=== PATIENT | male | born 1940 | race Two or more races ===

== ENCOUNTER 2024-10-14 18:19 | Inpatient (IN) | payer MEDICARE, MEDICAID, SELFPAY ==
--- OUTSIDE RECORDS SUMMARY | 2023-07-18 04:45 | XMS_ITS ---
Author Organization [facility] vices Address [address] [place], [place] [phone] Care Team Providers Care Warhead Maintenance Specialist Name Role Phone Eric Green Primary Care Provider [phone] Chema Roe [phone] REASON FOR VISIT F/u 2mo DM, Thyroid Social History Sex Assigned At : Social History Observation Description Sex Assigned At Male Encounters Encounter Location Date Provider Diagnosis [address] [id number] 07/18/2023 Chema Roe Plan Of Treatment No Information Progress Notes * Haven CUNNINGHAMShelbyOB: 3 (83 yo M)Acc No.[id number]:07/18/2023 Medical Note Patient: Osmany NICKERSON Provider: Karyn Roe MD :1940 A ge:82 Y S ex:Male Date:07/18/2023 Address:[address] [place], [place] [phone] Pcp:Eric Green Subjective: * Chief Complaints: * 1 . F/u 2mo DM, Thyroid. * Medical History: Objective: * Vitals: Assessment: Plan: * Treatment: * Billing Information: * Visit Code: * Procedure Codes: * Electronic signature of Jose Alberto Roe MD on 10/14/2024 at 06:34 PM EDT Sign off status: Pending * Provider: Karyn Roe MD Date: 07/18/2023 Generated for Printi ng/Faxing/eTransmitting on: 10/14/2024 06:34 PM EDT
--- OUTSIDE RECORDS SUMMARY | 2023-07-18 04:45 | XMS_ITS ---
Author Organization [facility] vices Address [address] [place], [place] [phone] Care Team Providers Care Montessori Preschool Teacher Name Role Phone Eric Green Primary Care Provider Chema Roe Unavailable [phone] REASON FOR VISIT F/u 2mo DM, Thyroid Social History Sex Assigned At : Social History Observation Description Sex Assigned At Male Encounters Encounter Location Date Provider Diagnosis [address] [id number] 07/18/2023 Chema Roe Plan Of Treatment No Information Progress Notes * Haven CUNNINGHAMShelbyOB: 3 (83 yo M)Acc No.[id number]:07/18/2023 Medical Note Patient: Osmany NICKERSON Provider: Karyn Roe MD :1940 A ge:82 Y S ex:Male Date:07/18/2023 Address:[address] [place], [place] [phone] Pcp:Eric Green Subjective: * Chief Complaints: * 1 . F/u 2mo DM, Thyroid. * Medical History: Objective: * Vitals: Assessment: Plan: * Treatment: * Billing Information: * Visit Code: * Procedure Codes: * Electronic signature of Jose Alberto Roe MD on 10/15/2024 at 06:42 AM EDT Sign off status: Pending * Provider: Karyn Roe MD Date: 07/18/2023 Generated for Printi ng/Faxing/eTransmitting on: 10/15/2024 06:42 AM EDT
--- OUTSIDE RECORDS SUMMARY | 2023-11-10 12:45 | XMS_ITS ---
Author Organization [facility] vices Address [address] [place], [place] [phone] Care Team Providers Care Tuber Machine Operator Helper Name Role Phone Eric Green Primary Care Provider Chema Roe Unavailable [phone] REASON FOR VISIT F/u DM, Thyroid ( labs One week prior) Social History Sex Assigned At : Social History Observation Description Sex Assigned At Male Encounters Encounter Location Date Provider Diagnosis [address] [id number] 11/09 Eric Green Plan Of Treatment No Information Progress Notes * Luis CUNNINGHAMOB: 3 (83 yo M)Acc No.[id number]:2023 Medical Note Patient: Timmy NICKERSONriel Provider: Phoenix Green PA-C :1940 A ge:82 Y S ex:Male Date:2023 Address:[address] [place], [place] [phone] Subjective: * Chief Complaints: * 1 . F/u DM, Thyroid ( labs One week prior). * Medical History: Objective: * Vitals: Assessment: Plan: * Treatment: * Billing Information: * Visit Code: * Procedure Codes: * Electronic signature of KAYLIN Valle on 10/15/2024 at 06:42 AM EDT Sign off status: Pending * Provider: Phoenix Green PA-C Date: 0 2023 Generated for Printi ng/Faxing/eTransmitting on: 0 10/15/2024 06:42 AM EDT
--- OUTSIDE RECORDS SUMMARY | 2024-07-29 12:23 | XMS_ITS ---
Author Organization [facility] [place] Address [address] [place] [address] Care Team Providers Care Performance Reporter Name Role Phone Brock Jarvis Primary Care Provider REASON FOR VISIT [facility] - Med Adherence Encounters Encounter Location Date Provider Diagnosis [facility] [address] [place] [address] 07/29/2024 Brock Jarvis Plan Of Treatment Next Appt Details Provider Name:Brock mayberry, 02/02/2025 03:15:00 PM, [address] [place], [address], Progress Notes * Luis CUNNINGHAMOB: 3 (83 yo M)Acc No.[id number]:07/29/2024 Patient: Timmy NICKERSONriel :1940 A ge:83 Y S ex:Male Address:[address] [place] [address], [phone] * true * Date: Generated for Jonah mayberry/Faxing/eTransmitting on: 0 10/14/2024 06:34 PM EDT
--- OUTSIDE RECORDS SUMMARY | 2024-07-29 12:23 | XMS_ITS ---
Author Organization [facility] [place] Address [address] [place] [address] Care Team Providers Care Team Leader Surgery Name Role Phone Brock Jarvis Primary Care Provider REASON FOR VISIT [facility] - Med Adherence Encounters Encounter Location Date Provider Diagnosis [facility] [address] [place] [address] 07/29/2024 Brock Jarvis Plan Of Treatment Next Appt Details Provider Name:Brock mayberry, 02/02/2025 03:15:00 PM, [address] [place], [address], Progress Notes * Luis CUNNINGHAMOB: 3 (83 yo M)Acc No.[id number]:07/29/2024 Patient: Timmy NICKERSONriel :1940 A ge:83 Y S ex:Male Address:[address] [place] [address], [phone] * true * Date: Generated for Jonah mayberry/Falucyg/eTransmitting on: 0 10/15/2024 06:43 AM EDT
--- OUTSIDE RECORDS SUMMARY | 2024-08-02 11:30 | XMS_ITS ---
Author Organization [facility] in [place] Address [address] [place] [address] Care Team Providers Care Director Radio News Name Role Phone Brock Jarvis Primary Care Provider Allergies No Known Allergies REASON FOR VISIT -3 Month Follow Up- Medications Medication SIG (Take, Route, Frequency, Duration) Notes Start Date End Date Status Lisinopril 2.5 MG 1 tablet Orally Once a day for 90 days 03/17/2024 Not-Taking metFORMIN HCl 500 MG 1 tablet with a dwayne l Orally Once a day for 90 days Active Lisinopril 2.5 MG 1 tablet Orally Once a day for 90 days 04/29/2024 Active Levothyroxine Sodium 150 MCG 1 tablet in the morning on an empty stomach Orally Once a day for 90 days Active Social History Tobacco Use: Social History Observation Description Date Details (start date - stop date) Never Smoker NA - NA Tobacco Control (Standard) Question Answer Notes Tobacco use: Nonsmoker Vital Signs Blood pressure systolic 118 mm Hg 08/03/19 25 Blood pressure diastolic 70 mm Hg 025 Heart Rate 83 /min 08/02/2024 Respiratory Rate 16 /min 08/02/2024 Height 65 in 08/02/2024 Weight 196.4 lbs 08/02/2024 BMI 32.68 kg/m2 08/02/2024 Oximetry 94 % 08/02/2024 Procedures Procedure Date Ordered Date Performed Result Body Sit e CARDIO Stress Test - Cardiolite 08/02/2024 N/A Encounters Encounter Location Date Provider Diagnosis [facility] [address] [place] [address] 08/02/2024 Brock Jarvis Other obesity due to excess calories E66.09 ; Body mass index [BMI] 32.0-32.9, adult Z68.32 ; Obesity, class 1 E66.811 ; Shortness of breath R06.02 ; Hypothyroidism, unspecified E03.9 ; Type 2 diabetes mellitus with other diabetic kidney complication E11.29 ; Chest pain, unspecified R07.9 and 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 Assessments Encounter Date Diagnosis (ICD Code) Assessment Notes Treatment Notes Treatment Clinical Notes Section Notes 08/02/2024 Other obesity due to excess calories (ICD-10 - E66.09) diet/exercise 08/02/2024 Body mass index [BMI] 32.0-32.9, adult (ICD-10 - Z68.32) 08/02/2024 Obesity, class 1 (ICD-10 - E66.811) 08/02/2024 Shortness of breath (ICD-10 - R06.02) ?etiology set up stress test ER if worsens 08/02/2024 Hypothyroidism, unspecified (ICD-10 - E03.9) lab yearly stable 08/02/2024 Type 2 diabetes mellitus with other diabetic kidney complication (ICD-10 - E11.29) stable monitor a1c and bmp and urine microalbumin monitor bs rtc 6 months rec increasing DAVID - pt to hold off 08/02/2024 Chest pain, unspecified (ICD-10 - R07.9) ER if worsens ?CAD 08/02/2024 Other nonrheumatic aortic valve disorders (ICD-10 - I35.8) pt do echo we set up in past to r/o worsening valvular dz as cause of his SOB/fatigue Plan Of Treatment Medication Medication Name Sig Start Date Stop Date Notes metFORMIN HCl 500 MG 1 tablet with a dwayne l Orally Once a day for 90 days Lisinopril 2.5 MG 1 tablet Orally Once a day for 90 days 04/29/2024 Levothyroxine Sodium 150 MCG 1 tablet in the morning on an empty stomach Orally Once a day for 90 days Treatment Notes Assessment Notes Other obesity due to excess calories t/exercise Shortness of breath ?etiology set up stress test ER if worsens Hypothyroidism, unspecified lab yearly stable Type 2 diabetes mellitus wit h other diabetic kidney complication stable monitor a1c and bmp and urine microalbumin monitor bs rtc 6 months rec increasing DAVID - pt to hold off Chest pain, unspecified ER if worsens ?CAD Other nonrheumatic aortic valve disorder s pt do echo we set up in past to r/o worsening valvular dz as cause of his SOB/fatigue Pending Test Test Name Order Date CARDIO Stress Test - Cardiolite 08/03/19 Next Appt Details Provider Name:Brock Mills shawanda, 02/02/2025 03:15:00 PM, [address] [place], [address], Progress Notes * CUNNINGHAMLuisOB: 3 (83 yo M)Acc No.[id number]:08/02/2024 Established Patient: Osmany NICKERSON Provider: Giulia Jarvis DO :1940 A ge:83 Y S ex:Male Date:08/02/2024 Address:[address] [place], [place] [address] Check In:02:57 PM ESTCheck O ut:03:35 PM EST Subjective: * Chief Complaints: * - 3 Month Follow Up- * HPI: G eneral: Patient presents today for 3 month follow up. Patient states he would like a refill on all meds and to be 90 days worth. He states he is sob sometimes. He states it has been going on for about 4 months he has been sob and having fatigue.-MV - - - - - - - - - - +SOB/TRAVIS more lately no dizzy/palp occ chest discomfort +fatigue - - - - -- not checking BP/BS at home - - - - - - -- +sys murmiur never did echo from last appt - - - - - - - - - [phone] - daughter - - - - - - - - - - tolerating all meds no f/c/URI s/s no N/V/D/C/blood no dysuria/hematuria +nocturia no joint swelling +various joint pains no rashes mood ok 04/29/24 A1c 5.7 01/2024 labs reviewed - bmp done - - - - - - -- tolerating all meds - - - - - - - - 01/2024 labs - Cr 0.75, GFR >90, TSH normal, urine microalbumin abnormal. D epression Screening: PHQ-2 (2015 Edition) L ittle interest or pleasure in doing things??Not at all F eeling down, depressed, or hopeless? N ot at all T otal Score 0 * ROS: G eneral/Constitutional: Significant change in weight d enies. E xercise Intolerance d enies. N ight sweats d enies. F ever d enies. E yes: Dry eyes D enies. V ision changes d enies. ? E NMT: Sore Throat d enies. N ose Bleeds d enies. D ifficulty hearing d enies. E ar pain d enies. N ose/sinus problems d enies. S noring d enies. B leeding gums d enies. D ry mouth d enies. M outh ulcers denies. O ral abnormalities d enies. T eeth problems d enies. C ardiovascular: Shortness of Breath w/Walking a dmits. S hortness of Breath w/lying flat d enies. A rm pain on exertion d enies. C hest pain d enies,admits. H eart murmur a dmits. P alpitations d enies. R espiratory: Coughing up blood d enies. C ough d enies. S hortness of breath a dmits. W heezing d enies. G astrointestinal: Change in appetite d enies. V omiting blood d enies. A bdominal pain d enies. C onstipation d enies. D iarrhea d enies. V omiting d enies. G enitourinary: Dysuria/Increased Frequency d enies. H ematuria d enies. I ncontinence d enies. D ifficulty urinating d enies. M usculoskeletal: Swelling in the extremities d enies. A rthralgias/joint pain A dmits. B ack pain d enies. W eakness of muscles a dmits. M uscle aches d enies. S kin: Jaundice D enies. M ole(s) d enies. R kervin d enies. N eurologic: Dizziness d enies. L oss of consciousness d enies.?Numbness d enies. W eakness a dmits. H eadache d enies. S eizures d enies. P sychiatric: Alcohol abuse d enies. F eeling safe in relationship?denies. D epression d enies. A nxiety d enies. S leep Disturbances d enies. E ndocrine: Fatigue a dmits. H ematologic/Lymphatic: Swollen Glands d enies. B ruising d enies. ? A llergy/Immunology: Runny nose d enies. S inus pressure d enies. F requent sneezing d enies. H harman d enies. I tching d enies. 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 Modified On:03/17/2024 Status:confirmed Z68.30 Body mass index [BMI ] 30.0-30.9, adult Modified On:03/21/2024 Status:confirmed 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 * Family History: F ather: . M other: . 1 daughter(s) . . * Social History: T obacco Use: T obacco Control (Standard) T obacco use: N onsmoker * Medications: T akingLevothyroxine Sodium 150 MCG Tablet 1 tablet in the morning on an empty stomach Orally Once a day Lisinopril 2.5 MG Tablet 1 tablet Orally Once a day metFORMIN HCl 500 MG Tablet 1 tablet with a meal Orally Once a day Taking Levothyroxine Sodium 150 MCG Tablet 1 tablet in the morning on an empty stomach Orally Once a day Taking Lisinopril 2.5 MG Tablet 1 tablet Orally Once a day Taking metFORMIN HCl 500 MG Tablet 1 tablet with a meal Orally Once a day Not-Taking/PRNLisinopril 2.5 MG Tablet 1 tablet Orally Once a day Medication List reviewed and reconciled with the patientNot-Taking/PRN Lisinopril 2.5 MG Tablet 1 tablet Orally Once a day Medication List reviewed and reconciled with the patient * Allergies: N .K.D.A.no[Allergies Verified] Objective: * Vitals: W t:196.4lbs, Ht: 65 in, BP:118/70mm Hg, HR:83/min, RR:16/min, BMI:32.68Index, Oxygen sat %:94%, Ht-cm: 165.1 cm, Wt-k.09 kg. * Examination: G eneral Examination: GENERAL APPEARANCE: h ealthy Appearing , well nourished , well developed Level of distress: NAD, + limp, o bese. ENMT: E ACs clear, TMs clear, +poor hearing b/l, no lesions on external ears, nares patent, nasal passages clear, no sinus tenderness, no nasal discharge, no mouth or lip ulcers, no bleeding gums, moist mucous membranes, no erythema, no exudates. HEAD: n ormocephalic, atraumatic. EYES: n on-injected, no discharge, no pallor, PERRLA , EOMI, sclera non-icteric, peripheral vision grossly intact, acuity grossly intact. LUNGS: n o dyspnea, breath sounds normal , good air movement, CTA except as noted, no wheezing, no rales/crackles, no rhonchi. CARDIO: n ot displaced, RRR, S1, S2 normal, +systolic murmur, no carotid bruits, normal throughout. ABDOMEN: n ormal bowel sounds , soft, non tender, not distended, no guarding, no rebound tenderness, no masses, no CVA tenderness, liver non tender, no hepatomegaly. BACK: n ormal curvature. MUSCULOSKELETAL: + general weakness UE/LE b/l, +OA changes b/l hands, no contractures, no malalignment, no tenderness. SKIN: n o rash, no lesions, no ulcer, no abnormal nevi, no induration, no nodules, good turgor, no jaundice. EXTREMITIES: No edema. NEUROLOGIC: c ranial nerves grossly intact, sensation grossly intact, no tremor. PSYCH: j udgement and insight good, active and alert, normal mood, normal affect. NECK/THYROID: N jose supple, trachea midline, no masses, FROM, no cervical LAD, no enlargement, non-tender, no nodules. Assessment: * Assessment: 1. O ther obesity due to excess calories - E66.09 (Primary) 2 . B kervin mass index [BMI] 32.0-32.9, adult - Z68.32 3 . O besity, class 1 - E66.811 4 . S hortness of breath - R06.02 5 . H ypothyroidism, unspecified - E03.9 6 . T ype 2 diabetes mellitus with other diabetic kidney complication - E11.29 7 . C hest pain, unspecified - R07.9 8 . O ther nonrheumatic aortic valve disorders - I35.8 Plan: * Treatment: 2. S hortness of breath Notes: ?etiology set up stress test ER if worsens 3. H ypothyroidism, unspecified Refill Levothyroxine Sodium Tablet, 150 MCG, 1 tablet in the morning on an empty stomach, Orally, Once a day, 90 days, 90, Refills 3. Notes: lab yearly stable 4. T ype 2 diabetes mellitus with other diabetic kidney complication Refill Lisinopril Tablet, 2.5 MG, 1 tablet, Orally, Once a day, 90 days, 90, Refills 1; R efill metFORMIN HCl Tablet, 500 MG, 1 tablet with a meal, Orally, Once a day, 90 days, 90, Refills 3.? Notes: stable monitor a1c and bmp and urine microalbumin monitor bs rtc 6 months rec increasing DAVID - pt to hold off 5. C hest pain, unspecified P rocedure: CARDIO Stress Test - Cardiolite Notes: ER if worsens ?CAD ??6.?Other nonrheumatic aortic valve disorders? Notes: pt do echo we set up in past to r/o worsening valvular dz as cause of his SOB/fatigue? * Procedure Codes: * Preventive Medicine: Screenings/Counseling: T OBACCO ACTION PLAN Patient counselled on the dangers of tobacco use and urged to quit. 0 08/02/2024 Cessation counseling provided 0 08/02/2024 * * Sign off status: Completed Visit Status: C HK (Check Out) true * Provider: Giulia Jarvis DO Date: 0 08/02/2024 Generated for Jonah mayberry/Rylan/eTalfonsosmitting on: 0 10/14/2024 06:34 PM EDT History and Physical Notes * HPI (History of Present Illness) Category Sub-Category Detail Notes Category Not es Depression Screening PHQ-2 (2015 Edition) Little interest or pleasure in doing things?: Not at all Feeling down, depressed, or hopeless?: N ot at all Total Score: 0 Examination Category Sub-Category Detail Notes Category Not es General Examination GENERAL APPEARANCE: healthy Appearing , well nourished , well developed Level of distress: NAD, +limp, obese EYES: non-injected, no dis charge, no pallor, PERRLA , EOMI, sclera non-icteric, peripheral vision grossly intact, acuity grossly intact CARDIO: not displaced, RRR, S1, S2 normal, +systolic murmur, no carotid bruits, normal throughout LUNGS: no dyspnea, breath s ounds normal , good air movement, CTA except as noted, no wheezing, no rales/crackles, no rhonchi ABDOMEN: normal bowel sounds , soft, non tender, not distended, no guarding, no rebound tenderness, no masses, no CVA tenderness, liver non tender, no hepatomegaly NEUROLOGIC: cranial nerves gross ly intact, sensation grossly intact, no tremor SKIN: no rash, no lesions, no ulcer, no abnormal nevi, no induration, no nodules, good turgor, no jaundice EXTREMITIES: No edema BACK: normal curvature MUSCULOSKELETAL: +general weakness UE /LE b/l, +OA changes b/l hands, no contractures, no malalignment, no tenderness PSYCH: judgement and insigh t good, active and alert, normal mood, normal affect ENMT: EACs clear, TMs shahnaz r, +poor hearing b/l, no lesions on external ears, nares patent, nasal passages clear, no sinus tenderness, no nasal discharge, no mouth or lip ulcers, no bleeding gums, moist mucous membranes, no erythema, no exudates HEAD: normocephalic, atrau matic NECK/THYROID: Neck supple, trachea midline, no masses, FROM, no cervical LAD, no enlargement, non-tender, no nodules
--- OUTSIDE RECORDS SUMMARY | 2024-08-02 11:30 | XMS_ITS ---
Author Organization [facility] in [place] Address [address] [place] [address] Care Team Providers Care Straight Cutter Name Role Phone Brock Jarvis Primary Care Provider [phone] Allergies No Known Allergies REASON FOR VISIT [...] Answer Notes Tobacco use: Nonsmoker Vital Signs Weight 196.4 lbs 08/02/2024 Height 65 in 08/02/2024 Blood pressure systolic 118 mm Hg 08/03/19 25 Blood pressure diastolic 70 mm Hg 025 Heart Rate 83 /min 08/02/2024 Respiratory Rate 16 /min 08/02/2024 BMI 32.68 kg/m2 08/02/2024 Oximetry 94 % 08/02/2024 Procedures Procedure Date Ordered Date Performed Result Body Sit e CARDIO Stress Test - Cardiolite 08/02/2024 N/A Encounters Encounter Location Date Provider Diagnosis [facility] [address] [place] [address] 08/02/2024 Brock Jarvis Other obesity due to [...] Mills shawanda, 02/02/2025 03:15:00 PM, [address] [place], [address], Progress Notes * CUNNINGHAMLuisOB: 3 (83 yo M)Acc No.[id number]:08/02/2024 Established Patient: Osmany NICKERSON Provider: Giulia Jarvis DO :1940 A ge:83 Y S ex:Male Date:08/02/2024 Address:[address] [place], [place] [address] Check In:02:57 PM ESTCheck O ut:03:35 PM [...] - - - - - - - [phone] - daughter - - - - - [...] 08/02/2024 Generated for Jonah mayberry/Rylan/eTalfonsosmitting on: 0 10/15/2024 06:42 AM EDT History and Physical Notes * HPI [...]
[2024-10-14] VITALS (28 sets, daily range): BP systolic 103–134; BP diastolic 67–88; PULSE 65–92; TEMP 36.4–36.6; O2SAT 91–99; BMI 29.8; BMI 31.5
--- OUTSIDE RECORDS SUMMARY | 2024-10-14 11:14 | XMS_ITS ---
Author Organization [facility] in [place] Address [address] [place] [address] Care Team Providers Care Rail Car Mechanic Name Role Phone Brock Jarvis Primary Care Provider [phone] REASON FOR VISIT son Encounters Encounter Location Date Provider Diagnosis [address] [address] 10/14/2024 Brock Jarvis Plan Of Treatment Next Appt Details Provider Name:Brock mayberry, 02/02/2025 03:15:00 PM, [address] [place], [address], Progress Notes * Wilmer CUNNINGHAM: 3 (83 yo M)Acc No.[id number]:10/14/2024 Patient: Timmy NICKERSONriel :1940 A ge:83 Y S ex:Male Address:[address] [place] [address], [address] * true * Date: Generated for Jonah mayberry/Falucyg/eTransmitting on: 0 10/15/2024 06:43 AM EDT
--- OUTSIDE RECORDS SUMMARY | 2024-10-14 11:14 | XMS_ITS ---
Author Organization [facility] in [place] Address [address] [place] [address] Care Team Providers Care Assistant Teacher Name Role Phone Brock Jarvis Primary Care Provider [phone] REASON FOR VISIT son Encounters Encounter Location Date Provider Diagnosis [facility] [address] [place] [address] 10/14/2024 Brock Jarvis Plan Of Treatment Next Appt Details Provider Name:Brock mayberry, 02/02/2025 03:15:00 PM, [address] [place], [address], Progress Notes * Luis CUNNINGHAMOB: 3 (83 yo M)Acc No.[id number]:10/14/2024 Patient: Timmy NICKERSONriel :1940 A ge:83 Y S ex:Male Address:[address] [place] [address], [address] * true * Date: Generated for Jonah mayberry/Falucyg/eTransmitting on: 0 10/14/2024 06:34 PM EDT
--- OUTSIDE RECORDS SUMMARY | 2024-10-14 18:34 | XMS_ITS | Clinical Summary ---
Author Organization [facility] Address [address] [place] [address] Care Team Providers Care Human Resources Trainer Name Role Phone Chema Roe MD Primary Care Provider [phone] Allergies No known active allergies Medications metFORMIN (Glucophage) 500 MG tablet 1 (one) time each day at the same time. Active levothyroxine (Synthroid, Levoxyl) 150 MCG tablet TAKE 1 TABLET BY MOUTH ONCE DAILY IN THE MORNING ON AN EMPTY STOMACH FOR 90 DAYS Active acetaminophen (Tylenol) 500 MG tablet Take 500 mg by mouth every 6 (six) hours if needed. Active Multiple Vitamin (Multi Vitamin) tablet 1 (one) time each day at the same time. 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 11/06/2022 Arthritis of left knee 11/06/2022 Primary osteoarthritis of left knee 11/05/2022 Immunizations Immunization Administration Dates Next Due Influenza, High-dose Seasona l, Quadrivalent, Preservative Free 02/25/2022,11/02/2019 Influenza, injectable, MDCK, preservative free, quadrivalent 03/13/2018 Influenza, seasonal, injectable, preservative fr ee 12/16/2016 SARS-COV-2 (COVID-19) vaccin e, mRNA, spike protein, LNP, bivalent, PF 02/25/2022 Tdap 09/11/2020 Zoster, Recombinant 11/02/2019 Family History Medical History Relation Name Comments Diabetes Mother Heart disease Other siblings Relation Name Status Comments Father Mother Other siblings Social History Tobacco Use Types Packs/Day Years Used Date Smoking Tobacco: Former Cigarettes Smokeless Tobacco: Never Tobacco Cessation:Counseling Given: Not Answered Alcohol Use Standard Drinks/Week Comments Never 0 (1 standard drink = 0.6 oz pure alcohol) caffeine intake: 1-2 cups per day coffee Sex and Gender Information Value Date Recorded Sex Assigned at Not on file Legal Sex Male 6:56 PM EDT Gender Identity Not on file Sexual Orientation Not on file Last Filed Vital Signs Vital Sign Reading Time Taken Comments Blood Pressure 117/71 05/03/2019 12:00 PM EDT Pulse - - Temperature - - Respiratory Rate - - Oxygen Saturation - - Inhaled Oxygen Concentration - - Weight 88.5 kg (195 lb) 01/09/2023 10:14 AM EST Height 172.7 cm (5' 8 ) 01/09/2023 10:14 AM EST Body Mass Index 29.65 01/09/2023 10:14 AM EST Plan of Treatment Health Maintenance Due Date Last Done Comments Pneumococcal Vaccine: 65+ Ye ars (2 of 2 - PCV) 12/02/2014 12/02/2013 Influenza Vaccine (#1) 2024 3, 02/25/2022, 11/02/2019, Additional history exists Insurance [facility] [employer] MEDICAID [place] Care Teams Human Resources Trainer Relationship Specialty Start Date End Date Chema Roe MD [address] [place] [address] PCP - General Family Medicine 10/11/22
--- OUTSIDE RECORDS SUMMARY | 2024-10-14 18:35 | XMS_ITS ---
Author Organization [facility] Care Team Providers Care Room Service Waiter Name Role Phone Pantera Mclaughlin Unavailable Unavailable Allergies and adverse reactions No Known Allergies Care Team Name Role Address Phone Organization Dates Pantera Mclaughlin PCP [address] [place], [address], [place] (Office): : [facility] 12/13/2013 - 01/07/2014 Immunizations Immunization Status Vaccine Details Vaccine Code CodeSystem Date Notes TB 1 Step Mantoux (PPD) completed tuberculin skin test; unspecified formulation lotNumber: [id number] expiry: 04/23/2013 Mfg: [employer] Given 0.1 ml Right Forearm intradermally 98 CVX created date: 12/04/2013 consent date: 12/04/2013 administer ed date: 12/04/2013 TB 1 Step Mantoux (PPD) completed tuberculin skin test; unspecified formulation lotNumber: [id number] expiry: 03/27/2015 Mfg: JHP Given 0.1 ml Left Forearm intradermally 98 CVX created date: 11/24/2013 consent date: 11/24/2013 administer ed date: 11/24/2013 Educated by sofia jung on 11/24/2013 PPSV 23 completed pneumococcal polysaccharide vaccine, 23 valent expiry: 05/21/2014 Mfg: MERCK Given 0.5 ml Right Deltoid intramuscularly 33 CVX created date: 12/02/2013 consent date: 12/02/2013 administer ed date: 12/02/2013 TD Vaccine (Tetnus/dipther ia) completed lotNumber: [id number] expiry: 01/01/2015 Mfg: [employer] Given 0.5 ml Left Deltoid intramuscularly created date: 12/02/2013 consent date: 12/02/2013 administer ed date: 12/02/2013 Mental Status Section Date Assessment Total Score Description 12/11/2013 BIMS 15 cognitively int act PHQ-9 03 minimal depress ion 12/07/2013 BIMS 15 cognitively int act PHQ-9 03 minimal depress ion Reason for Referral No Reasons for Referral Entered Social History Social History Observation Description Start Date End Date Code Code System Current Smoking Status Tobacco smoking consumption unknown 880015531 SNOMED CT Sex Assigned At Male 1940 76643-3 [facility] Gender Identity Vital Signs Code Code System Vitals Name Values and Units Timing Information 9279-1 [facility] Respiratory Rate Value=18.0 Units=/m in 12/10/2013 8462-4 [facility] Blood Pressure-Diastolic Value=62 Un its=mmHg 12/10/2013 8480-6 [facility] Blood Pressure-Systolic Vmxny=303 Un its=mmHg 12/10/2013 8310-5 [facility] Body Temperature Value=98.2 Units= F 12/10/2013 8867-4 [facility] Heart rate Value=60.0 Units=/min 46605-5 [facility] O2 % dC Oximetry Value=95.0 Units= % 12/10/2013 2339-0 [facility] Blood Sugar Bnjhz=506.0 Units=mg/dL 12/08/2013 42284-8 [facility] Weight Qezvf=121.2 Units=Lbs 01/2014 8302-2 [facility] Height Value=66.0 Units=Inches 11/23/2013
--- OUTSIDE RECORDS SUMMARY | 2024-10-14 18:35 | XMS_ITS | Patient Health Record ---
Author Organization [facility] Address [address] [place], [place] [id number] Care Team Providers Care Search Lead Name Role Phone Eric Green Primary Care Provider Chema Roe Unavailable [phone] Allergies No Known Allergies Reason For Referral No Information Medications Medication SIG (Take, Route, Frequency, Duration) Notes Start Date End Date Status Levothyroxine Sodium 150 MCG 1 capsule i n the morning on an empty stomach Orally Once a day; Duration: 90 days Active metFORMIN HCl 500 MG 1 tablet with a dwayne l Oral Once a day; Duration: 90 days Active Acetaminophen 500 MG 1 tablet as needed Orally as needed Active Immunizations Vaccine Route Administration Date Status Comme nts Influenza, inj, MDCK, preservative free, q.valent IM Intramuscular 03/13/2018 Administered Status:Complete ,Reason:Given or N/A Influenza, quadrivalent, split, preservative free, 3 years or older IM Intramuscular 12/16/2016 Administered Status:Complete ,Reason:Given or N/A Social History Tobacco Use: Social History Observation Description Date Details (start date - stop date) Never Smoker NA - NA Sex Assigned At : Social History Observation Description Sex Assigned At Male Household Question Answer Notes Number of adults in household: 3 Tobacco Use/Smoking Question Answer Notes Tobacco use: nonsmoker patient enter ed data CAGE-AID Questionnaire (2018 Edition) Question Answer Notes Have you ever felt that you ought to cut down on your drinking or drug use? No patient entered data Have people annoyed you by c riticizing your drinking or drug use? No patient entered data Have you ever felt bad or gu ilty about your drinking or drug use? No patient entered data Have you ever had a drink or used drugs first thing in the morning to steady your nerves or to get rid of a hangover? No patient entered data CAGE-AID Score 0 Interpretation Negative PRAPARE Question Answer Notes Date Completed/Updated: 08/20/2023 libia nt entered data What is your current housing situation? I have housing patient entered data Are you worried about losing your housing? No patient entered data What is the highest level of school that you have finished? Less than a high school degree patient entered data What is your current work situation? Otherwise unemployed but not seeking work (ex. 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 No How often do you see or talk to people that you care about and feel close to? (For example: talking to friends on the phone, visiting friends or family, going to adventism or club meetings) 1 or 2 times a week patient entered data How stressed are you? Stress is when someone feels tense, nervous, anxious, or can't sleep at night because their mind is troubled Not at all patient entered data In the past year have you sp ent more than 2 nights in a row in a fpc, long term, correction center, or juvenile correctional facility? No patient entered data Are you a refugee? No patient en tered data What country are you from? [place] cristhian moran entered data Do you feel physically and emotionally safe where you currently live? Yes patient entered data In the past year, have you b een afraid of your partner or ex-partner? No patient entered data PRAPARE Score: 8 Problems Problem Type SNOMED Code ICD Code Onset Dates Problem Status W/U Status Risk Notes Problem Benign prostatic hypertrophy without outflow obstruction (754385106) Benign prostatic hyperplasia without lower urinary tract symptoms (N40.0) Active confirmed Problem Type II diabetes mellitus without complication (866647087) Type 2 diabetes mellitus without complication, without long-term current use of insulin (E11.9) Active confirmed LABS PRIOR T O NEXT VISIT , SEPT Problem Mitral regurgitation (42313921) Mitral regurgitation (I34.0) Active confirmed ASYMPTOMATIC, ECHO JULY 2021, SEE ECG FOLDER. SAW CARDS, MURMUR IS UNCHANGED Problem Valvular heart disease (485273) Valvular heart disease (I38) Active confirmed aortic stenosi s, will have them make appt with cardiology for their input also. Problem Acquired hypothyroidism (806000021) Acquired hypothyroidism (E03.9) Active confirmed WILL ORDER LABS FOR SEPT, Problem Allergic rhinitis (72542550) Allergic rhinitis, unspecified seasonality, unspecified trigger (J30.9) Active confirmed TRIAL OF LORATADINE. 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 Therefore, I think it likely this is bullous impetigo, respoinding well. finish out the doxy; Use OTC moisturizing cream BID to the involved area., Problem Ingrowing nail (495160316) Ingrowing nail (L60.0) Active confirmed Comment:Offserenityi derrick g ingrown lateral nail border was able to be removed with debridement of nail. Symptomatic relief obtained with debridement, Problem Essential hypertension (31820361) Essential hypertension (I10) Active confirmed Comment:Doing well without any meds. continue lifestyle measures., Problem Osteoarthritis of knee (925007825) Osteoarthritis of knees, bilateral (M17.0) Active confirmed Problem Osteoarthritis of knee (866894948) Arthritis of knee, degenerative (M17.10) Active confirmed Comment:bilat. Use Naproxen prn.,Description :Osteoarthritis of knee Problem Type II diabetes mellitus without complication (937343369) Diabetes (E11.9) Active confirmed Comment:At goal , 6.5; same regimen, diet and exercise. (has enough meds for now), Problem Hyperlipidemia (96169545) Hyperlipidemia (E78.5) Active confirmed Comment:Continu e with low fat diet and increased exercise as able, Problem Depression screening (100362074) Screening for depression (Z13.31) Active confirmed Description:Dep r ession screening Problem Hyperlipidaemia (78774638) HLD (hyperlipidemia ) (E78.5) Active confirmed Comment:CONTROL L ED WITH DIET, LDL 62, NO NEED FOR STATIN., Problem Onychomycosis caused by dermatophyte (932408019) Dermatophytosis , nail (B35.1) Active confirmed Comment:Discu sse d diagnosis of onychomycosis with the pt along with treatment options of doing nothing vs oral antifungal vs topical anti fungal. They opted for oral Lamisil. Discussed potential negative side effects along with the growth cycle of 9-12 months of toenails. Rx for AST, ALT and Alk phos to be completed - pt to wait to hear from [facility] about results before taking the medication. Instructed on taking one tab daily x 3 months. D/C if any negative side effects are experienced., Problem DM - Diabetes mellitus (28410753) DM (diabetes mellitus) (E11.9) Active confirmed Comment:doing well, continue current regimen., Problem Fungal infection of nail (861771032) Fungal infection of nail (B35.1) Active confirmed Comment:dry out toe nails apply tea tree oil daily not every third day wear only non cotton socks use cotton socks for stocking for [place] not for feet,Description :Onychomycosis Problem Tick bite (80924719) Tick bite (W57.XXXA) Active confirmed Comment:From hi s description, sounds like a DOG Tick, not a DEER tick, but due to the question as to which, he was treated two weeks with doxy, finished it no problems, REASSURED., Problem Onychomycosis caused by dermatophyte (022884897) Fungal infection of toenail (B35.1) Active confirmed Comment:Brian almanzar his course of Rx, seems to be responding; follow up in 3 months.,Descript ion:Onychomycosi s of toenail 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 REFER to Derm, BARBARA, Problem Type II diabetes mellitus without complication (235594677) Diabetes mellitus, controlled (E11.9) Active confirmed Comment:doing well, SAME Regimen; continue good exercise and eating habits., Problem Arthritis of knee (539533402) Arthritis of knee (M17.10) Active confirmed Comment:Degene ra tive; mild. Rx PRN (not daily) naproxen 500mg., Problem Pre-procedure evaluation check (174525768) Preoperative examination (Z01.818) Active confirmed Comment:I do NOT yet have the lab results, nor CXR, ECG reports from this morning, done at [facility], BUT he has no specific hx of cardiopulmonary disease. Exam is normal, DM has been under control. Will provisionally indicate him to be at ''LOW RISK'' for perioperative cardiopulmonary complications. See attached letter; IF any of the results of the preoperative testing are abnormal, then I will require reevaluation of his risk assessment, which will postpone his surgery., Problem Osteoarthritis of knee (754628025) Osteoarthritis, knee (M17.10) Active confirmed Comment:Left knee; somehwat worse than previously; no instability. Will check Xray. Meahwhile, acetaminophen prn (which does work for him)., Problem Hypertension (64151368) HTN (hypertension) (I10) Active confirmed Comment:Good control with lifestyle measures, samir. salt limitation; Will get labs today (also regarding his DM), then follow up., Problem Requires vaccination (189110810) Need for immunization against influenza (Z23) Active confirmed Description: Flu vaccine need Problem Diabetes mellitus (11208459) Diabetes mellitus (E11.9) Active confirmed Comment:perfect , with A1C = 6.1, on current regimen. continue., Problem Artificial knee joint present (922554816672) Status post right knee replacement (Z96.651) Active confirmed Comment:Overall doing well, but with likely iron-deficient anemia related to his recent surgery. CONTINUE with therapy as ordered per his Ortho., Problem Sensorineural hearing loss (69381477) Sensorineural hearing loss (H90.5) Active confirmed Comment:wiil GIVE CONTACT INFO for audiology., Problem Type II diabetes mellitus well controlled (558773587) DM II (diabetes mellitus, type II), controlled (E11.9) Active confirmed Comment:A1C at goal, doing well with current regimen., Problem Dental abscess (482935637) Dental abscess (K04.7) Active confirmed Comment:With associated cellulitis, IMPROVING. FINISH antibiotics as prescribed, MAKE APPT WITH DENTIST, BARBARA, for possible extraction or other appropriate dental work, as recurrence without such treatment, is likely. jrr, Problem Pain in limb (37860464) Acute foot pain (M79.673) Active confirmed Problem Anemia due to blood loss (487093091) Anemia, blood loss (D50.0) Active confirmed Comment:Rx FeSO 4 BID for 6 weeks, check CBC prior to next visit., Problem Type II diabetes mellitus without complication (517051888) Controlled diabetes mellitus (E11.9) Active confirmed Comment:Doing well, no complications; needs nails trimmed, will get appt with forestry tree pruner. Same regimen., Problem Gait abnormality (76927476) Gait abnormality (R26.9) Active confirmed Plan Of Treatment No Information Insurance Providers Payer Name Payer Address Payer Phone Subscriber Number Group Number Insured Name Patient Relationship to Insured Coverage Start Date Coverage End Date DMedicaid [address] [place], [place] [id number] Osmany Cunningham Self - patient is the insured 3 3 [employer] [address] [address] [place] [address] [id number] Osmany Cunningham Self - patient is the insured 2 Medicaid [employer] [address] [place], [place] [id number] Osmany Cunningham Self - patient is the insured 0 Medical (General) History Medical History History ICD Code Hypothyroidism Arthritis of knee Diabetes Mellitus, Type II Hypertension Prostate cancer Thyroid cancer Surgical History Surgery Date(Month/Year) Cholecystectomy Prostatectomy Thyroidectomy left knee replacement 02-05-2023 Hospitalization History Reason Date(Month/Year) See Above
--- OUTSIDE RECORDS SUMMARY | 2024-10-14 18:35 | XMS_ITS | Clinical Summary ---
Author Organization inContact tem Address [id number] [address] [place] [address] Care Team Providers Care Medical Physics Teacher Name Role Phone Brock Jarvis DO Primary Care Provider Allergies No known active allergies Medications levothyroxine (SYNTHROID, LEVOTHROID) 150 MCG tablet Take 1 tablet (150 mcg total) by mouth in the morning. Active metFORMIN (GLUCOPHAGE) 500 mg tablet Take 1 tablet (500 mg total) by mouth daily with breakfast. Active acetaminophen (TYLENOL EXTRA STRENGTH) 500 mg tablet Take 1 tablet (500 mg total) by mouth every 6 (six) hours as needed for pain. Active Active Problems Problem Noted Date Diagnosed Date Primary osteoarthritis of left knee 02/05/2023 Immunizations Immunization Administration Dates Next Due COVID-19, mRNA, LNP-S, PF, 100mcg/0.5mL Dose ,04/21/2020 Tdap 09/11/2020 Family History Medical History Relation Name Comments Heart attack Mother Relation Name Status Comments Father Mother Social History Tobacco Use Types Packs/Day Years Used Date Smoking Tobacco: Never Smokeless Tobacco: Never Tobacco Cessation:Counseling Given: Not Answered Alcohol Use Standard Drinks/Week Comments Never 0 (1 standard drink = 0.6 oz pur e alcohol) Childcare Answer Date Recorded Childcare Unknown 08/05/2018 Employment Answer Date Recorded Employment Unknown 08/05/2018 Hunger Screening Answer Date Recorded Within the past 12 months we worried whether our food would run out before we got money to buy more. Never True 02/02/2023 Within the past 12 months th e food we bought just didn't last and we didn't have money to get more. Never True 02/02/2023 Purpose - Life Answer Date Recorded Purpose and direction in life Unknown Sex and Gender Information Value Date Recorded Sex Assigned at Not on file Legal Sex Male 11:36 AM EDT Gender Identity Not on file Sexual Orientation Not on file Last Filed Vital Signs Vital Sign Reading Time Taken Comments Blood Pressure 120/68 02/06/2023 7:30 AM EST Pulse 71 02/06/2023 7:30 AM EST Temperature 36.7 C (98.1 F) 02/06/2023 7:30 AM EST Respiratory Rate 16 02/06/2023 7:30 AM EST Oxygen Saturation 97% 02/06/2023 7:30 AM EST Inhaled Oxygen Concentration - - Weight 89.9 kg (198 lb 3.2 oz) 02/05/2023 2:39 P M EST Height 170.2 cm (5' 7 ) 02/05/2023 2:39 PM EST Body Mass Index 31.04 02/05/2023 2:39 PM EST Plan of Treatment Health Maintenance Due Date Last Done Comments Depression Screening 1952 Fall Risk Screening 11/11/2007 COVID-19 Vaccine (2023-2 5 season) 2023 12/10/2022, 02/25/2022, 02/20/2021, Additional history exists Tobacco Screening 02/06/2024 02/05/2023 Influenza Vaccine 10/25/2024 01/29/2024, , 02/25/2022, Additional history exists DTaP,Tdap and Td Vaccines (2 - Td or Tdap) 09/11/2030 09/11/2020 Zoster (Shingles) Vaccine Completed 05/02/2023, 09/2019 Goals Goal Patient Goal Type Associated Problems Recent Progress Patient-Stated? Author Return home General Yes Lynda Petersen LSW Note: Evaluation of progress towards goal: In progress: Return home with family support and outpatient therapy Medical Devices Implanted Type Area Band Booker Device Identifier Shelf Expiration Date Model / Serial / Lot Cement Bn Bio 40gm Rpl [id number] - [id number] Implanted:Qt y: 2 on 02/05/2023 by Chema Stark DO at [facility] Cement Left: Knee [employer] 05/24/2025 [id number] / NA / [id number] Component Fem 8 Std Kn Lt Post Stab Cmnt Persona Cocr Strl - Sna - [id number] Implanted:Qt y: 1 on 02/05/2023 by Chema Stark DO at [facility] Orthopedic Implant Left: Knee [employer] 05/05/2032 [id number] / NA / [id number] Component Ptlr 35mm Persona Alply Kn Strl Lf - Sna - [id number] Implanted:Qt y: 1 on 02/05/2023 by Chema Stark DO at [facility] Orthopedic Implant Left: Knee [employer] 11/13/2027 [id number] / NA / [id number] Surface Artc 12mm Persona 6-9 Ef Kn Lt Vivacit-E Cnstrn Post - Sna - [id number] Implanted:Qt y: 1 on 02/05/2023 by Chema Stark DO at [facility] Orthopedic Implant Left: Knee [employer] 01/22/2027 [id number] / NA / [id number] Stem Xtn 30+ Mm 14mm Persona Tpr Kn Tib - Sna - [id number] Implanted:Qt y: 1 on 02/05/2023 by Chema Stark DO at [facility] Orthopedic Implant Left: Knee [employer] 09/18/2032 [id number] / NA / [id number] Baseplate Tib 5d F Kn Lt Cmnt Stm Persona Tiv Strl - Sna - [id number] Implanted:Qt y: 1 on 02/05/2023 by Chema Stark DO at [facility] Plate Left: Knee [employer] 03/11/2032 [id number] / NA / [id number] Explanted Type Area Band Booker Device Identifier Shelf Expiration Date Model / Serial / Lot Screw Bn 35mm 6.5mm St Hip Actb Trlg Strl Rpl [id number] - Sna - [id number] Explanted:Qty: 1 on 02/05/2023 by Chema Stark DO at [facility] Screw Left: Knee [employer] 02/06/2032 [id number] / NA / [id number] Screw Bn 35mm 6.5mm St Hip Actb Trlg Strl Rpl [id number] - Sna - [id number] Explanted:Qty: 1 on 02/05/2023 by Chema Stark DO at [facility] Screw Left: Knee [employer] 10/21/2032 [id number] / ALEXIS / [id number] 27mm Hx Hd Scr Srg - Sna - [id number] Explanted:Qty: 2 on 02/05/2023 by Chema Stark DO at [facility] Screw Left: Knee [employer] 10/22/2032 [id number] / NA / [id number] Screw Gd 48mm Qd-Spr Hex Hd Mis Strl - Sna - [id number] Explanted:Qty: 2 on 02/05/2023 by Chema Stark DO at [facility] Screw Left: Knee [employer] 12/15/2032 [id number] / NA / [id number] Insurance MEDICAID [place] [employer] MEDICARE Advance Directives * Full Code (Latest Code Status on File) Date Activated Date Inactivated Comments 02/05/2023 7:41 AM 02/06/2023 3:40 PM Care Teams Medical Physics Teacher Relationship Specialty Start Date End Date Brock Jarvis DO [facility] [place] [address] PCP - General Family Medicine 02/14/24
--- OUTSIDE RECORDS SUMMARY | 2024-10-14 18:35 | XMS_ITS | Patient Health Record ---
Author Organization [facility] in [place] Address [address] [place] [address] Care Team Providers Care Make Up Operator Name Role Phone JarvisBrock Primary Care Provider [phone] Allergies No Known Allergies Results Component Value Reference Range Notes HEMOGLOBIN A1C - IN OFFICE Reviewed date:02/23/2024 01:36:38 PM Interpretation:6.3 Performing Lab: Notes/Report: 6.3 HEMOGLOBIN A1C - IN OFFICE 6.3 4.4 - 6.4 HEMOGLOBIN A1C - IN OFFICE Reviewed date:05/04/2024 11:48:49 AM Interpretation:5.7 Performing Lab: Notes/Report: 5.7 HEMOGLOBIN A1C - IN OFFICE 5.7 4.4 - 6.4 PROSTATIC SPEC ANT Reviewed date:08/02/2024 03:13:33 PM Interpretation: Performing Lab:[facility] ([facility]), [address] [place], [place] [address]., [address] [address] PH:[phone] Notes/Report: PROSTATIC SPEC ANT 0.11 0.00-4.00 ng/mL cannot be used interchangeably. [place] DXI chemiluminescent immunoassay. The method used for this test is Chai Values obtained by different assay methods PERFORMED AT [address] [place] [address] MICROALBUMIN WITH RATIO Reviewed date:08/02/2024 03:13:33 PM Interpretation: Performing Lab:[facility] ([facility]), [address] [place], [place] [address]., [address]. [address] PH:[phone] Notes/Report: MICROALBUMIN, URINE 99.5 0.0-1.9 mg/dL URINE CREAT 65.61 ALB/CREAT RATIO 1516.5 0.0-30.0 mg/g creat PERFO RMED AT [address] [place] [address] CBC AND AUTO DIFF * Reviewed date:08/02/2024 03:13:33 PM Interpretation: Performing Lab:[facility] ([facility]), [address] [place] [address], [address] [place] [address]. [address] PH:[phone] Notes/Report: WBC COUNT 7.6 4.0-11.0 X10E9/L RBC COUNT 4.69 4.10-5.70 X10E12/L HEMOGLOBIN 13.3 13.0-17.0 g/dL HEMATOCRIT 39.5 39-49 % MCV 84 80-100 fL MCH 28.4 27-34 pg MCHC 33.8 32-36 g/dL RDW 14.0 11.5-15.0 % PLATELET COUNT 291 150-450 X10E9/L MPV 8.0 7-12 fL % NEUTROPHILS 68.6 % LYMPHOCYTES 18.8 % MONOCYTES 8.8 % EOSINOPHILS 3.3 % BASOPHILS 0.5 ABSOLUTE NEUTROPHIL 5.2 1.5-6.6 X10E9/L ABSOLUTE LYMPHOCYTE 1.4 1.0-3.5 X10E9/L ABSOLUTE MONOCYTE 0.7 0-0.9 X10E9/L ABSOLUTE EOSINOPHIL 0.2 0.0-0.4 X10E9/L ABSOLUTE BASOPHIL 0.0 0.0-0.2 X10E9/L PERFORM ED AT [address] [place] [address] COMPREHENSIVE METABOLIC PANE L Reviewed date:08/02/2024 03:13:33 PM Interpretation: Performing Lab:[facility] ([facility]), [address] [place] [address], [address] [place] [address]. [address] PH:[phone] Notes/Report: SODIUM 137 134-146 mmol/L POTASSIUM 4.0 3.5-5.0 mmol/L CHLORIDE 104 98-109 mmol/L CARBON DIOXIDE 24 22-32 mmol/L ANION GAP 9 5-15 mmol/L BLOOD UREA NITROGEN 10 5-27 mg/dL CREATININE 0.75 0.60-1.30 mg/dL METHOD TRACE ABLE TO IDMS STANDARD GLUCOSE 115 65-99 mg/dL CALCIUM 9.3 8.5-10.5 mg/dL TOTAL PROTEIN 7.4 6.0-8.0 g/dL ALBUMIN 4.0 3.2-5.3 g/dL ALKALINE PHOSPHATASE 92 39-130 U/L AST 26 0-41 U/L ALT 20 0-40 U/L BILIRUBIN,TOTAL 0.9 0.3-1.2 mg/dL eGFR (CKD-EPI) NON-RACE DEPENDENT >90 >59 ml/min/1.73sq.m PERFORMED AT [address] [place] [address] CKD-EPI 2020 equation that does not use a race coefficient. Reported eGFR is based on the FREE T3 Reviewed date:08/02/2024 03:13:33 PM Interpretation: Performing Lab:[facility] ([facility]), [address] [place] [address], [address] [address] PH:[phone] Notes/Report: FREE T3 3.10 2.50-3.90 pg/mL PERFORMED AT [address] [place] [address] THYROID PROFILE Reviewed date:08/02/2024 03:13:33 PM Interpretation: Performing Lab:[facility] ([facility]), [address] [place] [address], [address] [address] PH:[phone] Notes/Report: TSH 1.46 0.49-4.67 uIU/mL NEW REFEREN CE RANGE FOR PEDIATRIC PATIENTS FREE T4 1.01 0.61-1.60 ng/dL PERFORMED AT [address] [place] [address] NEW REFERENCE RANGE FOR PEDIATRIC PATIENTS LIPID PANEL Reviewed date:08/02/2024 03:13:33 PM Interpretation: Performing Lab:[facility] ([facility]), [address] [place] [address]., [address] [address] PH:[phone] Notes/Report: CHOLESTEROL 111 150-200 mg/dL TRIGLYCERIDE 100 27-150 mg/dL HDL CHOLESTEROL 26 >39 mg/dL HDL > or = 40mg/dL- Desirable HDL >60 mg/dL - Negative Risk HDL <40 mg/dL - High Risk VERY LOW LIPOPROTEIN 20 0-30 mg/dL LDL (CALC) 65 <130 mg/dL LDL >160 mg/dL - High Risk LDL <100 mg/dL - Desirable CHOLESTEROL:HDL 4.3 1.0-5.0 PERFORMED AT [facility] [address] [facility]. [address],[place] [address] URINE CULTURE & SENITIVITY Reviewed date:08/02/2024 03:13:33 PM Interpretation: Performing Lab:[facility], [address] [place], [address] Notes/Report: SENSITIVITY INTERPRETATION S = SUSCEPTIBLE R = RESISTANT I = INTERMEDIATE N/A = NOT APPLICABLE MS CC FACILITY: [facility] - [facility] [id number] URINE CULTURE SENS (. - .) STATUS AMPICILLIN S () PIPERACILLIN/TAZOBACTAM S () CEFAZOLIN S () CEFTRIAXONE S () CEFEPIME S () ERTAPENEM S () IMIPENEM S () AMIKACIN S () GENTAMICIN S () TOBRAMYCIN S () CIPROFLOXACIN S () LEVOFLOXACIN S () TIGECYCLINE S () NITROFURANTOIN S () TRIMETH/SULFA S () REPORT STATUS FINAL () CULTURE SOURCE: CLEAN CATCH MID-STREAM URINE ISOLATE: ESCHERICHIA COLI COLONY COUNT: > 100,000 CFU/ML AMOXI/CLAVULANIC ACID S () CEFOXITIN S () AZTREONAM S () UA DIP AUTO WO MICRO (98789) - IN OFFICE Reviewed date:03/17/2024 10:49:48 AM Interpretation: Performing Lab: Notes/Report: COLOR leeann YELLOW - LEEANN CLARITY cloudy CLEAR - CLEAR GLUCOSE, URINE neg NEG - NEG MG/DL BILIRUBIN, URINE neg NEG - NEG KETONES, URINE neg NEG - NEG MG/DL SPECIFIC GRAVITY 1.020 1.001 - 1.035 BLOOD, URINE neg NEG - NEG MG/DL PH, URINE 6.0 5.0 - 9.0 PROTEIN (ALB), URINE + NEG - NEG MG/DL UROBILINOGEN, URINE 0.2 0.2 - 1.0 MG/DL NITRITE, URINE + NEG - NEG ESTERASE + NEG - NEG Reason For Referral No Information Medications Medication [...] Once a day for 90 days Active Immunizations Vaccine Route Administration Date Status Comme nts Flu, Fluad (98476) 65 yrs and older, single-dose syringe (9043-3100) IM Intramuscular 01/29/2024 Administered Social History Tobacco Use: Social History Observation Description Date Details (start date - stop date) Never Smoker NA - NA Tobacco Control (Standard) Question Answer Notes Tobacco use: Nonsmoker Problems Problem Type SNOMED Code ICD Code Onset Dates Problem Status W/U Status Risk Notes Problem 965902542 Type 2 diabetes mellitus without complications (E11.9) Active confirmed Problem 159425511 Hypothyroidism, unspecified (E03.9) Active confirmed Problem Diabetic renal disease (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 Problem 61201578984355 Type 2 diabetes mellitus with other diabetic kidney complication (E11.29) Active confirmed Problem 988901152 Other obesity due to excess calories (E66.09) Active confirmed Problem 114953367 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 Problem 798581531 Nonrheumatic mitral (valve) insufficiency (I34.0) Active confirmed Problem 54204800 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) Active confirmed Problem Hypertensive pulmonary arterial disease (55035892) 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) Active confirmed Problem 840373451 Body mass index [BMI] 32.0-32.9, adult (Z68.32) Active confirmed Problem 116262032 Body mass index [BMI] 30.0-30.9, adult (Z68.30) Active confirmed Vital Signs Heart Rate 83 /min 08/02/2024 Respiratory Rate 16 /min 08/02/2024 Oximetry 94 % 08/02/2024 Blood pressure diastolic 70 mm Hg 08/02/2024 Height 65 in 08/02/2024 Blood pressure systolic 118 mm Hg 08/02/2024 Weight 196.4 lbs 08/02/2024 BMI 32.68 kg/m2 08/02/2024 Procedures Procedure Date Ordered Date Performed Result Body Sit e Echocardiogram 2D M Mode w/ Doppler (measure RVSP) 04/29/2024 N/A CARDIO Stress Test - Cardiolite 08/02/2024 N/A Encounters Encounter Location Date Provider Diagnosis [facility] [address] [place] [address] [facility] [address] [place] [address] 02/06/2024 [facility] [address] [place] [address] 02/19/2024 [facility] [address] [place] [address] 03/21/2024 Brock Jarvis [facility] [address] [place] [address] 07/29/2024 [facility] [address] [place] [address] 10/14/2024 [facility] [address] [place] [address] 03/17/2024 Brock Jarvis Type 2 diabetes mellitus with other diabetic kidney complication E11.29 ; Proteinuria, unspecified R80.9 ; Lipoprotein deficiency E78.6 ; Acute upper respiratory infection, unspecified J06.9 ; Frequency of micturition R35.0 ; Other obesity due to excess calories E66.09 ; Body mass index [BMI] 30.0-30.9, adult Z68.30 ; Obesity, class 1 E66.811 ; Type 2 diabetes mellitus with diabetic nephropathy E11.21 ; Secondary pulmonary arterial hypertension I27.21 and Diarrhea, unspecified R19.7 [facility] [address] [place] [address] 08/02/2024 Brock Jarvis Other obesity due to excess calories E66.09 ; Body mass index [BMI] 32.0-32.9, adult Z68.32 ; Obesity, class 1 E66.811 ; Shortness of breath R06.02 ; Hypothyroidism, unspecified E03.9 ; Type 2 diabetes mellitus with other diabetic kidney complication E11.29 ; Chest pain, unspecified R07.9 and 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 [address] 01/29/2024 Brock Jarvis Type 2 diabetes mellitus without complications E11.9 ; Encounter for screening for malignant neoplasm of prostate Z12.5 ; Hypothyroidism, unspecified E03.9 ; Encounter for immunization Z23 ; Encounter for screening for malignant neoplasm of colon Z12.11 ; Other obesity due to excess calories E66.09 ; Body mass index [BMI] 32.0-32.9, adult Z68.32 ; Obesity, class 1 E66.811 and Acute cough R05.[address] [address] 04/29/2024 Brock Jarvis Encounter for [facility] annual wellness exam Z00.00 ; Other obesity due to excess calories E66.09 ; Body mass index [BMI] 32.0-32.9, adult Z68.32 ; Obesity, class 1 E66.811 ; 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 ; Nonrheumatic mitral (valve) insufficiency I34.0 ; Other fatigue R53.83 ; Hypothyroidism, unspecified E03.9 ; Proteinuria, unspecified R80.9 and Type 2 diabetes mellitus with other diabetic kidney complication E11.29 Assessments Encounter Date Diagnosis (ICD Code) Assessment Notes Treatment Notes Treatment Clinical Notes Section Notes 01/29/2024 Type 2 diabetes mellitus without complications (ICD-10 - E11.9) a1c today controlled continue med rtc 3 months labs and urine prior to next visit eye exam yearly - dilated foot exam daily 01/29/2024 Encounter for screening for malignant neoplasm of prostate (ICD-10 - Z12.5) 04/29/2024 Encounter for Medicare annual wellness exam (ICD-10 - Z00.00) rec flu shot yearly rtc 1 year diet/exercise labs yearly eye and dental exams yearly rec prevnar 20 rec shingrix rec rsv rec dtap q10 years pt has cologuard to do at home 04/29/2024 Other obesity due to excess calories (ICD-10 - E66.09) diet/exercise due to DM - see below for tx 03/17/2024 Type 2 diabetes mellitus with other diabetic kidney complication (ICD-10 - E11.29) start DAVID rec statin monitor A1c controlled bs check daily eye exam yearly - dilated foot exam daily rtc 6 months 03/17/2024 Proteinuria, unspecified (ICD-10 - R80.9) start DAVID monitor bp monitor urine yearly uncontrolled bs/bp control 08/02/2024 Other obesity due to excess calories (ICD-10 - E66.09) diet/exercise 08/02/2024 Body mass index [BMI] 32.0-32.9, adult (ICD-10 - Z68.32) 08/02/2024 Obesity, class 1 (ICD-10 - E66.811) 03/17/2024 Lipoprotein deficiency (ICD-10 - E78.6) diet/exercise rec statin due to DM 04/29/2024 Body mass index [BMI] 32.0-32.9, adult (ICD-10 - Z68.32) 01/29/2024 Hypothyroidism, unspecified (ICD-10 - E03.9) labs - tx based on this 01/29/2024 Encounter for immunization (ICD-10 - Z23) 04/29/2024 Obesity, class 1 (ICD-10 - E66.811) 03/17/2024 Acute upper respiratory infection, unspecified (ICD-10 - J06.9) monitor bs erx prednisone call if s/s worsen - fever/colored discharge/etc 08/02/2024 Shortness of breath (ICD-10 - R06.02) ?etiology set up stress test ER if worsens 08/02/2024 Hypothyroidism, unspecified (ICD-10 - E03.9) lab yearly stable 03/17/2024 Frequency of micturition (ICD-10 - R35.0) ?UTI vs BPH vs ? d/w pt flomax if UA negative - pt to hold off psa yearly abx if culture positive 04/29/2024 Other nonrheumatic aortic valve disorders (ICD-10 - I35.8) set up echo 01/29/2024 Encounter for screening for malignant neoplasm of colon (ICD-10 - Z12.11) 01/29/2024 Other obesity due to excess calories (ICD-10 - E66.09) diet/exercise 04/29/2024 Nonrheumatic mitral (valve) insufficiency (ICD-10 - I34.0) set up echo ?cardio if worsens but no s/s of cardiac decompensation from valvular dz 03/17/2024 Other obesity due to excess calories (ICD-10 - E66.09) diet/exercise 08/02/2024 Type 2 diabetes mellitus with other diabetic kidney complication (ICD-10 - E11.29) stable monitor a1c and bmp and urine microalbumin monitor bs rtc 6 months rec increasing DAVID - pt to hold off 08/02/2024 Chest pain, unspecified (ICD-10 - R07.9) ER if worsens ?CAD 03/17/2024 Body mass index [BMI] 30.0-30.9, adult (ICD-10 - Z68.30) 04/29/2024 Other fatigue (ICD-10 - R53.83) ?due to valvular dz 01/29/2024 Body mass index [BMI] 32.0-32.9, adult (ICD-10 - Z68.32) 01/29/2024 Obesity, class 1 (ICD-10 - E66.811) 04/29/2024 Hypothyroidism, unspecified (ICD-10 - E03.9) labs yearly stable 03/17/2024 Obesity, class 1 (ICD-10 - E66.811) 08/02/2024 Other nonrheumatic aortic valve disorders (ICD-10 - I35.8) pt do echo we set up in past to r/o worsening valvular dz as cause of his SOB/fatigue 03/17/2024 Type 2 diabetes mellitus with diabetic nephropathy (ICD-10 - E11.21) uncontrolled see above start DAVID 04/29/2024 Proteinuria, unspecified (ICD-10 - R80.9) start lisinopril that he never did before monitor urine microalbumin yearly uncontrolled 01/29/2024 Acute cough (ICD-10 - R05.1) rec claritin otc daily robitussin dm otc rtc prn 04/29/2024 Type 2 diabetes mellitus with other diabetic kidney complication (ICD-10 - E11.29) uncontrolled due to elevated urine microalbumin controlled based on A1c today diet/exercise eye exam yearly - dilated foot exam daily monitor bs 03/17/2024 Secondary pulmonary arterial hypertension (ICD-10 - I27.21) rec echo rec cardio bp control bs control stable 03/17/2024 Diarrhea, unspecified (ICD-10 - R19.7) hydrate monitor imodium prn Plan Of Treatment Pending Test Test Name Order Date CMP (COMPLETE METABOLIC PANEL) 4 CULTURE, URINE w SENSITIVITY 03/17/2024 LIPID PANEL (CHOL/TRIG/HDL/LDL) 01/29/20 24 CBC WITH DIFF 01/29/2024 MICROALBUMIN with ALB/CREAT RATIO, URINE (MALB)) 01/29/2024 T3 FREE (T3FR) 01/29/2024 T4 FREE (T4FR) 01/29/2024 TSH 01/29/2024 CARDIO Stress Test - Cardiolite 08/03/19 25 Cologuard 01/29/2024 Echocardiogram 2D M Mode w/ Doppler (dwayne sure RVSP) 04/29/2024 PSA, TOTAL 01/29/2024 Next Appt Details Provider Name:Brock mayberry, 02/02/2025 03:15:00 PM, [address] [facility], [place], [address], Insurance Providers Payer Name Payer Address Payer Phone Subscriber Number Group Number Insured Name Patient Relationship to Insured Coverage Start Date Coverage End Date [employer] MED[employer]ARE ADV PLAN [address] [address] [place] [address] [phone] [id number] Osmany Cunningham Self - patient is the insured 4 MEDICAID [place] 2ND INS [address] [facility] [address] [place], [place] [id number] Osmany Cunningham Self - patient is the insured 4 Medical (General) History Medical History History ICD Code prostate enlargement cancer diabetes stroke proteinuria LVH pulm HTN microalbuminuria Surgical History Surgery Date(Month/Year) prostate surgery b/l TKA
--- NOTE | 2024-10-14 18:42 | ECG_ITS ---
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
--- NOTE | 2024-10-14 18:55 | XR_ITS ---
The [place] [id number] Patient Name: ELLA BAIG MRN: [id number] date: 1940 Sex: M Assigned Patient Location: ER Current Patient Location: ED.MAIN Accession/Order Number: [id number] Exam Date: 10/14/2024 18:50 Report Date: 10/14/2024 19:31 At the request of: NANO SANCHEZ MD Procedure: XR chest 1V Plain film chest Single view HISTORY: Shortness of breath. COMPARISON: None FINDINGS: SUPPORT DEVICES: None POSTSURGICAL CHANGES: None HEART: Cardiomegaly PULMONARY BERNA: Hilar vascular prominence MEDIASTINUM: Unremarkable LUNGS AND PLEURA: No acute lung process, pleural effusion or pneumothorax identified. BONY STRUCTURES: Intact ADDITIONAL FINDINGS None XR/XR chest 1V IMPRESSION: Cardiomegaly with hilar vascular prominence. Impression dictated by: Romeo Gray M.D. 10/14/2024 7:31 PM Dictation Location: [facility] Electronically authenticated by: [id number] Y Date: 10/14/2024 19:31
[2024-10-14 19:10] LABS: Hematocrit 38.6 % (42.0-54.0); Hemoglobin 13.3 g/dL (14.0-18.0); Immature Granulocytes Abs Auto 0.01 10^3/uL (0.00-0.03); Immature Granulocytes Pct Auto 0.2 % (0.0-0.5); Lymphocytes Absolute Auto 1.6 10^3/uL (1.2-3.8); Mean Corpuscular HGB Conc 34.5 g/dL (29.9-35.2); Mean Corpuscular Hemoglobin 29.3 pg (25.9-34.0); Mean Corpuscular Volume 85.0 fL (80.0-94.0); Platelet Count 268 10^3/uL (150-450); Red Blood Count 4.54 10^6/uL (4.70-6.10); White Blood Count 6.6 10^3/uL (4.0-11.0)
[2024-10-14 19:17] LABS: INR 1.17; Prothrombin Time 12.2 sec (9.0-11.6)
[2024-10-14 19:25] LABS: Alanine Aminotransferase 39 U/L (16-63); Albumin Globulin Ratio 0.9; Albumin Level 3.8 g/dL (3.4-5.0); Alkaline Phosphatase 110 U/L (46-116); Anion Gap 12.4; Aspartate Amino Transferase 27 U/L (15-37); Blood Urea Nitrogen 17.0 mg/dL (7.0-18.0); Calcium 8.8 mg/dL (8.5-10.1); Carbon Dioxide 24.3 mmol/L (21.0-32.0); Chloride 105 mmol/L (98-107); Estimated GFR (African America >60 (>=60 mL/min/1.73m^2); Estimated GFR (Non-African Ame >60 (>=60 mL/min/1.73m^2); Globulin 4.1 g/dL; Glucose 116 mg/dL (74-106); Lactate/Lactic Acid 1.6 mmol/L (0.4-2.0); Potassium 4.7 mmol/L (3.5-5.1); Sodium 137 mmol/L (136-145); Total Protein 7.9 g/dL (6.4-8.2)
--- NOTE | 2024-10-14 19:27 | ED.SOB1 ---
HPI - SOB/Dyspnea General Chief Complaint: Shortness of Breath/Dyspnea Stated Complaint: Weakness Blood Pressure High Time Seen by Provider: 10/14/24 18:41 Source: patient and family Mode of arrival: walk-in Limitations: language barrier Limitations comment: Interpretation provided by family member History of Present Illness HPI Narrative: This 83 old male with a history of diabetes is brought to the emergency department by his family. For the past 3 days he has been very weak and short of breath. He complains of some mild lower sternal chest pain. He does not smoke. He denies any specific abdominal pain. His appetite has been normal. He denies any urinary symptoms or back pain. He has not had any recent falls. There is been no noted fever. According to his [id number] he has not been able to sleep at night due to shortness of breath. He does not have any focal weakness numbness or tingling. He denies any headache. His daughter in law states that he does not drink a lot of water and drinks a lot of pop Related Data Home Medications ?Medication ?Instructions ?Recorded ?Confirmed levothyroxine 150 mcg tablet 150 mcg PO DAILY 10/14/24 10/14/24 lisinopril 2.5 mg tablet 2.5 mg PO DAILY 10/14/24 10/14/24 metformin 500 mg tablet 500 mg PO DAILY 10/14/24 10/14/24 Allergies Allergy/AdvReac Type Severity Reaction Status Date / Time No Known Drug Allergies Allergy Verified 10/14/24 18:23 Review of Systems ROS Status of ROS 10 or more systems reviewed and unremarkable except as noted in history and below PFSH PFSH Social History Little interest or pleasure in doing things: not at all Feeling down, depressed, or hopeless: not at all Exam Narrative Exam Narrative: Vital signs and Nursing Notes reviewed: Patient is afebrile with a normal pulse, blood pressure is low at 105/67, he is not hypoxic with pulse ox of 98% General: Awake, alert, oriented, elderly male, no acute distress, lying comfortably on the stretcher HEENT: Normocephalic atraumatic, mucous membranes are pink and slightly dry, Neck: Supple, no meningeal signs, no JVD Chest: Lungs are clear to auscultation with good air entry, there is no wheezing rhonchi or rales appreciated no accessory muscle use, mild tenderness to the lower sternal region CVS: Regular rate and rhythm S1-S2, no murmurs rubs or gallops, pulses are brisk and equal bilaterally ABD: Soft, nondistended, mild lower abdominal tenderness bilaterally with no rebound guarding or rigidity, bowel sounds are normal Extremities: Moving all extremities, no lower extremity tenderness or swelling noted, negative Homans' sign, pulses are brisk and equal bilaterally Skin: Normal in appearance without rash,pallor, petechiae or purpura Neuro: No focal deficits; speech is clear, there is no facial droop, 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, upper and lower extremity strength and sensation is intact Constitutional Vital Signs, click to edit/add: Last Vital Signs Temp 97.8 F 10/14/24 18:23 Pulse 85 10/14/24 20:55 Resp 27 H 10/14/24 20:55 BP 130/88 10/14/24 20:55 Pulse Ox 95 10/14/24 20:59 O2 Del Method Room Air 10/14/24 20:59 O2 Flow Rate 2 10/14/24 18:40 Course Vital Signs Vital signs: Vital Signs Temperature 97.8 F 10/14/24 18:23 Pulse Rate 80 10/14/24 18:23 Respiratory Rate 16 10/14/24 18:23 Blood Pressure 126/75 10/14/24 18:23 Pulse Oximetry 96 10/14/24 18:23 Temperature 97.8 F 10/14/24 18:23 Pulse Rate 85 10/14/24 20:55 Respiratory Rate 27 H 10/14/24 20:55 Blood Pressure 130/88 10/14/24 20:55 Pulse Oximetry 95 10/14/24 20:59 Oxygen Delivery Method Room Air 10/14/24 20:59 Oxygen Delivery Flow Rate 2 10/14/24 18:40 MDM - SOB/Dyspnea MDM Narrative Medical decision making narrative: This 83-year-old male was brought to the emergency department by his family for evaluation of 3 days of generalized weakness and shortness of breath. Patient states he has not been able to sleep at night due to shortness of breath. He does work outside for long hours and they are concerned that he may be dehydrated. They admit that he does not drink a lot of water but instead drinks pop. He is diabetic. Complains of some chest pain in the lower sternal area otherwise no specific chest pain, back pain or abdominal pain. He has not had a fever. He has been urinating normally. He has not any nausea vomiting or diarrhea. He is mildly tender in the lower abdominal quadrants bilaterally. Mucous membranes are slightly dry. EKG done upon arrival is sinus rhythm at 75 bpm with a left axis. An IV was placed and routine labs were ordered. He has normal white count and stable hemoglobin. Electrolytes are normal. He has a normal BUN and creatinine. Troponin is normal. D-dimer is mildly elevated at 0.74. BNP is normal. CT angio of the chest was ordered to rule out pneumonia/PE or other etiologies for his shortness of breath and the CT of the abdomen pelvis was ordered to evaluate for the abdominal pain. Given a liter of normal saline and [address] scan of the abdomen pelvis is negative for acute findings but does show 12 mm common bile duct prominence likely secondary to cholecystectomy. It was otherwise normal. CT scan of the chest is negative for pulmonary embolism but does show cardiomegaly with CHF findings with small pleural effusions. This was discussed with the patient and his family. He was given an IV dose of Lasix in the emergency department. He has never been on diuretics in the past. His fluids were then discontinued. I reviewed the CT scan myself and it is consistent with at least moderate CHF. He will likely benefit from diuresis in the hospital setting. The case was discussed with the hospitalist and he is excepted for admission. Differential Diagnosis Differential diagnosis: Likely congestive heart failure, community acquired pneumonia and pulmonary embolism Lab Data Attestation: I reviewed the patient's lab results. Labs: Lab Results 10/14/24 10/14/24 Range/Units 18:42 20:50 WBC 6.6 (4.0-11.0) 10^3/uL RBC 4.54 L (4.70-6.10) 10^6/uL Hgb 13.3 L (14.0-18.0) g/dL Hct 38.6 L (42.0-54.0) % MCV 85.0 (80.0-94.0) fL MCH 29.3 (25.9-34.0) pg MCHC 34.5 (29.9-35.2) g/dL RDW 13.7 (11.0-15.0) % Plt Count 268 (150-450) 10^3/uL MPV 9.8 (9.5-13.5) fL Neut % (Auto) 61.9 (43.0-75.0) % Lymph % (Auto) 23.7 (20.5-60.0) % Lyman % (Auto) 10.7 (1.7-12.0) % Eos % (Auto) 3.2 (0.9-7.0) % Baso % (Auto) 0.3 (0.2-2.0) % Neut # (Auto) 4.1 (1.4-6.5) 10^3/uL Lymph # (Auto) 1.6 (1.2-3.8) 10^3/uL Lyman # (Auto) 0.7 (0.3-0.8) 10^3/uL Eos # (Auto) 0.2 (0.0-0.7) 10^3/uL Baso # (Auto) 0.0 (0.0-0.1) 10^3/uL Abs Immat Gran (auto) 0.01 (0.00-0.03) 10^3/uL Imm/Tot Granulo (auto) 0.2 (0.0-0.5) % PT 12.2 H (9.0-11.6) sec INR 1.17 D-Dimer 0.74 H* (<=0.59) mg/L FEU Sodium 137 (136-145) mmol/L Potassium 4.7 (3.5-5.1) mmol/L Chloride 105 (98-107) mmol/L Carbon Dioxide 24.3 (21.0-32.0) mmol/L Anion Gap 12.4 BUN 17.0 (7.0-18.0) mg/dL Creatinine 0.89 (0.70-1.30) mg/dL Est GFR ( Amer) >60 (>=60 mL/min/1.73m^2) Est GFR (Non-Af Amer) >60 (>=60 mL/min/1.73m^2) BUN/Creatinine Ratio 19.1 Glucose 116 H (74-106) mg/dL Lactate 1.6 (0.4-2.0) mmol/L Calcium 8.8 (8.5-10.1) mg/dL Total Bilirubin 0.6 (0.2-1.0) mg/dL AST 27 (15-37) U/L ALT 39 (16-63) U/L Alkaline Phosphatase 110 (46-116) U/L Troponin I High Sens 11.9 (4.0-76.1) pg/mL NT-Pro-B Natriuret Pep 1488.0 (<=1800.0) pg/mL Total Protein 7.9 (6.4-8.2) g/dL Albumin 3.8 (3.4-5.0) g/dL Globulin 4.1 g/dL Albumin/Globulin Ratio 0.9 TSH & Free T4 Interp 0.359 (0.358-3.740) uIU/mL Urine Color Lt. yellow (YELLOW) Urine Clarity Clear (CLEAR) Urine pH 5.5 (5.0-9.0) Ur Specific Imperial 1.010 (1.005-1.025) Urine Protein Negative (NEG/TRACE) mg/dL Urine Glucose (UA) Negative (NEGATIVE) mg/dL Urine Ketones Negative (NEGATIVE) mg/dL Urine Occult Blood Negative (NEGATIVE) Urine Nitrite Positive A (NEGATIVE) Urine Bilirubin Negative (NEGATIVE) Urine Urobilinogen 1.0 (0.2-1.0) EU/dL Ur Leukocyte Esterase Negative (NEGATIVE) ECG Data Attestation: I personally reviewed and interpreted this ECG as follows: (Sinus rhythm at 75 bpm, left axis deviation, no acute ST segment elevation or T wave inversion) Discharge Plan Discharge Chief Complaint: Shortness of Breath/Dyspnea Clinical Impression: Congestive heart failure Patient Disposition: Admitted as Observation Time of Disposition Decision: 21:31 Condition: Good
[2024-10-14 19:54] LABS: NT Pro B Type Natriuretic Pept 1488.0 pg/mL (<=1800.0)
[2024-10-14 19:55] LABS: TSH W/ REFLEX FT4 0.359 uIU/mL (0.358-3.740)
--- NOTE | 2024-10-14 19:56 | CT_ITS ---
The [address] [address] Patient Name: ELLA BAIG MRN: [id number] date: 1940 Sex: M Assigned Patient Location: ER Current Patient Location: ER Accession/Order Number: [id number] Exam Date: 10/14/2024 20:25 Report Date: 10/14/2024 20:52 At the request of: MELVI CHANG MD Procedure: CT angio chest CTA Chest with PE protocol TECHNIQUE: Axial imaging with 2-D and 3-D reconstruction 100 cc of Omnipaque [address] exam was performed using one or more the following dose reduction techniques: Automated exposure control, adjustment of the MA and/or Kv according to patient size, or use of the iterative reconstruction technique. History: Elevated d-dimer COMPARISON: None THYROID: Unremarkable TRACHEA AND BRONCHI: Patent ESOPHAGUS: Unremarkable. HEART: Cardiomegaly PERICARDIAL EFFUSION: None CORONARY ARTERY CALCIFICATION: None MEDIASTINUM: No adenopathy. No pneumoperitoneum. No mediastinal hematoma. PULMONARY BERNA: No hilar mass or adenopathy is seen. THORACIC AORTA Unremarkable PULMONARY EMBOLUS: None LUNG NODULE None LUNGS: Diffuse groundglass interstitial parenchymal densities. PLEURAL EFFUSION: Pleural effusions. PNEUMOTHORAX: No pneumothorax seen. CHEST WALL: No abnormality AXILLA: Unremarkable BONY STRUCTURES Intact UPPER ABDOMEN: Images of the upper abdomen are noncontributory. CT/CT angio chest IMPRESSION: No acute pulmonary embolus. Cardiomegaly with CHF findings with small pleural effusions. Impression dictated by: Romeo Gray M.D. 10/14/2024 8:52 PM Dictation Location: [facility] Electronically authenticated by: [id number] Y Date: 10/14/2024 20:52
--- NOTE | 2024-10-14 19:56 | CT_ITS ---
The [address] [address] Patient Name: ELLA BAIG MRN: [id number] date: 1940 Sex: M Assigned Patient Location: ER Current Patient Location: ER Accession/Order Number: [id number] Exam Date: 10/14/2024 20:25 Report Date: 10/14/2024 20:59 At the request of: MELVI CHANG MD Procedure: CT abdomen pelvis w con CT Abdomen and Pelvis withcontrast TECHNIQUE: Axial imaging with 2-D reconstruction.100 cc of Omnipaque 350. The CT exam was performed using one or more the following dose reduction techniques: Automated exposure control, adjustment of the MA and/or Kv according to patient size, or use of the iterative reconstruction technique. COMPARISON: None History: Elevated d-dimer LIMITATIONS: None LOWER THORAX CT chest obtained LIVER: Pneumobilia GALLBLADDER: Cholecystectomy clips identified. BILE DUCTS: 12 mm common bile duct prominence. Likely secondary to cholecystectomy. SPLEEN: Unremarkable PANCREAS: Unremarkable ADRENAL GLANDS: Unremarkable KIDNEYS:Unremarkable AORTA: No abdominal aortic aneurysm identified. Mild atherosclerosis RETROPERITONEUM: No significant retroperitoneal abnormalities identified. MESENTERY:Unremarkable STOMACH:Unremarkable SMALL BOWEL: The small bowel loops are nondistended. APPENDIX: The appendix is normal. COLON: Unremarkable URINARY BLADDER: Urinary bladder is unremarkable. REPRODUCTIVE SYSTEM: Prostatectomy. History of prostate cancer PNEUMOPERITONEUM: None PERITONEAL FLUID:None BONY STRUCTURES: Degenerative change ABDOMINAL WALL: Unremarkable CT/CT abdomen pelvis w con IMPRESSION: No acute abdominal or pelvic findings. Impression dictated by: Romeo Gray M.D. 10/14/2024 8:59 PM Dictation Location: [facility] Electronically authenticated by: [id number] Y Date: 10/14/2024 20:59
[2024-10-14] MEDS: 0.9 % SODIUM CHLORIDE 1,000 ML 1000 ML IV (20:21)
[2024-10-14] MEDS: ASPIRIN 81 MG TAB.CHEW 324 MG PO (20:22)
[2024-10-14 21:23] LABS: Glucose Urine UA NEGATIVE (NEGATIVE)
[2024-10-14 21:44] LABS: Cast Seen? NONE SEEN #/LPF (NONE SEEN); Crystals Seen? None Seen #/HPF (None Seen); Urine Culture Indicated YES-FRMC
[2024-10-14] MEDS: FUROSEMIDE 20 MG/2 ML VIAL IVP ×2 (22:31→23:02)
[2024-10-15] VITALS (20 sets, daily range): BP systolic 90–111; BP diastolic 58–68; PULSE 66–85; TEMP 36.2–36.6; O2SAT 90–93
[2024-10-15 05:33] LABS: Hematocrit 38.6 % (42.0-54.0); Hemoglobin 13.0 g/dL (14.0-18.0); Immature Granulocytes Abs Auto 0.02 10^3/uL (0.00-0.03); Immature Granulocytes Pct Auto 0.3 % (0.0-0.5); Lymphocytes Absolute Auto 1.4 10^3/uL (1.2-3.8); Mean Corpuscular HGB Conc 33.7 g/dL (29.9-35.2); Mean Corpuscular Hemoglobin 28.6 pg (25.9-34.0); Mean Corpuscular Volume 84.8 fL (80.0-94.0); Platelet Count 276 10^3/uL (150-450); Red Blood Count 4.55 10^6/uL (4.70-6.10); White Blood Count 6.9 10^3/uL (4.0-11.0)
[2024-10-15 06:18] LABS: Alanine Aminotransferase 27 U/L (16-63); Albumin Globulin Ratio 1.0; Albumin Level 3.7 g/dL (3.4-5.0); Alkaline Phosphatase 99 U/L (46-116); Anion Gap 12.0; Aspartate Amino Transferase 26 U/L (15-37); Blood Urea Nitrogen 19.0 mg/dL (7.0-18.0); Calcium 8.9 mg/dL (8.5-10.1); Carbon Dioxide 25.8 mmol/L (21.0-32.0); Chloride 105 mmol/L (98-107); Cholesterol 91 mg/dL (<=200); Estimated GFR (African America >60 (>=60 mL/min/1.73m^2); Estimated GFR (Non-African Ame >60 (>=60 mL/min/1.73m^2); Globulin 3.8 g/dL; Glucose 118 mg/dL (74-106); HDL Cholesterol 18 mg/dL (40-60); Potassium 3.8 mmol/L (3.5-5.1); Sodium 139 mmol/L (136-145); Total Protein 7.5 g/dL (6.4-8.2); Triglycerides 77 mg/dL (<=150); VLDL CHOLESTEROL 15.4 mg/dL
[2024-10-15] MEDS: LEVOTHYROXINE SODIUM 75 MCG TABLET 150 MCG PO (06:22)
--- OUTSIDE RECORDS SUMMARY | 2024-10-15 06:42 | XMS_ITS | Patient Health Record ---
Author Organization The [facility] [place] Address [address] [place] [address] Care Team Providers Care Clinical Unit Educator Name Role Phone Brock Jarvis Primary Care Provider [phone] Allergies No Known Allergies Results Component Value Reference Range Notes LIPID PANEL Reviewed date:08/02/2024 03:13:33 PM Interpretation: Performing Lab:[facility] ([facility]), [address], [place]. [address] PH:[phone] Notes/Report: CHOLESTEROL 111 150-200 mg/dL TRIGLYCERIDE 100 27-150 mg/dL HDL CHOLESTEROL 26 >39 mg/dL HDL > or = 40mg/dL- Desirable HDL >60 mg/dL - Negative Risk HDL <40 mg/dL - High Risk VERY LOW LIPOPROTEIN 20 0-30 mg/dL LDL (CALC) 65 <130 mg/dL LDL >160 mg/dL - High Risk LDL <100 mg/dL - Desirable CHOLESTEROL:HDL 4.3 1.0-5.0 PERFORMED AT [facility] [address] [address] THYROID PROFILE Reviewed date:08/02/2024 03:13:33 PM Interpretation: Performing Lab:[facility]), [address] [place] [address]. [address] PH:[phone] Notes/Report: TSH 1.46 0.49-4.67 uIU/mL NEW REFEREN CE RANGE FOR PEDIATRIC PATIENTS FREE T4 1.01 0.61-1.60 ng/dL PERFORMED AT [address] [place] [address] NEW REFERENCE RANGE FOR PEDIATRIC PATIENTS FREE T3 Reviewed date:08/02/2024 03:13:33 PM Interpretation: Performing Lab:[facility] ([facility]), [address] [place] [address], [address] [address] PH:[phone] Notes/Report: FREE T3 3.10 2.50-3.90 pg/mL PERFORMED AT [address] [address] COMPREHENSIVE METABOLIC PANE L Reviewed date:08/02/2024 03:13:33 PM Interpretation: Performing Lab:[facility] ([facility]), [address] [place] [address], [address] [address] PH:[phone] Notes/Report: SODIUM 137 134-146 mmol/L POTASSIUM 4.0 [...] NON-RACE DEPENDENT >90 >59 ml/min/1.73sq.m PERFORMED AT [address] [address] CKD-EPI 2020 equation that does not use a race coefficient. Reported eGFR is based on the CBC AND AUTO DIFF * Reviewed date:08/02/2024 03:13:33 PM Interpretation: Performing Lab:[facility] ([facility]), [address] [place], [place] [address]E., [address] [place] [address]. [address] PH:[phone] Notes/Report: WBC COUNT 7.6 4.0-11.0 X10E9/L RBC [...] BASOPHIL 0.0 0.0-0.2 X10E9/L PERFORM ED AT [address] [address] MICROALBUMIN WITH RATIO Reviewed date:08/02/2024 03:13:33 PM Interpretation: Performing Lab:[facility] ([facility]), [address] [place] [address] AVE[address] [place] [address]. [address] PH:[phone] Notes/Report: MICROALBUMIN, URINE 99.5 0.0-1.9 mg/dL URINE CREAT 65.61 ALB/CREAT RATIO 1516.5 0.0-30.0 mg/g creat PERFO RMED AT [address] [address] PROSTATIC SPEC ANT Reviewed date:08/02/2024 03:13:33 PM Interpretation: Performing Lab:[facility] ([facility]), [address] [place] [address] AVE[address] [place] [address]. [address] PH:[phone] Notes/Report: PROSTATIC SPEC ANT 0.11 0.00-4.00 ng/mL cannot be used interchangeably. Sal DXI chemiluminescent immunoassay. The method used for this test is Chai Values obtained by different assay methods PERFORMED AT [facility] [address] [facility]. [address],[place] [address] HEMOGLOBIN A1C - IN OFFICE Reviewed date:02/23/2024 01:36:38 PM Interpretation:6.3 Performing Lab: Notes/Report: 6.3 HEMOGLOBIN A1C - IN OFFICE 6.3 4.4 - 6.4 HEMOGLOBIN A1C - IN OFFICE Reviewed date:05/04/2024 11:48:49 AM Interpretation:5.7 Performing Lab: Notes/Report: 5.7 HEMOGLOBIN A1C - IN OFFICE 5.7 4.4 - 6.4 UA DIP AUTO WO MICRO (47[address]) - IN OFFICE Reviewed date:03/17/2024 10:49:48 AM [...] - NEG ESTERASE + NEG - NEG URINE CULTURE & SENITIVITY Reviewed date:08/02/2024 03:13:33 PM Interpretation: Performing Lab:[facility], [address] [place], [place], [address] [phone] Notes/Report: SENSITIVITY INTERPRETATION S = SUSCEPTIBLE R = RESISTANT I = INTERMEDIATE N/A = NOT APPLICABLE [facility] [place] [facility] [id number] URINE CULTURE SENS (. - .) STATUS [...] () CEFOXITIN S () AZTREONAM S () Reason For Referral No Information Medications Medication [...] Administration Date Status Comme nts Flu, Fluad (05245) 65 yrs and older, single-dose syringe (9417-2640) IM Intramuscular 01/29/2024 Administered Social History Tobacco Use: Social History Observation Description Date Details (start date - stop date) Never Smoker NA - NA Tobacco Control (Standard) Question Answer Notes Tobacco use: Nonsmoker Problems Problem Type SNOMED Code ICD Code Onset Dates Problem Status W/U Status Risk Notes Problem 311981119 Type 2 diabetes mellitus without complications (E11.9) Active confirmed Problem 789639831 Hypothyroidism, unspecified (E03.9) Active confirmed Problem 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 Problem 70862728502646 Type 2 diabetes mellitus with other diabetic kidney complication (E11.29) Active confirmed Problem 138867232 Other obesity due to excess calories (E66.09) Active confirmed Problem 785996127 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 Problem 672052603 Nonrheumatic mitral (valve) insufficiency (I34.0) Active confirmed Problem 82982898 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) Active confirmed Problem Hypertensive pulmonary arterial disease (32238886) 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) Active confirmed Problem 674141368 Body mass index [BMI] 32.0-32.9, adult (Z68.32) Active confirmed Problem 317374267 Body mass index [BMI] 30.0-30.9, adult (Z68.30) Active confirmed Vital Signs Heart Rate 83 /min 08/02/2024 Respiratory Rate 16 /min 08/02/2024 Blood pressure diastolic 70 mm Hg 08/02/2024 Oximetry 94 % 08/02/2024 Height 65 in 08/02/2024 Blood pressure systolic 118 mm Hg 08/02/2024 Weight 196.4 lbs 08/02/2024 BMI 32.68 kg/m2 08/02/2024 Procedures Procedure Date Ordered Date Performed Result Body Sit e Echocardiogram 2D M Mode w/ Doppler (measure RVSP) 04/29/2024 N/A CARDIO Stress Test - Cardiolite 08/02/2024 N/A Encounters Encounter Location Date Provider Diagnosis [facility] [address] [place] [address] 01/21/2024 [facility] [address] [place] [address] 02/06/2024 [facility] [address] [place] [address] 02/19/2024 [facility] [address] [place] [address] 03/21/2024 [facility] [address] [place] [address] 07/29/2024 [facility] [address] [place] [address] 10/14/2024 [facility] [address] [place] [address] 03/17/2024 Brock Jarvis Type 2 diabetes mellitus [...] arterial hypertension I27.21 and Diarrhea, unspecified R19.7 [facility] [address] [place] [address] 08/02/2024 Brock Jarvis Other obesity due to excess calories E66.09 ; Body mass index [BMI] 32.0-32.9, adult Z68.32 ; Obesity, class 1 E66.811 ; Shortness of breath R06.02 ; Hypothyroidism, unspecified E03.9 ; Type 2 diabetes mellitus with other diabetic kidney complication E11.29 ; Chest pain, unspecified R07.9 and 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 [address] 04/29/2024 Brock Boylering Encounter for [facility] annual wellness exam Z00.00 ; Other obesity due to excess calories E66.09 ; Body mass index [BMI] 32.0-32.9, adult Z68.32 ; Obesity, class 1 E66.811 ; 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 ; Nonrheumatic mitral (valve) insufficiency I34.0 ; Other fatigue R53.83 ; Hypothyroidism, unspecified E03.9 ; Proteinuria, unspecified R80.9 and Type 2 diabetes mellitus with other diabetic kidney complication E11.[address] [address] 01/29/2024 Brock Jarvis Type 2 diabetes mellitus [...] class 1 E66.811 and Acute cough R05.1 Assessments Encounter Date Diagnosis (ICD Code) Assessment [...] TOTAL 01/29/2024 Next Appt Details Provider Name:Brock Donato mayberry, 02/02/2025 03:15:00 PM, [address] [place], [address], Insurance Providers Payer Name Payer Address Payer Phone Subscriber Number Group Number Insured Name Patient Relationship to Insured Coverage Start Date Coverage End Date [employer] MED[employer]ARE ADV PLAN [address] [address] [place] [address] [id number] Osmany Cunningham Self - patient is the insured 4 MEDICAID [place] 2ND INS [address] [place], [place] [id number] Osmany Cunningham Self - patient is the insured 4 Medical (General) History Medical History History ICD Code prostate enlargement cancer diabetes stroke proteinuria LVH pulm HTN microalbuminuria Surgical History Surgery Date(Month/Year) prostate surgery b/l TKA
--- OUTSIDE RECORDS SUMMARY | 2024-10-15 06:43 | XMS_ITS | Patient Health Record ---
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 No How often do you see or talk to people that you care about and feel close to? (For example: talking to friends on the phone, visiting friends or family, going to yarsani or club meetings) 1 or 2 times a week patient entered data How stressed are you? Stress is when someone feels tense, nervous, anxious, or can't sleep at night because their mind is troubled Not at all patient entered data In the past year have you sp ent more than 2 nights in a row in a group home, fpc, half-way center, or juvenile correctional facility? No patient [...] Problem Benign prostatic hypertrophy without outflow obstruction (662793647) Benign prostatic hyperplasia without lower urinary tract symptoms (N40.0) Active confirmed Problem Type II diabetes mellitus without complication (506403415) Type 2 diabetes mellitus without complication, without long-term current use of insulin (E11.9) Active confirmed LABS PRIOR T O NEXT VISIT , SEPT Problem Mitral regurgitation (75512723) Mitral regurgitation (I34.0) Active confirmed ASYMPTOMATIC, ECHO JULY 2021, SEE ECG FOLDER. SAW CARDS, MURMUR IS UNCHANGED Problem Valvular heart disease (897998) Valvular heart disease (I38) Active confirmed aortic stenosi s, will have them make appt with cardiology for their input also. Problem Acquired hypothyroidism (645061061) Acquired hypothyroidism (E03.9) Active confirmed WILL ORDER LABS FOR SEPT, Problem Allergic rhinitis (18490054) Allergic rhinitis, unspecified seasonality, unspecified trigger (J30.9) Active confirmed TRIAL OF LORATADINE. 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 Therefore, I think it likely this is bullous impetigo, respoinding well. finish out the doxy; Use OTC moisturizing cream BID to the involved area., Problem Ingrowing nail (518572573) Ingrowing nail (L60.0) Active confirmed Comment:Offserenityi derrick g ingrown lateral nail border was able to be removed with debridement of nail. Symptomatic relief obtained with debridement, Problem Essential hypertension (45808037) Essential hypertension (I10) Active confirmed Comment:Doing well without any meds. 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 Use Naproxen prn.,Description :Osteoarthritis of knee Problem Type II diabetes mellitus without complication (245001162) Diabetes (E11.9) Active confirmed Comment:At goal , 6.5; same regimen, diet and exercise. (has enough meds for now), Problem Hyperlipidemia (59825719) Hyperlipidemia (E78.5) Active confirmed Comment:Continu e with low fat diet and increased exercise as able, Problem Depression screening (104450371) Screening for depression (Z13.31) Active confirmed Description:Dep r ession screening Problem Hyperlipidaemia (48258754) HLD (hyperlipidemia ) (E78.5) Active confirmed Comment:CONTROL L ED WITH DIET, LDL 62, NO NEED FOR STATIN., Problem Onychomycosis caused by dermatophyte (360876204) Dermatophytosis , nail (B35.1) Active confirmed Comment:Discu [...] - pt to wait to hear from [facility] about results before taking the medication. Instructed on taking one tab daily x 3 months. D/C if any negative side effects are experienced., Problem DM - Diabetes mellitus (95184612) DM (diabetes mellitus) (E11.9) Active confirmed Comment:doing well, continue current regimen., Problem Fungal infection of nail (267259598) Fungal infection of nail (B35.1) Active confirmed Comment:dry out toe nails apply tea tree oil daily not every third day wear only non cotton socks use cotton socks for stocking for [place] not for feet,Description :Onychomycosis Problem Tick bite (70033227) Tick bite (W57.XXXA) Active confirmed Comment:From hi s description, sounds like a DOG Tick, not a DEER tick, but due to the question as to which, he was treated two weeks with doxy, finished it no problems, REASSURED., Problem Onychomycosis caused by dermatophyte (751052378) Fungal infection of toenail (B35.1) Active confirmed Comment:Brian almanzar his course of Rx, seems to be responding; follow up in 3 months.,Descript ion:Onychomycosi s of toenail 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 REFER to Derm, BARBARA, Problem Type II diabetes mellitus without complication (553489195) Diabetes mellitus, controlled (E11.9) Active confirmed Comment:doing well, SAME Regimen; continue good exercise and eating habits., Problem Arthritis of knee (836257464) Arthritis of knee (M17.10) Active confirmed Comment:Degene ra tive; mild. Rx PRN (not daily) naproxen 500mg., Problem Pre-procedure evaluation check (479108094) Preoperative examination (Z01.818) Active confirmed Comment:I do NOT yet have the lab results, nor CXR, ECG reports from this morning, done at [facility], BUT he has no specific hx of cardiopulmonary disease. Exam is normal, DM has been under control. Will provisionally indicate him to be at ''LOW RISK'' for perioperative cardiopulmonary complications. See attached letter; IF any of the results of the preoperative testing are abnormal, then I will require reevaluation of his risk assessment, which will postpone his surgery., Problem Osteoarthritis of knee (926999384) Osteoarthritis, knee (M17.10) Active confirmed Comment:Left knee; somehwat worse than previously; no instability. Will check Xray. Meahwhile, acetaminophen prn (which does work for him)., Problem Hypertension (58905946) HTN (hypertension) (I10) Active confirmed Comment:Good control with lifestyle measures, samir. salt limitation; Will get labs today (also regarding his DM), then follow up., Problem Requires vaccination (154247435) Need for immunization against influenza (Z23) Active confirmed Description: Flu vaccine need Problem Diabetes mellitus (49050022) Diabetes mellitus (E11.9) Active confirmed Comment:perfect , with A1C = 6.1, on current regimen. 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 CONTINUE with therapy as ordered per his Ortho., Problem Sensorineural hearing loss (34689287) Sensorineural hearing loss (H90.5) Active confirmed Comment:wiil GIVE CONTACT INFO for audiology., Problem Type II diabetes mellitus well controlled (660005667) DM II (diabetes mellitus, type II), controlled (E11.9) Active confirmed Comment:A1C at goal, doing well with current regimen., Problem Dental abscess (626565745) Dental abscess (K04.7) Active confirmed Comment:With associated cellulitis, IMPROVING. FINISH antibiotics as prescribed, MAKE APPT WITH DENTIST, BARBARA, for possible extraction or other appropriate dental work, as recurrence without such treatment, is likely. jrr, Problem Pain in limb (13212927) Acute foot pain (M79.673) Active confirmed Problem Anemia due to blood loss (741998291) Anemia, blood loss (D50.0) Active confirmed Comment:Rx FeSO 4 BID for 6 weeks, check CBC prior to next visit., Problem Type II diabetes mellitus without complication (830762393) Controlled diabetes mellitus (E11.9) Active confirmed Comment:Doing well, no complications; needs nails trimmed, will get appt with shovel handle assembler. Same regimen., Problem Gait abnormality (84368941) Gait abnormality (R26.9) Active confirmed Plan Of Treatment No Information Insurance Providers Payer Name Payer Address Payer Phone Subscriber Number Group Number Insured Name Patient Relationship to Insured Coverage Start Date Coverage End Date DMedicaid [address] [place], [place] [id number] Osmany Cunningham Self - patient is the insured 3 3 [employer] [address] [address] [place] [address] [id number] Osmany Cunningham Self - patient is the insured 2 Medicaid [employer] [address] [place], [place] [id number] Osmany Cunningham Self - patient is the insured 0 Medical (General) History Medical History History ICD Code Hypothyroidism Arthritis of knee Diabetes Mellitus, Type II Hypertension Prostate cancer Thyroid cancer Surgical History Surgery Date(Month/Year) Cholecystectomy Prostatectomy Thyroidectomy left knee replacement 02-05-2023 Hospitalization History Reason Date(Month/Year) See Above
--- NOTE | 2024-10-15 07:00 | CA_ITS ---
Patient Name: ELLA BAIG MR#: [id number] : 1940 Exam Date: 10/15/2024 Ordering Doctor: DEISY BAUTISTA ECHOCARDIOGRAM REPORT PROCEDURE: CA ECHO DOPPLER COMPLETE INDICATIONS: CHF COMPARISON: None. DESCRIPTION: COMPLETE ECHOCARDIOGRAM Real-time transthoracic echocardiography with 2D, M-mode, spectral and color flow Doppler performed. QUALITY: Technical quality was good. LEFT VENTRICLE: Normal chamber size. Thickened septal wall. D-shaped septum consistent with right ventricular pressure and/or volume overload LV EF: Global left ventricular systolic function is hyperdynamic; visually estimated ejection fraction 65 to 70%. Calculated left ventricular ejection fraction is 68%. DIASTOLIC: Grade 3 diastolic dysfunction. E/E' consistent with significant volume overload. ATRIAL SEPTUM: Inadequately seen. LEFT ATRIUM: Severe dilatation. RIGHT ATRIUM: Moderate dilatation. RIGHT VENTRICLE: Moderate dilatation. Right ventricular systolic function is reduced. TRICUSPID VALVE: Normal mobility and thickness. Moderate to severe regurgitation. Severe pulmonary hypertension. RVSP 76mmHg. MITRAL VALVE: Moderately thickened with decreased mobility. Moderate mitral valve stenosis. Severe mitral annular calcification. Moderate to severe mitral regurgitation. MVA 1.2cm, mean gradient 4mmHg AORTIC VALVE: Normal trileaflet appearance. Mildly calcified aortic valve. Normal leaflet mobility. No evidence of aortic valve stenosis. AORTIC ROOT: Normal diameter and appearance. PULMONIC VALVE: Normal thickness and mobility. No stenosis. Trivial regurgitation. PERICARDIUM: No evidence of pericardial effusion. IVC: Collapses with inspiration. Mild dilatation measuring 2.3cm. CONCLUSION: 1. Global left ventricular systolic function is hyperdynamic; visually estimated ejection fraction 65 to 70% 2. D-shaped septum consistent with right ventricular pressure and/or volume overload 3. The right ventricle is moderately dilated with reduced systolic function 4. Biatrial dilatation 5. Grade 3 diastolic dysfunction: E/E' consistent with significant volume overload 6. Moderate to severe tricuspid regurgitation 7. Severe pulmonary hypertension; RVSP 76 mmHg 8. Moderate to severe mitral regurgitation 9. Moderate mitral valve stenosis Adult Echocardiography Procedure Report Left Ventricle LVEDD (3.7 - 5.6 cm): 4.96 cm LVESD (2.2 - 4.0 cm): 2.82 cm LVIVS thickness (0.6 - 1.2 cm): 1.28 cm LVPW thickness (0.5 - 1.0 cm): 1.14 cm e': 0.08 m/s E - e': 23.17 LVOT Max Gradient: 3.43 mm[Hg] LVOT Area (cm2): 0.93 m/s Peak Velocity (LVOT): 0.93 m/s Mean Velocity (LVOT): 0.60 m/s LVOT Diameter 2.22 cm Left Ventricular Ejection Fraction: 68.36 % Left Atrium LA Volume Index (2D A2C): 94.27 ml/m2 Left Atrium Systolic Dimension: 4.81 cm Mitral Valve MV E to A Ratio: 2.26 Mitral Valve A-Wave Peak Velocity: 0.82 m/s Mitral Valve E-Wave Peak Velocity: 1.86 m/s Right Ventricle RV Internal Diastolic Dimension: 5.05 cm Aorta AO Root Diam: 3.33 cm Ascending Ao Diam: 3.19 cm Aortic Valve AoV Area (Peak Jack): 2.44 cm2, 2.44 cm2 AoV Area (VTI): 2.28 cm2, 2.28 cm2 Peak Velocity(Antegrade Flow): 1.46 m/s Peak Gradient(Antegrade Flow): 8.58 mm[Hg] Mean Velocity(Antegrade Flow): 1.00 m/s Mean Gradient(Antegrade Flow): 4.75 mm[Hg] Velocity Time Integral: 29.92 cm Tricuspid Valve Peak Velocity (Regurgitant Flow): 3.58 m/s, 4.13 m/s, 3.91 m/s Pulmonic Valve Peak Velocity: 0.88 m/s Peak Gradient: 2.91 mm[Hg], 3.32 mm[Hg] Right Atrium Right Atrium Systolic Pressure: 108.69 ml, 108.69 ml Dictated by: Kayla Garcia M.D. on 10/15/2024 at 16:57 Approved by: Kayla Garcia M.D. on 10/15/2024 at 17:03
--- NOTE | 2024-10-15 08:00 | CM.NOTE ---
Rounds made with Dr. Valderrama, pt is inpatient status. Dr. Valderrama discussed plan of care and admission diagnosis. Pt and son-n-law verbalize understanding.
--- NOTE | 2024-10-15 08:00 | ECG_ITS ---
[facility] Test Date: 2024-10-15 Pat Name: ELLA BAIG Department: Room: 2031 Gender: Male Winding Operator: : 1940 Requested By: [id number] Order Number: [id number] Reading MD: GAB ABRAHAM Measurements Intervals [place] Rate: 67 P: 38 ME: 205 QRS: -59 QRSD: 110 T: 45 QT: 433 QTc: 458 Interpretive Statements SINUS RHYTHM LEFT ANTERIOR FASCICULAR BLOCK [QRS AXIS <= -45, QR IN I, RS IN II] Nonspecific ST wave changes Compared to ECG 10/14/2024 18:35:44 Left anterior fascicular block now present Nonspecific ST wave changes now present Electronically Signed On 10-15-2024 17:55:03 EDT by GAB ABRAHAM
[2024-10-15 08:14] LABS: SARS-CoV-2 Ag NEGATIVE (NEGATIVE)
[2024-10-15] MEDS: ENOXAPARIN SODIUM 40 MG/0.4 ML SYRINGE SUBQ (09:10)
[2024-10-15] MEDS: FUROSEMIDE 40 MG/4 ML VIAL IVP (09:10)
[2024-10-15] MEDS: DOCUSATE SODIUM 100 MG CAPSULE PO ×2 (09:11→21:31)
[2024-10-15] MEDS: POTASSIUM CHLORIDE 10 MEQ ER TABLET 20 MEQ PO (09:11)
--- NOTE | 2024-10-15 10:16 | PM.HP ---
HPI H&P: HPI History of Present Illness Chief complaint: Weakness Blood Pressure High, CHF Narrative: Mr. Cunningham is an 83-year-old male who came to the emergency room with a few days history of shortness of breath and dyspnea on exertion. Patient does not speak Maur[place]ian well. Patient is accompanied by his son-in-law who speaks very good [place]itanian and Sammarinese. No chest pain. No abdominal pain. No leg swelling. No fever or chills. No headache. No change in mental status. Minimal cough. No prior history of heart disease. Opioid HPI Opioid Management Most Recent Pain and Opioid Data: Last Pain Assessment 10/14/24, 23:00 Last ORT Total Score 0 10/14/24, 22:55 Last ORT Risk Category Low Risk 10/14/24, 22:55 Review of Systems ROS Status of ROS 10 or more systems reviewed and unremarkable except as noted in history and below PFSH PFSH Social History Little interest or pleasure in doing things: not at all Feeling down, depressed, or hopeless: not at all Meds Home Medications and Allergies Home Medications ?Medication ?Instructions ?Recorded ?Confirmed ?Type levothyroxine 150 mcg tablet 150 mcg PO DAILY 10/14/24 10/14/24 History lisinopril 2.5 mg tablet 2.5 mg PO DAILY 10/14/24 10/14/24 History metformin 500 mg tablet 500 mg PO DAILY 10/14/24 10/14/24 History Allergies Allergy/AdvReac Type Severity Reaction Status Date / Time No Known Drug Allergies Allergy Verified 10/14/24 18:23 Exam Narrative Exam Narrative: [pt is awake and alert. oriented to place, time and person HEENT: [place] conjunctiva and NL buccal mucosa Neck: Supple, no tenderness Endocrine: No Thyromegaly. Vascular: No JVD or carotid bruit. Lymphatic: No cervical lymphadenopathy. Chest: Bilateral crackles Heart RRR, no extra sound or murmur. Abd: Soft, no tenderness, no rebound and no rigidity. Increase abd girth therefore clinically I could not exclude the possibility of intra abd mass or organomegaly. LE: No cyanosis or clubbing, no varices or edema. Neuro: A A O. Nl speech, comprehension and attention. Nl and symetrical motor and tone examination through out. []] Constitutional Vital Signs, click to edit/add: Last Vital Signs Temp 97.4 F L 10/15/24 07:52 Pulse 66 10/15/24 07:52 Resp 16 10/15/24 07:52 BP 111/68 10/15/24 07:52 Pulse Ox 93 L 10/15/24 09:33 O2 Del Method Room Air 10/15/24 09:33 O2 Flow Rate 2 10/14/24 18:40 Results Labs Labs: Short CBC 10/14/24 10/15/24 Range/Units 18:42 04:44 WBC 6.6 6.9 (4.0-11.0) 10^3/uL Hgb 13.3 L 13.0 L (14.0-18.0) g/dL Hct 38.6 L 38.6 L (42.0-54.0) % Plt Count 268 276 (150-450) 10^3/uL BMP 10/14/24 10/15/24 18:42 04:44 Sodium 137 139 Potassium 4.7 3.8 Chloride 105 105 Carbon Dioxide 24.3 25.8 BUN 17.0 19.0 H Creatinine 0.89 0.78 Glucose 116 H 118 H Calcium 8.8 8.9 Liver Function 10/14/24 10/15/24 Range/Units 18:42 04:44 Total Bilirubin 0.6 0.7 (0.2-1.0) mg/dL AST 27 26 (15-37) U/L ALT 39 27 (16-63) U/L Alkaline Phosphatase 110 99 (46-116) U/L Albumin 3.8 3.7 (3.4-5.0) g/dL Urine 10/14/24 Range/Units 20:50 Urine Color Lt. yellow (YELLOW) Urine Clarity Clear (CLEAR) Urine pH 5.5 (5.0-9.0) Ur Specific [place] 1.010 (1.005-1.025) Urine Protein Negative (NEG/TRACE) mg/dL Urine Glucose (UA) Negative (NEGATIVE) mg/dL Assessment and Plan Assessment and Plan (1) Acute heart failure: (2) Acute hypoxic respiratory failure: (3) Hypertension: Plan Acute diastolic, probable systolic heart failure manifested by shortness of breath, dyspnea on exertion, orthopnea and elevated BNP as well as pulmonary edema seen on CT imaging and chest x-ray. Acute hypoxic respiratory failure secondary to above. Less likely possibility of viral or bacterial infection. No fever. No leukocytosis. I accepted the patient to the telemetry unit Echocardiogram to rule out cardiomyopathy or significant valvular disease I started patient on diuretics. Hold BP meds due to borderline hypotension If his echo shows cardiomyopathy then he will be started on GDMT. If echo shows cardiomyopathy he may need sooner than later ischemic evaluation. TSH is normal Oxygen supplementation Hypothyroidism TSH normal, continue Synthroid Diabetes on metformin Hold metformin due to contrast CT completed yesterday Check A1c History of throat cancer s/p resection and chemotherapy. Patient is to follow-up with his primary care doctor and the oncology team Chronic medical conditions not listed above, incidental findings seen on labs and imaging. These would need to be addressed. Could be addressed when time and condition are appropriate. Could be addressed in the outpatient setting by PCP collaboration with other needed outpatient providers.
[2024-10-15] MEDS: ASPIRIN 81 MG TAB.CHEW PO (10:53)
--- NOTE | 2024-10-15 13:24 | PC.NURSE ---
1324: pts BP 102/65,pts primary Angel Luis Moreno RN made aware.
[2024-10-16] VITALS (22 sets, daily range): BP systolic 94–111; BP diastolic 54–76; PULSE 66–85; TEMP 36.3–36.6; O2SAT 90–97
[2024-10-16] MEDS: LEVOTHYROXINE SODIUM 75 MCG TABLET 150 MCG PO (05:59)
[2024-10-16 06:52] LABS: Anion Gap 13.2; Blood Urea Nitrogen 16.0 mg/dL (7.0-18.0); Calcium 8.9 mg/dL (8.5-10.1); Carbon Dioxide 26.8 mmol/L (21.0-32.0); Chloride 102 mmol/L (98-107); Estimated GFR (African America >60 (>=60 mL/min/1.73m^2); Estimated GFR (Non-African Ame >60 (>=60 mL/min/1.73m^2); Glucose 106 mg/dL (74-106); Potassium 4.0 mmol/L (3.5-5.1); Sodium 138 mmol/L (136-145)
[2024-10-16] MEDS: ENOXAPARIN SODIUM 40 MG/0.4 ML SYRINGE SUBQ (08:53)
[2024-10-16] MEDS: ASPIRIN 81 MG TAB.CHEW PO (08:53)
[2024-10-16] MEDS: DOCUSATE SODIUM 100 MG CAPSULE PO ×2 (08:53→21:06)
[2024-10-16] MEDS: POTASSIUM CHLORIDE 10 MEQ ER TABLET 20 MEQ PO (08:53)
[2024-10-16] MEDS: TORSEMIDE 20 MG TABLET PO ×2 (08:53→15:16)
--- NOTE | 2024-10-16 10:15 | PM.PN ---
Progress Note: Subjective Subjective Interval history: Patient is feeling better. Less shortness of breath. No chest pain Exam Narrative Exam Narrative: [pt is awake and alert. oriented to place, time and person HEENT: Standard conjunctiva and NL buccal mucosa Neck: Supple, no tenderness Endocrine: No Thyromegaly. Vascular: No JVD or carotid bruit. Lymphatic: No cervical lymphadenopathy. Chest: Bilateral crackles much improved compared to yesterday Heart RRR, no extra sound or murmur. Abd: Soft, no tenderness, no rebound and no rigidity. Increase abd girth therefore clinically I could not exclude the possibility of intra abd mass or organomegaly. LE: No cyanosis or clubbing, no varices or edema. Neuro: A A O. Nl speech, comprehension and attention. Nl and symetrical motor and tone examination through out. []] Constitutional Vital Signs, click to edit/add: Last Vital Signs Temp 97.4 F L 10/16/24 07:48 Pulse 74 10/16/24 09:51 Resp 20 10/16/24 07:48 BP 102/64 10/16/24 07:48 Pulse Ox 92 L 10/16/24 07:48 O2 Del Method Room Air 10/16/24 07:48 O2 Flow Rate 2 10/14/24 18:40 Progress Note: Objective Labs Labs: [facility] 10/16/24 06:06 Sodium 138 Potassium 4.0 Chloride 102 Carbon Dioxide 26.8 BUN 16.0 Creatinine 0.69 L Glucose 106 Calcium 8.9 Progress Note: A&P Assessment and Plan (1) Acute heart failure: (2) Acute hypoxic respiratory failure: (3) Hypertension: Plan Acute diastolic, probable systolic heart failure Moderate mitral regurgitation Moderate mitral stenosis. Severe pulm hypertension. Acute hypoxic respiratory failure secondary to above. Less likely possibility of viral or bacterial infection. No fever. No leukocytosis. I accepted the patient to the telemetry unit Continue diuretics. Blood pressure is on the soft side prohibiting the use of the aggressive diuresis Hold BP meds due to borderline hypotension Elective ischemic evaluation may be needed. Patient will need to follow-up with cardiology regarding his valvular disease as listed above Hypothyroidism TSH normal, continue Synthroid Diabetes on metformin Hold metformin due to contrast CT completed yesterday Check A1c History of throat cancer s/p resection and chemotherapy. Patient is to follow-up with his primary care doctor and the oncology team Chronic medical conditions not listed above, incidental findings seen on labs and imaging. These would need to be addressed. Could be addressed when time and condition are appropriate. Could be addressed in the outpatient setting by PCP collaboration with other needed outpatient providers. I discussed his case with his son and daughter who are dual [place] speaking and played translators role
--- NOTE | 2024-10-16 18:48 | PC.NURSE ---
Pt had run of SVT. Picture sent of rhythm strip to Dr Valderrama via tiger text. HR 150's (asymptomatic) and converted back on his own , heart rate now regular at 76 bpm. No orders received at this time. Pt up in room with family at bedside.
[2024-10-17] VITALS (9 sets, daily range): BP systolic 95–103; BP diastolic 60–65; PULSE 70–80; TEMP 36.5–36.8; O2SAT 92–94
[2024-10-17] MEDS: LEVOTHYROXINE SODIUM 75 MCG TABLET 150 MCG PO (05:56)
[2024-10-17 06:56] LABS: Anion Gap 14.6; Blood Urea Nitrogen 19.0 mg/dL (7.0-18.0); Calcium 9.3 mg/dL (8.5-10.1); Carbon Dioxide 27.1 mmol/L (21.0-32.0); Chloride 99 mmol/L (98-107); Estimated GFR (African America >60 (>=60 mL/min/1.73m^2); Estimated GFR (Non-African Ame >60 (>=60 mL/min/1.73m^2); Glucose 113 mg/dL (74-106); Potassium 3.7 mmol/L (3.5-5.1); Sodium 137 mmol/L (136-145)
[2024-10-17] MEDS: ASPIRIN 81 MG TAB.CHEW PO (08:45)
[2024-10-17] MEDS: DOCUSATE SODIUM 100 MG CAPSULE PO (08:45)
[2024-10-17] MEDS: POTASSIUM CHLORIDE 10 MEQ ER TABLET 20 MEQ PO (08:45)
--- NOTE | 2024-10-17 11:30 | P.DS_ITS ---
DS: Providers Provider Date of admission: 10/14/24 22:30 Primary care physician: LIGIA MCINTOSH DO DS: Diagnosis Discharge Diagnosis (1) Acute heart failure: (2) Acute hypoxic respiratory failure: (3) Hypertension: Plan As listed above and others that are listed DS: Summary Hospital Course Hospital Course: Mr. Cunningham is an 83-year-old male who came in with shortness of breath. Acute diastolic heart failure, interstitial edema and pleural effusion Moderate mitral regurgitation Moderate mitral stenosis. Severe pulm hypertension. Acute hypoxic respiratory failure secondary to above. Less likely possibility of viral or bacterial infection. No fever. No leukocytosis. I accepted the patient to the telemetry unit Continued diuretics. Blood pressure is on the soft side prohibiting the use of the aggressive diuresis Hold home lisinopril due to borderline hypotension Elective ischemic evaluation may be needed. We will arrange for patient to follow-up with local cardiology group, Dr. Keita or colleagues for diastolic heart failure, valvular disease as listed above and elective ischemic evaluation if needed Patient will be discharged home on torsemide 10 mg daily, potassium 10 mEq daily Due to borderline low blood pressure I would discontinue home lisinopril to allow for additional volume removal without affecting blood pressure significantly. Short run of SVT noted on the monitor yesterday. No chest pain. Patient will be started on Toprol-XL 25 mg daily. I recommend patient to have a Holter monitor in the outpatient setting to investigate how frequent and how long these episodes are occurring. Patient is to follow-up with the local cardiology group as listed above. We will arrange for Holter monitor. Hypertension His blood pressure is soft ranging between 98-105 systolically. I will discontinue lisinopril at this time to allow for the use of diuretics for heart failure and metoprolol for SVT. Hypothyroidism TSH normal, continue Synthroid Diabetes on metformin Hold metformin due to contrast CT completed yesterday A1c is 6.2 History of throat cancer s/p resection and chemotherapy. Patient is to follow-up with his primary care doctor and the oncology team Chronic medical conditions not listed above, incidental findings seen on labs and imaging. These would need to be addressed. Could be addressed when time and condition are appropriate. Could be addressed in the outpatient setting by PCP collaboration with other needed outpatient providers. I discussed his case with his son, son-in-law and daughter who are dual Tuvaluan Faroese speaking and played translators role Patient has multiple medical issues as listed above and others that are not listed. All appear to be stable. I do not have any clear or strong clinical justification to extend inpatient hospitalization. Patient however will require close and frequent monitoring as well as additional work-up, investigation and therapeutic intervention that could take place from this point on post discharge. That is to prevent relapse, decompensation, rehospitalization and other medical implications. I instructed patient to ask her primary care doctor to obtain [facility] record entirely to address abnormalities seen on labs and imaging that I have and have not addressed during this hospitalization, follow-up on pending blood work, imaging and pathology is if available and to follow-up on needed medical care in the outpatient setting. Time Spent with Patient Time attestation: Total time spent providing and/or coordinating discharge services: Time spent: greater than 30 minutes Exam Narrative Exam Narrative: [pt is awake and alert. oriented to place, time and person HEENT: [place] conjunctiva and NL buccal mucosa Neck: Supple, no tenderness Endocrine: No Thyromegaly. Vascular: No JVD or carotid bruit. Lymphatic: No cervical lymphadenopathy. Chest: Bilateral crackles resolved. Heart RRR, no extra sound or murmur. Abd: Soft, no tenderness, no rebound and no rigidity. Increase abd girth therefore clinically I could not exclude the possibility of intra abd mass or organomegaly. LE: No cyanosis or clubbing, no varices or edema. Neuro: A A O. Nl speech, comprehension and attention. Nl and symetrical motor and tone examination through out. []] Constitutional Vital Signs, click to edit/add: Last Vital Signs Temp 97.7 F 10/17/24 07:38 Pulse 72 10/17/24 10:00 Resp 18 10/17/24 07:38 BP 103/65 10/17/24 07:38 Pulse Ox 92 L 10/17/24 10:12 O2 Del Method Room Air 10/17/24 10:12 O2 Flow Rate 2 10/14/24 18:40 DS: Data Data Completed and Pending Labs on day of discharge: Labs from last 24 hours 10/17/24 05:51 Sodium 137 Potassium 3.7 Chloride 99 Carbon Dioxide 27.1 Anion Gap 14.6 BUN 19.0 H Creatinine 0.71 Est GFR ( Amer) >60 Est GFR (Non-Af Amer) >60 BUN/Creatinine Ratio 26.8 Glucose 113 H Calcium 9.3 Preliminary micro results at discharge 10/14/24 20:50 Urine Culture - Preliminary Urine,Clean Catch Pending - Specimen sent to [facility] Discharge Plan Discharge Disposition: Home, Self-Care Condition: Good Discharge Medications: New aspirin 81 mg Tablet,Chewable 81 mg PO QD Qty: 60 2RF torsemide 10 mg tablet 10 mg PO DAILY Qty: 30 1RF metoprolol succinate [Toprol XL] 25 mg tablet extended release 24 hr 25 mg PO DAILY Qty: 30 2RF potassium chloride 10 mEq tablet extended release 10 meq PO DAILY Qty: 30 1RF Continued levothyroxine 150 mcg tablet 150 mcg PO DAILY metformin 500 mg tablet 500 mg PO DAILY Discontinued lisinopril 2.5 mg tablet 2.5 mg PO DAILY Print Language: Tuvaluan Patient Instructions: Heart Failure (DC), Heart Healthy Diet (DC) Activity Restrictions/Additional Instructions: I may not have addressed or treated all of your medical illnesses or the abnormal blood work or imaging studies during this hospitalization. Please ask your primary care provider to obtain [facility] records entirely to follow up on all of the abnormal physical, laboratory, and imaging findings that I have not addressed. Please return back to the emergency room or seek medical attention if your symptoms worsen or return. Will arrange for you to have a 30-day Holter monitor Discharging you from [facility] does not mean that your medical care ends here and now. You may still need additional monitoring, work up, investigation, and treatment plan to be handled from this point on by out patient providers including your primary care provider and specialists. For any medication question, please contact your retail pharmacist or your primary care provider. Thank you. Forms: Portal Instructions Referrals: LIO KEITA [Physician, Cardiology] Referral Note: Regarding mitral valve regurgitation and stenosis Follow Up Appointments: Call FridayOct 18 to schedule hospital follow up with PCP DR Mcintosh [phone]
--- NOTE | 2024-10-18 08:57 | PC.NURSE ---
Follow up appt with Dr. Jarvis on 10/21 @ 2:30pm [phone] Follow up appt. with [facility] on 10/28 @ 3pm [phone]
--- NOTE | 2024-10-18 11:33 | CM.NOTE ---
Faxed order for 30 day event monitor as outpatient order to [facility]. Order received and scheduling will call patient to set up appointment date and time.
--- NOTE | 2024-10-18 15:36 | CM.DCFOLLOWU ---
Person spoke with:pt's sonAndrews How are you feeling? he is doing well How is your pain?none Did you understand your discharge instructions?yes Do you have any questions about your discharge instructions?no Were you given any prescriptions at discharge?yes Were you able to get your prescriptions filled?yes Do you understand how to take your medications as ordered?yes Do you have any questions about your follow up appointment and do you plan to keep your follow up appointment? no questions, I advised pt's son of follow ups and holter monitor Is there anything else that you would like to discuss?no Questions/Comments/Concerns/Other:none
--- NOTE | 2024-10-18 15:37 | SWNOTE1 ---
SW called and spoke to pt's son. JOSE advised that he will be getting a call from the [facility] for pt to get 30 day event monitor placed. Pt's son voiced understanding. SW also reviewed follow up appointments with pt's son. Follow up with PCP and [facility] Cardiology. He voiced understanding.
== END 2024-10-17 13:00 | disposition home or self-care (01) | DRG 291 ==
LOC: ER 21:31 → MS 10-15 06:41
PROVIDERS: Emergency Medicine; Admitting Provider Internal Medicine; Emergency Provider Emergency Medicine; PCP Family Medicine; Visit Provider Internal Medicine
DX: I11.0 Hypertensive heart disease with heart failure (principal); I50.31 Acute diastolic (congestive) heart failure; J96.01 Acute respiratory failure with hypoxia; I47.10 Supraventricular tachycardia, unspecified; E03.9 Hypothyroidism, unspecified; E11.9 Type 2 diabetes mellitus without complications; Z79.84 Long term (current) use of oral hypoglycemic drugs; Z85.89 Personal history of malignant neoplasm of other organs and systems; Z92.21 Personal history of antineoplastic chemotherapy; I27.20 Pulmonary hypertension, unspecified; I05.2 Rheumatic mitral stenosis with insufficiency; Z90.49 Acquired absence of other specified parts of digestive tract; R82.79 Other abnormal findings on microbiological examination of urine
CPT/HCPCS: 36415; 71045; 71275; 74177; 80048; 80053; 80061; 81001; 83036; 83605; 83880; 84443; 84484; 85025; 85378; 85610; 87086; 87088; 87186; 87420; 87804; 87811; 93005; 93306; 94761; 96374; 99285; J1650; J1938; Q9967

== ENCOUNTER 2024-11-12 15:17 | Observation (INO) | payer MEDICARE, MEDICAID, SELFPAY ==
[2024-11-12] VITALS (24 sets, daily range): BP systolic 107–125; BP diastolic 69–76; PULSE 70–84; TEMP 36.6–36.8; O2SAT 87–94; BMI 26.6; BMI 26.2
--- NOTE | 2024-11-12 15:39 | ECG_ITS ---
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 Measurements Intervals [place] Rate: 72 P: 33 VT: 208 QRS: -67 QRSD: 98 T: 25 QT: 412 QTc: 436 Interpretive Statements 1100 Sinus rhythm 2420 RSR (QR) in lead V1/V2, consistent with right ventricular conduction delay 7200 Abnormal left axis deviation 9130 borderline ECG Compared to ECG 10/15/2024 05:49:47 Left-axis deviation now present Left anterior fascicular block no longer present ST (T wave) deviation no longer present Electronically Signed On 11-12-2024 20:05:13 EDT by LIO FLETCHER M.D.
--- NOTE | 2024-11-12 15:41 | ED.GENADUL1 ---
HPI HPI - General Adult General Chief complaint: Fall Stated complaint: FAINTED HR AGO/ HAS HEART PROBLEMS Time Seen by Provider: 11/12/24 15:33 Source: family Mode of arrival: walk-in Limitations: no limitations History of Present Illness HPI narrative: 84-year-old male presents for injury to his face and his knees. Shortly before coming into the emergency department he was outside and he got dizzy and he fell. He landed on his knees and then his face. Is not clear whether he passed out or. He is not a good historian. Family member comes with them and provides an excellent interpretation. He complains of pain on the dorsum of each hand and his face. He is not complaining of chest pain or palpitations or shortness of breath. Related Data Home Medications ?Medication ?Instructions ?Recorded ?Confirmed levothyroxine 150 mcg tablet 150 mcg PO DAILY 10/14/24 11/12/24 metformin 500 mg tablet 500 mg PO DAILY 10/14/24 11/12/24 Previous Rx's ?Medication ?Instructions ?Recorded aspirin 81 mg chewable tablet 81 mg PO QD #60 tabs 10/17/24 metoprolol succinate 25 mg 25 mg PO DAILY #30 tabs 10/17/24 tablet,extended release 24 hr (Toprol XL) potassium chloride 10 mEq 10 meq PO DAILY #30 tabs 10/17/24 tablet,extended release torsemide 10 mg tablet 10 mg PO DAILY #30 tabs 10/17/24 Allergies Allergy/AdvReac Type Severity Reaction Status Date / Time No Known Drug Allergies Allergy Verified 11/12/24 15:37 Opioid HPI Opioid Management Most Recent Opioid Data: Last Pain Scale 6 Today, 15:31 Last ORT Total Score 0 10/14/24, 22:55 Last ORT Risk Category Low Risk 10/14/24, 22:55 Review of Systems ROS Narrative A ten point review of systems is negative except as noted above. [facility] Medical History (Updated 11/12/24 @ 17:56 by Byron Atkins MD) Diabetes mellitus ?E11.9 - Type 2 diabetes mellitus without complications (ICD-10) History of CVA (cerebrovascular accident) ?Z86.73 - Personal history of transient ischemic attack (TIA), and cerebral infarction without residual deficits (ICD-10) History of prostate cancer ?Z85.46 - Personal history of malignant neoplasm of prostate (ICD-10) History of throat cancer ?Z85.819 - Personal history of malignant neoplasm of unspecified site of lip, oral cavity, and pharynx (ICD-10) Social History Little interest or pleasure in doing things: not at all Feeling down, depressed, or hopeless: not at all Exam Narrative Exam Narrative: Nurses note and vital signs reviewed and patient is not hypoxic. General: The patient appears in no acute distress Skin: Warm, dry, no pallor noted. There is no rash noted. Head: Normocephalic, several abrasions present on his face, no laceration Eye: Normal conjunctiva, no drainage Ears, Nose, Mouth, and Throat: oral mucosa is moist. Nares patent. Cardiovascular: Regular Rate and Rhythm Respiratory: Patient is in no distress, no accessory muscle use, lungs are clear to auscultation, no wheezing, rales or rhonchi Back: Cervical thoracic and lumbar spines are nontender GI: Soft and nontender Musculoskeletal: He has abrasion on his left knee as well as abrasions on his bilateral anterior lower legs. As noted above several abrasions on his face as well. Hips and knees are nontender and have full range of motion he has some tenderness on the dorsum of each hand without bruising or abrasion or break in the skin. Wrists are nontender and all fingers have full range of motion Neurological: Awake and alert Psychiatric: Cooperative Constitutional Vital Signs, click to edit/add: Last Vital Signs Temp 98.2 F 11/12/24 15:31 Pulse 76 11/12/24 17:40 Resp 15 11/12/24 17:40 BP 118/73 11/12/24 17:47 Pulse Ox 92 L 11/12/24 16:00 O2 Del Method Room Air 11/12/24 15:31 Course Vital Signs Vital signs: Vital Signs Temperature 98.2 F 11/12/24 15:31 Pulse Rate 79 11/12/24 15:31 Respiratory Rate 20 11/12/24 15:31 Blood Pressure 117/75 11/12/24 15:31 Pulse Oximetry 94 L 11/12/24 15:31 Oxygen Delivery Method Room Air 11/12/24 15:31 Temperature 98.2 F 11/12/24 15:31 Pulse Rate 76 11/12/24 17:40 Respiratory Rate 15 11/12/24 17:40 Blood Pressure 118/73 11/12/24 17:47 Pulse Oximetry 92 L 11/12/24 16:00 Oxygen Delivery Method Room Air 11/12/24 15:31 Medical Decision Making MDM Narrative Medical decision making narrative: CAT scans and x-rays are negative in terms of his fall. Chest x-ray however shows CHF and BNP is elevated at approximately 2500; troponin normal. He was given IV Lasix and is being admitted. Tetanus status was updated as well. Treatment diagnosis and disposition were discussed were discussed with his family and the patient. Differential Diagnosis Differential Diagnosis: Intracranial hemorrhage, C-spine fracture, contusions Lab Data Lab results reviewed: Yes I reviewed the patient's lab results Labs: Lab Results 11/12/24 Range/Units 16:23 WBC 7.6 (4.0-11.0) 10^3/uL RBC 4.56 L (4.70-6.10) 10^6/uL Hgb 12.9 L (14.0-18.0) g/dL Hct 38.0 L (42.0-54.0) % MCV 83.3 (80.0-94.0) fL MCH 28.3 (25.9-34.0) pg MCHC 33.9 (29.9-35.2) g/dL RDW 13.3 (11.0-15.0) % Plt Count 260 (150-450) 10^3/uL MPV 9.4 L (9.5-13.5) fL Neut % (Auto) 74.9 (43.0-75.0) % Lymph % (Auto) 14.4 L (20.5-60.0) % [place] % (Auto) 8.2 (1.7-12.0) % Eos % (Auto) 2.0 (0.9-7.0) % Baso % (Auto) 0.4 (0.2-2.0) % Neut # (Auto) 5.7 (1.4-6.5) 10^3/uL Lymph # (Auto) 1.1 L (1.2-3.8) 10^3/uL [place] # (Auto) 0.6 (0.3-0.8) 10^3/uL Eos # (Auto) 0.2 (0.0-0.7) 10^3/uL Baso # (Auto) 0.0 (0.0-0.1) 10^3/uL Abs Immat Gran (auto) 0.01 (0.00-0.03) 10^3/uL Imm/Tot Granulo (auto) 0.1 (0.0-0.5) % Sodium 140 (136-145) mmol/L Potassium 4.1 (3.5-5.1) mmol/L Chloride 106 (98-107) mmol/L Carbon Dioxide 22.3 (21.0-32.0) mmol/L Anion Gap 15.8 BUN 20.0 H (7.0-18.0) mg/dL Creatinine 0.85 (0.70-1.30) mg/dL Est GFR ( Amer) >60 (>=60 mL/min/1.73m^2) Est GFR (Non-Af Amer) >60 (>=60 mL/min/1.73m^2) BUN/Creatinine Ratio 23.5 Glucose 139 H (74-106) mg/dL Calcium 8.8 (8.5-10.1) mg/dL Troponin I High Sens 13.8 (4.0-76.1) pg/mL NT-Pro-B Natriuret Pep 2532.0 H* (<=1800.0) pg/mL Imaging Data Chest x-ray: Radiologist's impression: ITS Impressions Cervical Spine CT 11/12/24 16:10 IMPRESSION: No acute intracranial pathology. There is age-related cortical atrophy. There is nonspecific focal hypoattenuation in the right frontal subcortical white matter. No facial bone fracture. No acute cervical spine injury. Degenerative changes are noted in the cervical spine. Impression dictated by: Darius Molina M.D. 11/12/2024 4:56 PM Dictation Location: [place] [address] Electronically authenticated by: [id number] Y Date: 11/12/2024 16:[address] 11/12/24 16:10 IMPRESSION: No acute intracranial pathology. There is age-related cortical atrophy. There is nonspecific focal hypoattenuation in the right frontal subcortical white matter. No facial bone fracture. No acute cervical spine injury. Degenerative changes are noted in the cervical spine. Impression dictated by: Darius Molina M.D. 11/12/2024 4:56 PM Dictation Location: [facility] Electronically authenticated by: [id number] Y Date: 11/12/2024 16:[address] 11/12/24 16:10 IMPRESSION: No acute intracranial pathology. There is age-related cortical atrophy. There is nonspecific focal hypoattenuation in the right frontal subcortical white matter. No facial bone fracture. No acute cervical spine injury. Degenerative changes are noted in the cervical spine. Impression dictated by: Darius Molina M.D. 11/12/2024 4:56 PM Dictation Location: [facility] Electronically authenticated by: [id number] Y Date: 11/12/2024 16:56 Chest X-Ray 11/12/24 16:19 IMPRESSION: There is cardiomegaly with perihilar vascular prominence and interstitial prominence suggesting congestive heart failure. Impression dictated by: Darius Molina M.D. 11/12/2024 4:36 PM Dictation Location: [facility] Electronically authenticated by: [id number] Y Date: 11/12/2024 16:36 Hand X-Ray 11/12/24 16:19 IMPRESSION: No fracture or dislocation. Degenerative changes are noted throughout the hands bilaterally. Impression dictated by: Darius Molina M.D. 11/12/2024 4:45 PM Dictation Location: [facility] Electronically authenticated by: [id number] Y Date: 11/12/2024 16:45 ECG Data Attestation: I personally reviewed and interpreted this ECG as follows: (EKG on my interpretation shows sinus rhythm with rate of 72 and no acute change) Critical Care Time Critical Care Time Critical Care Time: Yes Total Critical Care Time: 35 Attestation: Due to the high probability of sudden and clinically significant deterioration in the patient's condition he/she required the highest level of my preparedness to intervene urgently I provided critical care time including documentation time, medication orders and management, reevaluation, vital sign assessment, ordering and reviewing of lab tests, ordering and reviewing of x-ray studies, and admission orders. Aggregate critical care time is 35 minutes including only time during which I was engaged in work directly related to his/her care and did not include time spent treating other patients simultaneously. Discharge Plan Discharge Chief Complaint: Fall Clinical Impression: Congestive heart failure, Fall, Multiple abrasions Patient Disposition: Admitted As Inpatient Time of Disposition Decision: 17:56 Condition: Fair
--- NOTE | 2024-11-12 16:10 | CT_ITS ---
The [address] [address] Patient Name: ELLA BAIG MRN: [id number] date: 1940 Sex: M Assigned Patient Location: ER Current Patient Location: ER Accession/Order Number: [id number] Exam Date: 11/12/2024 16:00 Report Date: 11/12/2024 16:56 At the request of: DAYNA BONNER MD Procedure: CT cervical spine wo con CT head/brain wo con, CT facial bones wo con, CT cervical spine wo con 11/12/2024 4:10 PM SIGNS AND SYMPTOMS: ^Fall, hit face and head TECHNIQUE:Multi-detector CT axial slices of the brain and cervical spine were obtained without IV contrast. Helical,sagittal, coronal, and 3-D reconstructions of the cervical spine were performed. CT was performed with one or more of the following dose reduction techniques: Automated exposure control, adjustment of the mA and/or kV according to patient size, or use of iterative reconstruction technique. COMPARISON: None. FINDINGS: Noncontrast head CT: There is no shift of the midline structures, acute intracranial bleeding, mass effects, or evidence of acute ischemia. There is age-related cortical atrophy. Atherosclerotic changes are noted in the intracranial segments of the internal carotid arteries. There is hypoattenuation in the right frontal subcortical white matter. The ventricular system is normal in size. The brainstem and the cerebellum are unremarkable. The visualized intraorbital contents, the visualized paranasal sinuses, and the infratemporal soft tissues show no acute abnormality. The osseous structures in the skull base and the calvarium show no abnormality. Facial bone CT: Fracture: None. Paranasal sinuses and mastoids: Mucosal thickening is noted in the right maxillary sinus. Soft tissue swelling: None. Globes: Intact. Upper aerodigestive tract: Within normal limits. Joints: Intact. Temporal mandibular joints: Intact. Infratemporal fossa: Within normal limits. Cervical spine: There is preservation of the vertebral body heights and intervertebral discs. No fractures or dislocations are seen. The alignment of the cervical spine is normal. The craniocervical junction is within normal limits. Degenerative changes are noted in the atlantoaxial joint. The prevertebral soft tissues are within normal limits. The paraspinous soft tissues are within normal limits. Calcified plaque is noted in the carotid bifurcations. The lung apices are unremarkable. CT/CT cervical spine wo con IMPRESSION: No acute intracranial pathology. There is age-related cortical atrophy. There is nonspecific focal hypoattenuation in the right frontal subcortical white matter. No facial bone fracture. No acute cervical spine injury. Degenerative changes are noted in the cervical spine. Impression dictated by: Darius Molina M.D. 11/12/2024 4:56 PM Dictation Location: [place] [address] Electronically authenticated by: [id number] Y Date: 11/12/2024 16:56
--- NOTE | 2024-11-12 16:10 | CT_ITS ---
The [address] [address] Patient Name: ELLA BAIG MRN: [id number] date: 1940 Sex: M Assigned Patient Location: ER Current Patient Location: ER Accession/Order Number: [id number] Exam Date: 11/12/2024 16:00 Report Date: 11/12/2024 16:56 At the request of: DAYNA BONNER MD Procedure: CT cervical spine wo con CT head/brain wo con, CT facial bones wo con, CT cervical spine wo con 11/12/2024 4:10 PM SIGNS AND SYMPTOMS: ^Fall, hit face and head TECHNIQUE:Multi-detector CT axial slices of the brain and cervical spine were obtained without IV contrast. Helical,sagittal, coronal, and 3-D reconstructions of the cervical spine were performed. CT was performed with one or more of the following dose reduction techniques: Automated exposure control, adjustment of the mA and/or kV according to patient size, or use of iterative reconstruction technique. COMPARISON: None. FINDINGS: Noncontrast head CT: There is no shift of the midline structures, acute intracranial bleeding, mass effects, or evidence of acute ischemia. There is age-related cortical atrophy. Atherosclerotic changes are noted in the intracranial segments of the internal carotid arteries. There is hypoattenuation in the right frontal subcortical white matter. The ventricular system is normal in size. The brainstem and the cerebellum are unremarkable. The visualized intraorbital contents, the visualized paranasal sinuses, and the infratemporal soft tissues show no acute abnormality. The osseous structures in the skull base and the calvarium show no abnormality. Facial bone CT: Fracture: None. Paranasal sinuses and mastoids: Mucosal thickening is noted in the right maxillary sinus. Soft tissue swelling: None. Globes: Intact. Upper aerodigestive tract: Within normal limits. Joints: Intact. Temporal mandibular joints: Intact. Infratemporal fossa: Within normal limits. Cervical spine: There is preservation of the vertebral body heights and intervertebral discs. No fractures or dislocations are seen. The alignment of the cervical spine is normal. The craniocervical junction is within normal limits. Degenerative changes are noted in the atlantoaxial joint. The prevertebral soft tissues are within normal limits. The paraspinous soft tissues are within normal limits. Calcified plaque is noted in the carotid bifurcations. The lung apices are unremarkable. CT/CT facial bones wo con IMPRESSION: No acute intracranial pathology. There is age-related cortical atrophy. There is nonspecific focal hypoattenuation in the right frontal subcortical white matter. No facial bone fracture. No acute cervical spine injury. Degenerative changes are noted in the cervical spine. Impression dictated by: Darius Molina M.D. 11/12/2024 4:56 PM Dictation Location: [place] [address] Electronically authenticated by: [id number] Y Date: 11/12/2024 16:56
--- NOTE | 2024-11-12 16:10 | CT_ITS ---
The [address] [address] Patient Name: ELLA BAIG MRN: [id number] date: 1940 Sex: M Assigned Patient Location: ER Current Patient Location: ER Accession/Order Number: [id number] Exam Date: 11/12/2024 16:00 Report Date: 11/12/2024 16:56 At the request of: DAYNA BONNER MD Procedure: CT cervical spine wo con CT head/brain wo con, CT facial bones wo con, CT cervical spine wo con 11/12/2024 4:10 PM SIGNS AND SYMPTOMS: ^Fall, hit face and head TECHNIQUE:Multi-detector CT axial slices of the brain and cervical spine were obtained without IV contrast. Helical,sagittal, coronal, and 3-D reconstructions of the cervical spine were performed. CT was performed with one or more of the following dose reduction techniques: Automated exposure control, adjustment of the mA and/or kV according to patient size, or use of iterative reconstruction technique. COMPARISON: None. FINDINGS: Noncontrast head CT: There is no shift of the midline structures, acute intracranial bleeding, mass effects, or evidence of acute ischemia. There is age-related cortical atrophy. Atherosclerotic changes are noted in the intracranial segments of the internal carotid arteries. There is hypoattenuation in the right frontal subcortical white matter. The ventricular system is normal in size. The brainstem and the cerebellum are unremarkable. The visualized intraorbital contents, the visualized paranasal sinuses, and the infratemporal soft tissues show no acute abnormality. The osseous structures in the skull base and the calvarium show no abnormality. Facial bone CT: Fracture: None. Paranasal sinuses and mastoids: Mucosal thickening is noted in the right maxillary sinus. Soft tissue swelling: None. Globes: Intact. Upper aerodigestive tract: Within normal limits. Joints: Intact. Temporal mandibular joints: Intact. Infratemporal fossa: Within normal limits. Cervical spine: There is preservation of the vertebral body heights and intervertebral discs. No fractures or dislocations are seen. The alignment of the cervical spine is normal. The craniocervical junction is within normal limits. Degenerative changes are noted in the atlantoaxial joint. The prevertebral soft tissues are within normal limits. The paraspinous soft tissues are within normal limits. Calcified plaque is noted in the carotid bifurcations. The lung apices are unremarkable. CT/CT head/brain wo con IMPRESSION: No acute intracranial pathology. There is age-related cortical atrophy. There is nonspecific focal hypoattenuation in the right frontal subcortical white matter. No facial bone fracture. No acute cervical spine injury. Degenerative changes are noted in the cervical spine. Impression dictated by: Darius Molina M.D. 11/12/2024 4:56 PM Dictation Location: [place] [address] Electronically authenticated by: [id number] Y Date: 11/12/2024 16:56
--- NOTE | 2024-11-12 16:19 | XR_ITS ---
The [address] [address] Patient Name: ELLA BAIG MRN: [id number] date: 1940 Sex: M Assigned Patient Location: ER Current Patient Location: ER Accession/Order Number: [id number] Exam Date: 11/12/2024 16:10 Report Date: 11/12/2024 16:36 At the request of: DAYNA BONNER MD Procedure: XR chest 1V XR chest 1V 11/12/2024 4:19 PM SIGNS AND SYMPTOMS: ^fall ^Y PROTOCOL: Frontal radiograph of the chest COMPARISON: 10/14/2024 FINDINGS: The trachea is midline. There is cardiomegaly. There is perihilar vascular prominence and interstitial prominence. Degenerative changes are noted in the shoulders and thoracic spine. Atherosclerotic changes are noted in the thoracic aorta. The bony thorax is intact. XR/XR chest 1V IMPRESSION: There is cardiomegaly with perihilar vascular prominence and interstitial prominence suggesting congestive heart failure. Impression dictated by: Darius Molina M.D. 11/12/2024 4:36 PM Dictation Location: [place] [address] Electronically authenticated by: [id number] Y Date: 11/12/2024 16:36
--- NOTE | 2024-11-12 16:19 | XR_ITS ---
The [place] [id number] Patient Name: ELLA BAIG MRN: [id number] date: 1940 Sex: M Assigned Patient Location: ER Current Patient Location: ER Accession/Order Number: [id number] Exam Date: 11/12/2024 16:10 Report Date: 11/12/2024 16:45 At the request of: DAYNA BNONER MD Procedure: XR hand IDALIA min 3v XR hand IDALIA min 3v 11/12/2024 4:19 PM SIGNS AND SYMPTOMS: Bilateral hand pain PROTOCOL: Frontal, lateral, and oblique radiographs of the bilateral hand COMPARISON: None FINDINGS: There is narrowing of the interphalangeal joints, greatest in the second and third digit. There is narrowing of the metacarpophalangeal joints of the first through third digits. There is narrowing of the first carpometacarpal junction the bilateral. Degenerative changes are noted at the first carpal metacarpal junction. There is no fracture or dislocation. There is evidence of a remote left ulnar styloid fracture. XR/XR hand IDALIA min 3v IMPRESSION: No fracture or dislocation. Degenerative changes are noted throughout the hands bilaterally. Impression dictated by: Darius Molina M.D. 11/12/2024 4:45 PM Dictation Location: [place] [address] Electronically authenticated by: [id number] Y Date: 11/12/2024 16:45
[2024-11-12 16:29] LABS: Hematocrit 38.0 % (42.0-54.0); Hemoglobin 12.9 g/dL (14.0-18.0); Immature Granulocytes Abs Auto 0.01 10^3/uL (0.00-0.03); Immature Granulocytes Pct Auto 0.1 % (0.0-0.5); Lymphocytes Absolute Auto 1.1 10^3/uL (1.2-3.8); Mean Corpuscular HGB Conc 33.9 g/dL (29.9-35.2); Mean Corpuscular Hemoglobin 28.3 pg (25.9-34.0); Mean Corpuscular Volume 83.3 fL (80.0-94.0); Platelet Count 260 10^3/uL (150-450); Red Blood Count 4.56 10^6/uL (4.70-6.10); White Blood Count 7.6 10^3/uL (4.0-11.0)
[2024-11-12 16:47] LABS: Anion Gap 15.8; Blood Urea Nitrogen 20.0 mg/dL (7.0-18.0); Calcium 8.8 mg/dL (8.5-10.1); Carbon Dioxide 22.3 mmol/L (21.0-32.0); Chloride 106 mmol/L (98-107); Estimated GFR (African America >60 (>=60 mL/min/1.73m^2); Estimated GFR (Non-African Ame >60 (>=60 mL/min/1.73m^2); Glucose 139 mg/dL (74-106); Potassium 4.1 mmol/L (3.5-5.1); Sodium 140 mmol/L (136-145)
[2024-11-12] MEDS: DIPHTH,PERTUSS(ACELL),TET VAC 0.5 ML SYRINGE IM (17:02)
[2024-11-12 17:07] LABS: NT Pro B Type Natriuretic Pept 2532.0 pg/mL (<=1800.0)
[2024-11-12] MEDS: BACITRACIN 0.9 GM PACKET 1 PACKET TOPICAL (17:17)
[2024-11-12] MEDS: FUROSEMIDE 40 MG/4 ML VIAL IVP ×2 (17:47→20:58)
--- NOTE | 2024-11-12 18:57 | PC.NURSE ---
Attempted to use the ipad for a indonesian speaking translator and interpreter and the patient and translator and interpreter could not understand very well. The patients grandson states that he has a dialect that is hard to understand. The grandson is going to stay with the patient to be able to translate.
[2024-11-12] MEDS: TRAMADOL HCL 50 MG TABLET PO (21:02)
[2024-11-12] MEDS: POTASSIUM CHLORIDE 10 MEQ ER TABLET 20 MEQ PO (21:04)
[2024-11-13] VITALS (17 sets, daily range): BP systolic 99–115; BP diastolic 62–71; PULSE 60–79; TEMP 36.4–37.2; O2SAT 90–98
--- NOTE | 2024-11-13 00:44 | PC.NURSE ---
Patient new zealander speaking and has family present to interpret. Patient fall risk due to fall at home and abrasion to upper lip, right and left leg/[place]ar area. Areas on right and left leg covered with band aids, dry and intact.
[2024-11-13] MEDS: LEVOTHYROXINE SODIUM 100 MCG TABLET 150 MCG PO (06:10)
[2024-11-13 07:27] LABS: Hematocrit 40.2 % (42.0-54.0); Hemoglobin 13.5 g/dL (14.0-18.0); Immature Granulocytes Abs Auto 0.03 10^3/uL (0.00-0.03); Immature Granulocytes Pct Auto 0.4 % (0.0-0.5); Lymphocytes Absolute Auto 1.3 10^3/uL (1.2-3.8); Mean Corpuscular HGB Conc 33.6 g/dL (29.9-35.2); Mean Corpuscular Hemoglobin 28.1 pg (25.9-34.0); Mean Corpuscular Volume 83.8 fL (80.0-94.0); Platelet Count 281 10^3/uL (150-450); Red Blood Count 4.80 10^6/uL (4.70-6.10); White Blood Count 8.2 10^3/uL (4.0-11.0)
[2024-11-13 07:52] LABS: Alanine Aminotransferase 11 U/L (16-63); Albumin Globulin Ratio 0.9; Albumin Level 3.6 g/dL (3.4-5.0); Alkaline Phosphatase 96 U/L (46-116); Anion Gap 14.8; Aspartate Amino Transferase 22 U/L (15-37); Blood Urea Nitrogen 16.0 mg/dL (7.0-18.0); Calcium 8.6 mg/dL (8.5-10.1); Carbon Dioxide 24.9 mmol/L (21.0-32.0); Chloride 103 mmol/L (98-107); Estimated GFR (African America >60 (>=60 mL/min/1.73m^2); Estimated GFR (Non-African Ame >60 (>=60 mL/min/1.73m^2); Globulin 4.0 g/dL; Glucose 105 mg/dL (74-106); Magnesium 2.2 mg/dL (1.8-2.4); Potassium 3.7 mmol/L (3.5-5.1); Sodium 139 mmol/L (136-145); Total Protein 7.6 g/dL (6.4-8.2)
--- NOTE | 2024-11-13 08:00 | ECG_ITS ---
The [facility] Test Date: 2024-11-13 Pat Name: ELLA BAIG Department: Room: [facility] Gender: Male Fowl Blood Tester: : 1940 Requested By: [id number] Order Number: [id number] Reading MD: LIO FLETCHER M.D. Measurements Intervals [place] Rate: 64 P: 47 NM: 214 QRS: -50 QRSD: 113 T: 47 QT: 443 QTc: 460 Interpretive Statements SINUS RHYTHM WITH FIRST DEGREE AV BLOCK LEFT ANTERIOR FASCICULAR BLOCK [QRS AXIS <= -45, QR IN I, RS IN II] Abnormal ECG Compared to ECG 11/12/2024 16:30:02 First degree AV block now present Left anterior fascicular block now present Electronically Signed On 11-14-2024 13:51:53 EDT by LIO FLETCHER M.D.
[2024-11-13] MEDS: METFORMIN HCL 500 MG TABLET PO (09:01)
[2024-11-13] MEDS: METOPROLOL SUCCINATE 25 MG TAB.ER.24H PO (09:01)
[2024-11-13] MEDS: ASPIRIN 81 MG TAB.CHEW PO (09:02)
[2024-11-13] MEDS: ENOXAPARIN SODIUM 40 MG/0.4 ML SYRINGE SUBQ (09:02)
--- NOTE | 2024-11-13 12:23 | XR_ITS ---
The [place] [id number] Patient Name: ELLA BAIG MRN: [id number] date: 1940 Sex: M Assigned Patient Location: MS Current Patient Location: MS Accession/Order Number: [id number] Exam Date: 11/13/2024 13:50 Report Date: 11/13/2024 15:30 At the request of: DEISY BAUTISTA MD Procedure: XR chest 1V PA CHEST: CLINICAL HISTORY: CHF, comparison to last COMPARISON: 11/12/2024 Enlarged cardiac silhouette. Improved perihilar vascular congestion identified. Minimal interstitial thickening overall improved. No effusion or pneumothorax. XR/XR chest 1V IMPRESSION: IMPROVING PERIHILAR PULMONARY VASCULATURE. Impression dictated by: Seamus Vu M.D. 11/13/2024 3:30 PM Dictation Location: [place] [address] Electronically authenticated by: [id number] Y Date: 11/13/2024 15:30
--- NOTE | 2024-11-13 12:27 | PM.HP ---
HPI H&P: HPI History of Present Illness Chief complaint: chf Narrative: Mr. Cunningham is an 84-year-old gentleman who was brought to the emergency room yesterday after he fell down. As per report the patient went upstairs to talk to a family member. He went downstairs to exit the house and drive his car. Patient forgot his keys upstairs so he went back upstairs and came down the second time. Patient became short of breath, dizzy and fell down. He hit his forehead. Trauma imaging in the emergency room department all came back unremarkable. Patient is feeling well. He was found to have hypoxemia and tachypnea. Chest x-ray showed interstitial edema. BNP was elevated. Patient is feeling much better today. No headache. No neck pain. No upper or lower extremities or trunk pain or discomfort secondary to fall. Opioid HPI Opioid Management Most Recent Pain and Opioid Data: Last Pain Scale 5 Today, 08:00 Last Pain Assessment 11/12/24, 19:00 Last MAR Pain Assessment 11/12/24, 21:02 Last ORT Total Score 0 11/12/24, 18:32 Last ORT Risk Category Low Risk 11/12/24, 18:32 Review of Systems ROS Status of ROS 10 or more systems reviewed and unremarkable except as noted in history and below PFSH PFSH Medical History (Updated 11/13/24 @ 12:31 by Ba Valderrama MD) Diabetes mellitus ?E11.9 - Type 2 diabetes mellitus without complications (ICD-10) History of CVA (cerebrovascular accident) ?Z86.73 - Personal history of transient ischemic attack (TIA), and cerebral infarction without residual deficits (ICD-10) History of prostate cancer ?Z85.46 - Personal history of malignant neoplasm of prostate (ICD-10) History of throat cancer ?Z85.819 - Personal history of malignant neoplasm of unspecified site of lip, oral cavity, and pharynx (ICD-10) Social History (Updated 11/12/24 @ 21:20 by Zev Alaniz) Within the past year, how often did you have a drink containing alcohol: never Within the past year, how often did you have six or more drinks on one occasion: never Score interpretation: A score less than 4 is consistent with normal alcohol consumption. Smoking status: Former smoker Second hand tobacco smoke exposure: No Non-prescribed substance use: denies use Known occupational exposures/hazards: No Highest level of school completed/degree received: 1st grade Are you now , , , , never or living with a partner: In a typical week, how many times do you talk on the telephone with family, friends, or neighbors: 3 or more times per week How often do you get together with friends or relatives: 3 or more times per week Little interest or pleasure in doing things: not at all Feeling down, depressed, or hopeless: not at all Feel stressed/tense/nervous/anxious/difficulty sleeping: not at all Meds Home Medications and Allergies Home Medications ?Medication ?Instructions ?Recorded ?Confirmed ?Type levothyroxine 150 mcg tablet 150 mcg PO DAILY 10/14/24 11/12/24 History metformin 500 mg tablet 500 mg PO DAILY 10/14/24 11/12/24 History aspirin 81 mg chewable tablet 81 mg PO QD #60 tabs 10/17/24 11/12/24 Rx metoprolol succinate 25 mg 25 mg PO DAILY #30 tabs 10/17/24 11/12/24 Rx tablet,extended release 24 hr (Toprol XL) potassium chloride 10 mEq 10 meq PO DAILY #30 tabs 10/17/24 11/12/24 Rx tablet,extended release torsemide 10 mg tablet 10 mg PO DAILY #30 tabs 10/17/24 11/12/24 Rx lisinopril 2.5 mg tablet 2.5 mg PO DAILY 11/13/24 11/13/24 History Allergies Allergy/AdvReac Type Severity Reaction Status Date / Time No Known Drug Allergies Allergy Verified 11/12/24 15:37 Exam Narrative Exam Narrative: [pt is awake and alert. oriented to place, time and person HEENT: [place] conjunctiva and NL buccal mucosa ecchymosis, abrasion involving his forehead, cheek, some in his forearm and some on his legs. No significant swelling, bleed or ecchymosis. Neck: Supple, no tenderness Endocrine: No Thyromegaly. Vascular: No JVD or carotid bruit. Lymphatic: No cervical lymphadenopathy. Chest: CTA no DTP. Heart RRR, no extra sound loud systolic murmur. Abd: Soft, no tenderness, no rebound and no rigidity. Increase abd girth therefore clinically I could not exclude the possibility of intra abd mass or organomegaly. LE: No cyanosis or clubbing, no varices or edema. Neuro: A A O. Nl speech, comprehension and attention. Nl and symetrical motor and tone examination through out. []] Constitutional Vital Signs, click to edit/add: Last Vital Signs Temp 97.8 F 11/13/24 11:23 Pulse 68 11/13/24 11:53 Resp 18 11/13/24 11:23 BP 99/62 11/13/24 11:23 Pulse Ox 95 11/13/24 11:23 O2 Del Method Room Air 11/13/24 11:23 O2 Flow Rate 2 11/13/24 10:27 Results Labs Labs: Short CBC 11/12/24 11/13/24 Range/Units 16:23 06:16 WBC 7.6 8.2 (4.0-11.0) 10^3/uL Hgb 12.9 L 13.5 L (14.0-18.0) g/dL Hct 38.0 L 40.2 L (42.0-54.0) % Plt Count 260 281 (150-450) 10^3/uL BMP 11/12/24 11/13/24 16:23 06:16 Sodium 140 139 Potassium 4.1 3.7 Chloride 106 103 Carbon Dioxide 22.3 24.9 BUN 20.0 H 16.0 Creatinine 0.85 0.71 Glucose 139 H 105 Calcium 8.8 8.6 Liver Function 11/13/24 Range/Units 06:16 Total Bilirubin 1.2 H (0.2-1.0) mg/dL AST 22 (15-37) U/L ALT 11 L (16-63) U/L Alkaline Phosphatase 96 (46-116) U/L Albumin 3.6 (3.4-5.0) g/dL Assessment and Plan Assessment and Plan (1) Multiple abrasions: (2) Fall: (3) Hypertension: (4) Acute hypoxic respiratory failure: (5) Acute heart failure: (6) Congestive heart failure: (7) Mitral stenosis: (8) Mitral regurgitation: (9) Pulmonary hypertension: (10) Tricuspid insufficiency: Plan Transit acute diastolic heart failure, preserved ejection fraction in the setting of moderate mitral stenosis, moderate to severe mitral regurgitation and pulmonary hypertension. RVSP is 76 Chest x-ray showed interstitial edema. BNP was elevated Patient responded to diuretics very well. He is feeling much better today. I held his Lasix. He is no longer tachypneic or short of breath. Troponin is negative Patient was seen by invoice control clerk after discharge last time. His family informed me that he is scheduled to have a cardiac cath next week. Diabetes, hypertension, hypothyroidism Continue preadmission meds Previous history of SVT. Continue beta-guadalupe. Fall, scattered bruising and ecchymosis. No significant trauma related issues. Patient denies any pain or discomfort related to his fall. Patient was seen by physical Occupational Therapy. No significant deficit that would require skilled therapy. I discussed his case with his family at the bedside. Likely discharge tomorrow if stable.
[2024-11-13 13:16] LABS: NT Pro B Type Natriuretic Pept 2897.0 pg/mL (<=1800.0)
[2024-11-13] MEDS: SENNOSIDES/DOCUSATE SODIUM 1 TAB TABLET PO (20:17)
[2024-11-13] MEDS: INSULIN ASPART 300 UNIT/3 ML PEN SUBQ (21:52)
[2024-11-14] VITALS (11 sets, daily range): BP systolic 90–98; BP diastolic 61–62; PULSE 56–84; TEMP 36.4–37.4; O2SAT 90–98
[2024-11-14] MEDS: LEVOTHYROXINE SODIUM 100 MCG TABLET 150 MCG PO (06:11)
[2024-11-14] MEDS: PNEUMOC 20-VAL CONJ-DIP CRM/PF 0.5 ML SYRINGE IM (09:18)
[2024-11-14] MEDS: ASPIRIN 81 MG TAB.CHEW PO (09:20)
[2024-11-14] MEDS: METFORMIN HCL 500 MG TABLET PO (09:20)
[2024-11-14] MEDS: SENNOSIDES/DOCUSATE SODIUM 1 TAB TABLET PO (09:20)
[2024-11-14] MEDS: ENOXAPARIN SODIUM 40 MG/0.4 ML SYRINGE SUBQ (09:21)
--- NOTE | 2024-11-14 09:31 | P.DS_ITS ---
DS: Providers Provider Date of admission: 11/12/24 18:25 Primary care physician: LIGIA MCINTOSH DO Consults: 11/12/24 20:07 Occupational Therapy Eval and Treat Routine Reason for consultation: weakness Physical Therapy Eval and Treat Routine Reason for consultation: weakness DS: Diagnosis Discharge Diagnosis (1) Multiple abrasions: (2) Fall: (3) Hypertension: (4) Acute hypoxic respiratory failure: (5) Acute heart failure: (6) Congestive heart failure: (7) Mitral stenosis: (8) Mitral regurgitation: (9) Pulmonary hypertension: (10) Tricuspid insufficiency: Plan As listed above, below and others that are not listed DS: Summary Hospital Course Hospital Course: Mr. Cunningham is an 84-year-old gentleman who was brought to the emergency room with a complaint of shortness of breath. He was found to have the following: Transientt acute diastolic heart failure, preserved ejection fraction in the setting of moderate mitral stenosis, moderate to severe mitral regurgitation and pulmonary hypertension. RVSP is 76 Chest x-ray showed interstitial edema. Follow-up chest x-ray showed resolution of interstitial edema. BNP was elevated. Patient responded to diuretics very well. He is feeling much better today. I held his Lasix. BP is on the low side. He is no longer tachypneic or short of breath. Troponin is negative Patient was seen by office machine service supervisor after discharge last time. His family informed me that he is scheduled to have a cardiac cath on Friday Borderline hypotension, asymptomatic Discontinue lisinopril to allow for the use of Toprol and torsemide. Diabetes, hypertension, hypothyroidism Continue preadmission meds Previous history of SVT. Continue beta-guadalupe. Fall, scattered bruising and ecchymosis. No significant trauma related issues. Patient denies any pain or discomfort related to his fall. Patient was seen by physical Occupational Therapy. No significant deficit that would require skilled therapy. I discussed his case with his family at the bedside. Patient has multiple complex medical issues as listed above and others that are not listed. All appear to be stable. I do not have any clear or strong clinical justification to extend inpatient hospitalization. Patient however will require close and frequent monitoring as well as additional work-up, investigation and therapeutic intervention that could take place from this point on post discharge. That is to prevent relapse, decompensation, rehospitalization and other medical implications. I instructed patient to ask her primary care doctor to obtain [facility] record entirely to address abnormalities seen on labs and imaging that I have and have not addressed during this hospitalization, follow-up on pending blood work, imaging and pathology is if available and to follow-up on needed medical care in the outpatient setting. Time Spent with Patient Time attestation: Total time spent providing and/or coordinating discharge services: Exam Constitutional Vital Signs, click to edit/add: Last Vital Signs Temp 97.5 F L 11/14/24 08:00 Pulse 69 11/14/24 08:00 Resp 16 11/14/24 08:00 BP 98/62 11/14/24 08:00 Pulse Ox 90 L 11/14/24 08:00 O2 Del Method Room Air 11/14/24 08:00 O2 Flow Rate 1 11/14/24 05:26 DS: Data Data Completed and Pending Labs on day of discharge: Labs from last 24 hours 11/14/24 11/13/24 11/13/24 07:44 20:04 16:26 NT-Pro-B Natriuret Pep POC Glucose 110 H 162 H 127 H 11/13/24 11/13/24 11:01 06:16 NT-Pro-B Natriuret Pep 2897.0 H* POC Glucose 140 H Discharge Plan Discharge Disposition: Home, Self-Care Condition: Fair Discharge Medications: Continued levothyroxine 150 mcg tablet 150 mcg PO DAILY metformin 500 mg tablet 500 mg PO DAILY aspirin 81 mg Tablet,Chewable 81 mg PO QD Qty: 60 2RF torsemide 10 mg tablet 10 mg PO DAILY Qty: 30 1RF metoprolol succinate [Toprol XL] 25 mg tablet extended release 24 hr 25 mg PO DAILY Qty: 30 2RF potassium chloride 10 mEq tablet extended release 10 meq PO DAILY Qty: 30 1RF Discontinued lisinopril 2.5 mg tablet 2.5 mg PO DAILY Print Language: Portuguese Activity Restrictions/Additional Instructions: I may not have addressed or treated all of your medical illnesses or the abnormal blood work or imaging studies during this hospitalization. Please ask your primary care provider to obtain [facility] records entirely to follow up on all of the abnormal physical, laboratory, and imaging findings that I have not addressed. Please return back to the emergency room or seek medical attention if your symptoms worsen or return. Follow-up with your heart doctor regarding the procedure on Friday. Discharging you from [facility] does not mean that your medical care ends here and now. You may still need additional monitoring, work up, investigation, and treatment plan to be handled from this point on by out patient providers including your primary care provider and specialists. For any medication question, please contact your retail pharmacist or your primary care provider. Thank you. Forms: Portal Instructions Referrals: LIGIA MCINTOSH DO [Primary Care Provider, Family Practice]
--- NOTE | 2024-11-15 08:58 | PC.NURSE ---
follow up with Dr. Jarvis 11/17 @ 2pm
--- NOTE | 2024-11-15 16:10 | CM.DCFOLLOWU ---
1st attempt 11/15/24, no answer
== END 2024-11-14 11:00 | disposition home or self-care (01) ==
LOC: ER 17:57 → MS 19:03
PROVIDERS: Admitting Provider Internal Medicine; Emergency Provider Emergency Medicine; PCP Family Medicine; Visit Provider Internal Medicine
DX: I11.0 Hypertensive heart disease with heart failure (principal); I50.31 Acute diastolic (congestive) heart failure; J96.01 Acute respiratory failure with hypoxia; Z87.891 Personal history of nicotine dependence; I27.20 Pulmonary hypertension, unspecified; I05.2 Rheumatic mitral stenosis with insufficiency; I07.1 Rheumatic tricuspid insufficiency; E03.9 Hypothyroidism, unspecified; E11.9 Type 2 diabetes mellitus without complications; S00.81XA Abrasion of other part of head, initial encounter; S80.212A Abrasion, left knee, initial encounter; S80.812A Abrasion, left lower leg, initial encounter; S80.811A Abrasion, right lower leg, initial encounter; W18.39XA Other fall on same level, initial encounter; I95.9 Hypotension, unspecified; Z79.890 Hormone replacement therapy; Z79.84 Long term (current) use of oral hypoglycemic drugs; Z79.82 Long term (current) use of aspirin; Z86.73 Personal history of transient ischemic attack (TIA), and cerebral infarction without residual deficits; Z85.46 Personal history of malignant neoplasm of prostate; Z85.819 Personal history of malignant neoplasm of unspecified site of lip, oral cavity, and pharynx; Z23 Encounter for immunization
CPT/HCPCS: 36415; 70450; 70486; 71045; 72125; 73130; 76376; 80048; 80053; 82948; 83036; 83735; 83880; 84484; 85025; 90471; 90677; 90715; 93005; 94761; 96374; 97161; 99285; G0378; J1650; J1938

== ENCOUNTER 2024-11-20 11:28 | Inpatient (IN) | payer MEDICARE, MEDICAID, SELFPAY ==
--- OUTSIDE RECORDS SUMMARY | 2023-07-18 04:45 | XMS_ITS ---
Author Organization [facility] vices Address [address] [place], [place] [phone] Care Team Providers Care Broke Beater Name Role Phone Eric Green Primary Care Provider Chema Roe Unavailable [phone] REASON FOR VISIT F/u 2mo DM, Thyroid Social History Sex Assigned At : Social History Observation Description Sex Assigned At Male Encounters Encounter Location Date Provider Diagnosis [address] [id number] 07/18/2023 Chema Roe Plan Of Treatment No Information Progress Notes * Haven CUNNINGHAMShelbyOB: 3 (84 yo M)Acc No.[id number]:07/18/2023 Medical Note Patient: Osmany NICKERSON Provider: Karyn Roe MD :1940 A ge:82 Y S ex:Male Date:07/18/2023 Address:[address] [place], [place] [phone] Pcp:Eric Green Subjective: * Chief Complaints: * 1 . F/u 2mo DM, Thyroid. * Medical History: Objective: * Vitals: Assessment: Plan: * Treatment: * Billing Information: * Visit Code: * Procedure Codes: * Electronic signature of Jose Alberto Roe MD on 11/22/2024 at 10:31 AM EDT Sign off status: Pending * Provider: Karyn Roe MD Date: 07/18/2023 Generated for Printi ng/Faxing/eTransmitting on: 0 11/22/2024 10:31 AM EDT
--- OUTSIDE RECORDS SUMMARY | 2023-11-10 12:45 | XMS_ITS ---
Author Organization [facility] vices Address [address] [place] [phone] Care Team Providers Care Cyber Defense Incident Responder Name Role Phone Eric Green Primary Care Provider Chema Roe Unavailable [phone] REASON FOR VISIT F/u DM, Thyroid ( labs One week prior) Social History Sex Assigned At : Social History Observation Description Sex Assigned At Male Encounters Encounter Location Date Provider Diagnosis [address] [id number] 11/09 Eric Green Plan Of Treatment No Information Progress Notes * Luis CUNNINGHAMOB: 3 (84 yo M)Acc No.[id number]:2023 Medical Note Patient: Timmy NICKERSONriel Provider: Phoenix Green PA-C :1940 A ge:82 Y S ex:Male Date:2023 Address:[address] [place], [place] [phone] Subjective: * Chief Complaints: * 1 . F/u DM, Thyroid ( labs One week prior). * Medical History: Objective: * Vitals: Assessment: Plan: * Treatment: * Billing Information: * Visit Code: * Procedure Codes: * Electronic signature of KAYLIN Valle on 11/22/2024 at 10:30 AM EDT Sign off status: Pending * Provider: Phoenix Green PA-C Date: 0 2023 Generated for Printi ng/Faxing/eTransmitting on: 0 11/22/2024 10:30 AM EDT
--- OUTSIDE RECORDS SUMMARY | 2024-11-17 08:54 | XMS_ITS | Encounter Summary ---
Author Organization [facility] Address [address] [place] [address] Care Team Providers Care Supervisor Production Name Role Phone Brock Mcintosh DO Primary Care Provider [phone] Reason for Referral * Imaging (Routine) - Authorized Specialty Diagnoses / Procedures Referred By Contac t Referred To Contact Cardiology Diagnoses Nonrheumatic mitral valve regurgitation Acute diastolic heart failure (CMS/HCC) Nonrheumatic tricuspid valve regurgitation Procedures Transesophageal echo (PAO) Vilma Hoskins CNP [address] [place] [address] Phone: tel: fax: [facility] Heart [facility] [address] [place] [address] Phone: tel: fax: Referral ID Status Reason Start Date Expiration Date Visits Requested Visits Authorized [id number] Authorized Perform Procedure 10/28/2024 10/28/2025 1 1 * (Routine) - Pending Review Specialty Diagnoses / Procedures Referred By Contac t Referred To Contact Procedures Electrocardiogram, 12-lead Kayla Garcia MD [address] [facility] [address] [facility] [place] [address] Phone: tel: fax: Referral ID Status Reason Start Date Expiration Date V isits Requested Visits Authorized [id number] Pending Review 11/17/2024 11/17/2025 1 1 Reason for Visit * Auth/Cert (Routine) Specialty Diagnoses / Procedures Referred By Contac t Referred To Contact Diagnoses Nonrheumatic mitral valve regurgitation Acute diastolic heart failure (CMS/HCC) Nonrheumatic tricuspid valve regurgitation Nonrheumatic mitral valve regurgitation [I34.0] Acute diastolic heart failure (CMS/HCC) [I50.31] Nonrheumatic tricuspid valve regurgitation [I36.1] Procedures [place] RIGHT HEART CATH O2 SATURATION & CARDIAC OUTPUT Coronary angiography Right heart cath Frandy, Process Expert, [address] [place] [address] Phone: tel: [facility] [address] [place] [address] Phone: tel: fax: Referral ID Status Reason Start Date Expiration Date Visits Re quested Visits Authorized [id number] 1 1 Encounter Details Date Type Department Care Team (Late st Contact Info) Description 11/17/2024 8:54 AM EDT - 11/17/2024 2:12 PM EDT Hospital Encounter [facility] [address] [place] [address] Kayla Garcia MD [address] [facility] [address] [facility] [place] [address] Rheumatic mitral stenosis (Primary Dx); Nonrheumatic mitral valve regurgitation; Acute diastolic heart failure (CMS/HCC); Nonrheumatic tricuspid valve regurgitation Discharge Disposition: Home or Self Care () Social History Tobacco Use Types Packs/Day Years Used Date Smoking Tobacco: Former Cigarettes Smokeless Tobacco: Never Alcohol Use Standard Drinks/Week Comments Not Currently 0 (1 standard drink = 0.6 oz pur e alcohol) Sex and Gender Information Value Date Recorded Sex Assigned at Male 10/27/2024 11:46 AM EDT Legal Sex Male 8:46 AM EDT Gender Identity Male 10/27/2024 11:46 AM EDT Sexual Orientation Heterosexual or Straight 10/26 9:02 AM EDT Sexual Orientation Choose not to disclose 2024 9:02 AM EDT documented as of this encounter Last Filed Vital Signs Vital Sign Reading Time Taken Comments Blood Pressure 98/69 11/17/2024 2:00 PM EDT Pulse 73 11/17/2024 2:00 PM EDT Temperature - - Respiratory Rate 21 11/17/2024 2:00 PM EDT Oxygen Saturation 91% 11/17/2024 2:00 PM EDT Inhaled Oxygen Concentration - - Weight - - Height - - Body Mass Index - - documented in this encounter Medications at Time of Discharge aspirin 81 mg chewable tablet Chew 81 mg in the morning. 10/21/2024 levothyroxine (Synthroid, Levoxyl) 150 mcg tablet Take 150 mcg by mouth in the morning. lisinopril 20 mg tabletIndication s:Rheumatic mitral stenosis Take 0.5 tablets (10 mg) by mouth in the morning. 15 tablet 11/17/2024 metFORMIN (Glucophage) 500 mg tablet Take 500 mg by mouth with breakfast and with evening meal. metoprolol succinate XL (Toprol-XL) 25 mg 24 hr tablet Take 25 mg by mouth in the morning. 10/21/2024 potassium chloride CR (Klor-Con) 10 mEq ER tablet Take 10 mEq by mouth in the morning. 10/21/2024 torsemide (Demadex) 20 mg tabletIndication s:Rheumatic mitral stenosis Take 1.5 tablets (30 mg) by mouth in the morning. 45 tablet 11/17/2024 documented as of this encounter H&P Notes * Kierra Hill MD - 11/17/2024 10:12 AM EDT Images from the original note were not included. Cardiovascular Medicine SUBJECTIVE No chief complaint on file. FRANTZ Cunningham is a 84 y.o. male here as a new patient. His son and daughter in law is present to help with translation. PMHx: HTN, DM type II, MR, TR, pulmonary HTN Patient is being seen today as a new patient given his recent admission to [facility] for acute diastolic heart failure. He was diuresed during his recent admission and discharge on Torsemide 10mg daily, lisinopril was held due to soft BP. He also had a brief episode of SVT and he was started on Toprol. He was down about 3# after his recent admission. He c/o a lot of fatigue, dizziness, and an unsettling feeling in his stomach. He notes when he was intially discharge he was feeling better but as of recent he has started to feel more weak, SOB, upset stomach a week after he was discharged. Symptoms worsen with exertion and improve with rest. He c/o feeling bloated. He notes feeling substernal pain when he takes a deep breating. Denies orthopnea, PND, dry cough, palpitations. Bp at home has been running 100s/60s 11/17/24: Patient presents for PAO. Diet: no current diet restrictions Exercise: none currently Tobacco: former smoker ETOH: none currently Recreational drug use: denies [Allergies] [Allergies] No Known Allergies [Problem List] [Problem List] Patient Active Problem List Diagnosis Acute diastolic (congestive) heart failure (CMS/HCC) Acute pain of left knee Body mass index (BMI) 31.0-31.9, adult Diabetes mellitus (CMS/HCC) Difficulty walking Essential (primary) hypertension History of malignant neoplasm of prostate Hypothyroidism Malignant neoplasm of prostate (CMS/HCC) Malignant neoplasm of thyroid gland (CMS/HCC) Microscopic hematuria Mixed conductive and sensorineural hearing loss, bilateral Nocturia Post-void dribbling Arthritis of left knee Primary osteoarthritis of left knee 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) Nonrheumatic mitral valve regurgitation Acute diastolic heart failure (CMS/HCC) Nonrheumatic tricuspid valve regurgitation [Medical History] [Medical History] Past Medical History Diagnosis Date Arrhythmia Cancer (CMS/HCC) CHF (congestive heart failure) (CMS/HCC) Diabetes mellitus (CMS/HCC) Heart valve disease Hypertension Hypothyroidism Pulmonary hypertension (CMS/HCC) Stroke (CMS/HCC) [Surgical History] [Surgical History] Past Surgical History Procedure Laterality Date CHOLECYSTECTOMY KNEE SURGERY PROSTATECTOMY THYROIDECTOMY [Family History] [Family History] Problem Relation Name Age of Onset Heart attack Mother [Social History] [Social History] Tobacco Use Smoking status: Former Types: Cigarettes Smokeless tobacco: Never Substance Use Topics Alcohol use: Not Currently Drug use: Never Review of Systems Constitutional: Positive for malaise/fatigue. Negative for chills, decreased appetite, fever and weight gain. Cardiovascular: Positive for chest pain (substernal chest discomfort) and dyspnea on exertion. Negative for irregular heartbeat, leg swelling, near- syncope, orthopnea, palpitations, paroxysmal nocturnal dyspnea and syncope. Hematologic/Lymphatic: Negative for bleeding problem. Does not bruise/bleed easily. OBJECTIVE Visit Vitals BP 115/72 Pulse 73 Resp 16 SpO2 95% Smoking Status Former Medications: [Current Medications] [Current Medications] No current facility-administered medications for this encounter. Physical Exam Vitals reviewed. Constitutional: Appearance: Normal appearance. He is normal weight. HENT: Head: Normocephalic and atraumatic. Right Ear: External ear normal. Left Ear: External ear normal. Eyes: Extraocular Movements: Extraocular movements intact. Pupils: Pupils are equal, round, and reactive to light. Neck: Vascular: No carotid bruit. Cardiovascular: Rate and Rhythm: Normal rate and regular rhythm. Pulses: Normal pulses. Heart sounds: Murmur heard. Pulmonary: Effort: Pulmonary effort is normal. Breath sounds: Normal breath sounds. Abdominal: General: Bowel sounds are normal. Palpations: Abdomen is soft. Musculoskeletal: General: Normal range of motion. Cervical back: Neck supple. Right lower leg: No edema. Left lower leg: No edema. Skin: General: Skin is warm and dry. Neurological: General: No focal deficit present. Mental Status: He is alert and oriented to person, place, and time. Psychiatric: Mood and Affect: Mood normal. Behavior: Behavior normal. Thought Content: Thought content normal. Judgment: Judgment normal. Labs: Admission on 11/17/2024 Component Date Value Ref Range Status Ventricular Rate 11/17/2024 78 BPM Incomplete Atrial Rate 11/17/2024 78 BPM Incomplete [place] Interval 11/17/2024 144 ms Incomplete QRS DURATION 11/17/2024 104 ms Incomplete QT Interval 11/17/2024 400 ms Incomplete QTC CALCULATION(BAZETT) 11/17/2024 456 ms Incomplete P Salem 11/17/2024 36 degrees Incomplete R-Salem 11/17/2024 -52 degrees Incomplete T Wave Salem 11/17/2024 50 degrees Incomplete No results found for: EXTCMP , BMPR1A , CBCDIF , BNP , LASAP , RED 10/15/24 Hgb 13, plt 276 Cr 0.78, BUN 19, K 3.8, Na 139, eGFR >60, AST 26, ALT 27 NTproBNP 1488 Chol 91, trig 77, HDL 18, LDL 58 Testing/Procedures: ECHO 10/15/2024 CONCLUSION: 1. Global left ventricular systolic function is hyperdynamic; visually estimated ejection fraction 65 to 70% 2. D-shaped septum consistent with right ventricular pressure and/or volume overload 3. The right ventricle is moderately dilated with reduced systolic function 4. Biatrial dilatation 5. Grade 3 diastolic dysfunction: E/E' consistent with significant volume overload 6. Moderate to severe tricuspid regurgitation 7. Severe pulmonary hypertension; RVSP 76 mmHg 8. Moderate to severe mitral regurgitation 9. Moderate mitral valve stenosis ASSESSMENT/PLAN: Diagnosis Plan 1. Nonrheumatic mitral valve regurgitation Case Request Material Control Analyst: Right heart cath, Coronary angiography Basic metabolic panel CBC Transesophageal echo (PAO) 2. Acute diastolic heart failure (CMS/HCC) Case Request Material Control Analyst: Right heart cath, Coronary angiography Basic metabolic panel CBC Transesophageal echo (PAO) 3. Nonrheumatic tricuspid valve regurgitation Case Request Material Control Analyst: Right heart cath, Coronary angiography Basic metabolic panel CBC Transesophageal echo (PAO) 4. Substernal chest pain 5. Abdominal bloating 6. Other specified hypotension PLAN: -Newly diagnosed with recent admission to [facility] -He does not appear fluid overloaded on exam but he notes having worsening fatigue, TRAVIS, abdominal bloating, substernal chest discomfort. He denies any significant weight gain with his worsening sx's. -Limited by BP to further increase his diuretic/adjust medications. -Reviewed pt with Dr. Keita, given significant valvular disease on recent TTE, recommend proceeding with PAO to further assess valve function. Will also proceed with coronary angiogram to rule out any significant coronary dz and assess right sided pressures. -Discussed with pt/family (family helped translate). Pt was agreeable to proceed. -Provided heart failure education to pt including daily fluid allowance and low Na+ diet. No follow-ups on file. 11/17/24: Plan to proceed with PAO, coronary angiogram, and RHC for evaluation of TR and MR. Procedure was explained to patient at length and in detail. Risks, benefits, and alternatives were discussed. Patient understands these risks and wishes to proceed. Signed, Kierra Hill MD PGY-5 [employer] Contort Operator Pager: [phone] Cosigned by Kayla Garcia MD at 11/17/2024 11:46 AM EDT Associated attestation - Kayla Garcia MD - 11/17/2024 11:46 AM EDT By using the attestations below, the signing clinician agrees that I have read and verify that thedocumentation has been personally reviewed by me and ensure that the documentation accurately reflects the encounter. GC: I personally saw this patient on the day of the encounter, performed the motta portion(s) of the service and participated in the management and confirm the resident's documentation. Please note there may be an additional personal documentation from me. Additional Comments: Kayla Garcia MD, MPH, [facility], [facility], [facility] Interventional Cardiology Pager Email: [email or web address] documented in this encounter Nursing Notes * Natalie Rivers RN - 11/17/2024 2:11 PM EDT RN educated pt on d/c instructions. This included: site care, limited physical activity, resume normal diet, future appointments, medications, and moderate sedation instructions. RN educated pt on when to notify physician and when to go to the hospital. RN provided pt with arm sling and educated pt on importance of not using arm for 24 hours for radial sites. RN encouraged pt to voice any questions or concerns, and answered any questions or concerns if pt verbalized. Pt was wheeled off of unit with all of belongings. documented in this encounter Miscellaneous Notes * Pre-Sedation Documentation - Kierra Hill MD - 11/17/2024 10:10 AM EDT Patient: Osmany Cunningham Choose an anesthesia record to view details Clinical information reviewed: Tobacco Allergies Meds Med Hx Surg Hx Fam Hx Soc Hx Physical Exam Airway Mallampati: II TM distance: <3 FB Neck ROM: full Cardiovascular Rhythm: regular Rate: normal (+) murmur (-) peripheral edema Dental (+) edentulous Pulmonary Breath sounds clear to auscultation Neurological Abdominal Anesthesia Plan ASA 3 other (Conscious sedation) Anesthetic plan and risks discussed with patient. Use of blood products discussed with patient who consented to blood products. Plan discussed with attending. Additional Equipment Requests Cosigned by Kayla Garcia MD at 11/17/2024 11:47 AM EDT documented in this encounter Plan of Treatment Upcoming Encounters Date Type Department Care Team (Late st Contact Info) Description 11/29/2024 2:00 PM EDT Office Visit [facility] [address] [place] [address] Luis Keita MD [address] [facility] [address] [facility] [place] [address] documented as of this encounter Procedures Procedure Name Priority Date/Time Associated Diagnosis Comments RIGHT HEART CATH Routine 11/17/2024 12:0 7 PM EDT Nonrheumatic mitral valve regurgitation Acute diastolic heart failure (CMS/HCC) Nonrheumatic tricuspid valve regurgitation CORONARY ANGIOGRAPHY Routine 11/17/2024 12:07 PM EDT Nonrheumatic mitral valve regurgitation Acute diastolic heart failure (CMS/HCC) Nonrheumatic tricuspid valve regurgitation POCT HBO2% Routine 11/17/2024 11:41 AM EDT TRANSESOPHAGEAL ECHO (PAO) W/ LIMITED DOPPLER AND COLOR FLOW Routine 11/17/2024 11:19 AM EDT Nonrheumatic mitral valve regurgitation Acute diastolic heart failure (CMS/HCC) Nonrheumatic tricuspid valve regurgitation ECG 12-LEAD Routine 11/17/2024 10:11 AM EDT documented in this encounter Results * CORONARY ANGIOGRAPHY, RIGHT HEART CATH (11/17/2024 12:07 PM EDT) Anatomical Region Laterality Modality Other Narrative 11/17/2024 12:37 PM EDT Cardiovascular Laboratory Report FINAL IMPRESSIONS: Mild coronary artery disease Normal global left ventricular systolic function by noninvasive imaging Severely elevated right-sided heart pressures and pulmonary capillary wedge pressure consistent with biventricular congestive heart failure Elevated transpulmonary gradient along with elevated wedge consistent with combined pre and postcapillary pulmonary hypertension Elevated pulmonary vascular resistance Mildly reduced cardiac output/cardiac index Severe mitral regurgitation by echocardiography RECOMMENDATIONS: A 'Heart Team' approach to evaluate optimal management for his mitral valve disease; surgical mitral valve replacement should be considered Aggressive cardiovascular risk factor modification Optimal medical therapy for coronary artery disease should include aspirin, moderate intensity statin therapy, a beta-guadalupe and a RAAS inhibitor Given severely elevated filling pressures and severe mitral regurgitation, will add a RAAS inhibitor in the form of lisinopril and increase his Demadex to 30 mg daily; follow up BMP in a week Follow-up with Dr. Keita in the [place] office as scheduled PROCEDURES: Ultrasound-guided access to the right internal jugular vein, right heart catheterization, ultrasound-guided access to the left radial artery, bilateral selective coronary angiography METHODS: After risks, benefits, and alternatives were explained, written informed consent was obtained. The patient was prepped and draped in usual sterile fashion over the right neck and left radial regions. Using 1% lidocaine solution, local infiltration anesthesia was achieved. Using a modified Seldinger technique, a micropuncture kit, and under ultrasound guidance, access to the right internal jugular vein was obtained. A 6 Indian 11 cm sheath was inserted without difficulty. Right heart catheterization was performed using a Kilgore catheter via the venous sheath. Pressures were measured in the right atrium, right ventricle, pulmonary artery, and pulmonary capillary wedge positions. Oxygen saturations were obtained and cardiac output/cardiac index was calculated using the modified Angela principle. The Kilgore catheter was removed. The jugular sheath was removed with application of manual pressure to achieve optimal hemostasis. Local infiltration anesthesia was achieved of the left wrist. Using a micropuncture kit, and under ultrasound-guided access of the left radial artery was obtained. A 6 Indian glide sheath was inserted without difficulty. Bilateral selective coronary angiography was performed using JL4 and JR4 catheters. After reviewing the images, it was elected to conclude the procedure. All catheters were removed. The radial sheath was removed with application of a TR band per protocol to achieve optimal hemostasis. Overall the patient tolerated the procedure well. There were no overt complications. He was to be transferred to the holding area in stable condition. FINDINGS: Hemodynamics: RA 7 RV 73/7, 11 PA 73/29 [50] PCWP 18/38, mean 22 'giant V waves' TPG 28 AO 95/66 [76] Cardiac output /cardiac index 4.29/2.28 AO sat /PA sat 94%/63% Systemic Vascular Resistance (SVR) = 1,286.71 dynes-sec/cm5 Pulmonary Vascular Resistance (PVR) = 522.14 dynes-sec/cm5 or 7 Wood Units LEFT VENTRICULOGRAPHY: This was not performed; ejection fraction is 65 to 70% by echocardiography. CORONARY ARTERIES: Left main coronary artery: This arises from the left coronary cusp and trifurcates into the left anterior descending, ramus intermedius, and left circumflex coronary arteries. It is free of significant stenosis. Left anterior descending coronary artery: This shows luminal irregularities throughout. There is a short segment of myocardial bridging in the midportion. The diagonal branches show ostial plaque. It is a long wraparound vessel supplying the inferoapex Ramus intermedius coronary artery: This is a moderate-sized branching vessel with luminal irregularities and diffuse moderate disease distally. Left circumflex coronary artery: This is a codominant vessel giving rise to posterolateral branches. There is ILDA I-II flow distally. No obvious discrete stenoses are seen. It gives rise to a minute first obtuse marginal followed by a moderate-sized second obtuse marginal and a minute third twos marginal. The obtuse marginals show diffuse disease. Right coronary artery: This arises from the right coronary cusp, it is a codominant vessel giving rise to the posterior descending artery. It shows a ostial and proximal 50% stenosis. There is no evidence of pressure dampening or ventricularization INDICATIONS: Severe mitral regurgitation, exertional shortness of breath, abnormal echocardiogram Coronary Findings Diagnostic Dominance: Co-dominant No diagnostic findings have been documented. Intervention No interventions have been documented. Vilma Hoskins CNP CV CARDIAC CATH PROCEDURES Fi nal Result * (ABNORMAL) POC Hb02% (11/17/2024 11:41 AM EDT) [id number]% 62.8(A) 90 - 95 % QC Pass/Fail Passed QC LOT # [id number] QC Expiration Date 73,126 SAMPLESITE nl Blood Venous blood specimen / Unknown 11/17/2024 11:41 AM EDT Narrative Kelvin Beebe MT - 11/18/2024 7:29 AM EDT Oper [id number] Kayla Garcia MD POINT OF CARE TEST ENTER/EDIT O RDERABLES Final Result * TRANSESOPHAGEAL ECHO (PAO) W/ LIMITED DOPPLER AND COLOR FLOW (11/17/2024 11:19 AM EDT) Anatomical Region Laterality Modality Other 11/17/2024 10:1 9 AM EDT Narrative 11/17/2024 3:26 PM EDT [facility] Heart Station [address] [place] [address] [phone] (fax) Transesophageal Echocardiogram-[facility] Name: OSMANY CUNNINGHAM Study Date: 11/17/2024 10:19 AM B/P: 108 mmHg/78 mmHg HR: 77 bpm Date of : 1940 Location: [facility] Height: 65 in. Age: 84 year(s) Patient Room: [facility] VASCULAR POOL Weight: 178 lb. Gender: Male Patient Status: OutPt BSA: 1.88 m2 Indication: Congestive Heart Failure, Hypertension, pulm HTN, Mitral regurgitation, Tricuspid Regurgitation Examination: PAO/Limited Doppler/CFI, Agitated Saline, 3 Dimensional Imaging Image Quality: Excellent Patient Consent: Informed, written consent was obtained for the procedure Exam Details Contrast: I.V. dose of agitated saline Exam Location: A PAO was performed in the Material Control Analyst without complications Anesthesia Pharyngeal anesthesia with viscous Lidocaine Conclusions Left Ventricle: The left ventricle appears normal in size. Global left ventricular systolic function is normal. The EF is 50 % visually. Left ventricular wall thickness is normal. No regional wall motion abnormality. Right Ventricle: The right ventricle is normal in size. Normal right ventricular systolic function. Left Atrium: The left atrium appears enlarged. Mitral Valve: There is nonspecific thickening of the mitral valve leaflet. Severe mitral annulus calcification is present. There is significatn calcification of tertiary tendons. Moderate posterior leaflet mitral valve prolapse. Flow reversal is seen in the pulmonary veins suggestive of severe mitral regurgitation. The mitral regurgitant jet is eccentric and directed anteriorly. Mitral Valve Measurements MV Vmax: 2.02 m/s. MV Vmean: 1.10 m/s. MV PGmax: 16.00 mmHg. MV PGmean: 6.00 mmHg. MR radius is 1.2 cm, ERO 0.60 cm2, MR volume 88 mL Tricuspid Valve: Moderate tricuspid regurgitation. Medications Date Time Name Route Form Dose Units Ordered By Given By Comment 11/17/2024 11:24 AM Midazolam HCL (Versed) 3 milligrams 11/17/2024 11:24 AM Fentanyl (Opiates) 50 micrograms Measurements Left Ventricle Label Value Normal Value LVEF visual 50 % Valvular Assessment LVOT 0.7 - 1.1 m/sec Aortic Valve 1.0 - 1.7 m/sec Mitral Valve 0.6 - 1.3 m/sec Tricuspid Valve 0.3 - 0.7 m/sec Pulmonic Valve 0.6 - 0.9 m/sec Regurgitation Trivial SevMR Moderate No Stenosis No Max Gradient 16.00 mmHg Mean Gradient 6.00 mmHg Findings Left Ventricle: The left ventricle appears normal in size. Global left ventricular systolic function is normal. The EF is 50 % visually. Left ventricular wall thickness is normal. No regional wall motion abnormality. All scored left ventricular wall segments are with no wall motion abnormalities. Right Ventricle: The right ventricle is normal in size. Normal right ventricular systolic function. Left Atrium: The left atrium appears enlarged. Left Atrium Appendage: Normal left atrial appendage, no thrombus seen. IAS: No intracardiac shunt by agitated saline injections. Right Atrium: The right atrium appears enlarged. Mitral Valve: There is nonspecific thickening of the mitral valve leaflet. Severe mitral annulus calcification is present. There is significatn calcification of tertiary tendons. There is severe thickening of the mitral valve leaflets. Moderate posterior leaflet mitral valve prolapse. Flow reversal is seen in the pulmonary veins suggestive of severe mitral regurgitation. The mitral regurgitant jet is eccentric and directed anteriorly. Mitral Valve Measurements MV Vmax: 2.02 m/s. MV Vmean: 1.10 m/s. MV PGmax: 16.00 mmHg. MV PGmean: 6.00 mmHg. MR radius is 1.2 cm, ERO 0.60 cm2, MR volume 88 mL Aortic Valve: Aortic valve appears normal. Trivial aortic valve regurgitation. No aortic valve stenosis. The aortic valve is trileaflet. Tricuspid Valve: Tricuspid valve appears normal. Moderate tricuspid regurgitation. There is normal tricuspid leaflet separation. Pulmonic Valve: Pulmonary valve appears normal. No pulmonary regurgitation. Aorta: Minimal atherosclerotic plaque is seen in the aorta. Procedure Staff Reading Group: [facility] Referring Physician: BROCK MCINTOSH Hoist Cylinder Loader: KEHINDE Celeste Ordering Physician: VILMA HOSKINS Wall Motion Scores -1 - hyperkinesia, 0 - not evaluated, 1 - normal, 2 - hypokinesia, 3 - akinesia, 4 - dyskinesia Procedure Note Ever Thomas MD - 11/17/2024 1 [facility] Heart Station [address] [place] [address] [phone] (fax) Transesophageal Echocardiogram-[facility] Name: OSMANY CUNNINGHAM Study Date: 11/17/2024 10:19 AM B/P: 108 mmHg/78 mmHg HR: 77 bpm Date of : 1940 Location: [facility] Height: 65 in. Age: 84 year(s) Patient Room: [facility] VASCULAR POOL Weight: 178 lb. Gender: Male Patient Status: OutPt BSA: 1.88 m2 Indication: Congestive Heart Failure, Hypertension, pulm HTN, Mitral regurgitation, Tricuspid Regurgitation Examination: PAO/Limited Doppler/CFI, Agitated Saline, 3 Dimensional Imaging Image Quality: Excellent Patient Consent: Informed, written consent was obtained for the procedure Exam Details Contrast: I.V. dose of agitated saline Exam Location: A PAO was performed in the Material Control Analyst without complications Anesthesia Pharyngeal anesthesia with viscous Lidocaine Conclusions Left Ventricle: The left ventricle appears normal in size. Global left ventricular systolic function is normal. The EF is 50 % visually. Left ventricular wall thickness is normal. No regional wall motion abnormality. Right Ventricle: The right ventricle is normal in size. Normal right ventricular systolic function. Left Atrium: The left atrium appears enlarged. Mitral Valve: There is nonspecific thickening of the mitral valve leaflet. Severe mitral annulus calcification is present. There is significatn calcification of tertiary tendons. Moderate posterior leaflet mitral valve prolapse. Flow reversal is seen in the pulmonary veins suggestive of severe mitral regurgitation. The mitral regurgitant jet is eccentric and directed anteriorly. Mitral Valve Measurements MV Vmax: 2.02 m/s. MV Vmean: 1.10 m/s. MV PGmax: 16.00 mmHg. MV PGmean: 6.00 mmHg. MR radius is 1.2 cm, ERO 0.60 cm2, MR volume 88 mL Tricuspid Valve: Moderate tricuspid regurgitation. Medications Date Time Name Route Form Dose Units Ordered By Given By Comment 11/17/2024 11:24 AM Midazolam HCL (Versed) 3 milligrams 11/17/2024 11:24 AM Fentanyl (Opiates) 50 micrograms Measurements Left Ventricle Label Value Normal Value LVEF visual 50 % Valvular Assessment LVOT 0.7 - 1.1 m/sec Aortic Valve 1.0 - 1.7 m/sec Mitral Valve 0.6 - 1.3 m/sec Tricuspid Valve 0.3 - 0.7 m/sec Pulmonic Valve 0.6 - 0.9 m/sec Regurgitation Trivial SevMR Moderate No Stenosis No Max Gradient 16.00 mmHg Mean Gradient 6.00 mmHg Findings Left Ventricle: The left ventricle appears normal in size. Global left ventricular systolic function is normal. The EF is 50 % visually. Left ventricular wall thickness is normal. No regional wall motion abnormality. All scored left ventricular wall segments are with no wall motion abnormalities. Right Ventricle: The right ventricle is normal in size. Normal right ventricular systolic function. Left Atrium: The left atrium appears enlarged. Left Atrium Appendage: Normal left atrial appendage, no thrombus seen. IAS: No intracardiac shunt by agitated saline injections. Right Atrium: The right atrium appears enlarged. Mitral Valve: There is nonspecific thickening of the mitral valve leaflet. Severe mitral annulus calcification is present. There is significatn calcification of tertiary tendons. There is severe thickening of the mitral valve leaflets. Moderate posterior leaflet mitral valve prolapse. Flow reversal is seen in the pulmonary veins suggestive of severe mitral regurgitation. The mitral regurgitant jet is eccentric and directed anteriorly. Mitral Valve Measurements MV Vmax: 2.02 m/s. MV Vmean: 1.10 m/s. MV PGmax: 16.00 mmHg. MV PGmean: 6.00 mmHg. MR radius is 1.2 cm, ERO 0.60 cm2, MR volume 88 mL Aortic Valve: Aortic valve appears normal. Trivial aortic valve regurgitation. No aortic valve stenosis. The aortic valve is trileaflet. Tricuspid Valve: Tricuspid valve appears normal. Moderate tricuspid regurgitation. There is normal tricuspid leaflet separation. Pulmonic Valve: Pulmonary valve appears normal. No pulmonary regurgitation. Aorta: Minimal atherosclerotic plaque is seen in the aorta. Procedure Staff Reading Group: [facility] Referring Physician: BROCK MCINTOSH Hoist Cylinder Loader: Naz Liang [facility] Ordering Physician: VILMA HOSKINS Wall Motion Scores -1 - hyperkinesia, 0 - not evaluated, 1 - normal, 2 - hypokinesia, 3 - akinesia, 4 - dyskinesia Vilma Hoskins [facility] CV ECHO PROCEDURES Final Resu lt * Electrocardiogram, 12-lead (11/17/2024 10:11 AM EDT) [facility] Ventricular Rate 78 BPM GE MUSE Atrial Rate 78 BPM GE MUSE [place] Interval 144 ms GE MUSE QRS DURATION 104 ms GE MUSE QT Interval 400 ms GE MUSE QTC CALCULATION(BAZE TT) 456 ms GE MUSE P [place] 36 degrees GE MUSE R-[place] -52 degrees GE MUSE T Wave [place] 50 degrees GE MUSE 11/17/2024 9:42 AM EDT 11/17/2024 1:12 PM EDT Impressions GE MUSE - 11/17/2024 1:12 PM EDT Normal sinus rhythm Left anterior fascicular block Minimal voltage criteria for LVH, may be normal variant ( [place] product ) Abnormal ECG No previous ECGs available Confirmed by Manish THOMAS SAMER J. ([id number]) on 11/17/2024 1:12:12 PM Narrative Procedure Note Ever Thomas MD - 11/17/2024 IMPRESSION: Normal sinus rhythm Left anterior fascicular block Minimal voltage criteria for LVH, may be normal variant ( [place] product ) Abnormal ECG No previous ECGs available Confirmed by Manish THOMAS SAMER J. ([id number]) on 11/17/2024 1:12:12 PM us Kayla Garcia MD ECG ORDERABLES Final Result [facility] documented in this encounter Visit Diagnoses Diagnosis Rheumatic mitral stenosis- Primary Mitral stenosis Nonrheumatic mitral valve regurgitation Acute diastolic heart failure (CMS/HCC) Acute diastolic heart failure Nonrheumatic tricuspid valve regurgitation Nonrheumatic mitral valve regurgitation Acute diastolic heart failure (CMS/HCC) Acute diastolic heart failure Nonrheumatic tricuspid valve regurgitation Nonrheumatic mitral valve regurgitation Acute diastolic heart failure (CMS/HCC) Acute diastolic heart failure Nonrheumatic tricuspid valve regurgitation documented in this encounter Admitting Diagnoses Diagnosis Nonrheumatic mitral valve regurgitation Acute diastolic heart failure (CMS/HCC) Acute diastolic heart failure Nonrheumatic tricuspid valve regurgitation documented in this encounter Administered Medications Inactive Administered Medications - up to 3 most recent administrations Medication Order MAR Action Action Date Dose Rate Site fentaNYL (Sublimaze) injection As needed, Starting on Fri11/17/24 at 1028, Intraprocedure Given 11/17/2024 10:30 AM EDT 25 mcg Given 11/17/2024 10:28 AM EDT 25 mcg lidocaine (Xylocaine) 2 % mouth solution Mouth/Throat, As needed, Procedure Medication, Starting on Fri11/17/24 at 1017, Intraprocedure Given 11/17/2024 10:17 AM EDT 15 mL midazolam (Versed) injection As needed, Starting on Fri11/17/24 at 1028, Intraprocedure Given 11/17/2024 10:45 AM EDT 1 mg Given 11/17/2024 10:30 AM EDT 1 mg Given 11/17/2024 10:28 AM EDT 1 mg documented in this encounter Active and Recently Administered Medications Times are shown in EDT. PRN Medication Order 11/15/2024 11/16/2024 11/17/2024 fentaNYL (Sublimaze) injection (COMPLETED) As needed, Starting on Fri11/17/24 at 1028, Intraprocedure 1028 (Given - Provid er: Gem Davey RN)1030 (Given - Provider: Gem Davey RN) heparin (porcine) injection (CANCELED) As needed, Starting on Fri11/17/24 at 1150, Intraprocedure 1150 (Given - Provid er: Keyla Roper RN) heparin irrigation 2 units/mL in NS (CANCELED) As needed, Starting on Fri11/17/24 at 1135, Intraprocedure 1135 (Given - Provid er: Kayla Garcia MD) iodixanol (VISIPaque) 320 mg iodine/mL injection (CANCELED) As needed, Starting on Fri11/17/24 at 1206, Intraprocedure 1206 (Given - Provid er: Eric Willis MD) lidocaine (PF) (Xylocaine) 10 mg/mL (1 %) injection (CANCELED) As needed, Starting on Fri11/17/24 at 1135, Intraprocedure 1135 (Given - Provid er: Kayla Garcia MD) lidocaine (Xylocaine) 2 % mouth solution (COMPLETED) Mouth/Throat, As needed, Procedure Medication, Starting on Fri11/17/24 at 1017, Intraprocedure 1017 (Given - Provid er: Gem Davey RN) midazolam (Versed) injection (COMPLETED) As needed, Starting on Fri11/17/24 at 1028, Intraprocedure 1028 (Given - Provid er: Gem Davey RN)1030 (Given - Provider: Gem Davey RN)1045 (Given - Provider: Gem Davey RN) sodium chloride 0.9 % infusion (COMPLETED) Continuous PRN, Starting on Fri11/17/24 at 1121, Intraprocedure 1121 (New Bag - Prov ider: Keyla Roper RN) verapamil (Isoptin) injection (CANCELED) As needed, Starting on Fri11/17/24 at 1150, Intraprocedure 1150 (Given - Provid er: Kayla Garcia MD) documented in this encounter Care Teams Supervisor Production Relationship Specialty Start Date End Date Brock Mcintosh DO [address] [place] [address] PCP - General Family Medicine 10/27/24 documented as of this encounter
--- OUTSIDE RECORDS SUMMARY | 2024-11-17 12:30 | XMS_ITS | Encounter Summary ---
Author Organization [facility] Address [address] [place] [address] Care Team Providers Care Media Sales Representative Name Role Phone Brock Mcintosh DO Primary Care Provider [phone] Reason for Visit * Auth/Cert (Routine) Specialty Diagnoses / Procedures Referred By Contac t Referred To Contact Diagnoses Nonrheumatic mitral valve regurgitation Acute diastolic heart failure (CMS/HCC) Nonrheumatic tricuspid valve regurgitation Nonrheumatic mitral valve regurgitation [I34.0] Acute diastolic heart failure (CMS/HCC) [I50.31] Nonrheumatic tricuspid valve regurgitation [I36.1] Procedures [place] RIGHT HEART CATH O2 SATURATION & CARDIAC OUTPUT Coronary angiography Right heart cath Frandy Proposal AnalystMD [address] [place] [address] Phone: tel: [facility] Heart [facility] [address] [place] [address] Phone: tel: fax: Referral ID Status Reason Start Date Expiration Date Visits Re quested Visits Authorized [id number] 1 1 Encounter Details Date Type Department Care Team (Late st Contact Info) Description 11/17/2024 12:30 PM EDT - 11/17/2024 1:30 PM EDT Surgery [facility] Heart [facility] [address] [place] [address] Kayla Garcia MD [address] [facility] [address] [facility] [place] [phone] Coronary angiography Social History Tobacco Use Types Packs/Day Years [...] Sign Reading Time Taken Comments Blood Pressure 95/65 11/17/2024 1:30 PM EDT Pulse 67 11/17/2024 1:30 PM EDT Temperature - - Respiratory Rate 21 11/17/2024 1:30 PM EDT Oxygen Saturation 96% 11/17/2024 1:30 PM EDT Inhaled Oxygen Concentration - - [...] new patient given his recent admission to [facility] for acute diastolic heart failure. He [...] Incomplete Atrial Rate 11/17/2024 78 BPM Incomplete [place] Interval 11/17/2024 144 ms Incomplete QRS DURATION 11/17/2024 104 ms Incomplete QT Interval 11/17/2024 400 ms Incomplete QTC CALCULATION(BAZETT) 11/17/2024 456 ms Incomplete P [place] 11/17/2024 36 degrees Incomplete R-[place] 11/17/2024 -52 degrees Incomplete T Wave [place] 11/17/2024 50 degrees Incomplete No results found [...] 1. Nonrheumatic mitral valve regurgitation Case Request Web Press Jogger: Right heart cath, Coronary angiography Basic metabolic panel CBC Transesophageal echo (PAO) 2. Acute diastolic heart failure (CMS/HCC) Case Request Web Press Jogger: Right heart cath, Coronary angiography Basic metabolic panel CBC Transesophageal echo (PAO) 3. Nonrheumatic tricuspid valve regurgitation Case Request Web Press Jogger: Right heart cath, Coronary angiography Basic metabolic panel CBC Transesophageal echo (PAO) 4. Substernal chest pain 5. Abdominal bloating 6. Other specified hypotension PLAN: -Newly diagnosed with recent admission to [facility] -He does not appear fluid overloaded [...] to proceed. Signed, Kierra Hill MD PGY-5 Director Private Pager: [phone] Cosigned by Kayla Garcia MD at 11/17/2024 [...] me. Additional Comments: Kayla Garcia MD, MPH, FACC, [facility], [facility] Interventional Cardiology Pager Email: [email or web address] documented in this encounter Nursing Notes * [...] Description 11/29/2024 2:00 PM EDT Office Visit [facility] Heart at [facility] [address] [place] [address] Luis Keita MD [address] [facility] [address] [facility] [address] documented as of this encounter [...] week Follow-up with Dr. Keita in the [place] office as scheduled PROCEDURES: Ultrasound-guided access to [...] internal jugular vein was obtained. A 6 [place] 11 cm sheath was inserted without difficulty. [...] left radial artery was obtained. A 6 [place] glide sheath was inserted without difficulty. Bilateral [...] (ABNORMAL) POC Hb02% (11/17/2024 11:41 AM EDT) [id number]% 62.8(A) 90 - 95 % QC Pass/Fail [...] EDT Narrative 11/17/2024 3:26 PM EDT 1 [facility] Heart Station [address] [place] [address] [phone] (fax) Transesophageal Echocardiogram-[facility] Name: OSMANY CUNNINGHAM Study Date: 11/17/2024 10:19 AM B/P: 108 mmHg/78 mmHg HR: 77 bpm Date of : 1940 Location: [facility] Height: 65 in. Age: 84 year(s) Patient Room: [facility] VASCULAR POOL Weight: 178 lb. Gender: Male Patient Status: OutPt BSA: 1.88 m2 Indication: Congestive Heart Failure, Hypertension, pulm HTN, Mitral regurgitation, Tricuspid Regurgitation Examination: PAO/Limited Doppler/CFI, Agitated Saline, 3 Dimensional Imaging Image Quality: Excellent Patient Consent: Informed, written consent was obtained for the procedure Exam Details Contrast: I.V. dose of agitated saline Exam Location: A PAO was performed in the Web Press Jogger without complications Anesthesia Pharyngeal anesthesia with viscous [...] in the aorta. Procedure Staff Reading Group: [facility] Referring Physician: BROCK MCINTOSH Finished Carpet Inspector: KEHINDE Celeste Ordering Physician: VILMA HOSKINS Wall Motion Scores -1 - hyperkinesia, 0 - not evaluated, 1 - normal, 2 - hypokinesia, 3 - akinesia, 4 - dyskinesia Procedure Note Ever Thomas MD - 11/17/2024 1 [facility] Heart Station [address] [place] [address] [phone] (fax) Transesophageal Echocardiogram-[facility] Name: OSMANY CUNNINGHAM Study Date: 11/17/2024 10:19 AM B/P: 108 mmHg/78 mmHg HR: 77 bpm Date of : 1940 Location: [facility] Height: 65 in. Age: 84 year(s) Patient Room: [facility] VASCULAR POOL Weight: 178 lb. Gender: Male Patient Status: OutPt BSA: 1.88 m2 Indication: Congestive Heart Failure, Hypertension, pulm HTN, Mitral regurgitation, Tricuspid Regurgitation Examination: PAO/Limited Doppler/CFI, Agitated Saline, 3 Dimensional Imaging Image Quality: Excellent Patient Consent: Informed, written consent was obtained for the procedure Exam Details Contrast: I.V. dose of agitated saline Exam Location: A PAO was performed in the Web Press Jogger without complications Anesthesia Pharyngeal anesthesia with viscous [...] in the aorta. Procedure Staff Reading Group: [facility] Referring Physician: BROCK MCINTOSH Finished Carpet Inspector: KEHINDE Celeste Ordering Physician: VILMA HOSKINS Wall Motion Scores -1 - hyperkinesia, 0 - not evaluated, 1 - normal, 2 - hypokinesia, 3 - akinesia, 4 - dyskinesia us Vilma Hoskins [facility] CV ECHO PROCEDURES Final Resu lt * Electrocardiogram, 12-lead (11/17/2024 10:11 AM EDT) Ventricular Rate 78 BPM GE MUSE Atrial Rate 78 BPM GE MUSE [place] Interval 144 ms GE MUSE QRS DURATION 104 ms GE MUSE QT Interval 400 ms GE MUSE QTC CALCULATION(BAZE TT) 456 ms GE MUSE P [place] 36 degrees GE MUSE R-[place] -52 degrees GE MUSE T Wave [place] 50 degrees GE MUSE 11/17/2024 9:42 AM EDT 11/17/2024 1:12 PM EDT Impressions GE MUSE - 11/17/2024 1:12 PM EDT Normal sinus rhythm Left anterior fascicular block Minimal voltage criteria for LVH, may be normal variant ( [place] product ) Abnormal ECG No previous ECGs available Confirmed by Manish THOMAS SAMER J. ([id number]) on 11/17/2024 1:12:12 PM Narrative Procedure Note Ever Thomas MD - 11/17/2024 IMPRESSION: Normal sinus rhythm Left anterior fascicular block Minimal voltage criteria for LVH, may be normal variant ( [place] product ) Abnormal ECG No previous ECGs available Confirmed by Manish THOMAS SAMER J. (57) on 11/17/2024 1:12:12 PM Kayla Garcia MD ECG ORDERABLES Final Result GE MUSE documented in this encounter Visit Diagnoses Diagnosis [...] Given 11/17/2024 10:28 AM EDT 25 mcg heparin (porcine) injection As needed, Starting on Fri11/17/24 at 1150, Intraprocedure Given 11/17/2024 11:50 AM EDT 5,000 Units heparin irrigation 2 units/mL in NS As needed, Starting on Fri11/17/24 at 1135, Intraprocedure Given 11/17/2024 11:35 AM EDT 2,000 mL iodixanol (VISIPaque) 320 mg iodine/mL injection As needed, Starting on Fri11/17/24 at 1206, Intraprocedure Given 11/17/2024 12:06 PM EDT 70 mL lidocaine (PF) (Xylocaine) 10 mg/mL (1 %) injection As needed, Starting on Fri11/17/24 at 1135, Intraprocedure Given 11/17/2024 11:35 AM EDT 10 mL lidocaine (Xylocaine) 2 % mouth solution Mouth/Throat, As needed, Procedure Medication, Starting on Fri11/17/24 at 1017, Intraprocedure Given 11/17/2024 10:17 AM EDT 15 mL midazolam (Versed) injection As needed, Starting on Fri11/17/24 at 1028, Intraprocedure Given 11/17/2024 10:45 AM EDT 1 mg Given 11/17/2024 10:30 AM EDT 1 mg Given 11/17/2024 10:28 AM EDT 1 mg sodium chloride 0.9 % infusion Continuous PRN, Starting on Fri11/17/24 at 1121, Intraprocedure New Bag 11/17/2024 11:21 AM EDT 50 mL/hr 50 mL/hr verapamil (Isoptin) injection As needed, Starting on Fri11/17/24 at 1150, Intraprocedure Given 11/17/2024 11:50 AM EDT 1.5 mg documented in this encounter Active and [...] 1206, Intraprocedure 1206 (Given - Provid er: rEic Willis MD) lidocaine (PF) (Xylocaine) 10 mg/mL [...] Gem Davey RN)1030 (Given - Provider: Gem Davey, BERNARDA)1045 (Given - Provider: Gem Davey RN) sodium chloride 0.9 % infusion (COMPLETED) Continuous PRN, Starting on Fri11/17/24 at 1121, Intraprocedure 1121 (New Bag - Prov ider: Keyla Roper RN) verapamil (Isoptin) injection (CANCELED) As needed, Starting on Fri11/17/24 at 1150, Intraprocedure 1150 (Given - Provid er: Kayla Garcia MD) documented in this encounter Care Teams Media Sales Representative Relationship Specialty Start Date End Date Brock Mcintosh DO [address] [place], [place] [id number] PCP - General Family Medicine 10/27/24 documented as of this encounter
--- OUTSIDE RECORDS SUMMARY | 2024-11-18 10:00 | XMS_ITS ---
Author Organization [facility] in [place] Address [address] [place] [address] Care Team Providers [facility] [employer] Professor Name Role Phone Brock Jarvis Primary Care Provider Allergies No Known Allergies REASON FOR VISIT hospital follow up Medications Medication SIG (Take, Route, Frequency, Duration) Notes Start Date End Date Status Torsemide 20 MG 1.5 tablet Orally On ce a day 10/21/2024 Active Potassium Chloride ER 10 MEQ 1 tablet wi th food Orally daily; Duration: 90 days 10/21/2024 Active Lisinopril 20 MG 0.5 tablet Orally On ce a day 03/17/2024 Active Levothyroxine Sodium 150 MCG 1 tablet in the morning on an empty stomach Orally Once a day; Duration: 90 days Active Aspirin 81 81 MG 1 tablet Orally Once a day; Duration: 90 days 10/21/2024 Active Metoprolol Succinate ER 25 MG 1 tablet Orally Once a day 10/21/2024 Active metFORMIN HCl 500 MG 1 tablet with a dwayne l Orally twice a day; Duration: 90 days Active Social History Tobacco Use: Social History Observation Description Date Details (start date - stop date) Never Smoker NA - NA Tobacco Control (Standard) Question Answer Notes Tobacco use: Nonsmoker Problems Problem Type SNOMED Code ICD Code Onset Dates Problem Status W/U Status Risk Notes Problem Acute on chronic diastolic heart failure (234199424) Acute on chronic diastolic (congestive) heart failure (I50.33) Active confirmed Vital Signs Weight 185.6 lbs 11/18/2024 Height 65 in 11/18/2024 Blood pressure systolic 132 mm Hg 11/19/19 25 Blood pressure diastolic 70 mm Hg 025 Heart Rate 74 /min 11/18/2024 Respiratory Rate 16 /min 11/18/2024 BMI 30.88 kg/m2 11/18/2024 Oximetry 97 % 11/18/2024 185.6 Encounters Encounter Location Date Provider Diagnosis [facility] [address] [place] [address] 11/18/2024 Brock Jarvis Other obesity due to excess calories E66.09 ; Body mass index [BMI] 30.0-30.9, adult Z68.30 ; Obesity, class 1 E66.811 ; Rheumatic mitral stenosis I05.0 ; Essential (primary) hypertension I10 and Acute on chronic diastolic (congestive) heart failure I50.33 Assessments Encounter Date Diagnosis (ICD Code) Assessment Notes Treatment Notes Treatment Clinical Notes Section Notes 11/18/2024 Other obesity due to excess calories (ICD-10 - E66.09) diet/exercise 11/18/2024 Body mass index [BMI] 30.0-30.9, adult (ICD-10 - Z68.30) 11/18/2024 Obesity, class 1 (ICD-10 - E66.811) 11/18/2024 Rheumatic mitral stenosis (ICD-10 - I05.0) f/u cardio as directed bp control monitor weight ?surgery needed 11/18/2024 Essential (primary) hypertension (ICD-10 - I10) bp check daily goal <130/80 diet/exercise monitor bmp and urine microalbumin yearly 11/18/2024 Acute on chronic diastolic (congestive) heart failure (ICD-10 - I50.33) f/u cardio as directed daily weight continue bblocker/DAVID monitor bmp 11/18/2024 Other Plan Of Treatment Medication Medication Name Sig Start Date Stop Date Notes Torsemide 20 MG 1.5 tablet Orally Once a day 10/21/2024 Lisinopril 20 MG 0.5 tablet Orally Once a day 03/17/2024 Metoprolol Succinate ER 25 MG 1 tablet Orally Once a day 0 10/21/2024 Treatment Notes Assessment Notes Other obesity due to excess calories t/exercise Rheumatic mitral stenosis f/u cardio as directed bp control monitor weight ?surgery needed Essential (primary) hypertension bp check daily goal <130/80 diet/exercise monitor bmp and urine microalbumin yearly Acute on chronic diastolic ( congestive) heart failure f/u cardio as directed daily weight continue bblocker/DAVID monitor bmp Pending Test Test Name Order Date MICROALBUMIN w CREAT RATIO 11/18/2024 Next Appt Details Provider Name:Brock mayberry, 11/29/2024 02:45:00 PM, [address] [place], [address], Provider Name:Brock mayberry, 02/02/2025 03:15:00 PM, [address] [place], [address], Progress Notes * Luis CUNNINGHAMOB: 3 (84 yo M)Acc No.[id number]:11/18/2024 Progress Note Patient: Osmany NICKERSON Provider: Giulia Jarvis DO :1940 A ge:84 Y S ex:Male Date:11/18/2024 Address:[address] [place], [place] [id number] Check In:01:54 PM ESTCheck O ut:03:10 PM EST Subjective: * Chief Complaints: * H ospital follow up * HPI: G eneral: Patient presents today for hospital follow up.-MV d/c summary reviewed admitted 11/12/24 - 11/14/24 dx: fall, HTN, acute diastolic chf, acute hypoxic resp failure med stopped: lisinopril CXR +CHF b/l hand xray +OA CT C spine +DDD CT head - negative +mod mitral stenosis, severe MR, pulm HTN 11/17/24 [facility] pt did PAO and heart cath 2 valves leaking will need MVR pt told to restart lisinopril after heart cath yesterday metformin increased to bid and torsemide increased to 30mg daily after heart cath 11/29/24 cardio appt no TRAVIS lately per pt trace b/l LE edema pt got dizzy walking up and down the stairs pt fell and fainted last friday pt does daily weight not sent home on oxygen 10/15/24 Cr 0.78 01/2024 urine microalbumin +abnormal meds reviewed and updated with chart and d/c summary and recent cardio appt. * ROS: G eneral/Constitutional: Significant change in [...] enies. C ardiovascular: Shortness of Breath w/Walking d enies. S hortness of Breath w/lying flat d enies. A rm pain on exertion d enies. C hest pain d enies.?Heart murmur d enies. P alpitations d enies. R espiratory: Coughing up blood d enies. C ough d enies. S hortness of breath d enies. W heezing d enies. G astrointestinal: Change in appetite d enies. V omiting blood d enies. A bdominal pain d enies. C onstipation d enies. D iarrhea d enies. V omiting d enies. G enitourinary: Dysuria/Increased Frequency d enies. H ematuria d enies. I ncontinence d enies. D ifficulty urinating d enies. M usculoskeletal: Swelling in the extremities a dmits. A rthralgias/joint pain A dmits. B ack pain d enies. W eakness of muscles d enies. M uscle aches a dmits. S kin: Jaundice D enies. M ole(s) d enies. R kervin d enies. N eurologic: Dizziness a dmits. L oss of consciousness d enies.?Numbness d enies. W eakness d enies. H eadache d enies. S eizures d enies. P sychiatric: Alcohol abuse d enies. F eeling safe in relationship?denies. D epression d enies. A nxiety d enies. S leep Disturbances d enies. E ndocrine: Fatigue d enies. H ematologic/Lymphatic: Swollen Glands d enies. B ruising d enies. ? A llergy/Immunology: Runny nose d enies. S inus pressure d enies. F requent sneezing d enies. H harman d enies. I tching d enies. 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 Modified On:03/17/2024U Status:confirmed E78.6 Lipoprotein deficien cy Modified On:03/17/2024U Status:confirmed Z68.30 Body mass index [BMI ] 30.0-30.9, adult Modified On:03/21/2024U Status:confirmed 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 Modified On:03/21/2024U Status:confirmed 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 Modified On:03/21/2024U Status:confirmed I35.8 Other nonrheumatic a ortic valve disorders Modified On:04/29/2024U Status:confirmed I34.0 Nonrheumatic mitral (valve) insufficiency Modified On:04/29/2024 Status:confirmed Z68.31 Body mass index [BMI ] 31.0-31.9, adult Modified On:10/21/2024 Status:confirmed I50.31 Acute diastolic (con gestive) heart failure Modified On:10/21/2024 Status:confirmed I07.1 Rheumatic tricuspid insufficiency Modified On:10/21/2024 Status:confirmed I05.0 Rheumatic mitral nic nosis Modified On:10/21/2024 Status:confirmed I10 Essential (primary) hypertension Modified On:10/21/2024 Status:confirmed I50.33 Acute on chronic kinza stolic (congestive) heart failure Modified On:11/21/2024 Status:confirmed * Medical History: * Surgical History: p rostate surgery b/l TKA PAO - 2024 heart cath - 2024 throat surgery * Hospitalization/Major Diagno stic Procedure: N o Hospitalization History. * Family History: F ather: . M other: . 1 daughter(s) . . * Social History: T obacco Use: T obacco Control (Standard) T obacco use: N onsmoker * Medications: T akingAspirin 81(Aspirin) 81 MG Tablet Chewable 1 tablet Orally Once a day Levothyroxine Sodium 150 MCG Tablet 1 tablet in the morning on an empty stomach Orally Once a day Lisinopril 20 MG Tablet 0.5 tablet Orally Once a day metFORMIN HCl 500 MG Tablet 1 tablet with a meal Orally twice a day Metoprolol Succinate ER 25 MG Tablet Extended Release 24 Hour 1 tablet Orally Once a day Potassium Chloride ER 10 MEQ Tablet Extended Release 1 tablet with food Orally daily Torsemide 20 MG Tablet 1.5 tablet Orally Once a day Medication List reviewed and reconciled with the patientTaking Aspirin 81(Aspirin) 81 MG Tablet Chewable 1 tablet Orally Once a day Taking Levothyroxine Sodium 150 MCG Tablet 1 tablet in the morning on an empty stomach Orally Once a day Taking Lisinopril 20 MG Tablet 0.5 tablet Orally Once a day Taking metFORMIN HCl 500 MG Tablet 1 tablet with a meal Orally twice a day Taking Metoprolol Succinate ER 25 MG Tablet Extended Release 24 Hour 1 tablet Orally Once a day Taking Potassium Chloride ER 10 MEQ Tablet Extended Release 1 tablet with food Orally daily Taking Torsemide 20 MG Tablet 1.5 tablet Orally Once a day Medication List reviewed and reconciled with the patient * Allergies: N .K.D.A.no[Allergies Verified] Objective: * Vitals: W t:185.6lbs, Ht: 65 in, BP:132/70mm Hg, HR:74/min, RR:16/min, BMI:30.88Index, Oxygen sat %:97%. 185.6. * Examination: G eneral Examination: GENERAL APPEARANCE: h ealthy Appearing , well nourished , well developed Level of distress: NAD, o bese. ENMT: E ACs clear, TMs clear, no hearing loss, no lesions on external ears, nares patent, nasal passages clear, no sinus tenderness, no nasal discharge, no mouth or lip ulcers, no bleeding gums, moist mucous membranes, no erythema, no exudates. HEAD: n ormocephalic, atraumatic. EYES: n on-injected, no discharge, no pallor, PERRLA , EOMI, s clera non-icteric, peripheral vision grossly intact, acuity grossly intact. LUNGS: n o dyspnea, breath sounds normal , good air movement, CTA except as noted, no wheezing, no rales/crackles, no rhonchi. CARDIO: n ot displaced, RRR, S1, S2 normal, +sys murmur.? ABDOMEN: n ormal bowel sounds , soft, non tender, not distended, no guarding, no rebound tenderness, no masses, no CVA tenderness, liver non tender, no hepatomegaly. BACK: n ormal curvature. MUSCULOSKELETAL: n ormal motor strength, normal tone, normal movement of all extremities, +OA changes b/l hands, no contractures, no malalignment, no tenderness. SKIN: n o rash, no lesions, no ulcer, no abnormal nevi, no induration, no nodules, good turgor, no jaundice. EXTREMITIES: + trace b/l LE edema. NEUROLOGIC: + gait unsteady, cranial nerves grossly intact, no tremor. PSYCH: j udgement and insight good, active and alert, normal mood, normal affect. NECK/THYROID: N jose supple, trachea midline, no masses, FROM, no cervical LAD, no enlargement, non-tender, no nodules. Assessment: * Assessment: 1. O ther obesity due to excess calories - E66.09 (Primary) 2 . B kervin mass index [BMI] 30.0-30.9, adult - Z68.30 3 . O besity, class 1 - E66.811 4 . R heumatic mitral stenosis - I05.0 5 . E ssential (primary) hypertension - I10 6 . A cute on chronic diastolic (congestive) heart failure - I50.33? Plan: * Treatment: 2. R heumatic mitral stenosis Notes: f/u cardio as directed bp control monitor weight ?surgery needed 3. E ssential (primary) hypertension Continue Metoprolol Succinate ER Tablet Extended Release 24 Hour, 25 MG, 1 tablet, Orally, Once a day; C ontinue Lisinopril Tablet, 20 MG, 0.5 tablet, Orally, Once a day. L AB: MICROALBUMIN w CREAT RATIO Notes: bp check daily goal <130/80 diet/exercise monitor bmp and urine microalbumin yearly 4. A cute on chronic diastolic (congestive) heart failure Continue Torsemide Tablet, 20 MG, 1.5 tablet, Orally, Once a day. Notes: f/u cardio as directed daily weight continue bblocker/DAVID monitor bmp * Procedure Codes: 3 078F DIAST BP < 80 MM [id number] SYST BP GE 130 - 139MM HG * * Sign off status: Completed Visit Status: C HK (Check Out) true * Provider: Giulia Jarvis DO Date: 11/18/2024 Generated for Jonah mayberry/Rylan/Juaquinitting on: 11/22/2024 10:30 AM EDT History and Physical Notes * Examination Category Sub-Category Detail Notes Category Not es General Examination GENERAL APPEARANCE: healthy Appearing , well nourished , well developed Level of distress: NAD, obese EYES: non-injected, no dis charge, no pallor, PERRLA , EOMI, sclera non-icteric, peripheral vision grossly intact, acuity grossly intact CARDIO: not displaced, RRR, S1, S2 normal, +sys murmur LUNGS: no dyspnea, breath s ounds normal , good air movement, CTA except as noted, no wheezing, no rales/crackles, no rhonchi ABDOMEN: normal bowel sounds , soft, non tender, not distended, no guarding, no rebound tenderness, no masses, no CVA tenderness, liver non tender, no hepatomegaly NEUROLOGIC: +gait unsteady, cran ial nerves grossly intact, no tremor SKIN: no rash, no lesions, no ulcer, no abnormal nevi, no induration, no nodules, good turgor, no jaundice EXTREMITIES: +trace b/l LE edema BACK: normal curvature MUSCULOSKELETAL: normal motor strengt h, normal tone, normal movement of all extremities, +OA changes b/l hands, no contractures, no malalignment, no tenderness PSYCH: judgement and insigh t good, active and alert, normal mood, normal affect ENMT: EACs clear, TMs shahnaz r, no hearing loss, no lesions on external ears, nares patent, nasal passages clear, no sinus tenderness, no nasal discharge, no mouth or lip ulcers, no bleeding gums, moist mucous membranes, no erythema, no exudates HEAD: normocephalic, atrau matic NECK/THYROID: Neck supple, trachea midline, no masses, FROM, no cervical LAD, no enlargement, non-tender, no nodules
[2024-11-20] VITALS (31 sets, daily range): BP systolic 95–119; BP diastolic 52–71; PULSE 66–96; TEMP 37.3–39.2; O2SAT 86–96; BMI 43.9; BMI 27.9
--- NOTE | 2024-11-20 11:57 | ECG_ITS ---
[facility] Test Date: 2024-11-20 Pat Name: ELLA BAIG Department: Room: - Gender: Male [employer]: : 1940 Requested By: 1030 Order Number: [id number] Reading MD: LIO FLETCHER M.D. Measurements Intervals [place] Rate: 90 P: 20 VT: 184 QRS: 179 QRSD: 96 T: 22 QT: 360 QTc: 408 Interpretive Statements 1100 Sinus rhythm 2440 Incomplete right bundle branch block 5120 Possible right ventricular hypertrophy 9130 borderline ECG Compared to ECG 11/13/2024 04:56:41 Incomplete right bundle-branch block now present First degree AV block no longer present Left anterior fascicular block no longer present Electronically Signed On 11-21-2024 10:27:15 EDT by LIO FLETCHER M.D.
--- NOTE | 2024-11-20 11:57 | XR_ITS ---
The [address] [address] Patient Name: ELLA BAIG MRN: [id number] date: 1940 Sex: M Assigned Patient Location: ED.MAIN Current Patient Location: ED.MAIN Accession/Order Number: [id number] Exam Date: 11/20/2024 12:20 Report Date: 11/20/2024 12:49 At the request of: DAYNA BONNER MD Procedure: XR chest 1V XR chest 1V 11/20/2024 12:29 PM SIGNS AND SYMPTOMS: ^cough fever ^Y PROTOCOL: Frontal radiograph of the chest COMPARISON: 11/13/2024 FINDINGS: The trachea is midline. Atherosclerotic changes are noted in the thoracic aorta. There is cardiomegaly. The heart and mediastinal structures are within normal limits. The lung parenchyma is clear. The bony thorax is intact. Degenerative changes are noted in the shoulders and thoracic spine. XR/XR chest 1V IMPRESSION: No acute cardiopulmonary pathology. There is cardiomegaly. This is unchanged. Impression dictated by: Darius Molina M.D. 11/20/2024 12:49 PM Dictation Location: [place] [address] Electronically authenticated by: [id number] Y Date: 11/20/2024 12:49
--- NOTE | 2024-11-20 11:58 | ED.GENADUL1 ---
HPI HPI - General Adult General Chief complaint: Dizziness Stated complaint: DIZZINESS Time Seen by Provider: 11/20/24 11:37 Source: patient Mode of arrival: Wheelchair History of Present Illness HPI narrative: 84-year-old male presented for fever and cough and weakness. The symptoms began yesterday. 3 days ago he had a heart catheterization. His cough has been nonproductive and he has had no hemoptysis. He quit smoking about 30 years ago. No chest pain or abdominal pain or vomiting or diarrhea. Family member states that most people at home have upper respiratory infections. Related Data Home Medications ?Medication ?Instructions ?Recorded ?Confirmed levothyroxine 150 mcg tablet 150 mcg PO DAILY 10/14/24 11/20/24 metformin 500 mg tablet 500 mg PO DAILY 10/14/24 11/20/24 lisinopril 20 mg tablet 20 mg PO DAILY 11/20/24 11/20/24 torsemide 10 mg tablet 20 mg PO DAILY 11/20/24 11/20/24 Previous Rx's ?Medication ?Instructions ?Recorded aspirin 81 mg chewable tablet 81 mg PO QD #60 tabs 10/17/24 metoprolol succinate 25 mg 25 mg PO DAILY #30 tabs 10/17/24 tablet,extended release 24 hr (Toprol XL) potassium chloride 10 mEq 10 meq PO DAILY #30 tabs 10/17/24 tablet,extended release Allergies Allergy/AdvReac Type Severity Reaction Status Date / Time No Known Drug Allergies Allergy Verified 11/12/24 15:37 Opioid HPI Opioid Management Most Recent Opioid Data: Last Pain Scale 0 11/14/24, 09:00 Last Pain Assessment 11/13/24, 13:00 Last MAR Pain Assessment Today, 12:39 Last ORT Total Score 0 11/12/24, 18:32 Last ORT Risk Category Low Risk 11/12/24, 18:32 Review of Systems ROS Narrative A ten point review of systems is negative except as noted above. [facility] Medical History (Updated 11/20/24 @ 12:58 by Byron Atkins MD) Diabetes mellitus ?E11.9 - Type 2 diabetes mellitus without complications (ICD-10) History of CVA (cerebrovascular accident) ?Z86.73 - Personal history of transient ischemic attack (TIA), and cerebral infarction without residual deficits (ICD-10) History of prostate cancer ?Z85.46 - Personal history of malignant neoplasm of prostate (ICD-10) History of throat cancer ?Z85.819 - Personal history of malignant neoplasm of unspecified site of lip, oral cavity, and pharynx (ICD-10) Social History (Updated 11/12/24 @ 21:20 by Zev Alnaiz) Within the past year, how often did you have a drink containing alcohol: never Within the past year, how often did you have six or more drinks on one occasion: never Score interpretation: A score less than 4 is consistent with normal alcohol consumption. Smoking status: Former smoker Second hand tobacco smoke exposure: No Non-prescribed substance use: denies use Known occupational exposures/hazards: No Highest level of school completed/degree received: 1st grade Are you now , , , , never or living with a partner: In a typical week, how many times do you talk on the telephone with family, friends, or neighbors: 3 or more times per week How often do you get together with friends or relatives: 3 or more times per week Little interest or pleasure in doing things: not at all Feeling down, depressed, or hopeless: not at all Feel stressed/tense/nervous/anxious/difficulty sleeping: not at all Exam Narrative Exam Narrative: Nurses note and vital signs reviewed and patient is not hypoxic. General:The patient appears in no acute respiratory distress. Skin:Warm, dry, no pallor noted.There is no rash noted. Head:Normocephalic, atraumatic Eye: Normal conjunctiva, no drainage Ears, Nose, Mouth, and Throat: oral mucosa is moist. Nares patent. Cardiovascular:Regular Rate and Rhythm, not tachycardic Respiratory:Patient is in no distress, no accessory muscle use, lungs are clear to auscultation, no wheezing, rales or rhonchi. He coughs occasionally Back:non-tender GI: Soft and nontender Musculoskeletal: The patient has no evidence of calf tenderness, no pitting edema, symmetrical pulses noted bilaterally Neurological: Awake and alert Psychiatric:Cooperative Constitutional Vital Signs, click to edit/add: Last Vital Signs Temp 102.5 F H 11/20/24 11:33 Pulse 96 H 11/20/24 12:40 Resp 30 H 11/20/24 12:40 BP 119/71 11/20/24 11:38 Pulse Ox 90 L 11/20/24 12:20 O2 Del Method Room Air 11/20/24 12:06 Course Vital Signs Vital signs: Vital Signs Temperature 102.5 F H 11/20/24 11:33 Pulse Rate 92 H 11/20/24 11:33 Respiratory Rate 24 H 11/20/24 11:33 Blood Pressure 119/71 11/20/24 11:33 Pulse Oximetry 92 L 11/20/24 11:33 Oxygen Delivery Method Room Air 11/20/24 11:33 Temperature 102.5 F H 11/20/24 11:33 Pulse Rate 96 H 11/20/24 12:40 Respiratory Rate 30 H 11/20/24 12:40 Blood Pressure 119/71 11/20/24 11:38 Pulse Oximetry 90 L 11/20/24 12:20 Oxygen Delivery Method Room Air 11/20/24 12:06 Medical Decision Making MDM Narrative Medical decision making narrative: The patient is found to have COVID. Other than a fever his workup is otherwise negative. Urinalysis is pending. He was given Tylenol for his fever and blood cultures were obtained. At this point antibiotics are not indicated. He is unable to walk because of weakness and he will be admitted. Findings are discussed with the patient and his family. Differential Diagnosis Differential Diagnosis: COVID, influenza, pneumonia, dehydration, anemia Lab Data Lab results reviewed: Yes I reviewed the patient's lab results Labs: Lab Results 11/20/24 11/20/24 Range/Units 11:53 11:59 WBC 7.8 (4.0-11.0) 10^3/uL RBC 4.90 (4.70-6.10) 10^6/uL Hgb 13.8 L (14.0-18.0) g/dL Hct 41.0 L (42.0-54.0) % MCV 83.7 (80.0-94.0) fL MCH 28.2 (25.9-34.0) pg MCHC 33.7 (29.9-35.2) g/dL RDW 13.0 (11.0-15.0) % Plt Count 238 (150-450) 10^3/uL MPV 9.5 (9.5-13.5) fL Neut % (Auto) 77.0 H (43.0-75.0) % Lymph % (Auto) 11.7 L (20.5-60.0) % [place] % (Auto) 10.1 (1.7-12.0) % Eos % (Auto) 0.5 L (0.9-7.0) % Baso % (Auto) 0.3 (0.2-2.0) % Neut # (Auto) 6.0 (1.4-6.5) 10^3/uL Lymph # (Auto) 0.9 L (1.2-3.8) 10^3/uL [place] # (Auto) 0.8 (0.3-0.8) 10^3/uL Eos # (Auto) 0.0 (0.0-0.7) 10^3/uL Baso # (Auto) 0.0 (0.0-0.1) 10^3/uL Abs Immat Gran (auto) 0.03 (0.00-0.03) 10^3/uL Imm/Tot Granulo (auto) 0.4 (0.0-0.5) % Sodium 132 L (136-145) mmol/L Potassium 3.9 (3.5-5.1) mmol/L Chloride 99 (98-107) mmol/L Carbon Dioxide 25.5 (21.0-32.0) mmol/L Anion Gap 11.4 BUN 16.0 (7.0-18.0) mg/dL Creatinine 0.90 (0.70-1.30) mg/dL Est GFR ( Amer) >60 (>=60 mL/min/1.73m^2) Est GFR (Non-Af Amer) >60 (>=60 mL/min/1.73m^2) BUN/Creatinine Ratio 17.8 Glucose 121 H (74-106) mg/dL Calcium 8.8 (8.5-10.1) mg/dL Influenza Type A Ag Negative Influenza Type B Ag Negative SARS-CoV-2 Ag (CV2AG) Positive A (NEGATIVE) Imaging Data Chest x-ray: Radiologist's impression: ITS Impressions Chest X-Ray 11/20/24 11:57 IMPRESSION: No acute cardiopulmonary pathology. There is cardiomegaly. This is unchanged. Impression dictated by: Darius Molina M.D. 11/20/2024 12:49 PM Dictation Location: [place] [address] Electronically authenticated by: [id number] Y Date: 11/20/2024 12:49 ECG Data Attestation: I personally reviewed and interpreted this ECG as follows: (EKG on my interpretation shows normal sinus rhythm with a rate of 90 and no acute change) Discharge Plan Discharge Chief Complaint: Dizziness Clinical Impression: COVID-19, Generalized weakness, Inability to walk Patient Disposition: Admitted as Observation Time of Disposition Decision: 12:58 Condition: Good
[2024-11-20 12:13] LABS: Hematocrit 41.0 % (42.0-54.0); Hemoglobin 13.8 g/dL (14.0-18.0); Immature Granulocytes Abs Auto 0.03 10^3/uL (0.00-0.03); Immature Granulocytes Pct Auto 0.4 % (0.0-0.5); Lymphocytes Absolute Auto 0.9 10^3/uL (1.2-3.8); Mean Corpuscular HGB Conc 33.7 g/dL (29.9-35.2); Mean Corpuscular Hemoglobin 28.2 pg (25.9-34.0); Mean Corpuscular Volume 83.7 fL (80.0-94.0); Platelet Count 238 10^3/uL (150-450); Red Blood Count 4.90 10^6/uL (4.70-6.10); White Blood Count 7.8 10^3/uL (4.0-11.0)
[2024-11-20 12:32] LABS: Anion Gap 11.4; Blood Urea Nitrogen 16.0 mg/dL (7.0-18.0); Calcium 8.8 mg/dL (8.5-10.1); Carbon Dioxide 25.5 mmol/L (21.0-32.0); Chloride 99 mmol/L (98-107); Estimated GFR (African America >60 (>=60 mL/min/1.73m^2); Estimated GFR (Non-African Ame >60 (>=60 mL/min/1.73m^2); Glucose 121 mg/dL (74-106); Potassium 3.9 mmol/L (3.5-5.1); Sodium 132 mmol/L (136-145)
[2024-11-20 12:35] LABS: SARS-CoV-2 Ag POSITIVE (NEGATIVE)
[2024-11-20] MEDS: ACETAMINOPHEN 325 MG TABLET 650 MG PO (12:39)
[2024-11-20] MEDS: DEXAMETHASONE SOD PHOS 4 MG/ML VIAL 6 MG IV (16:24)
[2024-11-20] MEDS: MIDODRINE HCL 5 MG TABLET PO (16:25)
[2024-11-20] MEDS: ALBUMIN HUMAN 25 GM/100 ML PREMIX IV (16:28)
[2024-11-20] MEDS: PAXLOVID 3 EACH PO (16:30)
[2024-11-20] MEDS: IBUPROFEN 400 MG TABLET PO (17:28)
[2024-11-20 19:12] LABS: Glucose Urine UA NEGATIVE (NEGATIVE)
[2024-11-20 19:20] LABS: Cast Seen? NONE SEEN #/LPF (NONE SEEN); Crystals Seen? None Seen #/HPF (None Seen); Urine Culture Indicated YES-FRMC
[2024-11-20] MEDS: ACETAMINOPHEN 325 MG TABLET 975 MG PO (22:01)
[2024-11-21] VITALS (20 sets, daily range): BP systolic 100–114; BP diastolic 64–76; PULSE 50–120; TEMP 36.3–36.6; O2SAT 92–97
[2024-11-21] MEDS: ACETAMINOPHEN 325 MG TABLET 975 MG PO ×2 (05:55→13:10)
[2024-11-21] MEDS: LEVOTHYROXINE SODIUM 75 MCG TABLET 150 MCG PO (05:55)
[2024-11-21] MEDS: MIDODRINE HCL 5 MG TABLET 2.5 MG PO ×3 (06:03→16:55)
[2024-11-21 06:31] LABS: Hematocrit 39.6 % (42.0-54.0); Hemoglobin 13.2 g/dL (14.0-18.0); Mean Corpuscular HGB Conc 33.3 g/dL (29.9-35.2); Mean Corpuscular Hemoglobin 28.0 pg (25.9-34.0); Mean Corpuscular Volume 84.1 fL (80.0-94.0); Platelet Count 226 10^3/uL (150-450); Red Blood Count 4.71 10^6/uL (4.70-6.10); White Blood Count 4.2 10^3/uL (4.0-11.0)
[2024-11-21 06:42] LABS: Anion Gap 13.4; Blood Urea Nitrogen 19.0 mg/dL (7.0-18.0); Calcium 9.1 mg/dL (8.5-10.1); Carbon Dioxide 22.6 mmol/L (21.0-32.0); Chloride 101 mmol/L (98-107); Estimated GFR (African America >60 (>=60 mL/min/1.73m^2); Estimated GFR (Non-African Ame >60 (>=60 mL/min/1.73m^2); Glucose 249 mg/dL (74-106); Potassium 4.0 mmol/L (3.5-5.1); Sodium 133 mmol/L (136-145)
[2024-11-21 06:44] LABS: Basophils Abs Manual 0.00 10^3/uL (0.00-0.10); Basophils Percent Manual 0.0 % (0.2-2.0); Eosinophils Absolute Manual 0.00 10^3/uL (0.00-0.70); Eosinophils Percent Manual 0.0 % (0.9-7.0); Lymphocytes Absolute Manual 0.67 10^3/uL (1.20-3.80); Lymphocytes Percent Manual 16.0 % (20.5-60.0); Monocytes Absolute Manual 0.29 10^3/uL (0.30-0.80); Monocytes Percent Manual 7.0 % (1.7-12.0); Segmented Neut Absolute Manual 3.23 10^3/uL (1.4-6.5); Segmented Neutrophils % Manual 77.0 (43.0-75.0)
--- NOTE | 2024-11-21 09:36 | PM.HP ---
HPI H&P: HPI History of Present Illness Chief complaint: DIZZINESS, COVID, GENERALIZED WEAKNESS, INABILITY Narrative: Mr. Cunningham is an 84-year-old gentleman with a known diagnosis of hypertension, diastolic heart failure, pulmonary hypertension and valvular disease. Patient came in with elevated temperature. His temperature was 102. Progressive weakness and fatigue. Minimal cough any. He tested positive for COVID. His urine came back positive for large amount of WBC. Patient denies any chest pain or shortness of breath. No abdominal pain, nausea or vomiting. No hematemesis or melena. Opioid HPI Opioid Management Most Recent Pain and Opioid Data: Last Pain Scale 0 11/20/24, 14:08 Last Pain Assessment 11/20/24, 14:08 Last MAR Pain Assessment 11/20/24, 12:39 Last ORT Total Score 0 11/20/24, 14:06 Last ORT Risk Category Low Risk 11/20/24, 14:06 Review of Systems ROS Status of ROS 10 or more systems reviewed and unremarkable except as noted in history and below PFSH PFS Medical History (Updated 11/21/24 @ 09:38 by Ba Valderrama MD) Diabetes mellitus ?E11.9 - Type 2 diabetes mellitus without complications (ICD-10) History of CVA (cerebrovascular accident) ?Z86.73 - Personal history of transient ischemic attack (TIA), and cerebral infarction without residual deficits (ICD-10) History of prostate cancer ?Z85.46 - Personal history of malignant neoplasm of prostate (ICD-10) History of throat cancer ?Z85.819 - Personal history of malignant neoplasm of unspecified site of lip, oral cavity, and pharynx (ICD-10) Social History (Updated 11/20/24 @ 15:04 by Mary Eagle) Within the past year, how often did you have a drink containing alcohol: never Within the past year, how often did you have six or more drinks on one occasion: never Score interpretation: A score less than 4 is consistent with normal alcohol consumption. Smoking status: Former smoker Second hand tobacco smoke exposure: No Non-prescribed substance use: denies use Known occupational exposures/hazards: No Highest level of school completed/degree received: 1st grade Are you now , , , , never or living with a partner: In a typical week, how many times do you talk on the telephone with family, friends, or neighbors: 3 or more times per week How often do you get together with friends or relatives: 3 or more times per week Little interest or pleasure in doing things: not at all Feeling down, depressed, or hopeless: not at all Feel stressed/tense/nervous/anxious/difficulty sleeping: not at all Do you think of yourself as: straight/heterosexual Gender Identity: male Meds Home Medications and Allergies Home Medications ?Medication ?Instructions ?Recorded ?Confirmed ?Type levothyroxine 150 mcg tablet 150 mcg PO .acb 10/14/24 11/20/24 History metformin 500 mg tablet 500 mg PO BID 10/14/24 11/20/24 History aspirin 81 mg chewable tablet 81 mg PO QD #60 tabs 10/17/24 11/20/24 Rx metoprolol succinate 25 mg 25 mg PO DAILY #30 tabs 10/17/24 11/20/24 Rx tablet,extended release 24 hr (Toprol XL) potassium chloride 10 mEq 10 meq PO DAILY #30 tabs 10/17/24 11/20/24 Rx tablet,extended release lisinopril 20 mg tablet 10 mg PO DAILY 11/20/24 11/20/24 History nirmatrelvir 300 mg (150 mg 1 ea PO .as directed #30 ea 11/20/24 Rx x2)-ritonavir 100 mg tablet,dose pack (Paxlovid) torsemide 20 mg tablet 30 mg PO DAILY 11/20/24 11/20/24 History Allergies Allergy/AdvReac Type Severity Reaction Status Date / Time No Known Drug Allergies Allergy Verified 11/12/24 15:37 Exam Narrative Exam Narrative: [pt is awake and alert. oriented to place, time and person HEENT: [place] conjunctiva and NL buccal mucosa Neck: Supple, no tenderness Endocrine: No Thyromegaly. Vascular: No JVD or carotid bruit. Lymphatic: No cervical lymphadenopathy. Chest: CTA no DTP. Heart RRR, no extra sound or murmur. Abd: Soft, no tenderness, no rebound and no rigidity. Increase abd girth therefore clinically I could not exclude the possibility of intra abd mass or organomegaly. LE: No cyanosis or clubbing, no varices or edema. Neuro: A A O. Nl speech, comprehension and attention. Nl and symetrical motor and tone examination through out. Patient is moving his extremities symmetrically. No focal deficit []] Constitutional Vital Signs, click to edit/add: Last Vital Signs Temp 97.4 F L 11/21/24 04:00 Pulse 67 11/21/24 07:56 Resp 16 11/21/24 04:00 BP 112/69 11/21/24 04:00 Pulse Ox 95 11/21/24 04:00 O2 Del Method Nasal Cannula 11/21/24 04:00 O2 Flow Rate 2 11/21/24 04:00 Results Labs Labs: Short CBC 11/20/24 11/21/24 Range/Units 11:53 06:12 WBC 7.8 4.2 (4.0-11.0) 10^3/uL Hgb 13.8 L 13.2 L (14.0-18.0) g/dL Hct 41.0 L 39.6 L (42.0-54.0) % Plt Count 238 226 (150-450) 10^3/uL BMP 11/20/24 11/21/24 11:53 06:12 Sodium 132 L 133 L Potassium 3.9 4.0 Chloride 99 101 Carbon Dioxide 25.5 22.6 BUN 16.0 19.0 H Creatinine 0.90 0.74 Glucose 121 H 249 H Calcium 8.8 9.1 Urine 11/20/24 Range/Units 18:50 Urine Color Yellow (YELLOW) Urine Clarity Clear (CLEAR) Urine pH 7.0 (5.0-9.0) Ur Specific [place] 1.010 (1.005-1.025) Urine Protein Trace (NEG/TRACE) mg/dL Urine Glucose (UA) Negative (NEGATIVE) mg/dL Assessment and Plan Assessment and Plan (1) Inability to walk: (2) Generalized weakness: (3) COVID-19: (4) Pulmonary hypertension: (5) Tricuspid insufficiency: (6) Mitral regurgitation: (7) Mitral stenosis: (8) UTI (urinary tract infection): Plan COVID-19 infection. Patient is at risk of progression into severe COVID 19 infection which could lead to respiratory failure and even . I started patient on Paxlovid. I started patient dexamethasone 6 mg daily Continue to monitor condition closely Isolation. UTI Urine cultures pending. Start patient on ceftriaxone 2 g daily.. Shock physiology. Systolic blood pressure was 98 on presentation. SIRS secondary to above associated with progressive weakness, fatigue and diminished ability to ambulate No focal deficit. Hopefully this will recover as his UTI and COVID 19 infection are under control. Diastolic heart failure, pulmonary hypertension, moderate mitral stenosis, moderate to severe mitral regurg and pulm hypertension Patient was admitted last week to [facility] for cardiovascular investigation. He had a cardiac cath. He supposed to follow-up with valve specialist. No cardiovascular decompensation at this time. Hold BP meds and diuretic due to borderline hypotension Diabetes associated with hyperglycemia secondary to steroid. Start patient on sliding scale. DVT prophylaxis Lovenox Hypothyroidism Resume Synthroid Chronic, subacute medical conditions not listed above, abnormal labs and imaging. These would need to be addressed. Could be addressed later on or in the outpatient setting by PCP collaboration with other needed outpatient providers when time and condition are appropriate.
[2024-11-21] MEDS: METFORMIN HCL 500 MG TABLET PO (09:52)
[2024-11-21] MEDS: ASPIRIN 81 MG TAB.CHEW PO (09:53)
[2024-11-21] MEDS: METOPROLOL SUCCINATE 25 MG TAB.ER.24H PO (09:53)
[2024-11-21] MEDS: DEXAMETHASONE SOD PHOS 4 MG/ML VIAL 6 MG IV (09:53)
[2024-11-21] MEDS: PAXLOVID 3 EACH PO ×2 (09:54→21:51)
[2024-11-21] MEDS: ENOXAPARIN SODIUM 40 MG/0.4 ML SYRINGE SUBQ (12:09)
[2024-11-21] MEDS: 0.9 % SODIUM CHLORIDE 250 ML 10 ML IV (12:10)
[2024-11-21] MEDS: INSULIN ASPART 300 UNIT/3 ML PEN SUBQ ×3 (12:34→21:46)
[2024-11-21] MEDS: GUAIFENESIN 200 MG/DEXTROMETHORPHAN 20 MG 10 ML UNIT DOSE CUP PO (21:55)
[2024-11-22] VITALS (11 sets, daily range): BP systolic 100–109; BP diastolic 69–72; PULSE 61–85; TEMP 36.4; O2SAT 90–95
[2024-11-22] MEDS: LEVOTHYROXINE SODIUM 75 MCG TABLET 150 MCG PO (05:50)
--- NOTE | 2024-11-22 08:20 | CM.NOTE ---
Rounds made with Dr. Valderrama, discussed plan of care wt pt and family. Pt will discharge to home today, walk test prior to discharge. Pt will f/u with PCP.
[2024-11-22] MEDS: METFORMIN HCL 500 MG TABLET PO (08:21)
[2024-11-22] MEDS: ENOXAPARIN SODIUM 40 MG/0.4 ML SYRINGE SUBQ (08:21)
[2024-11-22] MEDS: MIDODRINE HCL 5 MG TABLET 2.5 MG PO ×2 (08:21→11:48)
[2024-11-22] MEDS: ASPIRIN 81 MG TAB.CHEW PO (08:22)
[2024-11-22] MEDS: GUAIFENESIN 200 MG/DEXTROMETHORPHAN 20 MG 10 ML UNIT DOSE CUP PO (08:22)
[2024-11-22] MEDS: IBUPROFEN 400 MG TABLET PO (08:22)
[2024-11-22] MEDS: DEXAMETHASONE SOD PHOS 4 MG/ML VIAL 6 MG IV (08:22)
[2024-11-22] MEDS: PAXLOVID 3 EACH PO (08:22)
[2024-11-22] MEDS: METOPROLOL SUCCINATE 25 MG TAB.ER.24H PO (08:22)
[2024-11-22] MEDS: INSULIN ASPART 300 UNIT/3 ML PEN SUBQ ×2 (08:23→11:49)
--- NOTE | 2024-11-22 09:36 | PM.DS1 ---
DS: Providers Provider Date of admission: 11/20/24 13:54 Primary care physician: LIGIA MCINTOSH DO DS: Diagnosis Discharge Diagnosis (1) Inability to walk: (2) Generalized weakness: (3) COVID-19: (4) Pulmonary hypertension: (5) Tricuspid insufficiency: (6) Mitral regurgitation: (7) Mitral stenosis: (8) UTI (urinary tract infection): Plan As listed above, below and others that are not listed DS: Summary Hospital Course Hospital Course: Mr. Cunningham is an 84-year-old gentleman who came in with fever, weakness and fatigue. He was found to have the following: COVID-19 infection. Patient is at risk of progression into severe COVID 19 infection which could lead to respiratory failure and even . I started patient on Paxlovid. I started patient dexamethasone 6 mg daily Continue isolation for 5 more days Oxygenation is improved. 95% on 1 L per Walk study Patient to be discharged home to complete Paxlovid course. UTI Urine cultures pending. Start patient on ceftriaxone 2 g daily.. Previous urine culture was positive for E. coli. Patient will be discharged home on oral cephalosporin. Shock physiology. Systolic blood pressure was 98 on presentation. SIRS secondary to above associated with progressive weakness, fatigue and diminished ability to ambulate. Patient also was on somewhat aggressive blood pressure management despite his baseline chronic borderline low blood pressure systolically around 105. Welder Apprentice Combination increased his lisinopril from 2.5-10 and increased his Demadex from 10 up to 30 mg contributing to his hypotensive shock on presentation. Blood pressure improved. Discontinue lisinopril. Patient does not have a systolic heart failure or cardiomyopathy to justify the need for lisinopril at this time given his borderline low blood pressure systolically around 105. Continue diuretics to prevent fluid overload given his recent history of diastolic heart failure in the setting of valvular disease. Diastolic heart failure, pulmonary hypertension, moderate mitral stenosis, moderate to severe mitral regurg and pulm hypertension Patient was admitted last week to [facility] for cardiovascular investigation. He had a cardiac cath. He supposed to follow-up with valve specialist. No cardiovascular decompensation at this time. Hold BP meds and diuretic due to borderline hypotension. As listed above. Diabetes associated with hyperglycemia secondary to steroid. Start patient on sliding scale. Patient was started on metformin. Continue metformin. I expect that his hyperglycemia would resolve after he completes a dexamethasone course for COVID-19 infection. DVT prophylaxis Lovenox Hypothyroidism Resume Synthroid Chronic, subacute medical conditions not listed above, abnormal labs and imaging. These would need to be addressed. Could be addressed later on or in the outpatient setting by PCP collaboration with other needed outpatient providers when time and condition are appropriate. Patient has multiple complex medical issues as listed above and others that are not listed. All appear to be stable. I do not have any clear or strong clinical justification to extend inpatient hospitalization. Patient however will require close and frequent monitoring as well as additional work-up, investigation and therapeutic intervention that could take place from this point on post discharge. That is to prevent relapse, decompensation, rehospitalization and other medical implications.. I instructed patient to ask her primary care doctor to obtain [facility] record entirely to address abnormalities seen on labs and imaging that I have and have not addressed during this hospitalization, follow-up on pending blood work, imaging and pathology is if available and to follow-up on needed medical care in the outpatient setting. Time Spent with Patient Time attestation: Total time spent providing and/or coordinating discharge services: Exam Constitutional Vital Signs, click to edit/add: Last Vital Signs Temp 97.6 F 11/22/24 08:00 Pulse 74 11/22/24 08:00 Resp 18 11/22/24 08:00 BP 109/70 11/22/24 08:00 Pulse Ox 95 11/22/24 08:00 O2 Del Method Nasal Cannula 11/22/24 08:00 O2 Flow Rate 1 11/22/24 08:00 DS: Data Data Completed and Pending Labs on day of discharge: Labs from last 24 hours 11/22/24 11/21/24 11/21/24 07:49 21:20 16:52 POC Glucose 151 H 170 H 168 H 11/21/24 12:23 POC Glucose 247 H Discharge Plan Discharge Disposition: Home Health Service Condition: Good Discharge Medications: New Paxlovid 300 mg (150 mg x 2)-100 mg tablets,dose pack 1 ea PO .as directed Qty: 30 0RF Rx Instructions: Use as directed on box dextromethorphan-guaifenesin 10-100 mg/5 mL Syrup 10 ml PO Q6H PRN (Reason: Cough) Qty: 237 0RF Paxlovid 3 tab PO BID Qty: 0 0RF cefuroxime axetil 500 mg tablet 500 mg PO BID 5 Days Qty: 10 0RF dexamethasone 6 mg tablet 6 mg PO DAILY Qty: 5 0RF Continued levothyroxine 150 mcg tablet 150 mcg PO .acb metformin 500 mg tablet 500 mg PO BID aspirin 81 mg Tablet,Chewable 81 mg PO QD Qty: 60 2RF metoprolol succinate [Toprol XL] 25 mg tablet extended release 24 hr 25 mg PO DAILY Qty: 30 2RF potassium chloride 10 mEq tablet extended release 10 meq PO DAILY Qty: 30 1RF Changed torsemide 20 mg tablet 10 mg PO DAILY Qty: 0 0RF Discontinued lisinopril 20 mg tablet 10 mg PO DAILY Print Language: [place] Activity Restrictions/Additional Instructions: I may not have addressed or treated all of your medical illnesses or the abnormal blood work or imaging studies during this hospitalization. Please ask your primary care provider to obtain [facility] records entirely to follow up on all of the abnormal physical, laboratory, and imaging findings that I have not addressed. Please return back to the emergency room or seek medical attention if your symptoms worsen or return. Air-bone isolation for 5 more days. Please wear mask around him for 5 more days. Please do not take lisinopril Please cut down on torsemide Demadex down to 10 mg daily (half 20 mg tablet ) daily Discharging you from [facility] does not mean that your medical care ends here and now. You may still need additional monitoring, work up, investigation, and treatment plan to be handled from this point on by out patient providers including your primary care provider and specialists. For any medication question, please contact your retail pharmacist or your primary care provider. Thank you. Forms: Portal Instructions Follow Up Appointments: 11/29 @ 2:45pm with Dr. Mcintosh [phone]
--- OUTSIDE RECORDS SUMMARY | 2024-11-22 10:31 | XMS_ITS | Clinical Summary ---
Author Organization [facility] Address [address] [place] [address] Care Team Providers Care Camera Assembler Name Role Phone Chema Roe MD Primary Care Provider [phone] Allergies No known active allergies Medications metFORMIN [...] 3, 02/25/2022, 11/02/2019, Additional history exists Insurance [facility] MEDICARE ADVANTAGE MEDICAID [place] Care Teams Camera Assembler Relationship Specialty Start Date End Date Chema Roe MD [address] [place] [id number] PCP - General Family Medicine 10/11/22
--- OUTSIDE RECORDS SUMMARY | 2024-11-22 10:31 | XMS_ITS ---
Author Organization [facility] Care Team Providers Care Dentist Name Role Phone Pantera Mclaughlin Unavailable Unavailable Allergies and adverse reactions No Known Allergies Care Team Name Role Address Phone Organization Dates Pantera Mclaughlin PCP [address] [place], [address], [place] (Office): : [facility] 12/13/2013 - 01/07/2014 Immunizations Immunization Status Vaccine Details Vaccine Code CodeSystem Date Notes TB 1 Step Mantoux (PPD) completed tuberculin skin test; unspecified formulation lotNumber: [id number] expiry: 04/23/2013 Mfg: jhp parm[employer] Given 0.1 ml Right Forearm intradermally 98 CVX created date: 12/04/2013 consent date: 12/04/2013 administer ed date: 12/04/2013 TB 1 Step Mantoux (PPD) completed tuberculin skin test; unspecified formulation lotNumber: [id number] expiry: 03/27/2015 Mfg: JHP Given 0.1 ml [...] 12/02/2013 TD Vaccine (Tetnus/dipther ia) completed lotNumber: [id number] expiry: 01/01/2015 Mfg: Sanof[employer] Given [...] Current Smoking Status Tobacco smoking consumption unknown [id number] SNOMED CT Sex Assigned At Male 1940 86934-0 [facility] Gender Identity Sexual Orientation Vital Signs Code Code System Vitals Name Values and Units Timing Information 9279-1 [facility] Respiratory Rate Value=18.0 Units=/m in 12/10/2013 8462-4 [facility] Blood Pressure-Diastolic Value=62 Un its=mmHg 12/10/2013 8480-6 [facility] Blood Pressure-Systolic Bsgwk=192 Un its=mmHg 12/10/2013 8310-5 [facility] Body Temperature Value=98.2 Units= F 12/10/2013 8867-4 [facility] Heart rate Value=60.0 Units=/min 38297-8 [facility] O2 % [facility] Oximetry Value=95.0 Units= % 12/10/2013 2339-0 [facility] Blood Sugar Gsoke=588.0 Units=mg/dL 12/08/2013 13107-8 [facility] Weight Bbxyi=237.2 Units=Lbs 01/2014 8302-2 [facility] Height Value=66.0 Units=Inches 11/23/2013
--- OUTSIDE RECORDS SUMMARY | 2024-11-22 10:32 | XMS_ITS | Clinical Summary ---
Author Organization [facility] Address [id number] [address] [place] [address] Care Team Providers Care Computer Programming Manager Name Role Phone Brock Jarvis DO Primary [...] Depression Screening 1952 Fall Risk Screening 11/11/2007 Tobacco Screening 02/06/2024 02/05/2023 COVID-19 Vaccine (2024-2 6 season) 2024 12/10/2022, 02/25/2022, 02/20/2021, Additional history exists Influenza Vaccine 10/25/2024 01/29/2024, , 02/25/2022, Additional history exists DTaP,Tdap and Td Vaccines (2 - Td or Tdap) 09/11/2030 09/11/2020 Zoster (Shingles) Vaccine Completed 05/02/2023, 09/2019 Goals Goal Patient Goal Type Associated Problems Recent Progress Patient-Stated? Author Return home General Yes Lynda Petersen MSW Note: Evaluation of progress towards goal: In progress: Return home with family support and outpatient therapy Medical Devices Implanted Type Area Stock Preparation Supervisor Device Identifier Shelf Expiration Date Model / Serial / Lot Cement Bn Bio 40gm Rpl [id number] - [id number] Implanted:Qt y: 2 on 02/05/2023 by Chema Stark DO at [facility] Cement Left: Knee [employer] 05/24/2025 [id number] / NA / [id number] Component Fem 8 Std Kn Lt Post Stab Cmnt Persona Cocr Strl - Sna - [id number] Implanted:Qt y: 1 on 02/05/2023 by Chema Stark DO at [facility] Orthopedic Implant Left: Knee [employer] 05/05/2032 [id number] / NA / [id number] Component Ptlr 35mm Persona Alply Kn Strl Lf - Sna - [id number] Implanted:Qt y: 1 on 02/05/2023 by Chema Stark DO at [facility] Orthopedic Implant Left: Knee [employer] 11/13/2027 [id number] / NA / [id number] Surface Artc 12mm Persona 6-9 Ef Kn Lt Vivacit-E Cnstrn Post - Sna - [id number] Implanted:Qt y: 1 on 02/05/2023 by Chema Stark DO at [facility] Orthopedic Implant Left: Knee [employer] 01/22/2027 [id number] / NA / [id number] Stem Xtn 30+ Mm 14mm Persona Tpr Kn Tib - Sna - [id number] Implanted:Qt y: 1 on 02/05/2023 by Chema Stark DO at [facility] Orthopedic Implant Left: Knee [employer] 09/18/2032 [id number] / NA / [id number] Baseplate Tib 5d F Kn Lt Cmnt Stm Persona Tiv Strl - Sna - [id number] Implanted:Qt y: 1 on 02/05/2023 by Chema Stark DO at [facility] Plate Left: Knee [employer] 03/11/2032 [id number] / NA / [id number] Explanted Type Area Stock Preparation Supervisor Device Identifier Shelf Expiration Date Model / Serial / Lot Screw Bn 35mm 6.5mm St Hip Actb Trlg Strl Rpl [id number] - Sna - [id number] Explanted:Qty: 1 on 02/05/2023 by Chema Stark DO at [facility] Screw Left: Knee [employer] 02/06/2032 [id number] / NA / [id number] Screw Bn 35mm 6.5mm St Hip Actb Trlg Strl Rpl [id number] - Sna - [id number] Explanted:Qty: 1 on 02/05/2023 by Chema Stark DO at [facility] Screw Left: Knee [employer] 10/21/2032 [id number] / ALEXIS / [id number] Guide 27mm Hx Hd Scr Srg - Sna - [id number] Explanted:Qty: 2 on 02/05/2023 by Chema Stark DO at [facility] Screw Left: Knee [employer] 10/22/2032 [id number] / NA / [id number] Screw Gd 48mm Qd-Spr Hex Hd Mis Strl - Sna - [id number] Explanted:Qty: 2 on 02/05/2023 by Chema Stark DO at [facility] Screw Left: Knee [employer] 12/15/2032 [id number] / NA / [id number] Insurance MEDICAID [place] [employer] MEDICARE Advance Directives * Full Code (Latest Code Status on File) Date Activated Date Inactivated Comments 02/05/2023 7:41 AM 02/06/2023 3:40 PM Care Teams Computer Programming Manager Relationship Specialty Start Date End Date Brock Jarvis DO [facility] [place] [address] PCP - General Family Medicine 02/14/24
--- OUTSIDE RECORDS SUMMARY | 2024-11-22 10:32 | XMS_ITS | Encounter Summary ---
Author Organization [facility] Address [address] [place] [address] Care Team Providers Care Griddle Cook Name Role Phone Brock Jarvis DO Primary Care Provider [phone] Encounter Details Date Type Department Care Team (Latest Contact Info) Description 11/17/2024 Travel Social History Tobacco Use Types Packs/Day Years [...] AM EDT documented as of this encounter Plan of Treatment Upcoming Encounters Date Type Department Care Team (Late st Contact Info) Description 11/29/2024 2:00 PM EDT Office Visit [facility] Heart at [facility] [address] [place] [address] Luis Keita MD [address] [facility] [address] [facility] [place] [address] documented as of this encounter Visit Diagnoses Not on filedocumented in this encounter Care Teams Griddle Cook Relationship Specialty Start Date End Date Brock Jarvis DO [address] [place] [address] PCP - General Family Medicine 10/27/24 documented as of this encounter
--- OUTSIDE RECORDS SUMMARY | 2024-11-22 10:32 | XMS_ITS | Encounter Summary ---
Author Organization [facility] Address [address] [place] [address] Care Team Providers Care Extractor Loader And Unloader Name Role Phone Brock Jarvis Primary Care Provider [phone] Encounter Details Date Type Department Care Team (Late st Contact Info) Description 11/17/2024 Results Follow-Up Cardiology [address] [place] [address] Nani Hoskins CNP [address] [place] [address] Transesophageal echo (PAO) Social History Tobacco Use Types Packs/Day Years [...] AM EDT documented as of this encounter Miscellaneous Notes * Result Encounter Note - Nani Hoskins CNP - 11/17/2024 3:56 PM EDT He may be our next [employer]. I added him to the list. Seeing 11/29/24 documented in this encounter Plan of Treatment Upcoming Encounters Date Type Department Care Team (Late st Contact Info) Description 11/29/2024 2:00 PM EDT Office Visit [facility] Heart at [facility] [address] [place] [address] Luis Keita MD [address] [facility] [address] [facility] [place] [address] documented as of this encounter Visit Diagnoses Not on filedocumented in this encounter Care Teams Extractor Loader And Unloader Relationship Specialty Start Date End Date Brock Jarvis DO [address] [place] [address] PCP - General Family Medicine 10/27/24 documented as of this encounter
--- OUTSIDE RECORDS SUMMARY | 2024-11-22 10:32 | XMS_ITS | Patient Health Record ---
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 No How often do you see or talk to people that you care about and feel close to? (For example: talking to friends on the phone, visiting friends or family, going to jew or club meetings) 1 or 2 times a week patient entered data How stressed are you? Stress is when someone feels tense, nervous, anxious, or can't sleep at night because their mind is troubled Not at all patient entered data In the past year have you sp ent more than 2 nights in a row in a long term, longterm, retirement center, or juvenile correctional facility? No patient [...] Problem Benign prostatic hypertrophy without outflow obstruction (803648825) Benign prostatic hyperplasia without lower urinary tract symptoms (N40.0) Active confirmed Problem Type II diabetes mellitus without complication (798589989) Type 2 diabetes mellitus without complication, without long-term current use of insulin (E11.9) Active confirmed LABS PRIOR T O NEXT VISIT , SEPT Problem Mitral regurgitation (10353918) Mitral regurgitation (I34.0) Active confirmed ASYMPTOMATIC, ECHO JULY 2021, SEE ECG FOLDER. SAW CARDS, MURMUR IS UNCHANGED Problem Valvular heart disease (508959) Valvular heart disease (I38) Active confirmed aortic stenosi s, will have them make appt with cardiology for their input also. Problem Acquired hypothyroidism (180098324) Acquired hypothyroidism (E03.9) Active confirmed WILL ORDER LABS FOR SEPT, Problem Allergic rhinitis (38928648) Allergic rhinitis, unspecified seasonality, unspecified trigger (J30.9) Active confirmed TRIAL OF LORATADINE. 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 Therefore, I think it likely this is bullous impetigo, respoinding well. finish out the doxy; Use OTC moisturizing cream BID to the involved area., Problem Ingrowing nail (116158241) Ingrowing nail (L60.0) Active confirmed Comment:Offserenityi derrick g ingrown lateral nail border was able to be removed with debridement of nail. Symptomatic relief obtained with debridement, Problem Essential hypertension (23389717) Essential hypertension (I10) Active confirmed Comment:Doing well without any meds. 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 Use Naproxen prn.,Description :Osteoarthritis of knee Problem Type II diabetes mellitus without complication (105812279) Diabetes (E11.9) Active confirmed Comment:At goal , 6.5; same regimen, diet and exercise. (has enough meds for now), Problem Hyperlipidemia (22799268) Hyperlipidemia (E78.5) Active confirmed Comment:Continu e with low fat diet and increased exercise as able, Problem Depression screening (489076109) Screening for depression (Z13.31) Active confirmed Description:Dep r ession screening Problem Hyperlipidaemia (20587295) HLD (hyperlipidemia ) (E78.5) Active confirmed Comment:CONTROL L ED WITH DIET, LDL 62, NO NEED FOR STATIN., Problem Onychomycosis caused by dermatophyte (130739648) Dermatophytosis , nail (B35.1) Active confirmed Comment:Discu [...] - pt to wait to hear from [facility] about results before taking the medication. Instructed on taking one tab daily x 3 months. D/C if any negative side effects are experienced., Problem DM - Diabetes mellitus (32474219) DM (diabetes mellitus) (E11.9) Active confirmed Comment:doing well, continue current regimen., Problem Fungal infection of nail (098294422) Fungal infection of nail (B35.1) Active confirmed Comment:dry out toe nails apply tea tree oil daily not every third day wear only non cotton socks use cotton socks for stocking for Theresa not for feet,Description :Onychomycosis Problem Tick bite (37877410) Tick bite (W57.XXXA) Active confirmed Comment:From hi s description, sounds like a DOG Tick, not a DEER tick, but due to the question as to which, he was treated two weeks with doxy, finished it no problems, REASSURED., Problem Onychomycosis caused by dermatophyte (291044454) Fungal infection of toenail (B35.1) Active confirmed Comment:Brian almanzar his course of Rx, seems to be responding; follow up in 3 months.,Descript ion:Onychomycosi s of toenail 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 REFER to Derm, BARBARA, Problem Type II diabetes mellitus without complication (584297083) Diabetes mellitus, controlled (E11.9) Active confirmed Comment:doing well, SAME Regimen; continue good exercise and eating habits., Problem Arthritis of knee (307300241) Arthritis of knee (M17.10) Active confirmed Comment:Degene ra tive; mild. Rx PRN (not daily) naproxen 500mg., Problem Pre-procedure evaluation check (492017117) Preoperative examination (Z01.818) Active confirmed Comment:I do NOT yet have the lab results, nor CXR, ECG reports from this morning, done at [facility], BUT he has no specific [...] postpone his surgery., Problem Osteoarthritis of knee (584171822) Osteoarthritis, knee (M17.10) Active confirmed Comment:Left knee; somehwat worse than previously; no instability. Will check Xray. Meahwhile, acetaminophen prn (which does work for him)., Problem Hypertension (02238436) HTN (hypertension) (I10) Active confirmed Comment:Good control with lifestyle measures, samir. salt limitation; Will get labs today (also regarding his DM), then follow up., Problem Requires vaccination (675387595) Need for immunization against influenza (Z23) Active confirmed Description: Flu vaccine need Problem Diabetes mellitus (19389732) Diabetes mellitus (E11.9) Active confirmed Comment:perfect , with A1C = 6.1, on current regimen. 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 CONTINUE with therapy as ordered per his Ortho., Problem Sensorineural hearing loss (05488163) Sensorineural hearing loss (H90.5) Active confirmed Comment:wiil GIVE CONTACT INFO for audiology., Problem Type II diabetes mellitus well controlled (605606996) DM II (diabetes mellitus, type II), controlled (E11.9) Active confirmed Comment:A1C at goal, doing well with current regimen., Problem Dental abscess (690269358) Dental abscess (K04.7) Active confirmed Comment:With associated cellulitis, IMPROVING. FINISH antibiotics as prescribed, MAKE APPT WITH DENTIST, BARBARA, for possible extraction or other appropriate dental work, as recurrence without such treatment, is likely. jrr, Problem Pain in limb (87989803) Acute foot pain (M79.673) Active confirmed Problem Anemia due to blood loss (467909104) Anemia, blood loss (D50.0) Active confirmed Comment:Rx FeSO 4 BID for 6 weeks, check CBC prior to next visit., Problem Type II diabetes mellitus without complication (444868280) Controlled diabetes mellitus (E11.9) Active confirmed Comment:Doing well, no complications; needs nails trimmed, will get appt with pbx wire chief. Same regimen., Problem Gait abnormality (05514433) Gait abnormality (R26.9) Active confirmed Plan Of Treatment No Information Insurance Providers Payer Name Payer Address Payer Phone Subscriber Number Group Number Insured Name Patient Relationship to Insured Coverage Start Date Coverage End Date DMedicaid [address] [place], [place] [id number] Osmany Cunningham Self - patient is the insured 3 3 [employer] [address] [address] [place] [address] [id number] Osmany Cunningham Self - patient is the insured 2 Medicaid [employer] [address] [place], [place] [id number] Osmany Cunningham Self - patient is the insured 0 Medical (General) History Medical History History ICD Code Hypothyroidism Arthritis of knee Diabetes Mellitus, Type II Hypertension Prostate cancer Thyroid cancer Surgical History Surgery Date(Month/Year) Cholecystectomy Prostatectomy Thyroidectomy left knee replacement 02-05-2023 Hospitalization History Reason Date(Month/Year) See Above
--- OUTSIDE RECORDS SUMMARY | 2024-11-22 10:32 | XMS_ITS ---
Author Organization [facility] Address [address] [place] [address] Care Team Providers Care Csr Technician Name Role Phone Brock Jarvis DO Primary Care Provider [phone] Active Problems Problem Noted Date Diagnosed Date Acute diastolic (congestive) heart failure 10/28 Body mass index (BMI) 31.0-31.9, adult Diabetes mellitus 10/28/2024 Essential (primary) hypertension 10/28/2024 History of malignant neoplasm of prostate 2024 Malignant neoplasm of prostate 10/28/2024 Malignant neoplasm of thyroid gland 10/28/2024 Microscopic hematuria 10/28/2024 Nocturia 10/28/2024 Post-void dribbling 10/28/2024 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 Past Treatment and Therapy Plans No past plan information found. Lifetime Dose Tracking * Chemical Lifetime Dose Automatic Entry Manual Entr y Fluoro Time 6.02 minutes 0 minutes 6.02 minutes Air Kerma 706 mGy 0 mGy 706 mGy
--- OUTSIDE RECORDS SUMMARY | 2024-11-22 10:32 | XMS_ITS | Clinical Summary ---
Author Organization [facility] Address [address] [place] [address] Care Team Providers Care Library Attendant Name Role Phone Mcintosh Brock Primary Care Provider [phone] Allergies No known active allergies Medications aspirin 81 mg chewable tablet Chew 81 mg in the morning. 5 Active metoprolol succinate XL (Toprol-XL) 25 mg 24 hr tablet Take 25 mg by mouth in the morning. Active potassium chloride CR (Klor-Con) 10 mEq ER tablet Take 10 mEq by mouth in the morning. Active metFORMIN (Glucophage) 500 mg tablet Take 500 mg by mouth with breakfast and with evening meal. Active levothyroxine (Synthroid, Levoxyl) 150 mcg tablet Take 150 mcg by mouth in the morning. Active torsemide (Demadex) 20 mg tabletIndicatio ns:Rheumatic mitral stenosis Take 1.5 tablets (30 mg) by mouth in the morning. 45 tablet 5 12/18/19 25 Active lisinopril 20 mg tabletIndicatio ns:Rheumatic mitral stenosis Take 0.5 tablets (10 mg) by mouth in the morning. 15 tablet 5 12/18/19 25 Active torsemide (Demadex) 10 mg tablet Take 10 mg by mouth in the morning. 5 11/18/19 25 Discontinu ed(Stop Taking at Discharge) Active Problems Problem Noted Date Diagnosed Date [...] 11/06/2022 Primary osteoarthritis of left knee 11/05/2022 Encounters Date Type Department Care Team Description 11/17/2024 12:30 PM EDT - 11/17/2024 1:[address] [facility] Heart and Vascular [facility] [address] [place] [address] Kayla Garcia MD Coronary angiography 11/17/2024 8:54 AM EDT - 11/17/2024 2:12 PM EDT Hospital Encounter [facility] Heart [facility] [address] [place] [address] Kayla Garcia MD Rheumatic mitral stenosis (Primary Dx); Nonrheumatic mitral valve regurgitation; Acute diastolic heart failure (CMS/HCC); Nonrheumatic tricuspid valve regurgitation Discharge Disposition: Home or Self Care (01) 11/17/2024 Results Follow-Up Cardiology [address] [place] [address] Vilma Brown CNP Transesophageal echo (PAO) 11/17/2024 Travel 10/28/2024 3:00 PM EDT Office Visit [address] [address] Vilma Brown CNP Nonrheumatic mitral valve regurgitation (Primary Dx); Acute diastolic heart failure (CMS/HCC); Nonrheumatic tricuspid valve regurgitation; Substernal chest pain; Abdominal bloating; Other specified hypotension from Last 3 Months Family History Medical History Relation Name Comments [...] not to disclose 2024 9:02 AM EDT Last Filed Vital Signs Vital Sign Reading Time Taken Comments Blood Pressure 98/69 11/17/2024 2:00 PM EDT Pulse 73 11/17/2024 2:00 PM EDT Temperature - - Respiratory Rate 21 11/17/2024 2:00 PM EDT Oxygen Saturation 91% 11/17/2024 2:00 PM EDT Inhaled Oxygen Concentration - - Weight 80.7 kg (178 lb) 10/28/2024 3:00 PM EDT Height 165.1 cm (5' 5 ) 10/28/2024 3:00 PM EDT Body Mass Index 29.62 10/28/2024 3:00 PM EDT Plan of Treatment Upcoming Encounters Date Type Department Care Team (Late st Contact Info) Description 11/29/2024 2:00 PM EDT Office Visit [facility] [address] [place] [address] Luis Keita MD [address] [facility] [place] [address] Health Maintenance Due Date Last Done Comments Diabetes: Hemoglobin A1C 1940 Medicare Annual Wellness (AWV) 1940 Diabetes: Retinopathy Screening 1952 Depression Screening 1954 Fall Risk Screening 11/11/2007 COVID-19 Vaccine ( season) 2024 12/10/2022, 02/25/2022, 02/20/2021, Additional history exists Influenza Vaccine (#1) 2024 , 12/10/2022, 02/25/2022, Additional history exists Diabetes: Urine Protein Screening 02/13/2025 02/14/2024 Adult Tetanus 11/12/2034 11/12/2024, 09/11/2020 Zoster Vaccines Completed 05/02/2023, 11/02/2019 Pneumococcal Vaccine: 50+ Years Completed 11/14/2024, 12/02/2013 HIB Vaccines Aged Out No longer eligi ble based on patient's age to complete this topic HPV Vaccines Aged Out No longer eligi ble based on patient's age to complete this topic IPV Vaccines Aged Out No longer eligi ble based on patient's age to complete this topic Meningococcal B Vaccine Aged Out No l onger eligible based on patient's age to complete this topic Meningococcal Vaccine Aged Out No dev corin eligible based on patient's age to complete this topic Rotavirus Vaccines Aged Out No longer eligible based on patient's age to complete this topic Procedures Procedure Name Priority Date/Time Associated Diagnosis [...] ECG 12-LEAD Routine 11/17/2024 10:11 AM EDT from Last 3 Months Results * CORONARY ANGIOGRAPHY, RIGHT HEART CATH [...] week Follow-up with Dr. Keita in the [place] office as scheduled PROCEDURES: Ultrasound-guided access to [...] internal jugular vein was obtained. A 6 [place] 11 cm sheath was inserted without difficulty. [...] left radial artery was obtained. A 6 [place]ian glide sheath was inserted without difficulty. Bilateral [...] Intervention No interventions have been documented. Vilma Brown CNP CV CARDIAC CATH PROCEDURES Fi nal Result * (ABNORMAL) POC Hb02% (11/17/2024 11:41 AM EDT) OLLBPH90% 62.8(A) 90 - 95 % QC Pass/Fail Passed QC LOT # [id number] QC Expiration Date 73,126 SAMPLESITE nl Blood Venous blood specimen / Unknown 11/17/2024 11:41 AM EDT Narrative DavonKelvin doss MT - 11/18/2024 7:29 AM EDT Oper [id number] Kayla Garcia MD POINT OF CARE TEST ENTER/EDIT O RDERABLES Final Result * TRANSESOPHAGEAL ECHO (PAO) W/ LIMITED DOPPLER AND COLOR FLOW (11/17/2024 11:19 AM EDT) Anatomical Region Laterality Modality Other 11/17/2024 10:1 9 AM EDT Narrative 11/17/2024 3:26 PM EDT 1 [facility] Heart Station [address] [place] [address] [phone] (fax) Transesophageal Echocardiogram-[facility] Name: OSMANY CUNNINGHAM Study Date: 11/17/2024 10:19 AM B/P: 108 mmHg/78 mmHg HR: 77 bpm Date of : 1940 Location: [facility] Height: 65 in. Age: 84 year(s) Patient Room: [facility] VASCULAR POOL Weight: 178 lb. Gender: Male Patient Status: OutPt BSA: 1.88 m2 Indication: Congestive Heart Failure, Hypertension, pulm HTN, Mitral regurgitation, Tricuspid Regurgitation Examination: PAO/Limited Doppler/CFI, Agitated Saline, 3 Dimensional Imaging Image Quality: Excellent Patient Consent: Informed, written consent was obtained for the procedure Exam Details Contrast: I.V. dose of agitated saline Exam Location: A PAO was performed in the [place] without complications Anesthesia Pharyngeal anesthesia with viscous [...] in the aorta. Procedure Staff Reading Group: [facility] Referring Physician: BROCK MCINTOSH Visual C Developer: KEHINDE Celeste Ordering Physician: VILMA BROWN Wall Motion Scores -1 - hyperkinesia, 0 - not evaluated, 1 - normal, 2 - hypokinesia, 3 - akinesia, 4 - dyskinesia Procedure Note Ever Thomas MD - 11/17/2024 1 [facility] Heart Station [address] [facility] [place] [address] [phone] (fax) Transesophageal Echocardiogram-[facility] Name: OSMANY CUNNINGHAM Study Date: 11/17/2024 10:19 AM B/P: 108 mmHg/78 mmHg HR: 77 bpm Date of : 1940 Location: [facility] Height: 65 in. Age: 84 year(s) Patient Room: [facility] VASCULAR POOL Weight: 178 lb. Gender: Male Patient Status: OutPt BSA: 1.88 m2 Indication: Congestive Heart Failure, Hypertension, pulm HTN, Mitral regurgitation, Tricuspid Regurgitation Examination: PAO/Limited Doppler/CFI, Agitated Saline, 3 Dimensional Imaging Image Quality: Excellent Patient Consent: Informed, written consent was obtained for the procedure Exam Details Contrast: I.V. dose of agitated saline Exam Location: A PAO was performed in the [facility] without complications Anesthesia Pharyngeal anesthesia with viscous [...] in the aorta. Procedure Staff Reading Group: [facility] Referring Physician: BROCK MCINTOSH Visual C Developer: Naz Liang [facility] Ordering Physician: VILMA BROWN Wall Motion Scores -1 - hyperkinesia, 0 - not evaluated, 1 - normal, 2 - hypokinesia, 3 - akinesia, 4 - dyskinesia us Vilma Brown [facility] CV ECHO PROCEDURES Final Resu lt * Electrocardiogram, 12-lead (11/17/2024 10:11 AM EDT) Pathologist [facility] Ventricular Rate 78 BPM GE MUSE Atrial Rate 78 BPM GE MUSE RI Interval 144 ms GE MUSE QRS DURATION 104 ms GE MUSE QT Interval 400 ms GE MUSE QTC CALCULATION(BAZE TT) 456 ms GE MUSE P [place] 36 degrees GE MUSE R-[place] -52 degrees GE MUSE T Wave [place] 50 degrees GE MUSE 11/17/2024 9:42 AM EDT 11/17/2024 1:12 PM EDT Impressions GE MUSE - 11/17/2024 1:12 PM EDT Normal sinus rhythm Left anterior fascicular block Minimal voltage criteria for LVH, may be normal variant ( [place] product ) Abnormal ECG No previous ECGs available Confirmed by Manish THOMAS, EVER Murguia ([id number]) on 11/17/2024 1:12:12 PM Narrative Procedure Note Ever Thomas MD - 11/17/2024 IMPRESSION: Normal sinus rhythm Left anterior fascicular block Minimal voltage criteria for LVH, may be normal variant ( [place] product ) Abnormal ECG No previous ECGs available Confirmed by Manish THOMAS, EVER Murguia (57) on 11/17/2024 1:12:12 PM us Kayla Garcia MD ECG ORDERABLES Final Result GE AUDREY from Last 3 Months Insurance [employer] MEDICARE ADVANTAGE MEDICAID [place] Care Teams Library Attendant Relationship Specialty Start Date End Date Brock Mcintosh DO [facility] [address] [place] [phone] PCP - General Family Medicine 10/27/24
--- OUTSIDE RECORDS SUMMARY | 2024-11-22 10:33 | XMS_ITS | Patient Health Record ---
Author Organization The [facility] in [place] Address [address] [place] [address] Care Team Providers Care Weld Technician Name Role Phone Brock Jarvis Primary Care Provider Allergies No Known Allergies Results Component Value Reference Range Notes UA DIP AUTO WO MICRO (07057) - IN OFFICE Reviewed date:03/17/2024 10:49:48 AM [...] - NEG ESTERASE + NEG - NEG HEMOGLOBIN A1C - IN OFFICE Reviewed date:05/04/2024 11:48:49 AM Interpretation:5.7 Performing Lab: Notes/Report: 5.7 HEMOGLOBIN A1C - IN OFFICE 5.7 4.4 - 6.4 HEMOGLOBIN A1C - IN OFFICE Reviewed date:02/23/2024 01:36:38 PM Interpretation:6.3 Performing Lab: Notes/Report: 6.3 HEMOGLOBIN A1C - IN OFFICE 6.3 4.4 - 6.4 URINE CULTURE & SENITIVITY Reviewed date:08/02/2024 03:13:33 PM Interpretation: Performing Lab:[facility], [address], [place], [address] Notes/Report: SENSITIVITY INTERPRETATION S = SUSCEPTIBLE R = RESISTANT I = INTERMEDIATE N/A = NOT APPLICABLE MS FACILITY: [facility] [id number] URINE CULTURE SENS (. - .) STATUS [...] () CEFOXITIN S () AZTREONAM S () LIPID PANEL Reviewed date:08/02/2024 03:13:33 PM Interpretation: Performing Lab:[facility] ([facility]), [address] [place] [address] AVE[address] [address] PH:[phone] Notes/Report: CHOLESTEROL 111 150-200 mg/dL TRIGLYCERIDE 100 27-150 mg/dL HDL CHOLESTEROL 26 >39 mg/dL HDL > or = 40mg/dL- Desirable HDL >60 mg/dL - Negative Risk HDL <40 mg/dL - High Risk VERY LOW LIPOPROTEIN 20 0-30 mg/dL LDL (CALC) 65 <130 mg/dL LDL >160 mg/dL - High Risk LDL <100 mg/dL - Desirable CHOLESTEROL:HDL 4.3 1.0-5.0 PERFORMED AT [address] [place] [address] THYROID PROFILE Reviewed date:08/02/2024 03:13:33 PM Interpretation: Performing Lab:[facility] ([facility]), [facility] [address] [address] PH:[phone] Notes/Report: TSH 1.46 0.49-4.67 uIU/mL NEW REFEREN CE RANGE FOR PEDIATRIC PATIENTS FREE T4 1.01 0.61-1.60 ng/dL PERFORMED AT [address] [address] NEW REFERENCE RANGE FOR PEDIATRIC PATIENTS FREE T3 Reviewed date:08/02/2024 03:13:33 PM Interpretation: Performing Lab:[facility] ([facility]), [address] [place] [address], [address] [address] PH:[phone] Notes/Report: FREE T3 3.10 2.50-3.90 pg/mL PERFORMED AT [address] [address] COMPREHENSIVE METABOLIC PANE L Reviewed date:08/02/2024 03:13:33 PM Interpretation: Performing Lab:[facility] ([facility]), [address] [place] [address], [address] [address] PH:[phone] Notes/Report: SODIUM 137 134-146 mmol/L POTASSIUM 4.0 3.5-5.0 mmol/L CHLORIDE 104 98-109 mmol/L CARBON DIOXIDE 24 22-32 mmol/L ANION GAP 9 5-15 mmol/L BLOOD UREA NITROGEN 10 5-27 mg/dL CREATININE 0.75 0.60-1.30 mg/dL METHOD TRACE ABLE TO IDSD STANDARD GLUCOSE 115 65-99 mg/dL CALCIUM 9.3 8.5-10.5 mg/dL TOTAL PROTEIN 7.4 6.0-8.0 g/dL ALBUMIN 4.0 3.2-5.3 g/dL ALKALINE PHOSPHATASE 92 39-130 U/L AST 26 0-41 U/L ALT 20 0-40 U/L BILIRUBIN,TOTAL 0.9 0.3-1.2 mg/dL eGFR (CKD-EPI) NON-RACE DEPENDENT >90 >59 ml/min/1.73sq.m PERFORMED AT [address] [address] CKD-EPI 2020 equation that does not use a race coefficient. Reported eGFR is based on the CBC AND AUTO DIFF * Reviewed date:08/02/2024 03:13:33 PM Interpretation: Performing Lab:[facility] ([facility]), [address] [place] [address] AVE[address] [place] [address]. [address] PH:[phone] Notes/Report: WBC COUNT 7.6 4.0-11.0 X10E9/L RBC [...] BASOPHIL 0.0 0.0-0.2 X10E9/L PERFORM ED AT [address] [address] MICROALBUMIN WITH RATIO Reviewed date:08/02/2024 03:13:33 PM Interpretation: Performing Lab:[facility] ([facility]), [address] [place], [place] [address]E., [address] [place] [address]. [address] PH:[phone] Notes/Report: MICROALBUMIN, URINE 99.5 0.0-1.9 mg/dL URINE CREAT 65.61 ALB/CREAT RATIO 1516.5 0.0-30.0 mg/g creat PERFO RMED AT [address] [place] [address] PROSTATIC SPEC ANT Reviewed date:08/02/2024 03:13:33 PM Interpretation: Performing Lab:[facility] ([facility]), [address] [place], [place] [address]E., [address] [place] [address]. [address] PH:[phone] Notes/Report: PROSTATIC SPEC ANT 0.11 0.00-4.00 ng/mL cannot be used interchangeably. Sal DXI chemiluminescent immunoassay. The method used for this test is Chai Values obtained by different assay methods PERFORMED AT [facility] [address] [facility]. [address],[place] [address] Reason For Referral No Information Medications Medication SIG (Take, Route, Frequency, Duration) Notes Start Date End Date Status Metoprolol Succinate ER 25 MG 1 tablet Orally Once a day 10/21/2024 Active Torsemide 20 MG 1.5 tablet Orally On ce a day 10/21/2024 Active Potassium Chloride ER 10 MEQ 1 tablet wi th food Orally daily; Duration: 90 days 10/21/2024 Active metFORMIN HCl 500 MG 1 tablet with a dwayne l Orally twice a day; Duration: 90 days Active Lisinopril 20 MG 0.5 tablet Orally On ce a day 03/17/2024 Active Levothyroxine Sodium 150 MCG 1 tablet in the morning on an empty stomach Orally Once a day; Duration: 90 days Active Aspirin 81 81 MG 1 tablet Orally Once a day; Duration: 90 days 10/21/2024 Active Immunizations Vaccine Route Administration Date Status Comme nts Flu, Fluad (80859) 65 yrs and older, single-dose syringe (0404-0234) IM Intramuscular 01/29/2024 Administered Social History Tobacco Use: Social History Observation Description Date Details (start date - stop date) Never Smoker NA - NA Tobacco Control (Standard) Question Answer Notes Tobacco use: Nonsmoker Problems Problem Type SNOMED Code ICD Code Onset Dates Problem Status W/U Status Risk Notes Problem Essential hypertension (64291657) Essential (primary) hypertension (I10) Active confirmed Problem Type II diabetes mellitus without complication (541259283) Type 2 diabetes mellitus without complications (E11.9) Active confirmed Problem Hypothyroidism (08560892) Hypothyroidism, unspecified (E03.9) Active confirmed Problem 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) 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 Problem Diabetic renal disease (004309803) Type 2 diabetes mellitus with other diabetic kidney complication (E11.29) Active confirmed Problem Obesity due to excess calories (235515315) Other obesity due to excess calories (E66.09) Active confirmed Problem 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 Problem Rheumatic mitral stenosis (05107361) Rheumatic mitral stenosis (I05.0) Active confirmed Problem Rheumatic tricuspid insufficiency (07031075) 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6 Height 65 in 11/18/2024 185.6 Blood pressure systolic 132 mm Hg 11/18/2024 185. 6 Weight 185.6 lbs 11/18/2024 185.6 BMI 30.88 kg/m2 11/18/2024 185.6 Procedures Procedure Date Ordered Date Performed Result Body Sit e Echocardiogram 2D M Mode w/ Doppler (measure RVSP) 04/29/2024 N/A CARDIO Stress Test - Cardiolite 08/02/2024 N/A Encounters Encounter Location Date Provider Diagnosis [facility] [address] [place] [address] 01/21/2024 Brock Jarvis [facility] [address] [place] [address] 02/06/2024 Brock Jarvis [facility] [address] [place] [address] 02/19/2024 Brock Jarvis [facility] [address] [place] [address] 03/21/2024 Brock Jarvis [facility] [address] [place] [address] 07/29/2024 Brock Jarvis [facility] [address] [place] [address] 10/14/2024 Brock Jarvis [facility] [address] [place] [address] 11/15/2024 Brock Jarvis Essential (primary) hypertension I10 and Acute diastolic (congestive) heart failure I50.31 [place] [address] [place] [address] 11/18/2024 Brock Jarvis Other obesity due to excess calories E66.09 ; Body mass index [BMI] 30.0-30.9, adult Z68.30 ; Obesity, class 1 E66.811 ; Rheumatic mitral stenosis I05.0 ; Essential (primary) hypertension I10 and Acute on chronic diastolic (congestive) heart failure I50.33 [place] [address] [place] [address] 03/17/2024 Brock Jarvis Type 2 diabetes valdemar itus with other diabetic kidney complication E11.29 ; [...] arterial hypertension I27.21 and Diarrhea, unspecified R19.7 [address] [place] [address] [place] [address] 08/02/2024 Brock Jarvis Other obesity due to excess calories E66.09 ; Body mass index [BMI] 32.0-32.9, adult Z68.32 ; Obesity, class 1 E66.811 ; Shortness of breath R06.02 ; Hypothyroidism, unspecified E03.9 ; Type 2 diabetes mellitus with other diabetic kidney complication E11.29 ; Chest pain, unspecified R07.9 and 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 [address] 10/21/2024 Brockkeeley Jarvis Hypothyroidism, unspecified E03.9 ; Type 2 diabetes mellitus without complications E11.9 ; Other obesity due to excess calories E66.09 ; Body mass index [BMI] 31.0-31.9, adult Z68.31 ; Obesity, class 1 E66.811 ; Acute diastolic (congestive) heart failure I50.31 ; Rheumatic tricuspid insufficiency I07.1 ; Nonrheumatic mitral (valve) insufficiency I34.0 ; Rheumatic mitral stenosis I05.0 ; Essential (primary) hypertension I10 and Supraventricular tachycardia, unspecified I47.[address] [address] 04/29/2024 Brock Jarvis Encounter for Medica re annual wellness exam Z00.00 ; Other obesity due to excess calories E66.09 ; Body mass index [BMI] 32.0-32.9, adult Z68.32 ; Obesity, class 1 E66.811 ; 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 ; Nonrheumatic mitral (valve) insufficiency I34.0 ; Other fatigue R53.83 ; Hypothyroidism, unspecified E03.9 ; Proteinuria, unspecified R80.9 and Type 2 diabetes mellitus with other diabetic kidney complication E11.[address] [address] 01/29/2024 Brock Jarvis Type 2 diabetes valdemar itus without complications E11.9 ; Encounter for screening [...] index [BMI] 32.0-32.9, adult (ICD-10 - Z68.32) 10/21/2024 Hypothyroidism, unspecified (ICD-10 - E03.9) labs yearly - adjust med based on results stable 10/21/2024 Type 2 diabetes mellitus without complications (ICD-10 - E11.9) stable controlled monitor urine microalbumin at next visit 11/18/2024 Other obesity due to excess calories (ICD-10 - E66.09) diet/exercise 11/18/2024 Body mass index [BMI] 30.0-30.9, adult (ICD-10 - Z68.30) 11/15/2024 Essential (primary) hypertension (ICD-10 - I10) 11/15/2024 Acute diastolic (congestive) heart failure (ICD-10 - I50.31) 11/18/2024 Obesity, class 1 (ICD-10 - E66.811) 10/21/2024 Other obesity due to excess calories (ICD-10 - E66.09) diet/exercise 08/02/2024 Obesity, class 1 (ICD-10 - E66.811) [...] set up stress test ER if worsens 10/21/2024 Body mass index [BMI] 31.0-31.9, adult (ICD-10 - Z68.31) 11/18/2024 Rheumatic mitral stenosis (ICD-10 - I05.0) f/u cardio as directed bp control monitor weight ?surgery needed 11/18/2024 Essential (primary) hypertension (ICD-10 - I10) bp check daily goal <130/80 diet/exercise monitor bmp and urine microalbumin yearly 10/21/2024 Obesity, class 1 (ICD-10 - E66.811) 08/02/2024 Hypothyroidism, unspecified (ICD-10 - E03.9) lab [...] increasing DAVID - pt to hold off 10/21/2024 Acute diastolic (congestive) heart failure (ICD-10 - I50.31) f/u cardio as directed monitor weight diet/exercise 11/18/2024 Acute on chronic diastolic (congestive) heart failure (ICD-10 - I50.33) f/u cardio as directed daily weight continue bblocker/DAVID monitor bmp 10/21/2024 Rheumatic tricuspid insufficiency (ICD-10 - I07.1) f/u cardio as directed ?surgery needed 08/02/2024 Chest pain, unspecified (ICD-10 - R07.9) [...] valvular dz as cause of his SOB/fatigue 10/21/2024 Nonrheumatic mitral (valve) insufficiency (ICD-10 - I34.0) f/u cardio as directed ?surgery needed 10/21/2024 Rheumatic mitral stenosis (ICD-10 - I05.0) f/u cardio as directed ?surgery needed 03/17/2024 Type 2 diabetes mellitus with diabetic [...] rec cardio bp control bs control stable 10/21/2024 Essential (primary) hypertension (ICD-10 - I10) bp check daily goal <130/80 diet/exercise keep off DAVID for now 10/21/2024 Supraventricular tachycardia, unspecified (ICD-10 - I47.10) continue toprol f/u holter and cardio f/u ER if dizzy/palp/CP/etc 03/17/2024 Diarrhea, unspecified (ICD-10 - R19.7) hydrate monitor imodium prn 11/18/2024 Other Plan Of Treatment Pending Test Test Name [...] (dwayne sure RVSP) 04/29/2024 PSA, TOTAL 01/29/2024 MICROALBUMIN w CREAT RATIO 11/18/2024 Next Appt Details Provider Name:Brock mayberry, 11/29/2024 02:45:00 PM, [address] [facility], [place], [address], Provider Name:Brock mayberry, 02/02/2025 03:15:00 PM, [address] [facility], [place], [address], Insurance Providers Payer Name Payer Address Payer Phone Subscriber Number Group Number Insured Name Patient Relationship to Insured Coverage Start Date Coverage End Date [employer] MED[employer]ARE ADV PLAN [address] [address] [place] [address] [id number] Osmany Cunningham Self - patient is the insured 4 MEDICAID [place] 2ND INS [address] [place], [place] [id number] Osmany Cunningham Self - patient is the insured 4 Medical (General) History Medical History History ICD Code prostate enlargement throat cancer diabetes stroke diastolic CHF LVH pulm HTN microalbuminuria moderate TR/MR moderate mitral stenosis C DDD Surgical History Surgery Date(Month/Year) PAO - 2024 b/l TKA prostate surgery throat surgery heart cath - 2024
--- NOTE | 2024-11-22 10:47 | SWNOTE1 ---
Important Message from Medicare reviewed and discussed with patient's son. Pt's son then explained to pt's in Chilean Pt's son and pt's verbalized understanding and pt's son signed the form. Original given to patient's son and copy placed in patient?s chart. also provided pt's son and pt's with a copy in [place]an.
--- NOTE | 2024-11-22 10:49 | SWNOTE1 ---
SW stopped in pt's room to discuss dc needs. Pt's son and were in room. Pt was using the restroom. SW spoke with pt's son. Pt's spoke Nepali. Pt lives at home with several family members. Pt's son voiced they all take good care of him and pt has been doing well at home. Pt does not use any DME at home. Pt likely being discharge home today. Pt has no services coming in at this time. Pt's family does not have any concerns about discharge at this time. SW to follow as needed.
--- NOTE | 2024-11-23 12:06 | CM.NOTE ---
Final urine culture result sent to Dr. Valderrama via [facility], pt discharged on Cefuroxime.
--- NOTE | 2024-11-23 13:56 | CM.DCFOLLOWU ---
1st attempt 11/23/24, no answer
== END 2024-11-22 13:29 | disposition home or self-care (01) | DRG 178 ==
LOC: ER 12:58 → MS 11-22 09:13
PROVIDERS: Admitting Provider Internal Medicine; Emergency Provider Emergency Medicine; PCP Family Medicine; Visit Provider Internal Medicine
DX: U07.1 COVID-19 (principal); I50.32 Chronic diastolic (congestive) heart failure; N39.0 Urinary tract infection, site not specified; R53.1 Weakness; I27.20 Pulmonary hypertension, unspecified; I11.0 Hypertensive heart disease with heart failure; Z87.891 Personal history of nicotine dependence; R26.2 Difficulty in walking, not elsewhere classified; I08.3 Combined rheumatic disorders of mitral, aortic and tricuspid valves; I95.9 Hypotension, unspecified; E11.65 Type 2 diabetes mellitus with hyperglycemia; T38.0X5A Adverse effect of glucocorticoids and synthetic analogues, initial encounter; E03.9 Hypothyroidism, unspecified; Z79.84 Long term (current) use of oral hypoglycemic drugs; Z79.82 Long term (current) use of aspirin; Z79.890 Hormone replacement therapy; Z86.73 Personal history of transient ischemic attack (TIA), and cerebral infarction without residual deficits; Z85.46 Personal history of malignant neoplasm of prostate; Z85.819 Personal history of malignant neoplasm of unspecified site of lip, oral cavity, and pharynx; B96.20 Unspecified Escherichia coli [E. coli] as the cause of diseases classified elsewhere
CPT/HCPCS: 36415; 71045; 80048; 81001; 82948; 85007; 85025; 85027; 87040; 87086; 87088; 87186; 87804; 87811; 93005; 94761; 99285; J0696; J1100; J1650; P9046

== ENCOUNTER 2024-12-31 13:08 | Outpatient (OUT) | payer MEDICARE, MEDICAID, SELFPAY ==
--- OUTSIDE RECORDS SUMMARY | 2023-07-18 03:45 | XMS_ITS ---
Author Organization [facility] vices Address [address] [place] [phone] Care Team Providers Care Venetian Blind Assembler Name Role Phone Eric Green Primary Care Provider Chema Roe Unavailable [phone] REASON FOR VISIT F/u 2mo DM, Thyroid Social History Sex Assigned At : Social History Observation Description Sex Assigned At Male Encounters Encounter Location Date Provider Diagnosis [address] [id number] 07/18/2023 Chema Roe Plan Of Treatment No Information Progress Notes * JOVANNILuisOB: 3 (84 yo M)Acc No.[id number]:07/18/2023 Medical Note Patient: Osmany NICKERSON :?MARLYN ChristensenOB:1940???Age:82 Y???Sex: MaleDate:07/18/2023hone:[phone]:[address] [place], [place] [phone]:Eric Norma Subjective: * Chief Complaints: * 1 . F/u 2mo DM, Thyroid. * Medical History: Objective: * Vitals: Assessment: Plan: * Treatment: * Billing Information: * Visit Code: * Procedure Codes: * Electronic signature of Chema Roe MD on 12/31/2024 at 01:11 PM ESTSign off status: Pending * Provider: Karyn Roe MD Date: 0 07/18/2023 Generated for Printing/Faxing/eTransmitting on:?12/31/2024 01:11 PM EST
--- OUTSIDE RECORDS SUMMARY | 2023-11-10 11:45 | XMS_ITS ---
Author Organization [facility] vices Address [address] [place] [phone] Care Team Providers Care Marine Insurance Claim Examiner Name Role Phone Eric Green Primary Care Provider Chema Roe Unavailable [phone] REASON FOR VISIT F/u DM, Thyroid ( labs One week prior) Social History Sex Assigned At : Social History Observation Description Sex Assigned At Male Encounters Encounter Location Date Provider Diagnosis [address] [id number] 11/09 Eric Green Plan Of Treatment No Information Progress Notes * Haven CUNNINGHAMelDOB: 3 (84 yo M)Acc No.[id number]:2023 Medical Note Patient: Lauri LIMAOsmany :?KAYLIN Britt-CDOB:1940???Age:82 Y ???Sex:MaleDate:4Phone:[phone]:[address] [place] [phone] Subjective: * Chief Complaints: * 1 . F/u DM, Thyroid ( labs One week prior). * Medical History: Objective: * Vitals: Assessment: Plan: * Treatment: * Billing Information: * Visit Code: * Procedure Codes: * Electronic signature of KAYLIN Britt on 12/31/2024 at 01:11 PM ESTSign off status: Pending * Provider: Phoenix Green PA-C Date: 0 2023 Generated for Printing/Faxing/eTransmitting on:?12/31/2024 01:11 PM EST
--- OUTSIDE RECORDS SUMMARY | 2024-11-17 09:00 | XMS_ITS ---
Author Organization [facility] in [place] Address [address] [place] [address] Care Team Providers Care Liner Assembler Name Role Phone Brock Jarvis Primary Care Provider [phone] REASON FOR VISIT [facility] Encounters Encounter Location Date Provider Diagnosis [address] [address] 11/17/2024 Brock Jarvis Plan Of Treatment Next Appt Details Provider Name:Brock mayberry, 02/02/2025 03:15:00 PM, [address] [place], [address], Progress Notes * Wilmer CUNNINGHAM: 3 (84 yo M)Acc No.[id number]:11/17/2024 UNLOCKED PROGRESS NOTE Progress Note Patient: Lauri LIMA Osmany :?KOFI JimenezOB:1940???Age:84 Y ???Sex:MaleDate:11/17/2024Phone:[phone]:[address] [place] [id number] In:12:58 PM EST Subjective: * Chief Complaints: * 1 . [facility]. * Medical History: Objective: * Vitals: Assessment: Plan: * Treatment: * * Electronic signature of Brock Jarvis DO, [id number] on 12/31/2024 at 01:11 PM ESTSign off status: PendingVisit Status:?R/S (Rescheduled) * Provider: Giulia Jarvis, DO Date: 0 11/17/2024 Generated for Printing/Faxing/eTransmitting on:?12/31/2024 01:11 PM EST
--- OUTSIDE RECORDS SUMMARY | 2024-11-29 09:45 | XMS_ITS ---
Author Organization The [facility] in [place] Address [address] [place] [address] Care Team Providers Care Alley Worker Name Role Phone Brock Jarvis Primary Care Provider REASON FOR VISIT TB follow up Encounters Encounter Location Date Provider Diagnosis [address] [address] 11/29/2024 Brock Jarvis Plan Of Treatment Next Appt Details Provider Name:Brock mayberry, 02/02/2025 03:15:00 PM, [address] [place], [address], Progress Notes * Wilmer CUNNINGHAM: 3 (84 yo M)Acc No.[id number]:11/29/2024 UNLOCKED PROGRESS NOTE Progress Note Patient: Timmy NICKERSONriel :?Brock Jarvis DODOB:1940???Age:84 Y ???Sex:MaleDate:11/29/2024Phone:[phone]:[address] [place] [address] Subjective: * Chief Complaints: * 1 . TBH follow up. * Medical History: Objective: * Vitals: Assessment: Plan: * Treatment: * * Electronic signature of Brock Jarvis DO, [phone] on 12/31/2024 at 01:11 PM ESTSign off status: PendingVisit Status:?CANC (Cancelled) * Provider: Giulia Jarvis DO Date: 1 Generated for Printing/Faxing/eTransmitting on:?12/31/2024 01:11 PM EST
--- OUTSIDE RECORDS SUMMARY | 2024-12-14 14:00 | XMS_ITS | Encounter Summary ---
Author Organization [facility] Address [address] [place] [address] Care Team Providers Care Adapted Physical Education Aide Name Role Phone McintoshBrock Primary Care Provider Reason for Visit * ReasonCommentsConsultonrheumatic mitral & tricuspid valve regurgitation * Consultation (Routine) - Pending ReviewSpecialtyDiagnoses / ProceduresReferred By ContactReferred To ContactCardiothoracic Surgery Diagnoses Non-rheumatic mitral regurgitation Nonrheumatic tricuspid valve regurgitation Procedures CT OFFICE/OUTPATIENT [facility] 60 MINUTES Luis Keita MD [address] [facility] [address] [facility] [place] [address] Phone: tel: fax: Brandan Villeda MD [address] [place] [address] Phone: tel: fax: Referral IDStatusReasonStart DateExpiration DateVisits RequestedVisits [id number] Review Specialty Services Required Encounter Details DateTypeDepartmentCare Team (Latest Contact Info)Gmpiwnbylil68/21/2025 3:[address] 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); Essential (primary) hypertension; Secondary pulmonary arterial hypertension (CMS/HCC); Acute diastolic heart failure (CMS/HCC); Benign prostatic hyperplasia without lower urinary tract symptoms Social History Tobacco UseTypesPacks/DayYears UsedDateSmoking Tobacco: FormerCigarettes Smokeless Tobacco: NeverAlcohol UseStandard Drinks/WeekCommentsNot Currently0 (1 standard drink = 0.6 oz pure alcohol)PHQ-2AnswerDate RecordedPatient Health Questionnaire-2 Upets478Sex and Gender InformationValueDate RecordedSex Assigned at MaadkIwbj73/03/2025 11:46 AM EDTLegal PckKjbb5010/18/2024 8:46 AM EDT Gender YkzzjkieKalh62/03/2025 11:46 AM EDTSexual OrientationHeterosexual or Jrsyhbcq77/24/2025 9:02 AM EDTSexual OrientationChoose not to qpjziwca57/24/2025 9:02 AM EDTdocumented as of this encounter Last Filed Vital Signs Vital SignReadingTime TakenCommentsBlood Qbfkmevk944/7712/14/2024 3:01 PM EDT Rdfbj907212/14/2024 3:01 PM EDTTemperature--Respiratory Rate--Oxygen Oqtruxflsl15% 12/14/2024 3:01 PM EDTInhaled Oxygen Concentration--Rgopgb74.1 kg (170 lb) 12/14/2024 3:01 PM ZGBXdbgdo696.1 cm (5' 5 )12/14/2024 3:01 PM EDTBody Mass Index28.291 3:01 PM EDTdocumented in this encounter Functional Status * BPAnswerDate of KcbedcvlbxJcfjia917/7712/14/2024 3:01 PM Dasha Quintero MA * PulseAnswerDate of GszboeylsnVbpaux3513/21/2025 3:01 PM Dasha Quintero MA * Patient PositionAnswerDate of IvobhrktnpZpflvdVdxbtva67/21/2025 3:01 PM EDT Dasha Bowles MA * Fall RiskQuestionAnswerDate of AssessmentAuthorWorried about fallin 12/14/2024 3:01 PM Dasha Quintero MAOne or more falls in the last year:No 12/14/2024 3:01 PM Dasha Quintero MAFeels unsteady when walkin 12/14/2024 3:01 PM Dasha Quintero MA * BPAnswerDate of QwkjrrolerTcxxbo084/7712/14/2024 3:01 PM Dasha Quintero MA * PulseAnswerDate of CiiowqxhdnXofxzj5222/21/2025 3:01 PM Dasha Quintero MA * MgW7NpscrbDwtc of HvraatqkzrYnoleh3013/21/2025 3:01 PM Dasha Quintero MA * Over the past 2 weeks, how often have you been bothered by any of the following problems?QuestionAnswerDate of AssessmentAuthorThoughts that you would be better off or hurting yourself in some wayNot at all12/14/2024 3:00 PM Dasha Quintero MAPatient Health Questionnaire-9 Anety689 3:00 PM Dasha Quintero MATrouble falling or staying asleep, or sleeping too muchNot at all12/14/2024 3:00 PM Dasha Quintero MAFeeling tired or having little energyNot at all12/14/2024 3:00 PM Dasha Quintero MAPoor appetite or overeatingNot at all12/14/2024 3:00 PM Dasha Quintero MA Feeling bad about yourself - or that you are a failure or have let yourself or your family downNot at all12/14/2024 3:00 PM Dasha Quintero MATrouble concentrating on things, such as reading the newspaper or watching television Not at all12/14/2024 3:00 PM Dasha Quintero, MAMoving or speaking so slowly that other people could have noticed? Or the opposite - being so fidget y or restless that you have been moving around a lot more than usual.Not at all12/14/2024 3:00 PM Dasha Quintero MA * Over the past 2 weeks, how often have you been bothered by any of the following problems?QuestionAnswerDate of AssessmentAuthorLittle interest or pleasure in doing thingsNot at all12/14/2024 3:00 PM Dasha Quintero MA Feeling down, depressed, or hopelessNot at all12/14/2024 3:00 PM Dasha Quintero MAPatient Health Questionnaire-2 Ttrjv692 3:00 PM Dasha Quintero MA * BP LocationAnswerDate of AssessmentAuthorRight arm12/14/2024 3:01 PM EDT Dasha Bowles MA * [place] Suicide Severity Rating ScaleQuestionAnswerDate of AssessmentAuthor1. Have you wished you were or wished you could go to sleep and not wake up? No12/14/2024 3:01 PM Dasha Quintero MA2. Have you actually had any thoughts of killing yourself?No12/14/2024 3:01 PM Dasha Quintero MA6. Have you ever done anything, started to do anything, or prepared to do anything to end your life?No12/14/2024 3:01 PM Dasha Quintero MA * Risk of SuicideAnswerDate of AssessmentAuthorNo Risk12/14/2024 3:01 PM EDT Dasha Bowles MA * Patient PositionAnswerDate of DejekebvplGqmjwrIkqnzvh16/21/2025 3:01 PM EDT Dasha Bowles MA documented as of this encounter Progress Notes * Vincenzo Colon CNP - 12/14/2024 3:00 PM EDT Images from the original note were not included. Cardiothoracic Surgery Outpatient Consultation Note 12/15/2024 Reason For Visit Chief Complaint Patient presents with Consult onrheumatic mitral & tricuspid valve regurgitation Referring Provider: Luis Keita MD History Of Present Illness Osmany Cunningham is a 84 y.o. male with PMH of In October per family patient passed out and fell at home and was brought by family to the ER andwas told the patient still had fluid around his lungs. Patient was discharged to home. He underwentcardiac cath and PAO where he was found to have severe mitral valve regurgitation and moderate tricuspid valve regurgitation, normal EF 50%, and Mild coronary artery disease. Per family the followingweekend he wasn't feeling well and was brought to the ER and was diagnosed with COVID. He was admitted and had repeat ECHO and chest X-ray while in the hospital. He recently followed up in the cardiology clinic on 11/29/[address] Keita, where it was advised for a heart team approach for treatment of severe valvular disease. He is here in office today accompanied by his family for surgical evaluation and recommendations. Of note patient speaks minimal German., only togolese Family is here in office to help translate. Patient appears to be in no acute distress. Family is translating that he is not experiencing currently any symptoms of chest pain, shortness of breath, palpitations, increased swelling in bilateral lower extremities.. Denies any dizziness or lightheadedness. Assessment: Diagnosis Plan 1. Non-rheumatic mitral regurgitation Ambulatory referral to Cardiothoracic Surgery 2. Nonrheumatic tricuspid valve regurgitation Ambulatory referral to Cardiothoracic Surgery 3. 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 Essential (primary) hypertension 5. Secondary pulmonary arterial hypertension (CMS/HCC) 6. Acute diastolic heart failure (CMS/HCC) 7. Benign prostatic hyperplasia without lower urinary tract symptoms Plan : -Patient seen and evaluated by Cardiothoracic Team. Dr. Brandan Villeda personally examined the patient andreviewed The Cardiac Catherization, Echocardiogram, CXR, and Other Diagnostic Testing. Findings discussed with patient and family. Explained current disease process and reviewed treatment options. -CT Surgery Recommendation: 84-year-old gentleman with past medical history of stroke, severe pulmonary hypertension, severe mitral valve regurgitation, and moderate tricuspid valve regurgitation whois becoming symptomatic of his severe mitral valve regurgitation. Patient is high risk to undergo mitral valve replacement, possible tricuspid valve repair,m and possible CABG x 1, due to age and comorbidities. Surgery was discussed with patient/patient's family and options of minimally invasive mitral valve replacement and open sternotomy mitral valve replacement were discussed with patient and family. If patient decides to proceed with minimally invasive mitral valve replacement our team willrefer to hospital that performs that surgery. If patient wants to proceed with open sternotomy mitral valve replacement and possible tricuspid valve repair we will further proceed with preoperative testing here at [facility]. -STS Score for this surgery is: Procedure Type: CABG + MVR Perioperative Outcome Estimate % Operative Mortality 4.16% Morbidity & Mortality 19.6% Stroke 1.75% Renal Failure 3.49% Reoperation 5.16% Prolonged Ventilation 12.6% Deep Sternal Wound Infection 0.217% Long Hospital Stay (>14 days) 10.4% Short Hospital Stay (<6 days)* 11.6% Clinical Summary Planned Surgery: CABG + MVR, Concomitant Tricuspid Repair, Elective, First cardiovascular surgery Demographics: 84 year old, , male, 77kg, 165cm, BMI: 28.3 kg/m?? Lab Values: Creatinine: 0.75 mg/dL, Hematocrit: 39.5%, WBC Count: 7.6 10??/?L, Platelet Count: 361597 cells/?L PreOp Medications: Oral diabetes control Risk Factors / Comorbidities: Diabetes Mellitus , Hypertension, Family Hx of CAD Cardiac Status: Ejection Fraction = 50% Coronary Artery Disease: 1 vessel diseased -Discussed with patient and patients family members risks associated with surgery such as Bleeding,Infection, Organ Failure, Stroke, AK, Or . Patient and family would like to further discuss whether proceeding with minimally invasive mitral valve replacement or open sternotomy mitral valve replacement. Family stated they would call back office with final decision. -Informed patient /family if reports increasing chest pain, SOB, or dizziness/lightheadedness to immediately go to the ED for further evaluation or call 911. All questions and concerns answered appropriately. Patient was agreeable to plan of care. Past Medical History He has a past medical history of Arrhythmia, Cancer (CMS/HCC), CHF (congestive heart failure) (CMS/HCC), Diabetes mellitus (CMS/HCC), Heart valve disease, Hypertension, Hypothyroidism, Pulmonary hypertension (CMS/HCC), and Stroke (CMS/HCC). Surgical History He has a past surgical history that includes Cholecystectomy; Prostatectomy; Thyroidectomy; Knee surgery; and Cardiac catheterization. Family History Family History[1] Social History He reports that he has quit smoking. His smoking use included cigarettes. He has never used smokeless tobacco. He reports that he does not currently use alcohol. He reports that he does not use drugs. Allergies Patient has no known allergies. Medications Current Medications[2] Review of Systems Review of Systems: All 14 Systems Reviewed and Negative unless otherwise indicated in the above HPI. Last Recorded Vitals Visit Vitals BP 114/77 (BP Location: Right arm, Patient Position: Sitting, BP Cuff Size: Adult) Pulse 77 Physical Exam Vitals reviewed. Constitutional: General: He is not in acute distress. Appearance: Normal appearance. He is normal weight. He is not ill-appearing. HENT: Head: Normocephalic and atraumatic. Mouth/Throat: Mouth: Mucous membranes are moist. Pharynx: Oropharynx is clear. Eyes: Extraocular Movements: Extraocular movements intact. Conjunctiva/sclera: Conjunctivae normal. Pupils: Pupils are equal, round, and reactive to light. Neck: Vascular: No carotid bruit. Cardiovascular: Rate and Rhythm: Normal rate and regular rhythm. Pulses: Normal pulses. Heart sounds: Murmur heard. Pulmonary: Effort: Pulmonary effort is normal. No respiratory distress. Breath sounds: Normal breath sounds. Abdominal: General: Abdomen is flat. There is no distension. Palpations: Abdomen is soft. Musculoskeletal: General: Normal range of motion. Cervical back: Normal range of motion. Right lower leg: No edema. Left lower leg: No edema. Skin: General: Skin is warm and dry. Capillary Refill: Capillary refill takes less than 2 seconds. Coloration: Skin is not pale. Neurological: General: No focal deficit present. Mental Status: He is alert and oriented to person, place, and time. Mental status is at baseline. Psychiatric: Mood and Affect: Mood normal. Behavior: Behavior normal. Thought Content: Thought content normal. Judgment: Judgment normal. Relevant Results No visits with results within 1 Day(s) from this visit. Latest known visit with results is: Admission on 11/17/2024, Discharged on 11/17/2024 Component Date Value Ref Range Status Ventricular Rate 11/17/2024 78 BPM Final Atrial Rate 11/17/[address] Interval 11/17/2024 144 ms Final QRS DURATION 11/17/2024 104 ms Final QT Interval 11/17/2024 400 ms Final QTC CALCULATION(BAZETT) 11/17/2024 456 ms Final P Stanford 11/17/2024 36 degrees Final R-Stanford 11/17/2024 -52 degrees Final T Wave Stanford 11/17/2024 50 degrees Final UJDEVE13% 11/17/2024 62.8 (A) 90 - 95 % Final QC Pass/Fail 11/17/2024 Passed Final QC LOT # 11/17/2024 [id number] Final QC Expiration Date 11/17/2024 73,126 Final SAMPLESITE 11/17/2024 nl Final Transesophageal echo (PAO) Result Date: 11/17/2024 1 [facility] Heart Station [address] [place] [address] [phone] (fax) Transesophageal Echocardiogram-[facility] Name: OSMANY CUNNINGHAM Study Date: 11/17/2024 10:19 AM B/P: 108 mmHg/78 mmHg HR: 77 bpm Date of : 1940 Location: [facility] Height: 65 in. Age: 84 year(s) Patient Room: [facility] VASCULAR POOL Weight: 178 lb. Gender: Male Patient Status: OutPt BSA: 1.88 m2 Indication: Congestive Heart Failure, Hypertension, pulm HTN, Mitral regurgitation, Tricuspid Regurgitation Examination: POA/Limited Doppler/CFI, Agitated Saline, 3 Dimensional Imaging Image Quality: Excellent Patient Consent: Informed, written consent was obtained for the procedure Exam Details Contrast: I.V. dose of agitated saline Exam Location: A PAO was performed in the Resource Analyst without complications Anesthesia Pharyngeal anesthesia with [...] calcification of tertiary tendons. Moderate posterior leaflet mitralvalve prolapse. Flow reversal is seen in the [...] By Comment 11/17/2024 11:24 AM Midazolam HCL (Versed)3 milligrams 11/17/2024 11:24 AM Fentanyl (Opiates) 50 micrograms Measurements Left Ventricle LabelValue Normal Value LVEF visual 50 % Valvular Assessment LVOT 0.7 - 1.1 m/sec Aortic Valve 1.0 - 1.7m/sec Mitral Valve 0.6 - 1.3 m/sec Tricuspid [...] enlarged. Left Atrium Appendage: Normal left atrial append age, no thrombus seen. IAS: No intracardiac shunt by agitated saline injections. Right Atrium: The right atrium appears enlarged. Mitral Valve: There is nonspecific thickening of the mitral valve leaflet. Severe mitral annulus calcification is present. There is significatn calcification of tertiarytendons. There is severe thickening of the mitral valve leaflets. Moderate posterior leaflet mitralvalve prolapse. Flow reversal is seen in the [...] in the aorta. Procedure Staff Reading Group: [facility] Referring Physician: BROCK MCINTOSH Overhead Crane Truck Loader: Naz Liang [facility] Order[facility] Physician: VILMA BROWN Wall Motion Scores -1 - hyperkinesia, 0 - not evaluated, 1 - normal, 2 - hypokinesia, 3 - akinesia, 4 - dyskinesia 11/17/24 Cardiac Catherization: Hemodynamic Data: RA: 6 RV: 28/3, 8PA: 27/14 (19)PCWP: 13 CO: 5.59 CI: 2.76O2 Sat: PA sat: 71%, AO sat: 99%AO: 128/77 (98) Coronary angiography:This is a left-dominant circulation. Left Main: This arises from the left coronary cusp. It bifurcates into left anterior descending and circumflex vessels. This is angiographically normal. Left anterior descending: This is angiographically normal. The LAD wraps around the apex. Circumflex: This is a dominant vessel. This is angiographically normal. Right coronary artery: This arises from the right coronary cusp. It is a non-dominant vessel. This is angiographically normal. Cardiothoracic Surgery outpatient Office Number [phone]. Cardiothoracic Surgery outpatient . [1] Family History Problem Relation Name Age of Onset Heart attack Mother [2] Current Outpatient Medications Medication Sig Dispense Refill aspirin 81 mg chewable tablet Chew 81 mg in the morning. levothyroxine (Synthroid, Levoxyl) 150 mcg tablet Take 150 mcg by mouth in the morning. metFORMIN (Glucophage) 500 mg tablet Take 500 mg by mouth with breakfast and with evening meal. metoprolol succinate XL (Toprol-XL) 25 mg 24 hr tablet Take 25 mg by mouth in the morning. potassium chloride CR (Klor-Con) 10 mEq ER tablet Take 10 mEq by mouth in the morning. torsemide (Demadex) 20 mg tablet Take 1.5 tablets (30 mg) by mouth in the morning. 45 tablet 0 cefuroxime (Ceftin) 500 mg tablet Take 500 mg by mouth two times daily. (Patient not taking: Reported on 12/14/2024) dexAMETHasone (Decadron) 6 mg tablet Take 6 mg by mouth in the morning. (Patient not taking: Reported on 12/14/2024) lisinopril 20 mg tablet Take 0.5 tablets (10 mg) by mouth in the morning. (Patient not taking: Reported on 12/14/2024) 15 tablet 0 No current facility-administered medications for this visit. documented in this encounter Plan of Treatment DateTypeDepartmentCare Team (Latest Contact Info)Ovgdekotebg21/25/2025 2:[address] [facility] [address] [place] [address] Vincenzo Colon CNP [address] [place] [address] 01/24/2025 7:30 AM ESTHospital Encounter [facility] Main Operating Room [address] [place] [address] Brandan Villeda MD [address] [place] [address] 01/24/2025 7:30 AM EST - 01/24/2025 4:00 PM ESTSurgery [facility] Main Operating Room [address] [place] [address] Brandan Villeda MD [address] [place] [address] Mitral Valve Replacement withNamePriorityAssociated DiagnosesDate/TimeREPAIR OR REPLACEMENT, MITRAL VALVE Nonrheumatic mitral valve regurgitation Nonrheumatic tricuspid valve regurgitation 01/24/2025 7:30 AM ESTREPAIR, TRICUSPID VALVE Nonrheumatic mitral valve regurgitation Nonrheumatic tricuspid valve regurgitation 01/24/2025 7:30 AM ESTCABG, 1 VESSEL Nonrheumatic mitral valve regurgitation Nonrheumatic tricuspid valve regurgitation 01/24/2025 7:30 AM ESTSURGICAL PROCUREMENT, VEIN, ENDOSCOPIC Nonrheumatic mitral valve regurgitation Nonrheumatic tricuspid valve regurgitation 01/24/2025 7:30 AM ESTdocumented as of this encounter Visit Diagnoses Diagnosis Non-rheumatic mitral regurgitation- Primary 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) Essential (primary) hypertension Unspecified essential hypertension Secondary pulmonary arterial hypertension (CMS/HCC) Acute diastolic heart failure (CMS/HCC) Acute diastolic heart failure Benign prostatic hyperplasia without lower urinary tract symptoms Nonrheumatic mitral valve regurgitation Nonrheumatic tricuspid valve regurgitation Nonrheumatic mitral valve regurgitation Nonrheumatic tricuspid valve regurgitation documented in this encounter Care Teams Team MemberRelationshipSpecialtyStart DateEnd Date Brock Mcintosh DO [address] [place] [address] PCP - GeneralFamily Medicine10/27/24documented as of this encounter
--- OUTSIDE RECORDS SUMMARY | 2024-12-24 10:11 | XMS_ITS | Encounter Summary ---
Author Organization [facility] Address [address] [place] [address] Care Team Providers Care Revenue Inspector Name Role Phone JarvisBrock Primary Care Provider [phone] Encounter Details DateTypeDepartmentCare Team (Latest Contact Info)Lcwyaopdadv26/31/2025 11:11 AM EDT - 12/24/2024 11:59 PM EDTHospital Encounter [facility] Heart Station [address] [place] [id number] Nonrheumatic mitral valve regurgitation; Nonrheumatic tricuspid valve regurgitation Discharge Disposition: Home or Self Care () Social History Tobacco UseTypesPacks/DayYears UsedDateSmoking Tobacco: FormerCigarettes Smokeless Tobacco: NeverAlcohol UseStandard Drinks/WeekCommentsNot Currently0 (1 standard drink = 0.6 oz pure alcohol)PHQ-2AnswerDate RecordedPatient Health Questionnaire-2 Yawof729Sex and Gender InformationValueDate RecordedSex Assigned at KrikjPctp31/03/2025 11:46 AM EDTLegal ScgDutq2610/18/2024 8:46 AM EDT Gender WyzsxcbyDscj25/03/2025 11:46 AM EDTSexual OrientationHeterosexual or Wjwhdoxb00/24/2025 9:02 AM EDTSexual OrientationChoose not to imdvnkol28/24/2025 9:02 AM EDTdocumented as of this encounter Medications at Time of Discharge MedicationSigDispense QuantityRefillsLast FilledStart DateEnd Date aspirin 81 mg chewable tablet Chew 81 mg in the morning.10/21/2024 cefuroxime (Ceftin) 500 mg tablet Take 500 mg by mouth two times daily.11/22/2024 dexAMETHasone (Decadron) 6 mg tablet Take 6 mg by mouth in the morning.11/22/2024 levothyroxine (Synthroid, Levoxyl) 150 mcg tablet Take 150 mcg by mouth in the morning. metFORMIN (Glucophage) 500 mg tablet Take 500 mg by mouth with breakfast and with evening meal. metoprolol succinate XL (Toprol-XL) 25 mg 24 hr tablet Take 25 mg by mouth in the morning.10/21/2024 potassium chloride CR (Klor-Con) 10 mEq ER tablet Take 10 mEq by mouth in the morning.10/21/2024documented as of this encounter Plan of Treatment DateTypeDepartmentCare Team (Latest Contact Info)Bmunxmroxub83/25/2025 2:30 PM ESTFollow-Up [facility] [address] [place] [address] Vincenzo Colon, SOFTWARE INSTALLER [address] [place] [address] 01/24/2025 7:30 AM ESTHospital Encounter [facility] Main [place] [address] Brandan Villeda MD [address] [place], [place] [address] [place] [address] 01/24/2025 7:30 AM EST - 01/24/2025 4:00 PM ESTSurgery [facility] Main Operating Room [address] [place] [address] Brandan Villeda MD [address] [facility] [address] Mitral Valve Replacement withNameTypePriorityAssociated DiagnosesDate/TimeTEE EchocardiographyRoutine Nonrheumatic mitral valve regurgitation Nonrheumatic tricuspid valve regurgitation 12/24/2024 11:11 AM EDTNameTypePriorityAssociated DiagnosesOrder ScheduleTEE EchocardiographyRoutine Nonrheumatic mitral valve regurgitation Nonrheumatic tricuspid valve regurgitation Once for 1 Occurrences starting 12/24/2024 until 12/24/2024NamePriority Associated DiagnosesDate/TimeREPAIR OR REPLACEMENT, MITRAL VALVE Nonrheumatic mitral [...] as of this encounter Visit Diagnoses Diagnosis Nonrheumatic mitral valve regurgitation Nonrheumatic tricuspid valve regurgitation Nonrheumatic mitral valve regurgitation Nonrheumatic tricuspid valve regurgitation Nonrheumatic mitral valve regurgitation Nonrheumatic tricuspid valve regurgitation documented in this encounter Care Teams Team MemberRelationshipSpecialtyStart DateEnd Brock Jarvis DO [address] [place] [address] PCP - GeneralFamily Medicine10/27/24documented as of this encounter
--- OUTSIDE RECORDS SUMMARY | 2024-12-31 13:12 | XMS_ITS ---
Author Organization [facility] Address [address] [place] [address] Care Team Providers Care Consulting Technical Manager Name Role Phone Brock Jarvis DO Primary Care Provider [phone] Active Problems ProblemNoted DateDiagnosed DateAllergic itrerpzr03/06/2025nemia due to blood loss11/29/2024ortic valve /06/2025enign prostatic hyperplasia without lower urinary tract ckmsfkko89/06/2025Valvular heart chxnpfn4311/29/2024 Dental zwwlfhx9711/29/2024Encounter for eqilntlzoavz92/06/2025Screening for oygfkjgzue63/06/2025Fungal infection of nail11/29/2024Onychomycosis due to dpeubzajtyxp17/06/2025Gait lrlfqmgnmla34/06/5013Lkiscstjbdhfig38/06/2025 Ingrowing nail11/29/2024Lentigo kjhmdvy99/06/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 11/29/2024Other obesity due to excess lavqibpb16/06/2025Pain in limb11/29/2024 Preoperative byaxygmpacg88/06/2688Iutnwvwh56/06/2025Secondary pulmonary arterial vkdbvydbcdki14/06/2025Tick bite11/29/2024ute diastolic (congestive) heart koikjmu3910/28/2024ody mass index (BMI) 31.0-31.9, adult10/28/2024Diabetes hlpykfyd86/04/2025Essential (primary) ttityezzmnil79/04/2025History of malignant neoplasm of /04/2025Malignant neoplasm of gakwwffo59/04/2025Malignant neoplasm of thyroid gland10/28/2024Microscopic izqzjkxad56/04/2025Nocturia 10/28/2024Post-void ihtdgtazs24/04/2025Rheumatic mitral xrypjogo02/04/2025 Rheumatic tricuspid rmpghdnagnwzr01/04/2025Nonrheumatic mitral valve cphznxtnxvehi57/04/2025ute diastolic heart laextdi4110/28/2024Nonrheumatic tricuspid valve jlwafzdzsjhhr70/04/2025Acute pain of left knee02/09/2023 Difficulty fchdhra9002/09/2023Status post left knee ftycucbvmnh86/17/2023 Zzetaoqbhrntgd75/13/2023Mixed conductive and sensorineural hearing loss, qvmofkyzo21/13/2023rthritis of left knee11/06/2022Type 2 diabetes mellitus with neurological fqwadsayshodb42/13/2023rimary osteoarthritis of left knee 11/05/2022 Current Treatment and Therapy Plans No current plan information found. Past Treatment and Therapy Plans No past plan information found. Lifetime Dose Tracking * ChemicalLifetime DoseAutomatic EntryManual EntryFluoro Time6.02 minutes0 minutes6.02 minutesAir Ohman592 mGy0 gFo351 mGy
--- OUTSIDE RECORDS SUMMARY | 2024-12-31 13:12 | XMS_ITS | Clinical Summary ---
Author Organization [facility] Address [address] [place] [address] Care Team Providers Care Stabber Name Role Phone McintoshBrock Primary Care Provider [phone] Allergies No known active allergies Medications MedicationSigDispense QuantityRefillsLast FilledStart DateEnd DateStatus aspirin 81 mg chewable tablet Chew 81 mg in the morning.5Active metoprolol succinate XL (Toprol-XL) 25 mg 24 hr tablet Take 25 mg by mouth in the morning.5Active potassium chloride CR (Klor-Con) 10 mEq ER tablet Take 10 mEq by mouth in the morning.5Active metFORMIN (Glucophage) 500 mg tablet Take 500 mg by mouth with breakfast and with evening meal.Active levothyroxine (Synthroid, Levoxyl) 150 mcg tablet Take 150 mcg by mouth in the morning.Active torsemide (Demadex) 20 mg tablet Indications:Rheumatic mitral stenosisTake 1.5 tablets (30 mg) by mouth in the morning. 45 tablet 5Active lisinopril 20 mg tablet Indications:Rheumatic mitral stenosisTake 0.5 tablets (10 mg) by mouth in the morning. 15 tablet 5Active Additional Information Patient not taking.Reported on 12/14/2024 cefuroxime (Ceftin) 500 mg tablet Take 500 mg by mouth two times daily.5Active dexAMETHasone (Decadron) 6 mg tablet Take 6 mg by mouth in the morning.5Active Active Problems ProblemNoted DateDiagnosed DateAllergic agggrxej37/06/2025Anemia due to blood loss11/29/2024ortic valve pxumklck63/06/2025enign prostatic hyperplasia without lower urinary tract ocksgrty35/06/2025Valvular heart yyyhvtx8111/29/2024 Dental dztqmbn2011/29/2024Encounter for rljevcqxxztj15/06/2025Screening for pwjsbbekij52/06/2025Fungal infection of nail11/29/2024Onychomycosis due to zhbeyybwbmms65/06/2025Gait qwqifsdlhos17/06/1180Bhdtglikobkjev56/06/2025 Ingrowing nail11/29/2024Lentigo adgugwn04/06/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 11/29/2024Other obesity due to excess gpxhlovx48/06/2025Pain in limb11/29/2024 Preoperative ipsfxoetgyb25/06/2209Cmtfsigi10/06/2025Secondary pulmonary arterial hbipwefmafjp54/06/2025Tick bite11/29/2024ute diastolic (congestive) heart eggepxw4410/28/2024ody mass index (BMI) 31.0-31.9, adult10/28/2024Diabetes /04/2025Essential (primary) oogxqfgglapz49/04/2025History of malignant neoplasm of ktmbijmy28/04/2025Malignant neoplasm of cycbkyaj52/04/2025Malignant neoplasm of thyroid gland10/28/2024Microscopic ynwfvhcly03/04/2025Nocturia 10/28/2024Post-void hubddfuvv28/04/2025Rheumatic mitral /04/2025 Rheumatic tricuspid jlfryucuacaby93/04/2025Nonrheumatic mitral valve wtdmbkinvxwmj09/04/2025ute diastolic heart ljwzzhq9110/28/2024Nonrheumatic tricuspid valve lnpvedytchyfq32/04/2025ute pain of left knee02/09/2023 Difficulty csxptvw4002/09/2023Status post left knee /17/2023 Hymqhxcluzeylt96/13/2023Mixed conductive and sensorineural hearing loss, pfqyjkuld28/13/2023rthritis of left knee11/06/2022Type 2 diabetes mellitus with neurological /13/2023rimary osteoarthritis of left knee 11/05/2022 Encounters DateTypeDepartmentCare EnovHuwjkvegywn30/31/2025 11:11 AM EDT - 12/24/2024 11:59 PM EDTHospital Encounter [facility] [address] [place] [address] Nonrheumatic mitral valve regurgitation; Nonrheumatic tricuspid valve regurgitation Discharge Disposition: Home or Self Care ()12/23/2024Orders Only [facility] Vascular Cardiothoracic Surgery [place] [address] [place] [phone] Emily Jin RN Nonrheumatic mitral valve regurgitation (Primary Dx); Nonrheumatic tricuspid valve iafrychpyrbyf12/30/2025Telephone [facility] Vascular Cardiothoracic Surgery [place] [address] [place] [phone] Emily Jin RN Surgery Date12/22/2024bstract [facility] Vascular Cardiothoracic Surgery [place] [address] [place] [phone] Emily Jin RN 12/21/2024Orders Only [facility] Vascular Cardiothoracic Surgery [place] [address] [place] [phone] Emily Jin RN Dyspnea, unspecified type (Primary Dx)12/14/2024 3:00 PM EDTConsult 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); Essential (primary) hypertension; Secondary pulmonary arterial hypertension (CMS/HCC); Acute diastolic heart failure (CMS/HCC); Benign prostatic hyperplasia without lower urinary tract ysweqniu25/17/2025 12:05 AM EDT - 12/10/2024 11:59 PM EDTHospital Encounter [facility] [address] [place] [address] Discharge Disposition: Home or Self Care ()12/10/2024 - 12/10/2024 12:04 AM EDTHospital Encounter [facility] [address] [place] [address] Discharge Disposition: Home or Self Care ()11/29/2024 2:00 PM EDTOffice Visit [facility] [address] [place] [phone] Luis Keita MD Non-rheumatic mitral regurgitation (Primary Dx); 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; Nonrheumatic tricuspid valve regurgitation; Mitral valve prolapse; Chronic diastolic congestive heart failure (CMS/HCC); Primary hypertension; Mitral annular calcification; Pulmonary hypertension (CMS/HCC)11/17/2024 12:30 PM EDT - 11/17/2024 1:30 PM EDT Surgery [facility] Vascular Lab [address] [place] [address] Kayla Garcia MD Coronary deyjwaxvsov24/24/2025 8:54 AM EDT - 11/17/2024 2:12 PM EDTHospital Encounter [facility] Vascular Lab [address] [place] [address] Kayla Garcia MD Rheumatic mitral stenosis (Primary Dx); Nonrheumatic mitral valve regurgitation; Acute diastolic heart failure (CMS/HCC); Nonrheumatic tricuspid valve regurgitation Discharge Disposition: Home or Self Care ()11/17/2024Results Follow-Up Cardiology [address] [place] [address] Vilma Hoskins CNP Transesophageal echo (PAO)11/17/20245992Alerfu60/04/2025 3:00 PM EDTOffice Visit [facility] [address] [place] [phone] Vilma Hoskins CNP Nonrheumatic mitral valve regurgitation (Primary Dx); Acute diastolic heart failure (CMS/HCC); Nonrheumatic tricuspid valve regurgitation; Substernal chest pain; Abdominal bloating; Other specified hypotensionfrom Last 3 Months Family History Medical HistoryRelationNameCommentsHeart attackMotherRelationNameStatusComments FatherDeceasedMotherDeceased Social History Tobacco UseTypesPacks/DayYears UsedDateSmoking Tobacco: FormerCigarettes Smokeless Tobacco: NeverAlcohol UseStandard Drinks/WeekCommentsNot Currently0 (1 standard drink = 0.6 oz pure alcohol)PHQ-2AnswerDate RecordedPatient Health Questionnaire-2 Ufsnp727Sex and Gender InformationValueDate RecordedSex Assigned at FjelhGnpf08/03/2025 11:46 AM EDTLegal TrjGrih6110/18/2024 8:46 AM EDT Gender UxnksbpeCeqm31/03/2025 11:46 AM EDTSexual OrientationHeterosexual or Lqvcdxio74/24/2025 9:02 AM EDTSexual OrientationChoose not to lavaihgr12/24/2025 9:02 AM EDT Last Filed Vital Signs Vital SignReadingTime TakenCommentsBlood Rrctsxzc875/7712/14/2024 3:01 PM EDT Cbubh928912/14/2024 3:01 PM EDTTemperature--Respiratory Taax790811/17/2024 2:00 PM EDTOxygen Bexiyzznge57%12/14/2024 3:01 PM EDTInhaled Oxygen Concentration-- Hmfamx00.1 kg (170 lb)12/14/2024 3:01 PM QKRVttkfn730.1 cm (5' 5 )12/14/2024 3:01 PM EDTBody Mass Index28.291 3:01 PM EDT Plan of Treatment DateTypeDepartmentCare Team (Latest Contact Info)Duqrdmbpjta74/25/2025 2:30 PM ESTFollow-Up [facility] Cardiothoracic Surgery Center [address] [place] [phone] Vincenzo Colon, [address] [place] [address] 01/24/2025 7:30 AM ESTHospital Encounter [facility] Main Operating Room [address] [place] [phone] Brandan Villeda MD [address] [place] [address] 01/24/2025 7:30 AM EST - 01/24/2025 4:00 PM ESTSurgery [facility] [address] [place] [phone] Brandan Villeda MD [address] [place] [address] Mitral Valve Replacement withNamePriorityAssociated DiagnosesDate/TimeREPAIR OR REPLACEMENT, MITRAL VALVE Nonrheumatic mitral valve regurgitation Nonrheumatic tricuspid valve regurgitation 01/24/2025 7:30 AM ESTREPAIR, TRICUSPID VALVE Nonrheumatic mitral valve regurgitation Nonrheumatic tricuspid valve regurgitation 01/24/2025 7:30 AM ESTCABG, 1 VESSEL Nonrheumatic mitral valve regurgitation Nonrheumatic tricuspid valve regurgitation 01/24/2025 7:30 AM ESTSURGICAL PROCUREMENT, VEIN, ENDOSCOPIC Nonrheumatic mitral valve regurgitation Nonrheumatic tricuspid valve regurgitation 01/24/2025 7:30 AM ESTHealth MaintenanceDue DateLast DoneCommentsDiabetes: Hemoglobin A1C1942Medicare Annual Wellness (AWV)3Diabetes: Retinopathy Jelqgfjrx55/17/1953COVID-19 Vaccine ( season)2024 12/10/2022, 02/25/2022, 02/20/2021, Additional history existsDiabetes: Urine Protein Asansqcxl18/4Depression Kqahamfog43 Fall Risk Rroxylgnq24/5Adult Mgzfmjp06/19/70076511/12/2024, 09/11/2020Zoster RirlzkmkXjdphxbuw72/08/2024, 11/02/2019Pneumococcal Vaccine: 50+ ElepzTcpozrvbu03/21/2025, 12/02/2013Influenza LthhxafZclagmvjo18/09/2025, 01/29/2024, 12/10/2022, Additional history existsHIB VaccinesAged OutNo longer eligible based on patient's age to complete this topicHPV VaccinesAged OutNo longer eligible based on patient's age to complete this topicIPV VaccinesAged OutNo longer eligible based on patient's age to complete this topicMeningococcal B VaccineAged OutNo longer eligible based on patient's age to complete this topicMeningococcal VaccineAged OutNo longer eligible based on patient's age to complete this topicRotavirus VaccinesAged OutNo longer eligible based on patient's age to complete this topic Procedures Procedure NamePriorityDate/TimeAssociated DiagnosisCommentsUS TRANSFER OF OUTSIDE AGLFGZivbtfo76/17/2025 12:05 AM EDT XR TRANSFER OF OUTSIDE EIWLZXtjbbqd64/17/2025 12:00 AM EDT RIGHT HEART XDMWQnyqhyi12/24/2025 12:07 PM EDT Nonrheumatic mitral valve regurgitation Acute diastolic heart failure (CMS/HCC) Nonrheumatic tricuspid valve regurgitation CORONARY LLZIEORBWITJswmqat13/24/2025 12:07 PM EDT Nonrheumatic mitral valve regurgitation Acute diastolic heart failure (CMS/HCC) Nonrheumatic tricuspid valve regurgitation POCT HBO2%Uizkfwn9211/17/2024 11:41 AM EDT TRANSESOPHAGEAL ECHO (PAO) W/ LIMITED DOPPLER AND COLOR NMHITvvrgyq94/24/2025 11:19 AM EDT Nonrheumatic mitral valve regurgitation Acute diastolic heart failure (CMS/HCC) Nonrheumatic tricuspid valve regurgitation ECG 12-YMRWAiugcew00/24/2025 10:11 AM EDT from Last 3 Months Results * US transfer of outside films (12/10/2024 12:05 AM EDT)Specimen (Source) Anatomical Location / LateralityCollection Method / VolumeCollection Time Received Time Narrative IMAGING - 12/10/2024 1:01 PM EDT This order has been auto-finalized and does not contain a result. Authorizing ProviderResult TypeResult Dakota Villeda MDIMG US PROCEDURESFinal ResultPerforming OrganizationAddressCity/State/ZIP CodePhone Number IMAGING * XR transfer of outside films (12/10/2024 12:00 AM EDT)Specimen (Source) Anatomical Location / LateralityCollection Method / VolumeCollection Time Received Time Narrative IMAGING - 12/10/2024 1:00 PM EDT This order has been auto-finalized and does not contain a result. Authorizing ProviderResult TypeResult Dakota Villeda MDIMG XR PROCEDURESFinal ResultPerforming OrganizationAddressCity/State/ZIP CodePhone Number IMAGING * CORONARY ANGIOGRAPHY, RIGHT HEART CATH (11/17/2024 12:07 PM EDT)Anatomical RegionLateralityModalityOtherSpecimen (Source)Anatomical Location / Laterality Collection Method / VolumeCollection TimeReceived Time Narrative 11/17/2024 12:37 PM EDT Cardiovascular Laboratory Report FINAL IMPRESSIONS: ?? Mild coronary artery disease Normal global left ventricular systolic function by noninvasive imaging Severely elevated right-sided heart pressures and pulmonary capillary wedge pressure consistent with biventricular congestive heart failure Elevated transpulmonary gradient along with elevated wedge consistent with combined pre and postcapillary pulmonary hypertension Elevated pulmonary vascular resistance Mildly reduced cardiac output/cardiac index Severe mitral regurgitation by echocardiography RECOMMENDATIONS: ?? A 'Heart Team' approach to evaluate optimal [...] week Follow-up with Dr. Keita in the [place] office as scheduled PROCEDURES: ??Ultrasound-guided access to the right internal jugular vein, right heart catheterization, ultrasound-guided access to the left radial artery, bilateral selective coronary angiography METHODS: After risks, benefits, and alternatives were explained, written informed consent was obtained. ??The patient was prepped and draped in usual sterile fashion over the right neck and left radial regions. Using 1% lidocaine solution, local infiltration anesthesia was achieved. ?? Using a modified Seldinger technique, a micropuncture kit, and under ultrasound guidance, access to the right internal jugular vein was obtained. ??A 6 German 11 cm sheath was inserted without difficulty. Right heart catheterization was performed using a Kilgore catheter via the venous sheath. ??Pressures were measured in the right atrium, right ventricle, pulmonary artery, and pulmonary capillary wedge positions. ?? Oxygen saturations were obtained and cardiac output/cardiac index was calculated using the modified Angela principle. ??The Kilgore catheter was removed. The jugular sheath was removed with application of manual pressure to achieve optimal hemostasis. Local infiltration anesthesia was achieved of the left wrist. ??Using a micropuncture kit, and under ultrasound-guided access of the left radial artery was obtained. ??A 6 German glide sheath was inserted without difficulty. Bilateral selective coronary angiography was performed using JL4 and JR4 catheters. ?? After reviewing the images, it was elected to conclude the procedure. ??All catheters were removed. The radial sheath was removed with application of a TR band per protocol to achieve optimal hemostasis. ??Overall the patient tolerated the procedure well. ??There were no overt complications. ??He was to be transferred to the holding area in stable condition. FINDINGS: ?? Hemodynamics: RA 7 RV ??73/7, 11 PA ??73/29 [50] PCWP ??18/38, mean 22 'giant V waves' TPG ??28 AO ??95/66 [76] Cardiac output /cardiac index 4.29/2.28 AO sat /PA sat 94%/63% Systemic Vascular Resistance (SVR) = 1,286.71 dynes-sec/cm5 Pulmonary Vascular Resistance (PVR) = 522.14 dynes-sec/cm5 or 7 Wood Units LEFT VENTRICULOGRAPHY: This was not performed; ejection fraction is 65 to 70% by echocardiography. CORONARY ARTERIES: ?? Left main coronary artery: This arises from the left coronary cusp and trifurcates into the left anterior descending, ramus intermedius, and left circumflex coronary arteries. ??It is free of significant stenosis. Left anterior descending coronary artery: This shows luminal irregularities throughout. ??There is a short segment of myocardial bridging in the midportion. ??The diagonal branches show ostial plaque. ??It is a long wraparound vessel supplying the inferoapex Ramus intermedius coronary artery: This is a moderate-sized branching vessel with luminal irregularities and diffuse moderate disease distally. Left circumflex coronary artery: This is a codominant vessel giving rise to posterolateral branches. ??There is ILDA I-II flow distally. ??No obvious discrete stenoses are seen. ??It gives rise to a minute first obtuse marginal followed by a moderate-sized second obtuse marginal and a minute third twos marginal. ??The obtuse marginals show diffuse disease. Right coronary artery: This arises from the right coronary cusp, it is a codominant vessel giving rise to the posterior descending artery. ??It shows a ostial and proximal 50% stenosis. ??There is no evidence of pressure dampening or ventricularization INDICATIONS: Severe mitral regurgitation, exertional shortness of breath, abnormal echocardiogram Coronary Findings Diagnostic Dominance: Co-dominant No diagnostic findings have been documented. Intervention No interventions have been documented. Authorizing ProviderResult TypeResult StatusVilma Hoskins CNPCV CARDIAC CATH PROCEDURESFinal Result * (ABNORMAL) POC Hb02% (11/17/2024 11:41 AM EDT)ComponentValueRef RangeTest MethodAnalysis TimePerformed AtPathologist LqgcfcnmmCKKKKY40%62.8(A)90 - 95 % QC Pass/FailPassedQC LOT #[id number] Expiration Date73,126SAMPLESITEnlSpecimen (Source)Anatomical Location / LateralityCollection Method / VolumeCollection TimeReceived TimeBloodVenous blood specimen / Tespmwr1311/17/2024 11:41 AM EDT Narrative Kelvin Beebe MT - 11/18/2024 7:29 AM EDT Oper 9701 Authorizing ProviderResult TypeResult StatusEhab Parnassus campusOINT OF CARE TEST ENTER/EDIT ORDERABLESFinal Result * TRANSESOPHAGEAL ECHO (PAO) W/ LIMITED DOPPLER AND COLOR FLOW (11/17/2024 11:19 AM EDT)Anatomical RegionLateralityModalityOtherSpecimen (Source)Anatomical Location / LateralityCollection Method / VolumeCollection TimeReceived Time 11/17/2024 10:19 AM EDT Narrative 11/17/2024 3:26 PM EDT 1 [facility] [address] [address] [phone] (fax) Transesophageal Echocardiogram-[facility] Name: OSMANY CUNNINGHAM Study Date: 11/17/2024 10:19 AM B/P: 108 mmHg/78 mmHg HR: 77 bpm Date of : 1940 Location: [facility] Height: 65 in. Age: 84 year(s) Patient Room: [facility] VASCULAR POOL Weight: 178 [...] Location: A PAO was performed in the Lead Assistant Manager without complications Anesthesia Pharyngeal anesthesia with viscous [...] [facility] Referring Physician: BROCK MCINTOSH ??Deputy Director Of Finance: KEHINDE Celeste Ordering Physician: VILMA HOSKINS ?? Wall Motion Scores -1 - hyperkinesia, 0 - not evaluated, 1 - normal, 2 - hypokinesia, 3 - akinesia, 4 - dyskinesia Procedure Note Ever Thomas MD - 11/17/2024 1 [facility] [address] [place] [address] [phone] (fax) Transesophageal Echocardiogram-[facility] Name: OSMANY CUNNINGHAM Study Date: 11/17/2024 10:19 AM B/P: 108 mmHg/78 mmHg HR: 77 bpm Date of : 1940 Location: [facility] Height: 65 in. Age: 84 year(s) Patient Room: [facility] VASCULAR POOL Weight: 178 [...] Location: A PAO was performed in the Lead Assistant Manager without complications Anesthesia Pharyngeal anesthesia with viscous [...] [facility] Referring Physician: BROCK MCINTOSH Deputy Director Of Finance: KEHINDE Celeste Ordering Physician: VILMA HOSKINS Wall Motion Scores -1 - hyperkinesia, 0 - not evaluated, 1 - normal, 2 - hypokinesia, 3 - akinesia, 4 - dyskinesia Authorizing ProviderResult TypeResult StatusMelteresita Hoskins CNPCV ECHO PROCEDURES Final Result * Electrocardiogram, 12-lead (11/17/2024 10:11 AM EDT)ComponentValueRef Range Test MethodAnalysis TimePerformed AtPathologist SignatureVentricular Nsfb66UPV GE MUSEAtrial Reuq20HOHVQ MUSEPR Oyfqghej767tcHJ MUSEQRS MCCCNQGX356eqTW MUSE QT Cwmuurmx343kbYM MUSEQTC CALCULATION(BAZETT)456msGE MUSEP Lszv80lggcudxRC MCVUX-Jkms-12vfcjfgtAT MUSET Wave Qscp69fjninsuHV MUSESpecimen (Source) Anatomical Location / LateralityCollection Method / VolumeCollection Time Received Time11/17/2024 9:42 AM EDT11/17/2024 1:12 PM EDT Impressions GE MUSE - 11/17/2024 1:12 PM EDT Normal sinus rhythm Left anterior fascicular block Minimal voltage criteria for LVH, may be normal variant ( Irene product ) Abnormal ECG No previous ECGs available Confirmed by Manish THOMAS SAMER J. ([id number]) on 11/17/2024 1:12:12 PM Narrative Procedure Note Ever Thomas MD - 11/17/2024 IMPRESSION: Normal sinus rhythm Left anterior fascicular block Minimal voltage criteria for LVH, may be normal variant ( Irene product ) Abnormal ECG No previous ECGs available Confirmed by Manish THOMAS SAMER J. ([id number]) on 11/17/2024 1:12:12 PM Authorizing ProviderResult TypeResult StatusEhab [facility]Saint [facility] ORDERABLESFinal ResultPerforming OrganizationAddressCity/State/ZIP CodePhone Number GE MUSE from Last 3 Months Insurance Care Teams Team MemberRelationshipSpecialtyStart DateEnd Date Brock Mcintosh DO [address] [place] [address] PCP - GeneralFamily Medicine10/27/24
--- OUTSIDE RECORDS SUMMARY | 2024-12-31 13:12 | XMS_ITS | Patient Health Record ---
Author Organization [facility] Address [address] [place] [address] Care Team Providers Care Liquefaction Supervisor Name Role Phone Brock Jarvis Primary Care Provider [phone] Allergies No Known Allergies Results Component Value Reference Range Notes HEMOGLOBIN A1C - IN OFFICE Reviewed date:02/23/2024 01:36:38 PM Interpretation:6.3 Performing Lab: Notes/Report: 6.3 HEMOGLOBIN A1C - IN OFFICE 6.3 4.4 - 6.4 UA DIP AUTO WO MICRO (80289) - IN OFFICE Reviewed date:03/17/2024 10:49:48 AM Interpretation: Performing Lab: Notes/Report: COLORamberYELLOW - AMBERCLARITYcloudyCLEAR - CLEARGLUCOSE, URINEnegNEG - NEG MG/DLBILIRUBIN, URINEnegNEG - NEGKETONES, URINEnegNEG - NEG MG/DLSPECIFIC GRAVITY1.0201.001 - 1.035BLOOD, URINEnegNEG - NEG MG/DLPH, URINE6.05.0 - 9.0 PROTEIN (ALB), URINE+NEG - NEG MG/DLUROBILINOGEN, URINE0.20.2 - 1.0 MG/DL NITRITE, URINE+NEG - NEGESTERASE+NEG - NEGHEMOGLOBIN A1C - IN OFFICE Reviewed date:05/04/2024 11:48:49 AM Interpretation:5.7 Performing Lab: Notes/Report: 5.7HEMOGLOBIN A1C - IN OFFICE5.74.4 - 6.4PROSTATIC SPEC ANT Reviewed date:08/02/2024 03:13:33 PM Interpretation: Performing Lab:[facility] ([facility]), [address], [place]. [address] PH:[phone] Notes/Report:PROSTATIC SPEC ANT0.110.00-4.00 ng/mL The method used for this test is Chai Richmond DXI chemiluminescent immunoassay. Values obtained by different assay methods cannot be used interchangeably. PERFORMED AT [address] [address] MICROALBUMIN WITH RATIO Reviewed date:08/02/2024 03:13:33 PM Interpretation: Performing Lab:[facility] ([facility]), [address] [place] [address], [address] [address] PH:[phone] Notes/Report:MICROALBUMIN, URINE99.50.0-1.9 mg/dLURINE CREAT65.61ALB/CREAT RATIO 1516.50.0-30.0 mg/g creatPERFORMED AT [address] [address]FCZ AND AUTO DIFF * Reviewed date:08/02/2024 03:13:33 PM Interpretation: Performing Lab:[facility] ([facility]), [address] [place] [address], [address] [address] PH:[phone] Notes/Report:WBC COUNT7.64.0-11.0 X10E9/LRBC COUNT4.694.10-5.70 X10E12/L TITFOHHGWR54.313.0-17.0 g/zNVITVVNUGER66.539-49 %KVM3833-499 fLMCH28.427-34 pg MCHC33.832-36 g/dLRDW14.011.5-15.0 %PLATELET PMYVR685375-516 X10E9/LMPV8.07-12 fL% TOGPIUDPOGT90.6% EXGAAGTJWZR43.8% MONOCYTES8.8% EOSINOPHILS3.3% BASOPHILS0.5 ABSOLUTE NEUTROPHIL5.21.5-6.6 X10E9/LABSOLUTE LYMPHOCYTE1.41.0-3.5 X10E9/L ABSOLUTE MONOCYTE0.70-0.9 X10E9/LABSOLUTE EOSINOPHIL0.20.0-0.4 X10E9/LABSOLUTE BASOPHIL0.00.0-0.2 X10E9/LPERFORMED AT [address] [place] [address]MYVZDJVBDEHSP METABOLIC PANEL Reviewed date:08/02/2024 03:13:33 PM Interpretation: Performing Lab:[facility] ([facility]), [address] [place], [place] [address]., [address] [place] [address]. [address] PH:[phone] Notes/Report:UTAZCA607615-351 mmol/LPOTASSIUM4.03.5-5.0 mmol/OFXURAJHK28391-593 mmol/LCARBON EZHWREG2238-76 mmol/LANION IJP84-67 mmol/LBLOOD UREA NJIGQEYA881-50 mg/dLCREATININE0.750.60-1.30 mg/dLMETHOD TRACEABLE TO IDMS KPMEGWVILBIWWHY78253- 99 mg/dLCALCIUM9.38.5-10.5 mg/dLTOTAL PROTEIN7.46.0-8.0 g/dLALBUMIN4.03.2-5.3 g/dLALKALINE IBUWPPVWYNY7589-396 U/WCAL813-55 U/BAGW862-69 U/LBILIRUBIN,TOTAL0.9 0.3-1.2 mg/dLeGFR (CKD-EPI) NON-RACE DEPENDENT>90>59 ml/min/1.73sq.m Reported eGFR is based on the CKD-EPI 2020 equation that does not use a race coefficient. PERFORMED AT [address] [address] FREE T3 Reviewed date:08/02/2024 03:13:33 PM Interpretation: Performing Lab:[facility] ([facility]), [address] [place], [place] [address]., [address] [address] PH:[phone] Notes/Report:FREE T33.102.50-3.90 pg/mLPERFORMED AT [address] [address]ZFSTXUD PROFILE Reviewed date:08/02/2024 03:13:33 PM Interpretation: Performing Lab:[facility] ([facility]), [address] [place] [address]., [address] [address] PH:[phone] Notes/Report:TSH1.460.49-4.67 uIU/mLNEW REFERENCE RANGE FOR PEDIATRIC PATIENTS FREE T41.010.61-1.60 ng/dL NEW REFERENCE RANGE FOR PEDIATRIC PATIENTS PERFORMED AT [address] [address] LIPID PANEL Reviewed date:08/02/2024 03:13:33 PM Interpretation: Performing Lab:[facility] ([facility]), [address] [place] [address], [address] [address] PH:[phone] Notes/Report:SWZSHYNIUHH810874-041 mg/aUQTEJGGSQRSHO52086-844 mg/dLHDL YQNGOLCAICC95>39 mg/dL HDL <40 mg/dL - High Risk HDL > or = 40mg/dL- Desirable HDL >60 mg/dL - Negative Risk VERY LOW FGIGFFFFUTC518-99 mg/dLLDL (CALC)65<130 mg/dL LDL <100 mg/dL - Desirable LDL >160 mg/dL - High Risk CHOLESTEROL:HDL4.31.0-5.0PERFORMED AT [address] [address]JKMQO CULTURE & SENITIVITY Reviewed date:08/02/2024 03:13:33 PM Interpretation: Performing Lab:[facility], [address] [place], [place], [address] Notes/Report: SENSITIVITY INTERPRETATION S = SUSCEPTIBLE R = RESISTANT I = INTERMEDIATE N/A = NOT APPLICABLE [facility] [place] [facility] [id number] CULTURESENS(. - .) STATUSAMPICILLINS()PIPERACILLIN/TAZOBACTAMS() CEFAZOLINS()CEFTRIAXONES()CEFEPIMES()ERTAPENEMS()IMIPENEMS()AMIKACINS() GENTAMICINS()TOBRAMYCINS()CIPROFLOXACINS()LEVOFLOXACINS()TIGECYCLINES() NITROFURANTOINS()TRIMETH/SULFAS()REPORT STATUSFINAL() CULTURE SOURCE: CLEAN CATCH MID-STREAM URINE ISOLATE: ESCHERICHIA COLI COLONY COUNT: > 100,000 CFU/ML AMOXI/CLAVULANIC ACIDS()CEFOXITINS()AZTREONAMS() Reason For Referral No Information Medications Medication SIG (Take, Route, Frequency, Duration) Notes Start Date End Date Status Metoprolol Succinate ER 25 MG 1 tablet Orally On ce a day; Duration: 90 days 10/21/2024tivePotassium Chloride ER 10 MEQ1 tablet with food Orally daily; Duration: 90 days10/21/2024tiveNystatin 213695 UNIT/ML5 ml swish and swallow Mouth/Throat qid; Duration: 7 days12/02/2024tivemetFORMIN HCl 500 MG1 tablet with a meal Orally twice a day; Duration: 90 daysActiveAspirin 81 81 MG1 tablet Orally Once a day; Duration: 90 days10/21/2024tiveLisinopril 20 MG0.5 tablet Orally Once a day03/17/2024Not-TakingLevothyroxine Sodium 150 MCG1 tablet in the morning on an empty stomach Orally Once a day; Duration: 90 daysActiveTorsemide 20 MG0.5 tablets Orally Once a day; Duration: 90 days10/21/2024tive Immunizations Vaccine Route Administration Date Status Comme nts Flu, Fluad (26206) 65 yrs and older, single-dose syringe (6656-6322) IM Intramuscular 01/29/2024 Administered Flu, Fluad (90641) 65 yrs and older, single-dose syringe (3746-8036)IM Unscgwwyhjzdx22/09/2025dministered Social History Tobacco Use: Social History Observation Description Date Details (start date - stop date) Never Smoker NA - NA Tobacco Control (Standard) Question Answer Notes Tobacco use: Nonsmoker Problems Problem Type SNOMED Code ICD Code Onset Dates Problem Status W/U Status Risk Notes Problem Essential hypertension (58777544 ) Essential (primary) hypertension (I10) ActiveconfirmedProblemType II diabetes mellitus without complication (754098963) Type 2 diabetes mellitus without complications (E11.9)ActiveconfirmedProblem Hypothyroidism (15572702)Hypothyroidism, unspecified (E03.9)Activeconfirmed ProblemDiabetic renal disease (348146810)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)ActiveconfirmedProblemDiabetic renal disease (348133621)Type 2 diabetes mellitus with other diabetic kidney complication (E11.29)Active confirmedProblemObesity due to excess calories (288865294)Other obesity due to excess calories (E66.09)ActiveconfirmedProblemOverweight (608805583)Overweight (E66.3)ActiveconfirmedProblemLipoprotein deficiency disorder (514732791) 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)ActiveconfirmedProblemRheumatic mitral stenosis (68293354)Rheumatic mitral stenosis (I05.0)ActiveconfirmedProblemRheumatic tricuspid insufficiency (91077902)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) ActiveconfirmedProblemMitral valve disorder (08331971)Nonrheumatic mitral (valve) insufficiency (I34.0)ActiveconfirmedProblemAortic valve disorder (3639713)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)ActiveconfirmedProblem Acute diastolic heart failure (253185451)Acute diastolic (congestive) heart failure (I50.31)ActiveconfirmedProblemChronic diastolic heart failure (238489777)Chronic diastolic (congestive) heart failure (I50.32)Activeconfirmed ProblemAcute on chronic diastolic heart failure (936232632)Acute on chronic diastolic (congestive) heart failure (I50.33)ActiveconfirmedProblemHypertensive pulmonary arterial disease (13328173)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)ActiveconfirmedProblemBody mass index 30.00 to 34.99 (982995391184770) Body mass index [BMI] 31.0-31.9, adult (Z68.31)ActiveconfirmedProblemBody mass index 30.00 to 34.99 (592857525501340)Body mass index [BMI] 32.0-32.9, adult (Z68.32)ActiveconfirmedProblemBody mass index 30+ - obesity (052684393)Body mass index [BMI] 30.0-30.9, adult (Z68.30)Activeconfirmed Vital Signs Heart Rate 74 /min 11/18/2024 185.6 Respiratory Rate 16 /min 12/02/2024 Fqbvlzvj75 %85.6Blood pressure alkgpmqay35 mm Hg12/02/20244885Zdrthi08 in 12/02/2024lood pressure mm Hg12/02/20246684Aslmee062.4 lbs1MI 29.68 kg/m212/02/2024 Procedures Procedure Date Ordered Date Performed Result Body Sit e Echocardiogram 2D M Mode w/ Doppler (measure RVS P) 04/29/2024 N/ACARDIO Stress Test - Tiaqudzabw71/09/2025N/A Encounters Encounter Location Date Provider Diagnosis [facility] [place] [facility] [address] [place] [address] 01/21/[address] [facility] [place] [facility] [place] [address]/mar [facility] [address] [place] [address]/ Brock [facility] [address] [place] [address] 03/21/2024[facility] [address] [place] [address]/06/2024[facility] [address] [place] [address]/Dalee ann [facility] [address] [place] [address]/Danikeeley HerringEssential (primary) hypertension I10 and Acute diastolic (congestive) heart failure I50.31Family Practice [address] [place] [address]/Danikeeley BoyleJarvis Acute diastolic (congestive) heart failure I50.31 ; Essential (primary) hypertension I10 and Chronic diastolic (congestive) heart failure I50.32Family Practice [address] [place] [address]/08/2024Daabdoulaye Jarvis Type 2 diabetes mellitus without complications E11.9Family Practice [address] [place] [address]/10/2024Daniel HerringCandidal stomatitis B37.0 ; Encounter for immunization Z23 ; Overweight E66.3 ; Body mass index [BMI ] 29.0-29.9, adult Z68.29 ; COVID-19 U07.1 ; Urinary tract infection, site not specified N39.0 ; Weakness R53.1 ; Nonrheumatic mitral (valve) insufficiency I34.0 ; Chronic diastolic (congestive) heart failure I50.32 and Essential (primary) hypertension H[address] [address]/07/2024Daniel [facility] annual wellness exam Z00.00 ; Other obesity due to excess calories E66.09 ; Body mass index [BMI] 32.0-32.9, adult Z68.32 ; Obesity, class 1 E66.811 ; 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 ; Nonrheumatic mitral (valve) insufficiency I34.0 ; Other fatigue R53.83 ; Hypothyroidism, unspecified E03.9 ; Proteinuria, unspecified R80.9 and Type 2 diabetes mellitus with other diabetic kidney complication E11.29[address] [address] Brock HerringType 2 diabetes mellitus with other diabetic kidney [...] pulmonary arterial hypertension I27.21 and Diarrhea, unspecified R19.7[address] [address]Daniel HerringOther obesity due to excess calories E66.09 ; Body mass index [BMI] 32.0-32.9, adult Z68.32 ; Obesity, class 1 E66.811 ; Shortness of breath R06.02 ; Hypothyroidism, unspecified E03.9 ; Type 2 diabetes mellitus with other diabetic kidney complication E11.29 ; Chest pain, unspecified R07.9 and Othernonrheumatic aortic valve disorders I35.8[facility] [place] [address]/[facility] Hypothyroidism, unspecified E03.9 ; Type 2 diabetes mellitus without complications E11.9 ; Other obesity due to excess calories E66.09 ; Body mass index [BMI] 31.0-31.9, adult Z68.31 ; Obesity, class1 E66.811 ; Acute diastolic (congestive) heart failure I50.31 ; Rheumatic tricuspid insufficiency I07.1 ; Nonrheumatic mitral (valve) insufficiency I34.0 ; Rheumatic mitral stenosis I05.0 ; Essential(primary) hypertension I10 and Supraventricular tachycardia, unspecified [place]47.10[place] [address]/[facility] CenterOther obesity due to excess calories E66.09 ; Body mass index [BMI] 30.0-30.9, adult Z68.30 ; Obesity, class 1 E66.811 ; Rheumatic mitral stenosis I05.0 ; Essential (primary) hypertension I10 and Acute on chronic diastolic (congestive) heart failure I50.33[place] [address]/aniRose Medical CenterType 2 diabetes mellitus without complications E11.9 ; Encounter for screening for malignant neoplasm of prostate Z12.5 ; Hypothyroidism, unspecified E03.9 ; Encounter for immunization Z23 ; Encounter for screening for malignant neoplasm of colon Z12.11 ; Other obesity due to excess calories E66.09; Body mass index [BMI] 32.0-32.9, adult Z68.32 [...] exam yearly - dilated foot exam daily 01/29/2024Encounter for screening for malignant neoplasm of prostate (ICD-10 - Z12.5)04/29/2024[facility] annual wellness exam (ICD-10 - Z00.00) rec flu shot yearly rtc 1 year diet/exercise labs yearly eye and dental exams yearly rec prevnar 20 rec shingrix rec rsv rec dtap q10 years pt has cologuard to do at home 04/29/2024Other obesity due to excess calories (ICD-10 - E66.09) diet/exercise due to DM - see below for tx 03/17/2024Type 2 diabetes mellitus with other diabetic kidney complication (ICD- 10 - E11.29) start DAVID rec statin monitor A1c controlled bs check daily eye exam yearly - dilated foot exam daily rtc 6 months 03/17/2024Proteinuria, unspecified (ICD-10 - R80.9) start DAVID monitor bp monitor urine yearly uncontrolled bs/bp control 08/02/2024Other obesity due to excess calories (ICD-10 - E66.09)diet/exercise 08/02/2024ody mass index [BMI] 32.0-32.9, adult (ICD-10 - Z68.32)10/21/2024 Hypothyroidism, unspecified (ICD-10 - E03.9) labs yearly - adjust med based on results stable 10/21/2024Type 2 diabetes mellitus without complications (ICD-10 - E11.9) stable controlled monitor urine microalbumin at next visit 12/02/2024andidal stomatitis (ICD-10 - B37.0) ?diflucan if worsens probably thrush due to keflex use and recent illness 12/02/2024Encounter for immunization (ICD-10 - Z23)11/18/2024Other obesity due to excess calories (ICD-10 - E66.09)diet/aksuovbm26/25/2025ody mass index [BMI] 30.0-30.9, adult (ICD-10 - Z68.30)11/15/2024Essential (primary) hypertension (ICD-10 - I10)5Acute diastolic (congestive) heart failure (ICD-10 - I50.31)12/31/2024Type 2 diabetes mellitus without complications (ICD-10 - E11.9) 12/20/2024Essential (primary) hypertension (ICD-10 - I10)5Acute diastolic (congestive) heart failure (ICD-10 - I50.31)11/18/2024Obesity, class 1 (ICD-10 - E66.811)12/02/2024Overweight (ICD-10 - E66.3)diet/kpbbyurf10/28/2025 Other obesity due to excess calories (ICD-10 - E66.09)diet/pmfyrhif03/09/2025 Obesity, class 1 (ICD-10 - E66.811)03/17/2024Lipoprotein deficiency (ICD-10 - E78.6) diet/exercise rec statin due to DM 04/29/2024ody mass index [BMI] 32.0-32.9, adult (ICD-10 - Z68.32)01/29/2024 Hypothyroidism, unspecified (ICD-10 - E03.9)labs - tx based on this01/29/2024 Encounter for immunization (ICD-10 - Z23)04/29/2024Obesity, class 1 (ICD-10 - E66.811)5Acute upper respiratory infection, unspecified (ICD-10 - J06.9) monitor bs erx prednisone call if s/s worsen - fever/colored discharge/etc 08/02/2024Shortness of breath (ICD-10 - R06.02) ?etiology set up stress test ER if worsens 10/21/2024ody mass index [BMI] 31.0-31.9, adult (ICD-10 - Z68.31)12/02/2024ody mass index [BMI] 29.0-29.9, adult (ICD-10 - Z68.29)11/18/2024Rheumatic mitral stenosis (ICD-10 - I05.0) f/u cardio as directed bp control monitor weight ?surgery needed 12/20/2024hronic diastolic (congestive) heart failure (ICD-10 - I50.32) 11/18/2024Essential (primary) hypertension (ICD-10 - I10) bp check daily goal <130/80 diet/exercise monitor bmp and urine microalbumin yearly 12/02/2024OVID-19 (ICD-10 - U07.1) s/p paxlovid monitor 10/21/2024Obesity, class 1 (ICD-10 - E66.811)08/02/2024Hypothyroidism, unspecified (ICD-10 - E03.9) lab yearly stable 03/17/2024Frequency of micturition (ICD-10 - R35.0) ?UTI vs BPH vs ? d/w pt flomax if UA negative - pt to hold off psa yearly abx if culture positive 04/29/2024Other nonrheumatic aortic valve disorders (ICD-10 - I35.8)set up echo 01/29/2024Encounter for screening for malignant neoplasm of colon (ICD-10 - Z12.11)01/29/2024Other obesity due to excess calories (ICD-10 - E66.09) diet/zrmvxueg14/06/2025Nonrheumatic mitral (valve) insufficiency (ICD-10 - I34.0) set up echo ?cardio if worsens but no s/s of cardiac decompensation from valvular dz 03/17/2024Other obesity due to excess calories (ICD-10 - E66.09)diet/exercise 08/02/2024Type 2 diabetes mellitus with other diabetic kidney complication (ICD- 10 - E11.29) stable monitor a1c and bmp and urine microalbumin monitor bs rtc 6 months rec increasing DAVID - pt to hold off 5Acute diastolic (congestive) heart failure (ICD-10 - I50.31) f/u cardio as directed monitor weight diet/exercise 12/02/2024Urinary tract infection, site not specified (ICD-10 - N39.0) s/p keflex monitor for s/s resolved 5Acute on chronic diastolic (congestive) heart failure (ICD-10 - I50.33) f/u cardio as directed daily weight continue bblocker/DAVID monitor bmp 12/02/2024Weakness (ICD-10 - R53.1) rec therapy exercises 10/21/2024Rheumatic tricuspid insufficiency (ICD-10 - I07.1) f/u cardio as directed ?surgery needed 08/02/2024hest pain, unspecified (ICD-10 - R07.9) ER if worsens ?CAD 03/17/2024ody mass index [BMI] 30.0-30.9, adult (ICD-10 - Z68.30)04/29/2024 Other fatigue (ICD-10 - R53.83)?due to valvular dz01/29/2024ody mass index [BMI] 32.0-32.9, adult (ICD-10 - Z68.32)01/29/2024Obesity, class 1 (ICD-10 - E66.811)04/29/2024Hypothyroidism, unspecified (ICD-10 - E03.9) labs yearly stable 03/17/2024Obesity, class 1 (ICD-10 - E66.811)08/02/2024Other nonrheumatic aortic valve disorders (ICD-10 - I35.8)pt do echo we set up in past to r/o worsening valvular dz as cause of his SOB/mbhebxa4810/21/2024Nonrheumatic mitral (valve) insufficiency (ICD-10 - I34.0) f/u cardio as directed ?surgery needed 12/02/2024Nonrheumatic mitral (valve) insufficiency (ICD-10 - I34.0)f/u cardio and surgeon for possible MVR1hronic diastolic (congestive) heart failure (ICD-10 - I50.32) monitor weight and edema f/u cardio as directed rec TE hose for edema 10/21/2024Rheumatic mitral stenosis (ICD-10 - I05.0) f/u cardio as directed ?surgery needed 03/17/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 (ICD-10 - E11.21) uncontrolled see above start DAVID 04/29/2024Proteinuria, unspecified (ICD-10 - R80.9) start lisinopril that he never did before monitor urine microalbumin yearly uncontrolled 01/29/2024cute cough (ICD-10 - R05.1) rec claritin otc daily robitussin dm otc rtc prn 04/29/2024Type 2 diabetes mellitus with other diabetic kidney complication (ICD- 10 - E11.29) uncontrolled due to elevated urine microalbumin controlled based on A1c today diet/exercise eye exam yearly - dilated foot exam daily monitor bs 03/17/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-10 - I27.21) rec echo rec cardio bp control bs control stable 10/21/2024Essential (primary) hypertension (ICD-10 - I10) bp check daily goal <130/80 diet/exercise keep off DAVID for now 12/02/2024Essential (primary) hypertension (ICD-10 - I10) monitor BP daily goal <130/80 diet/exercise ?decrease meds more if needed 10/21/2024Supraventricular tachycardia, unspecified (ICD-10 - I47.10) continue toprol f/u holter and cardio f/u ER if dizzy/palp/CP/etc 03/17/2024Diarrhea, unspecified (ICD-10 - R19.7) hydrate monitor imodium prn 11/18/2024Other Plan Of Treatment Pending Test Test Name [...] 11/18/2024 Next Appt Details Provider Name:Brock mayberry, 02/02/2025 03:15:00 PM, [address] [place], [address], Insurance Providers Payer Name Payer Address Payer Phone Subscriber Number Group Number Insured Name Patient Relationship to Insured Coverage Start Date Coverage End Date [employer] MEDICARE ADV PLAN [address] [address] [place] [address] [id number] Be Cunningham - patient is the [id number] 2024MEDICAID [facility] [address] [place], [place] [id number] Cunningham, GabrielSelf - patient is the [id number] 2024 Medical (General) History Medical History History ICD Code prostate enlargement throat cancerdiabetesstrokediastolic CHFLVHpulm HTNmicroalbuminuriamoderate TR/MRmoderate mitral stenosisC DDDSurgical History Surgery Date(Month/Year) throat surgery heart cath - /l TKAprostate surgeryTEE - 2024Hospitalization History Reason Date(Month/Year) 2024 - covid
--- OUTSIDE RECORDS SUMMARY | 2024-12-31 13:12 | XMS_ITS | Encounter Summary ---
Author Organization [facility] Address [address] [place] [address] Care Team Providers Care Youth Probation Officer Name Role Phone Brock Jarvis Primary Care Provider [phone] Encounter Details DateTypeDepartmentCare Team (Latest Contact Info)Puhsvpngwoq28/28/2025Orders Only [facility] [address] [place] [address] Emily Jin, BERNARDA Dyspnea, unspecified type (Primary Dx) Social History Tobacco UseTypesPacks/DayYears UsedDateSmoking Tobacco: FormerCigarettes Smokeless Tobacco: NeverAlcohol UseStandard Drinks/WeekCommentsNot Currently0 (1 standard drink = 0.6 oz pure alcohol)PHQ-2AnswerDate RecordedPatient Health Questionnaire-2 Ocyiv864Sex and Gender InformationValueDate RecordedSex Assigned at AntcbHmht61/03/2025 11:46 AM EDTLegal NdcVvjw8110/18/2024 8:46 AM EDT Gender WacapsdoUfhf98/03/2025 11:46 AM EDTSexual OrientationHeterosexual or Neftfaxq28/24/2025 9:02 AM EDTSexual OrientationChoose not to fykzekhl79/24/2025 9:02 AM EDTdocumented as of this encounter Plan of Treatment DateTypeDepartmentCare Team (Latest Contact Info)Fwbeiwznltb31/25/2025 2:30 PM ESTFollow-[facility] [address] [place] [address] Vincenzo Colon, DIRECTOR OF STUDENT FINANCIAL AID [address] [facility] [place] [address] 01/24/2025 7:30 AM ESTHospital Encounter [facility] Main Operating Room [address] [place] [address] Brandan Villeda MD [address] [facility] [place] [address] 01/24/2025 7:30 AM EST - 01/24/2025 4:00 PM ESTSurgery [facility] Main Operating Room [address] [place] [address] Brandan Villeda MD [address] [place] [address] Mitral Valve Replacement withNameTypePriorityAssociated DiagnosesOrder Schedule Pulmonary function testing Spirometry; DLCOPFTRoutine Dyspnea, unspecified type Expected: 12/21/2024 (Approximate), Expires: 12/21/2025NamePriorityAssociated DiagnosesDate/TimeREPAIR OR REPLACEMENT, MITRAL VALVE Nonrheumatic mitral [...] as of this encounter Visit Diagnoses Diagnosis Dyspnea, unspecified type- Primary Nonrheumatic mitral valve regurgitation Nonrheumatic tricuspid valve regurgitation documented in this encounter Care Teams Team MemberRelationshipSpecialtyStart DateEnd Date Brock Jarvis DO [address] [place] [address] PCP - GeneralFamily Medicine10/27/24documented as of this encounter
--- OUTSIDE RECORDS SUMMARY | 2024-12-31 13:12 | XMS_ITS | Encounter Summary ---
Author Organization [facility] Address [address] [place] [address] Care Team Providers Care Grounds Manager Name Role Phone Brock Jarvis Primary Care Provider [phone] Encounter Details DateTypeDepartmentCare Team (Latest Contact Info)Aukkjlplpex98/29/2025bstract [facility] Cardiothoracic Surgery [place] [address] [place] [address] Emily Jin RN Social History Tobacco UseTypesPacks/DayYears UsedDateSmoking Tobacco: FormerCigarettes Smokeless Tobacco: NeverAlcohol UseStandard Drinks/WeekCommentsNot Currently0 (1 standard drink = 0.6 oz pure alcohol)PHQ-2AnswerDate RecordedPatient Health Questionnaire-2 Pqjab176Sex and Gender InformationValueDate RecordedSex Assigned at XyaeiTckv40/03/2025 11:46 AM EDTLegal MnkXncu3010/18/2024 8:46 AM EDT Gender YjakyebdUbra71/03/2025 11:46 AM EDTSexual OrientationHeterosexual or Wqgzvdgh04/24/2025 9:02 AM EDTSexual OrientationChoose not to chghbadk21/24/2025 9:02 AM EDTdocumented as of this encounter Plan of Treatment DateTypeDepartmentCare Team (Latest Contact Info)Vjutrgntxwj68/25/2025 2:30 PM ESTFollow-[facility] Cardioth[facility]acic Surgery [place] [address] [place] [address] Vincenzo Colon, NATURAL REMEDY CONSULTANT [address] [place] [address] 01/24/2025 7:30 AM ESTHospital Encounter [facility] Main Operating Room [address] [place] [address] Brandan Villeda MD [address] [facility] [place] [address] 01/24/2025 7:30 AM EST - 01/24/2025 4:00 PM ESTSurgery [facility] Main Operating Room [address] [place] [address] Brandan Villeda MD [address] [facility] [place] [address] Mitral Valve Replacement withNamePriorityAssociated DiagnosesDate/TimeREPAIR OR REPLACEMENT, [...] ESTdocumented as of this encounter Visit Diagnoses Not on filedocumented in this encounter Care Teams Team MemberRelationshipSpecialtyStart DateEnd Date Brock Jarvis DO [address] [place] [address] PCP - GeneralFamily Medicine10/27/24documented as of this encounter
--- OUTSIDE RECORDS SUMMARY | 2024-12-31 13:12 | XMS_ITS | Clinical Summary ---
Author Organization [employer] tem Address [id number] [address] [place] [address] Care Team Providers Care Ncqa Specialist Name Role Phone Brock Jarvis DO Primary Care Provider Allergies No known active allergies Medications MedicationSigDispense QuantityRefillsLast FilledStart DateEnd DateStatus levothyroxine (SYNTHROID, LEVOTHROID) 150 MCG tablet Take 1 tablet (150 mcg total) by mouth in the morning.Active metFORMIN (GLUCOPHAGE) 500 mg tablet Take 1 tablet (500 mg total) by mouth daily with breakfast.Active acetaminophen (TYLENOL EXTRA STRENGTH) 500 mg tablet Take 1 tablet (500 mg total) by mouth every 6 (six) hours as needed for pain. Active Active Problems ProblemNoted DateDiagnosed DatePrimary osteoarthritis of left knee02/05/2023 Immunizations ImmunizationAdministration DatesNext DueCOVID-19, mRNA, LNP-S, PF, 100mcg/0.5mL Dose05/19/2020,04/21/2020Tdap09/11/2020 Family History Medical HistoryRelationNameCommentsHeart attackMotherRelationNameStatusComments FatherDeceasedMotherDeceased Social History Tobacco UseTypesPacks/DayYears UsedDateSmoking Tobacco: NeverSmokeless Tobacco: Never Tobacco Cessation:Counseling Given: Not Answered Alcohol UseStandard Drinks/WeekCommentsNever0 (1 standard drink = 0.6 oz pure alcohol)ChildcareAnswerDate DdgnehfvKmuuwzbnlDsfxgtv62/12/2019EmploymentAnswer Date MtykfzdpUsxwedipjnPskpcrl13/12/2019Hunger ScreeningAnswerDate Recorded Within the past 12 months we worried whether our food would run out before we got money to buy more.Never True02/02/2023Within the past 12 months the food we bought just didn't last and we didn't have money to get more.Never True 3Purpose - LifeAnswerDate RecordedPurpose and direction in lifeUnknown 04/06/2020ex and Gender InformationValueDate RecordedSex Assigned at BirthNot on fileLegal LctHlnf7809/29/2014 11:36 AM EDTGender IdentityNot on fileSexual OrientationNot on file Last Filed Vital Signs Vital SignReadingTime TakenCommentsBlood Xixabieu802/6802/06/2023 7:30 AM EST Sqjqf903302/06/2023 7:30 AM MLDItkleirwslv16.7 ??C (98.1 ??F)02/06/2023 7:30 AM ESTRespiratory Zedb264304/09/2022 7:30 AM ESTOxygen Qjupbdllzo47%02/06/2023 7:30 AM ESTInhaled Oxygen Concentration--Thuunf44.9 kg (198 lb 3.2 oz)02/05/2023 2:39 PM WUJIqjxji882.2 cm (5' 7 )02/05/2023 2:39 PM ESTBody Mass Index31.04104/08/2022 2:39 PM EST Plan of Treatment Health MaintenanceDue DateLast DoneCommentsDepression Ggkdwiwgw17/17/1955Fall Risk Cbcbvcokk67/17/2008RSV ( or age 60+ yrs) (1 - 1-dose 75+ series) 2017Tobacco Epbnkyapo32/3COVID-19 Vaccine ( season), 02/25/2022, 02/20/2021, Additional history exists Influenza Btpijxk60/06/2023, 12/10/2022, 02/25/2022, Additional history existsDTaP,Tdap and Td Vaccines (2 - Td or Tdap) Zoster (Shingles) AawgaubXavazwoqh96/08/2024, 11/02/2019 Goals GoalPatient Goal TypeAssociated ProblemsRecent ProgressPatient-Stated?Author Return home Lynda Mejia MSW Note: Evaluation of progress towards goal: In progress: Return home with family support and outpatient therapy Medical Devices ImplantedTypeAreaManufacturerDevice [facility] Expiration DateModel / Serial / LotCement Bn Bio 40gm Rpl [id number] - [id number] Implanted:Qty: 2 on 02/05/2023 by Chema Stark, [facility]: KneeZimmer [id number] / NA / [id number] Fem 8 Std Kn Lt Post Stab Cmnt Persona Cocr Strl - Sna - [id number] Implanted:Qty: 1 on 02/05/2023 by Chema Stark DO at [facility] ImplantLeft: KneeZimmer [id number] / NA / [id number] Ptlr 35mm Persona Alply Kn Strl Lf - Sna - [id number] Implanted:Qty: 1 on 02/05/2023 by Chema Stark DO at [facility] ImplantLeft: KneeZimmer [id number] / NA / [id number] Artc 12mm Persona 6-9 Ef Kn Lt Vivacit-E Cnstrn Post - Sna - [id number] Implanted:Qty: 1 on 02/05/2023 by Chema Stark DO at [facility] ImplantLeft: KneeZimmer [id number] / NA / [id number] Xtn 30+ Mm 14mm Persona Tpr Kn Tib - Sna - [id number] Implanted:Qty: 1 on [facility]/05/20[facility] ImplantLeft: KneeKalinmmer [id number] / NA / [id number] Tib 5d F Kn Lt Cmnt Stm Persona Tiv Strl - Sna - [id number] Implanted:Qty: 1 on 02/05/2023 by [facility] [place] [id number] / NA / [id number]wfbyRzybxw IdentifierShelf Expiration DateModel / Serial / LotScrew Bn 35mm 6.5mm St Hip Actb Trlg Strl Rpl [id number] - Sna - [id number] Explanted:Qty: 1 on 02/05/2023 by [facility]: [facility] [id number] / NA / [id number] Bn 35mm 6.5mm St Hip Actb Trlg Strl Rpl [id number] - Sna - [id number] Explanted:Qty: 1 on 02/05/2023 by [facility]: Kneemmer [id number] / NA / [id number] 27mm Hx Hd Scr Srg - Sna - [id number] Explanted:Qty: 2 on 02/05/2023 by Chema Stark DO at [facility]wLeft: [facility] Centerer [id number] / NA / [id number] Gd 48mm Qd-Spr Hex Hd Mis Strl - Sna - [id number] Explanted:Qty: 2 on 02/05/2023 by Chema Stark DO at [facility]: KneeZimmer [id number] / NA / [id number] Insurance Advance Directives * Full Code (Latest Code Status on File) Date ActivatedDate MtqlfwqdupqJvxwwcmm56/13/2023 7:41 AM02/06/2023 3:40 PM Care Teams Team MemberRelationshipSpecialtyStart DateEnd Date Brock Jarvis DO [address] [place] [address] PCP - GeneralFamily Wylrsdwz55/21/24
--- OUTSIDE RECORDS SUMMARY | 2024-12-31 13:12 | XMS_ITS | Encounter Summary ---
Author Organization [facility] Address [address] [place] [address] Care Team Providers Care Senior Accounting Clerk Name Role Phone JarvisBrock Primary Care Provider [phone] Encounter Details DateTypeDepartmentCare Team (Latest Contact Info)Wvzvkgoxwui00/30/2025Orders Only [facility] Vascular Cardiothoracic [facility] [address] [place] [address] Emily Jin RN Nonrheumatic mitral valve regurgitation (Primary Dx); Nonrheumatic tricuspid valve regurgitation Social History Tobacco UseTypesPacks/DayYears UsedDateSmoking Tobacco: FormerCigarettes Smokeless Tobacco: NeverAlcohol UseStandard Drinks/WeekCommentsNot Currently0 (1 standard drink = 0.6 oz pure alcohol)PHQ-2AnswerDate RecordedPatient Health Questionnaire-2 Tvvaq023Sex and Gender InformationValueDate RecordedSex Assigned at ReartNykp94/03/2025 11:46 AM EDTLegal IlnCdmo7810/18/2024 8:46 AM EDT Gender XkjujuhuHuip24/03/2025 11:46 AM EDTSexual OrientationHeterosexual or Cnoujxkd30/24/2025 9:02 AM EDTSexual OrientationChoose not to vudkbxhl39/24/2025 9:02 AM EDTdocumented as of this encounter Plan of Treatment DateTypeDepartmentCare Team (Latest Contact Info)Qouzycmjdvz06/25/2025 2:30 PM ESTFollow-[facility] Vascular Cardiothoracic Surgery [place] [address] [facility] [place] [address] Vincenzo Colon, MARKETING SALES REPRESENTATIVE [address] [place] [address] 01/24/2025 7:30 AM ESTHospital Encounter [facility] Main Operating Room [address] [place] [address] Brandan Villeda MD [address] [place] [address] 01/24/2025 7:30 AM EST - 01/24/2025 4:00 PM ESTSurgery [facility] Main Operating Room [address] [place] [address] Brandan Villeda MD [address] [place] [address] Mitral Valve Replacement withNameTypePriorityAssociated DiagnosesDate/TimeTEE EchocardiographyRoutine Nonrheumatic mitral valve regurgitation Nonrheumatic tricuspid valve regurgitation 12/24/2024 11:11 AM EDTNameTypePriorityAssociated DiagnosesOrder ScheduleTEE EchocardiographyRoutine Nonrheumatic mitral valve regurgitation Nonrheumatic tricuspid valve regurgitation Expected: 12/25/2024, Expires: 12/24/2025NamePriorityAssociated Diagnoses Date/TimeREPAIR OR REPLACEMENT, MITRAL VALVE Nonrheumatic mitral valve [...] encounter Visit Diagnoses Diagnosis Nonrheumatic mitral valve regurgitation- Primary Nonrheumatic tricuspid valve regurgitation Nonrheumatic mitral valve regurgitation Nonrheumatic tricuspid valve regurgitation Nonrheumatic mitral valve regurgitation Nonrheumatic tricuspid valve regurgitation documented in this encounter Care Teams Team MemberRelationshipSpecialtyStart DateEnd Date Brock Jarvis DO [address] [place] [address] PCP - GeneralFamily Medicine10/27/24documented as of this encounter
--- OUTSIDE RECORDS SUMMARY | 2024-12-31 13:12 | XMS_ITS | Clinical Summary ---
Author Organization [facility] Address [address] [place] [address] Care Team Providers Care Medical Record Administrator Name Role Phone Chema Roe MD Primary Care Provider [phone] Allergies No known active allergies Medications MedicationSigDispense QuantityRefillsLast FilledStart DateEnd DateStatus metFORMIN (Glucophage) 500 MG tablet 1 (one) time each day at the same time.Active levothyroxine (Synthroid, Levoxyl) 150 MCG tablet TAKE 1 TABLET BY MOUTH ONCE DAILY IN THE MORNING ON AN EMPTY STOMACH FOR 90 DAYS Active acetaminophen (Tylenol) 500 MG tablet Take 500 mg by mouth every 6 (six) hours if needed.Active Multiple Vitamin (Multi Vitamin) tablet 1 (one) time each day at the same time.Active aspirin 325 MG tablet 1 (one) time each day at the same timeActive Active Problems ProblemNoted DateDiagnosed DateAcute pain of left knee02/09/2023Status post left knee yrcsduuvtpw11/17/2023ifficulty jyeurtw2002/09/20234507Guwbgzeytbhlhz75/13/2023 Mixed conductive and sensorineural hearing loss, mehtfbpgj15/13/2023Type 2 diabetes mellitus with neurological avgoxnbduiipl18/13/2023rthritis of left knee11/06/2022rimary osteoarthritis of left knee11/05/2022 Immunizations ImmunizationAdministration DatesNext DueInfluenza, High-dose Seasonal, Quadrivalent, Preservative Free02/25/2022,11/02/2019Influenza, injectable, MDCK, preservative free, pgewkzjnyfxz79/18/2019Influenza, seasonal, injectable, preservative free12/16/20168746HCJQ-GKV-3 (COVID-19) vaccine, mRNA, spike protein, LNP, bivalent, PF02/25/2022Tdap09/11/2020Zoster, Wxagevwjkdv71/08/2020 Family History Medical HistoryRelationNameCommentsDiabetesMotherHeart diseaseOthersiblings RelationNameStatusCommentsFatherDeceasedMotherDeceasedOthersiblings Social History Tobacco UseTypesPacks/DayYears UsedDateSmoking Tobacco: FormerCigarettes Smokeless Tobacco: Never Tobacco Cessation:Counseling Given: Not Answered Alcohol UseStandard Drinks/WeekCommentsNever0 (1 standard drink = 0.6 oz pure alcohol)caffeine intake: 1-2 cups per day coffeeSex and Gender InformationValue Date RecordedSex Assigned at BirthNot on fileLegal UbtWyxt0305/08/2022 6:56 PM EDT Gender IdentityNot on fileSexual OrientationNot on file Last Filed Vital Signs Vital SignReadingTime TakenCommentsBlood Yvzapbnd812/71005/03/2019 12:00 PM EDT Pulse--Temperature--Respiratory Rate--Oxygen Saturation--Inhaled Oxygen Concentration--Vhmfun97.5 kg (195 lb)01/09/2023 10:14 AM VOWBrzyze756.7 cm (5' 8 )01/09/2023 10:14 AM ESTBody Mass Index29.6501/09/2023 10:14 AM EST Plan of Treatment Not on file Insurance Care Teams Team MemberRelationshipSpecialtyStart DateEnd Date Chema Roe MD [address] [place] [address] PCP - GeneralFamily Medicine10/11/22
--- OUTSIDE RECORDS SUMMARY | 2024-12-31 13:12 | XMS_ITS | Encounter Summary ---
Author Organization [facility] Address [address] [place] [address] Care Team Providers Care Bag Adjuster Name Role Phone Brock Jarvis Primary Care Provider [phone] Reason for Visit * ReasonOnset DateCommentsSurgery Date12/23/2024 Encounter Details DateTypeDepartmentCare Team (Latest Contact Info)Ojvmfkcbzzg30/30/2025Telephone [facility] [address] [place] [address] Emily Jin RN Surgery Date Social History Tobacco UseTypesPacks/DayYears UsedDateSmoking Tobacco: FormerCigarettes Smokeless Tobacco: NeverAlcohol UseStandard Drinks/WeekCommentsNot Currently0 (1 standard drink = 0.6 oz pure alcohol)PHQ-2AnswerDate RecordedPatient Health Questionnaire-2 Cenjo235Sex and Gender InformationValueDate RecordedSex Assigned at XfkjpTosi22/03/2025 11:46 AM EDTLegal HogZwkm1410/18/2024 8:46 AM EDT Gender AgcxirtiBmet70/03/2025 11:46 AM EDTSexual OrientationHeterosexual or Erriaoie72/24/2025 9:02 AM EDTSexual OrientationChoose not to ampktvah71/24/2025 9:02 AM EDTdocumented as of this encounter Miscellaneous Notes * Telephone Encounter - Emily Jin RN - 12/23/2024 10:00 AM EDT LVM with call back number regarding surgery date. documented in this encounter Plan of Treatment DateTypeDepartmentCare Team (Latest Contact Info)Fmldrdiqnan67/25/2025 2:30 PM ESTFollow-Up [facility] [address] [place] [address] Vincenzo Colon, WELLNESS CONSULTANT [address] [place] [address] 01/24/2025 7:30 AM ESTHospital Encounter [facility] Main Operating Room [address] [place] [address] Brandan Villeda MD [address] [facility] [place] [address] 01/24/2025 7:30 AM EST - 01/24/2025 4:00 PM ESTSurgery [facility] Main Operating Room [address] [place] [address] Brandan Villeda MD [address] [facility] [place] [address] Mitral Valve Replacement withNamePriorityAssociated DiagnosesDate/TimeREPAIR OR REPLACEMENT, [...] DateEnd Date Brock Jarvis DO [address] [place] [address] PCP - GeneralFamily Medicine10/27/24documented as of this encounter
--- OUTSIDE RECORDS SUMMARY | 2024-12-31 13:12 | XMS_ITS | Patient Health Record ---
Author Organization [facility] Address [address] [place], [place] [id number] Care Team Providers Care Directory Clerk Name Role Phone Norma Eric Primary Care Provider Chema Roe Unavailable [phone] Allergies No Known Allergies Reason For Referral No Information Medications Medication SIG (Take, Route, Frequency, Duration) Notes Start Date End Date Status Levothyroxine Sodium 150 MCG 1 capsule i n the morning on an empty stomach Orally Once a day; Duration: 90 days ActivemetFORMIN HCl 500 MG1 tablet with a meal Oral Once a day; Duration: 90 daysActiveAcetaminophen 500 MG1 tablet as needed Orally as neededActive Immunizations Vaccine Route Administration Date Status Comme [...] No patient entered data CAGE-AID Score 0 InterpretationNegativePRAPARE Question Answer Notes Date Completed/Updated: 08/20/2023 libia [...] work (ex. student, retired, disabled, unpaid primary caregiver assisted living) patient entered data Has lack of transportation k ept you from medical appointments, meetings, work or from getting things needed for daily living? No How often do you see or talk to people that you care about and feel close to? (For example: talkingto friends on the phone, visiting friends or family, going to mu-ism or club meetings)1 or 2 times a weekpatient entered dataHow stressed are you? Stress is when someone feels tense, nervous, anxious, or can't sleep at nightbecause their mind is troubledNot at allpatient entered dataIn the past year have you spent more than 2 nights in a row in a usp, assisted, long-term center, orjuvenile correctional facility?Nopatient entered dataAre you a refugee?Nopatient entered dataWhat country are you from?[place] patient entered dataDo you feel physically and emotionally safe where you currently live?Yespatient entered dataIn the past year, have you been afraid of your partner or ex-partner?Nopatient entered dataPRAPARE Score:8 Problems Problem Type SNOMED Code ICD Code Onset Dates Problem Status W/U Status Risk Notes Problem Benign prostatic hyp ertrophy without outflow obstruction (125628154) Benign prostatic hyperplasia without lower urinary tract symptoms (N40.0) ActiveconfirmedProblemType II diabetes mellitus without complication (034028941) Type 2 diabetes mellitus without complication, without long-term current use of insulin (E11.9)ActiveconfirmedLABS PRIOR TO NEXT VISIT , SEPTProblemMitral regurgitation (98574768)Mitral regurgitation (I34.0)ActiveconfirmedASYMPTOMATIC, ECHO JULY 2021, SEE ECG FOLDER. SAW CARDS, MURMUR IS UNCHANGEDProblemValvular heart disease (157312)Valvular heart disease (I38)Activeconfirmedaortic stenosis, will have them make appt with cardiology for their input also.Problem Acquired hypothyroidism (898412379)Acquired hypothyroidism (E03.9)Active confirmedWILL ORDER LABS FOR SEPT,ProblemAllergic rhinitis (97551637)Allergic rhinitis, unspecified seasonality, unspecified trigger (J30.9)Activeconfirmed TRIAL OF LORATADINE.ProblemSensorineural hearing loss of bilateral ears (disorder) (147754494)Sensorineural hearing loss, bilateral (H90.3)Active confirmedComment:Please refer to the hearing center in [place] for hearing loss to bilateral ears; they tried to call themselves, and it requires a referral, ProblemPyoderma (50846143)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 Therefore, I think it likely this is bullous impetigo, respoinding well. finish out the doxy; Use OTC moisturizing cream BID to the involved area., ProblemIngrowing nail (244163937)Ingrowing nail (L60.0)Activeconfirmed Comment:Offending ingrown lateral nail border was able to be removed with debridement of nail. Symptomatic relief obtained with debridement,Problem Essential hypertension (41034854)Essential hypertension (I10)Activeconfirmed Comment:Doing well without any meds. 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 Use Naproxen prn.,Description:Osteoarthritis of kneeProblemType II diabetes mellitus without complication (961378399)Diabetes (E11.9)ActiveconfirmedComment:At goal, 6.5; same regimen, diet and exercise. (has enough meds for now),ProblemHyperlipidemia (53796378)Hyperlipidemia (E78.5)ActiveconfirmedComment:Continue with low fat diet and increased exercise as able,ProblemDepression screening (145392884) Screening for depression (Z13.31)ActiveconfirmedDescription:Depression screening ProblemHyperlipidaemia (73725016)HLD (hyperlipidemia) (E78.5)Activeconfirmed Comment:CONTROLLED WITH DIET, LDL 62, NO NEED FOR STATIN.,ProblemOnychomycosis caused by dermatophyte (381571124)Dermatophytosis, nail (B35.1)Activeconfirmed Comment:Discussed diagnosis of onychomycosis with the pt along with treatment options of doing nothing vs oral antifungal vs topical anti fungal. They opted for oral Lamisil. Discussed potential negative side effects along with the growth cycle of 9-12 months of toenails. Rx for AST, ALT and Alk phos to be completed - pt to wait to hear from [facility] about results before taking the medication. Instructed on taking one tab daily x 3 months. D/C if any negative side effects are experienced.,ProblemDM - Diabetes mellitus (38231761)DM (diabetes mellitus) (E11.9)ActiveconfirmedComment:doing well, continue current regimen.,ProblemFungal infection of nail (568394294)Fungal infection of nail (B35.1)Activeconfirmed Comment:dry out toe nails apply tea tree oil daily not every third day wear only non cotton socks use cotton socks for stocking for Hector not for feet,Description:Onychomycosis ProblemTick bite (96697019)Tick bite (W57.XXXA)ActiveconfirmedComment:From his description, sounds like a DOG Tick, not a DEER tick, but due to the question as to which, he was treated two weeks with doxy, finished it no problems, REASSURED.,ProblemOnychomycosis caused by dermatophyte (026477323)Fungal infection of toenail (B35.1)ActiveconfirmedComment:Finishing his course of Rx, seems to be responding; follow up in 3 months.,Description:Onychomycosis of toenailProblemLentigo maligna (13451729)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 REFER to Derm, BARBARA,Problem Type II diabetes mellitus without complication (369811498)Diabetes mellitus, controlled (E11.9)ActiveconfirmedComment:doing well, SAME Regimen; continue good exercise and eating habits.,ProblemArthritis of knee (189498101)Arthritis of knee (M17.10)ActiveconfirmedComment:Degenerative; mild. Rx PRN (not daily) naproxen 500mg.,ProblemPre-procedure evaluation check (387893145)Preoperative examination (Z01.818)Activeconfirmed Comment:I do NOT yet have the lab results, nor CXR, [facility] reports [facility] this [facility], [place] has no specific hx of cardiopulmonary disease. Exam is normal, DM has been under control. Will provisionally indicate him to be at ''LOW RISK'' for perioperative cardiopulmonary complications. See attached letter; IF any of the results of the preoperative testing are abnormal, then I will require reevaluationof his risk assessment, which will postpone his surgery., ProblemOsteoarthritis of knee (241998141)Osteoarthritis, knee (M17.10)Active confirmedComment:Left knee; somehwat worse than previously; no instability. Will check Xray. Meahwhile, acetaminophen prn (which does work for him).,Problem Hypertension (44264429)HTN (hypertension) (I10)ActiveconfirmedComment:Good control with lifestyle measures, samir. salt limitation; Will get labs today (also regarding his DM), then follow up.,ProblemRequires vaccination (903668289)Need for immunization against influenza (Z23)ActiveconfirmedDescription:Flu vaccine needProblemDiabetes mellitus (57573469)Diabetes mellitus (E11.9)Activeconfirmed Comment:perfect, with A1C = 6.1, on current regimen. 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 CONTINUE with therapy as ordered per his Ortho., ProblemSensorineural hearing loss (24923826)Sensorineural hearing loss (H90.5) ActiveconfirmedComment:wiil GIVE CONTACT INFO for audiology.,ProblemType II diabetes mellitus well controlled (750666506)DM II (diabetes mellitus, type II), controlled (E11.9)ActiveconfirmedComment:A1C at goal, doing well with current regimen.,ProblemDental abscess (604463412)Dental abscess (K04.7)Activeconfirmed Comment:With associated cellulitis, IMPROVING. FINISH antibiotics as prescribed, MAKE APPT WITH DENTIST, BARBARA, for possible extraction or other appropriate dental work, as recurrence without such treatment, is likely. jrr,ProblemPain in limb (77125004)Acute foot pain (M79.673)ActiveconfirmedProblemAnemia due to blood loss (932805746)Anemia, blood loss (D50.0)ActiveconfirmedComment:Rx FeSO4 BID for 6 weeks, check CBC prior to next visit.,ProblemType II diabetes mellitus without complication (343570499)Controlled diabetes mellitus (E11.9)Active confirmedComment:Doing well, no complications; needs nails trimmed, will get appt with slubber tender. Same regimen.,ProblemGait abnormality (32207297)Gait abnormality (R26.9)Activeconfirmed Plan Of Treatment No Information Insurance Providers Payer Name Payer Address Payer Phone Subscriber Number Group Number Insured Name Patient Relationship to Insured Coverage Start Date Coverage End Date DMedicaid [address] [place], [place] [id number] Be Cunningham - patient is the [id number] [address] [address] [place] [id number], GabrielSelf - patient is the [id number] 2021Medicaid Crossover[address] [place], [place] [id number], GabrielSelf - patient is the [id number] 2009 Medical (General) History Medical History History ICD Code Hypothyroidism Arthritis of kneeDiabetes Mellitus, Type IIHypertensionProstate cancerThyroid cancerSurgical History Surgery Date(Month/Year) Cholecystectomy ProstatectomyThyroidectomyleft knee [id number] History Reason Date(Month/Year) See Above
[2024-12-31 13:19] LABS: Hemoglobin 13.1 g/dL (14.0-18.0)
== END 2024-12-31 13:09 | disposition home or self-care (01) ==
LOC: CARD 13:08
PROVIDERS: PCP Family Medicine
DX: R06.09 Other forms of dyspnea (principal)
CPT/HCPCS: 36415; 85018; 94010; 94726; 94729